=== PATIENT | female | born 1990 | race Caucasian/White ===

== ENCOUNTER 2018-03-02 17:11 | Emergency (ER) | payer BC ==
[2018-03-02] MEDS ORDERED: DEXAMETHASONE 10 MG/ML VIAL ONE (18:24)
[2018-03-02] MEDS ORDERED: MORPHINE 4 MG/ML SYR ONE (18:25)
[2018-03-02] MEDS ORDERED: ONDANSETRON 4 MG/2 ML VIAL ONE (18:25)
[2018-03-02] MEDS ORDERED: KETOROLAC 30 MG/ML INJ ONE (18:25)
--- NOTE | 2018-03-02 20:11 | EDPHYS ---
Physician Documentation [facility] Name: Zaira Zuniga Age: 27 yrs Sex: Female : 1990 Arrival Date: 03/02/2018 Time: 17:15 Bed 15 Private MD: ED Physician Rakan Lockwood HPI: 03/02 17:40 This 27 yrs old Female presents to ER via EMS with complaints of Back Injury. jmm 17:40 The patient presents with pain that is acute. Onset: The symptoms/episode jmm began/occurred acutely, just prior to arrival. The pain radiates to the right leg and left leg. Associated signs and symptoms: Pertinent negatives: dysuria, hematuria, incontinence, numbness, urinary retention, weakness. This is a 27 year old female with a history of scoliosis, endometriosis that presents to the ED with lower back pain. Patient states she was lifting her right leg and felt a pop while working in her garden. Complains of lower back pain which radiates down both legs. Denies fecal incontinence, numbness. . 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 - Social history:: Smoking status: Patient/guardian denies using tobacco. - Ebola Screening: : No symptoms or risks identified at this time. ROS: 17:40 Constitutional: Negative for fever, chills, and weight loss, Eyes: Negative for injury, jmm pain, redness, and discharge, Cardiovascular: Negative for chest pain, palpitations, and edema, Respiratory: Negative for shortness of breath, cough, wheezing, and pleuritic chest pain, Abdomen/GI: Negative for abdominal pain, nausea, vomiting, diarrhea, and constipation. 17:40 Back: Positive for pain with movement. 17:40 MS/extremity: Positive for pain. 17:40 All other systems are negative. Exam: 17:40 Head/Face: atraumatic. Eyes: EOMI, no conjunctival erythema appreciated ENT: Moist jmm Mucus Membranes Chest/axilla: Normal chest wall appearance and motion. Cardiovascular: Regular rate and rhythm. No edema appreciated Respiratory: Normal respirations, no respiratory distress appreciated Abdomen/GI: Non distended, soft 17:40 Constitutional: The patient appears in no acute distress, alert, awake. 17:40 Back: pain, that is moderate, of the lumbar area. 17:40 Musculoskeletal/extremity: pain on straight leg raise bilaterally, extensor hallucis longus intact bilaterally. . 17:40 Neuro: Orientation: is normal, Mentation: is normal, Memory: is normal. 17:40 Psych: Behavior/mood is pleasant, cooperative. Vital Signs: 17:17 Weight 80.74 kg (R); Height 5 ft. 0 in. (152.40 cm) (R); aa5 17:23 BP 123 / 81; Pulse 85; Resp 20; Temp 98.1(O); Pulse Ox 100% on R/A; Pain 10/10; em 18:40 BP 124 / 88; Pulse 81; Resp 16; Pulse Ox 100% on R/A; em 19:15 BP 115 / 79; Pulse 79; Resp 19 S; Temp 98.1(O); Pulse Ox 100% on R/A; Pain 0/10; cc3 20:10 BP 118 / 77; Pulse 75; Resp 17 S; Pulse Ox 99% on R/A; cc3 17:17 Body Mass Index 34.76 (80.74 kg, 152.40 cm) aa5 MDM: 17:40 Patient medically screened. [facility] 20:09 Data reviewed: vital signs, nurses notes. Counseling: I had a detailed discussion with sasha the patient and/or guardian regarding: the historical points, exam findings, and any diagnostic results supporting the discharge/admit diagnosis, the need for outpatient follow up, to return to the emergency department if symptoms worsen or persist or if there are any questions or concerns that arise at home. Response to treatment: the patient's symptoms have markedly improved after treatment. 03/02 18:17 Order name: Urine Dipstick--Ancillary (enter results); Complete Time: 20:24 bd 03/02 18:18 Order name: Urine --Ancillary (enter results); Complete Time: 20:24 bd 03/02 17:40 Order name: Lumbar Spine (3 Views) XRAY [facility] 03/02 17:40 Order name: Urine Dipstick-Ancillary (obtain specimen); Complete Time: 18:27 [facility] 03/02 17:40 Order name: Urine Test (obtain specimen); Complete Time: 18:27 [facility] Administered Medications: 18:16 Not Given (Other Intervention Used): Clements 10 mg-325 mg 1 tabs PO once aa5 18:16 Not Given (Other Intervention Used): Valium 5 mg PO once aa5 18:27 Drug: Zofran 4 mg Route: IVP; Site: right antecubital; aa5 19:15 Follow up: Response: No adverse reaction; Nausea is decreased cc3 18:28 Drug: Ketorolac 30 mg Route: IVP; Site: right antecubital; aa5 19:15 Follow up: Response: No adverse reaction; Pain is decreased cc3 18:31 Drug: morphine 4 mg Route: IVP; Site: right antecubital; aa5 19:15 Follow up: Response: No adverse reaction cc3 18:33 Drug: Decadron - Dexamethasone 10 mg Route: IVP; Site: right antecubital; aa5 19:15 Follow up: Response: No adverse reaction cc3 Disposition: 03/02/18 20:10 Discharged to Home. Impression: Sprain of ligaments of lumbar spine. - Condition is Stable. - Discharge Instructions: Back Pain, Adult. - Prescriptions for Ibuprofen 800 mg Oral Tablet - take 1 tablet by ORAL route every 8 hours As needed take with food; 30 tablet. Ultracet 37.5- 325 mg Oral Tablet - take 1 tablet by ORAL route every 6 hours - for up to 5 days; do not exceed 8 tablets per day.; 12 tablet. orphenadrine citrate 100 mg Oral Tablet Sustained Release - take 1 tablet by ORAL route 2 times per day As needed; 20 tablet. - Medication Reconciliation Form, Thank You Letter, Antibiotic Education, Prescription Opioid Use, Family Work Release form. - Follow up: Private Physician; When: 2 - 3 days; Reason: Recheck today's complaints, Continuance of care, Re-evaluation by your physician. Addendum: 03/10/2018 11:46 Co-signature as Attending Physician, Rakan Lockwood MD. g s Signatures: Dispatcher [employer] EDMS Kali Fraser PA PA jmm Calderon, Audri, RN RN aa5 Rakan Lockwood MD MD gs Cordel, Charlene cc3 Corrections: (The following items were deleted from the chart) 03/02 20:26 20:10 03/02/2018 20:10 Discharged to Home. Impression: Sprain of ligaments of lumbar cc3 spine. Condition is Stable. Forms are Medication Reconciliation Form, Thank You Letter, Antibiotic Education, Prescription Opioid Use. Follow up: Private Physician; When: 2 - 3 days; Reason: Recheck today's complaints, Continuance of care, Re-evaluation by your physician. sasha
--- NOTE | 2018-03-02 20:11 | ER ---
Nurse's Notes [facility] Name: Zaira Zuniga Age: 27 yrs Sex: Female : 1990 Arrival Date: 03/02/2018 Time: 17:15 Bed 15 Private MD: Diagnosis: Sprain of ligaments of lumbar spine Presentation: 03/02 17:15 Presenting complaint: Patient states: "I was kicking a shovel into the ground when I aa5 felt a pop on my back and I fell to the ground". Pt denies head injury, negative LOC. Pt c/o lower back pain. Transition of care: patient was not received from another setting of care. Onset of symptoms was March 02, 2018. Risk Assessment: Do you want to hurt yourself or someone else? Patient reports no desire to harm self or others. Initial Sepsis Screen: Does the patient meet any 2 criteria? No. Patient's initial sepsis screen is negative. Does the patient have a suspected source of infection? No. Patient's initial sepsis screen is negative. Care prior to arrival: None. 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 - Social history:: Smoking status: Patient/guardian denies using tobacco. - Ebola Screening: : No symptoms or risks identified at this time. Screenin:20 Abuse screen: Denies threats or abuse. Nutritional screening: No deficits noted. em Tuberculosis screening: No symptoms or risk factors identified. Fall Risk None identified. Assessment: 17:20 General: Appears in no apparent distress. uncomfortable, Behavior is cooperative, em crying. Pain: Complains of pain in lumbar area Pain currently is 10 out of 10 on a pain scale. Neuro: Level of Consciousness is awake, alert, obeys commands, Oriented to person, place, time, situation. Cardiovascular: Capillary refill < 3 seconds Patient's skin is warm and dry. Respiratory: Airway is patent Respiratory effort is even, unlabored, Respiratory pattern is regular, symmetrical. GI: Abdomen is round non-distended, Abd is soft and non tender X 4 quads. : No signs and/or symptoms were reported regarding the genitourinary system. EENT: No signs and/or symptoms were reported regarding the EENT system. Derm: Skin is intact, Skin is pink, warm \\T\\ dry. Musculoskeletal: Circulation, motion, and sensation intact. Capillary refill < 3 seconds, in bilateral toes. Range of motion: limited in left hip and right hip. 17:20 Reassessment: I agree with assessment completed by Azam Esqueda LVN. aa5 18:39 Reassessment: Patient appears in no apparent distress at this time. Patient and/or em family updated on plan of care and expected duration. Pain level reassessed. Patient is alert, oriented x 3, equal unlabored respirations, skin warm/dry/pink. 18:48 Reassessment: pt wheeled to CT via wheelchair, tolerated well. em 19:10 Reassessment: Patient appears in no apparent distress at this time. Patient and/or em family updated on plan of care and expected duration. Pain level reassessed. Patient is alert, oriented x 3, equal unlabored respirations, skin warm/dry/pink. rates pain 4/10 Patient states feeling better. 19:15 Reassessment: Patient appears in no apparent distress at this time. Patient and/or cc3 family updated on plan of care and expected duration. Pain level reassessed. Patient is alert, oriented x 3, equal unlabored respirations, skin warm/dry/pink. Received this female patient from morning shift RJ Nascimento as a case of low back injury; with IV cannula gauge 22 at the right ACV saline locked. 20:20 Reassessment: Patient appears in no apparent distress at this time. Patient and/or cc3 family updated on plan of care and expected duration. Pain level reassessed. Patient is alert, oriented x 3, equal unlabored respirations, skin warm/dry/pink. LARS Fraser discharged home the patient with prescription given. IV cannula removed and patient left ER vitally stable and ambulatory with her . Vital Signs: 17:17 Weight 80.74 kg (R); Height 5 ft. 0 in. (152.40 cm) (R); aa5 17:23 BP 123 / 81; Pulse 85; Resp 20; Temp 98.1(O); Pulse Ox 100% on R/A; Pain 10/10; em 18:40 BP 124 / 88; Pulse 81; Resp 16; Pulse Ox 100% on R/A; em 19:15 BP 115 / 79; Pulse 79; Resp 19 S; Temp 98.1(O); Pulse Ox 100% on R/A; Pain 0/10; cc3 20:10 BP 118 / 77; Pulse 75; Resp 17 S; Pulse Ox 99% on R/A; cc3 17:17 Body Mass Index 34.76 (80.74 kg, 152.40 cm) aa5 ED Course: 17:15 Patient arrived in ED. aa5 17:16 Triage completed. aa5 17:16 Arm band placed on. aa5 17:17 Kali Fraser PA is PHCP. m 17:17 Rakan Lockwood MD is Attending Physician. jmm 17:20 Patient has correct armband on for positive identification. Bed in low position. Call em light in reach. Side rails up X2. Adult w/ patient. 17:23 Azam Esqueda LVN is Primary Nurse. em 18:15 Urine collected: straight cath specimen, clear. 5 18:25 Inserted saline lock: 22 gauge in right antecubital area, using aseptic technique. em 18:53 Lumbar Spine (3 Views) XRAY In Process Unspecified. EDMS 20:20 No provider procedures requiring assistance completed. IV discontinued, intact, cc3 bleeding controlled, No redness/swelling at site. Pressure dressing applied. Administered Medications: 18:16 Not Given (Other Intervention Used): Hobbs 10 mg-325 mg 1 tabs PO once aa5 18:16 Not Given (Other Intervention Used): Valium 5 mg PO once aa5 18:27 Drug: Zofran 4 mg Route: IVP; Site: right antecubital; aa5 19:15 Follow up: Response: No adverse reaction; Nausea is decreased cc3 18:28 Drug: Ketorolac 30 mg Route: IVP; Site: right antecubital; aa5 19:15 Follow up: Response: No adverse reaction; Pain is decreased cc3 18:31 Drug: morphine 4 mg Route: IVP; Site: right antecubital; aa5 19:15 Follow up: Response: No adverse reaction cc3 18:33 Drug: Decadron - Dexamethasone 10 mg Route: IVP; Site: right antecubital; aa5 19:15 Follow up: Response: No adverse reaction cc3 Outcome: 20:10 Discharge ordered by . sasha 20:20 Discharged to home ambulatory, with family. cc3 20:20 Condition: stable 20:20 Discharge instructions given to patient, family, Instructed on discharge instructions, follow up and referral plans. medication usage, Demonstrated understanding of instructions, follow-up care, medications, Prescriptions given X 3. 20:26 Patient left the ED. cc3 Signatures: Dispatcher [employer] EDMS Kali Fraser PA PA jmm Munoz, Edgar, TECHNICAL SUPPORT 1 SOFTWARE ENGINEER TECHNICAL SUPPORT 1 SOFTWARE ENGINEER Pennie Whitlock, RN RN Aurelia Amaya Milvia Carrillo cc3
[2018-03-02 20:18] LABS: Urine Blood TRACE (NEG); Urine Glucose NEGATIVE (NEG); Urine Protein 1+ (NEG)
[2018-03-02 20:44] VITALS: TEMP 98.1; O2SAT 100
[2018-03-02 20:45] VITALS: BP 124/88
--- NOTE | 2018-03-02 20:47 | RAD REPORT ---
EXAM DESCRIPTION: RAD - Lumbar Spine 3 Views - 03/02/2018 6:56 pm CLINICAL HISTORY: Back pain following trauma COMPARISON: None. FINDINGS: A three-view lumbar spine examination was performed. Lumbar bodies are normal in height an d alignment. No fracture or acute bony process seen. No disc space narrowing. No other significant fi ndings. No pars defects identified. IMPRESSION: Negative Lumbar Spine examination. Concerns for disc herniation, occult bone process or central canal abnormality can be addressed with MR imaging.
== END 2018-03-02 20:26 | disposition home or self-care (01) ==
LOC: ER 17:11
DX: S33.5XXA Sprain of ligaments of lumbar spine, initial encounter (principal); Y93.H2 Activity, gardening and landscaping; Y92.007 Garden or yard of unspecified non-institutional (private) residence as the place of occurrence of the external cause; Z91.040 Latex allergy status
CPT/HCPCS: 72100; 81003; 81025; 96374; 96375; 99284; J1100; J2405

== ENCOUNTER 2018-07-23 11:26 | Emergency (ER) | payer BC ==
[2018-07-23 12:47] LABS: Absolute Lymphocytes (CBC) 1.1 K/uL (0.7-4.9); Absolute Monocytes 0.5 K/uL (0.1-1.3); Absolute Neutrophil 2.4 K/uL (1.8-8.0); Basophils % 0.4 % (0-1.3); Hematocrit 36.9 % (36.0-45.0); Lymphocytes % 26.7 % (15.3-44.8); MPV 9.4 fL (7.6-11.3); Monocytes % 11.8 % (3.3-12.3); RBC Red Blood Cell Count 4.05 M/uL (3.86-4.86)
[2018-07-23 13:04] LABS: BUN Blood Urea Nitrogen 10 mg/dL (7-18); Bicarbonate 27 mmol/L (21-32); Glucose Level 81 mg/dL (74-106); HCG, Quantitative 18 mIU/mL (1-3); Potassium 3.8 mmol/L (3.5-5.1); Sodium Level 142 mmol/L (136-145)
--- NOTE | 2018-07-23 13:28 | EDPHYS ---
Physician Documentation [facility] Name: Zaira Zuniga Age: 27 yrs Sex: Female : 1990 Arrival Date: 07/23/2018 Time: 11:30 Bed 19 Private MD: None, None ED Physician Alec Sifuentes HPI: 07/23 13:04 This 27 yrs old Female presents to ER via Ambulatory with complaints of snw Vaginal Bleeding, + Preg <12wks. 13:04 The patient presents with vaginal bleeding that is moderate, heavy. Onset: The snw symptoms/episode began/occurred suddenly, 2 day(s) ago, and became persistent. Modifying factors: The symptoms are alleviated by nothing. Associated signs and symptoms: Pertinent positives: vaginal bleeding. Severity of symptoms: At their worst the symptoms were moderate. The patient's method of control includes nothing. It is unknown whether or not the patient has had similar symptoms in the past. Sees Dr. Robles in ED. 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 - Social history:: Smoking status: Patient/guardian denies using tobacco. - Ebola Screening: : Patient denies exposure to infectious person Patient denies travel to an Ebola-affected area in the 21 days before illness onset. ROS: 13:04 Constitutional: Negative for fever, chills, and weight loss, Eyes: Negative for injury, snw pain, redness, and discharge, ENT: Negative for injury, pain, and discharge, Neck: Negative for injury, pain, and swelling, Cardiovascular: Negative for chest pain, palpitations, and edema, Respiratory: Negative for shortness of breath, cough, wheezing, and pleuritic chest pain, Abdomen/GI: Negative for abdominal pain, nausea, vomiting, diarrhea, and constipation, Back: Negative for injury and pain, MS/Extremity: Negative for injury and deformity, Skin: Negative for injury, rash, and discoloration, Neuro: Negative for headache, weakness, numbness, tingling, and seizure. 13:04 : Positive for vaginal bleeding. Exam: 13:17 Special observations: Dr. Robles evaluated and re-assessed pt in ED. No PE per this sn provider. Vital Signs: 12:14 BP 131 / 94; Pulse 94; Resp 16; Temp 98.4(O); Pulse Ox 99% on R/A; Weight 83.46 kg; ss Height 5 ft. 0 in. (152.40 cm); Pain 4/10; 13:13 Pulse 80; Resp 15; Pulse Ox 100% on R/A; ss 13:38 BP 108 / 80; ss 12:14 Body Mass Index 35.93 (83.46 kg, 152.40 cm) ss MDM: 11:57 Patient medically screened. [facility] 11:57 Data reviewed: vital signs, nurses notes. Data interpreted:. Physician consultation: adri Robles MD in the emergency department to see patient at 11:57. 07/23 11:50 Order name: Quantitative Hcg; Complete Time: 13:06 snw 07/23 11:50 Order name: Abo/rh Typing; Complete Time: 18:20 snw 07/23 11:50 Order name: Basic Metabolic Panel; Complete Time: 13:06 snw 07/23 11:50 Order name: CBC with Diff; Complete Time: 12:56 snw 07/23 12:57 Order name: Urine Dipstick--Ancillary (enter results); Complete Time: 18:20 bd 07/23 12:58 Order name: Urine --Ancillary (enter results); Complete Time: 18:20 bd 07/23 11:50 Order name: Urine Test (obtain specimen); Complete Time: 13:06 snw 07/23 11:50 Order name: IV Saline Lock; Complete Time: 13:06 snw 07/23 11:50 Order name: Labs collected and sent; Complete Time: 13:06 snw 07/23 11:50 Order name: NPO; Complete Time: 12:28 snw 07/23 11:50 Order name: Urine Dipstick-Ancillary (obtain specimen); Complete Time: 13:07 snw 07/23 12:43 Order name: Labs - recollect needed; Complete Time: 13:07 bd Administered Medications: No medications were administered Disposition: 07/24 08:03 Co-signature as Attending Physician, Alec Sifuentes MD I agree with the assessment and dena plan of care. Disposition: 07/23/18 13:28 Discharged to Home. Impression: Threatened . - Condition is Stable. - Discharge Instructions: Threatened Miscarriage, Pelvic Rest. - Prescriptions for Vitamin 27- 0.8 mg Oral Tablet - take 1 tablet by ORAL route once daily; 60 tablet. - Medication Reconciliation Form, Thank You Letter, Antibiotic Education, Prescription Opioid Use, Family Work Release form. - Follow up: Xavier Robles MD; When: as directed; Reason: Recheck today's complaints, Continuance of care, Re-evaluation by your physician. Signatures: Dispatcher [employer] EDMS Colleen Esparza Corey, MD MD cha Therrien, Shelly, [employer] ARCHITECT-C [employer] ARCHITECT-Csnw Eladia Bar RN RN ss Corrections: (The following items were deleted from the chart) 07/23 13:39 13:28 07/23/2018 13:28 Discharged to Home. Impression: Threatened . Condition ss is Stable. Forms are Medication Reconciliation Form, Thank You Letter, Antibiotic Education, Prescription Opioid Use. Follow up: Xavier Robles; When: as directed; Reason: Recheck today's complaints, Continuance of care, Re-evaluation by your physician. snw
--- NOTE | 2018-07-23 13:28 | ER ---
Nurse's Notes [facility] Name: Zaira Zuniga Age: 27 yrs Sex: Female : 1990 Arrival Date: 07/23/2018 Time: 11:30 Bed 19 Private MD: None, None Diagnosis: Threatened Presentation: 07/23 12:09 Presenting complaint: Patient states: Heavy vaginal bleeding and lower abd cramping ss that began last night. Pt reports a "faint" positive home UPT on July 08. Transition of care: patient was not received from another setting of care. Onset of symptoms was July 22, 2018. Risk Assessment: Do you want to hurt yourself or someone else? Patient reports no desire to harm self or others. Initial Sepsis Screen: Does the patient meet any 2 criteria? No. Patient's initial sepsis screen is negative. Does the patient have a suspected source of infection? No. Patient's initial sepsis screen is negative. Care prior to arrival: None. 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 - Social history:: Smoking status: Patient/guardian denies using tobacco. - Ebola Screening: : Patient denies exposure to infectious person Patient denies travel to an Ebola-affected area in the 21 days before illness onset. Screenin:13 Abuse screen: Denies threats or abuse. Denies injuries from another. Nutritional ss screening: No deficits noted. Tuberculosis screening: Never had TB. Fall Risk None identified. Assessment: 11:45 General: Appears in no apparent distress. comfortable, Behavior is calm, cooperative, ss Denies fever, feeling ill, fatigue, chills. Pain: Complains of pain in suprapubic area, right lower quadrant and left lower quadrant Pain currently is 4 out of 10 on a pain scale. Quality of pain is described as crampy, Pain began "last night" Is intermittent. Neuro: Level of Consciousness is awake, alert, obeys commands, Oriented to person, place, time, situation. Cardiovascular: Heart tones S1 S2 present Capillary refill < 3 seconds is brisk in bilateral fingers Patient's skin is warm and dry. Respiratory: Airway is patent Respiratory effort is even, unlabored, Respiratory pattern is regular, symmetrical. GI: Reports cramping, nausea. : Reports vaginal bleeding that is with clots, heavy flow since yesterday evening. EENT: Nares are clear Oral mucosa is moist. Throat is clear. Derm: Skin is intact, is healthy with good turgor, Skin is dry, Skin is pink, warm \\T\\ dry. normal. 13:13 Reassessment: Dr. Sanchez and Maylin King NP at bedside with patient and spouse ss discussing plan of care and test results. Vital Signs: 12:14 BP 131 / 94; Pulse 94; Resp 16; Temp 98.4(O); Pulse Ox 99% on R/A; Weight 83.46 kg; ss Height 5 ft. 0 in. (152.40 cm); Pain 4/10; 13:13 Pulse 80; Resp 15; Pulse Ox 100% on R/A; ss 13:38 BP 108 / 80; ss 12:14 Body Mass Index 35.93 (83.46 kg, 152.40 cm) ss ED Course: 11:30 Patient arrived in ED. mr 11:30 None, None is Private Physician. mr 11:51 Maylin King, BENNY-Yordy is [facility]. snw 11:51 Alec Sifuentes MD is Attending Physician. snw 12:09 Eladia Bar, RADHA is Primary Nurse. ss 12:11 Triage completed. ss 12:14 Arm band placed on right wrist. ss 12:30 Inserted saline lock: 20 gauge in right antecubital area, using aseptic technique. ss Blood collected. 13:13 Patient has correct armband on for positive identification. Bed in low position. Call ss light in reach. 13:15 No provider procedures requiring assistance completed. ss 13:27 Xavier Robles MD is Referral Physician. snw 13:37 IV discontinued, intact, bleeding controlled, No redness/swelling at site. Pressure ss dressing applied. 13:38 Alec Sifuentes MD is Attending Physician. dena Administered Medications: No medications were administered Outcome: 13:28 Discharge ordered by . snw 13:37 Discharged to home ambulatory, with family. ss 13:37 Condition: good 13:37 Discharge instructions given to patient, family, significant other, Instructed on discharge instructions, follow up and referral plans. medication usage, Demonstrated understanding of instructions, follow-up care, medications, Prescriptions given X 1. 13:39 Patient left the ED. ss Signatures: Alec Sifuentes MD MD cha Therrien, Shelly, HOME HEALTH CARE PROVIDER-C HOME HEALTH CARE PROVIDER-Csnw Rabia Mina mr Eladia Bar, RN RN ss
[2018-07-23 13:44] VITALS: TEMP 98.4
[2018-07-23 13:45] VITALS: O2SAT 100
[2018-07-23 13:46] VITALS: BP 108/80
[2018-07-23 14:13] LABS: Urine Blood 3+ (NEG); Urine Glucose NEGATIVE (NEG); Urine Protein 2+ (NEG)
--- NOTE | 2018-07-23 17:19 | CON ---
History Of Present Illness: Ms. Zuniga is 27-year-old female, 3, para 2-0 -0-2, whose last menstrual period started in early June. She had a positive test in july. She has had some cramping beginning yesterday and bleeding last night. She had been sche duled for new OB visit through my office this afternoon, but called this morning complaining of bleed ing, was directed to come to the emergency room for evaluation. She gives a history of some irregula r periods but then her test had been weak. She was seen last week for an upper respiratory infection, some nausea and vomiting and diarrhea through Dr. Edmonds's office and her urine pregnan cy test was also very weak at that time. So she was suspicious something might be going on. She sta rted bleeding and cramping today. Past Medical History: Includes 2 vaginal deliveries without complications. No other hospitalization s, accidents, illnesses, injuries. Medications: She is on no medications other than vitamins. Allergies: SHE HAS NO KNOWN ALLERGIES. Social History: She does not smoke. Family History: Noncontributory. Review of Systems: She has had only mild nausea. She denies severe cough or cold. She denies any breast knots or lumps . She denies any severe abdominal pain. Typically her periods are regular and pretty heavy and this is almost bleeding. Physical Examination: General: Reveals female in no apparent distress. Neck: Supple without adenopathy or thyromegaly. Lungs: Clear. Cardiac: Regular rate and rhythm without murmurs. Breasts: Not examined. Abdomen: Nontender without organosplenomegaly. Pelvic: Not performed. Extremities: No cyanosis, clubbing, or edema. Quantitative HCG is only 18, so this probably represents an inevitable/incomplete AB. We will treat with Cytotec over the next 24 hours. By history, she is Rh positive blood type. Will be seen back i n my office in 1 week for followup. Precautions are given. EDUAR/MATTEO Voice ID: [id number] Report ID: [id number]
== END 2018-07-23 13:39 | disposition home or self-care (01) ==
LOC: ER 11:26
DX: O20.0 Threatened abortion (principal)
CPT/HCPCS: 36415; 80048; 81003; 81025; 84702; 85025; 86900; 86901; 99283

== ENCOUNTER 2018-09-22 19:22 | Emergency (ER) | payer BC, OTHER ==
--- OUTSIDE RECORDS SUMMARY | 2018-09-22 19:24 | XMS REPORT ---
:1990 [facility] Address [address] Pérez [address] [place] [id number] Care Team Providers Name Role Phone Unavailable Unavailable Unavailable Problems This patient has no known problems. Allergies, Adverse Reactions, Alerts This patient has no known allergies or adverse reactions. Medications This patient has no known medications.
--- OUTSIDE RECORDS SUMMARY | 2018-09-22 19:24 | XMS REPORT ---
:1990 Author Organization [employer] Care Team Providers Name Role Phone Dennis Barrera Provider Role Unavailable Allergies No Known Allergies Problems Problem Type Condition Code Onset Dates Condition Status Problem MVP (mitral valve prolapse) I34.1 Active Problem Endometriosis N80.9 Active Problem History of gestational diabetes Z86.32 Active Problem PCOS (polycystic ovarian syndrome) E28.2 Active Problem Environmental allergies Z91.09 Active Problem Gastroesophageal reflux disease K21.9 Active without esophagitis Problem Body mass index (BMI) of 33.0-33.9 Z68.33 Active in adult Problem Maxillary sinusitis, unspecified J32.0 Active chronicity Medications No Known Medications Results No Known Results Summary Purpose [employer] Submission
[2018-09-22 20:33] LABS: Urine Blood NEGATIVE (NEG); Urine Glucose NEGATIVE (NEG); Urine Protein 1+ (NEG); Urine Specific Gravity 1.025 (1.005-1.030)
[2018-09-22 20:46] LABS: Urine Bacteria <20 /HPF (<20); Urine Culture Reflex Order NOT NEEDED; Urine RBC NONE SEEN /HPF (NONE SEEN)
[2018-09-22 20:47] LABS: Absolute Lymphocytes (CBC) 2.2 K/uL (0.7-4.9); Absolute Monocytes 0.7 K/uL (0.1-1.3); Absolute Neutrophil 5.4 K/uL (1.8-8.0); Eosinophils % 1.6 % (0-4.4); Hematocrit 34.3 % (36.0-45.0); MPV 8.8 fL (7.6-11.3); Monocytes % 7.9 % (3.3-12.3); RBC Red Blood Cell Count 3.77 M/uL (3.86-4.86)
[2018-09-22 21:21] LABS: ALT/SGPT 27 U/L (12-78); AST/SGOT 15 U/L (15-37); Albumin 3.4 g/dL (3.4-5.0); Alkaline Phosphatase 50 U/L (45-117); BUN Blood Urea Nitrogen 8 mg/dL (7-18); Bicarbonate 25 mmol/L (21-32); Bilirubin Direct < 0.1 mg/dL (0-0.2); Bilirubin Total 0.2 mg/dL (0.2-1.0); Glucose Level 92 mg/dL (74-106); HCG, Quantitative 64755 mIU/mL (1-3); Lipase 102 U/L (73-393); Potassium 3.5 mmol/L (3.5-5.1); Protein, Total 6.8 g/dL (6.4-8.2); Sodium Level 140 mmol/L (136-145)
[2018-09-22] MEDS ORDERED: ACETAMINOPHEN 500 MG TAB ONE (22:16)
[2018-09-22] MEDS ORDERED: NA CHLORIDE 0.9% 500 ML ONE (22:16)
[2018-09-22] MEDS ORDERED: ONDANSETRON 4 MG/2 ML VIAL ONE (22:16)
--- NOTE | 2018-09-22 22:55 | RAD REPORT ---
EXAM DESCRIPTION: US - Transvaginal OB - 09/22/2018 9:03 pm CLINICAL HISTORY: ABD PAIN COMPARISON: Transvaginal OB dated 09/01/2018 FINDINGS: A single gestational sac is seen within the uterus. The shape of the sac is within normal limits for gestational age. Within the sac is a single pole with crown-rump length of 18 mm, co rrelating to estimated gestational age of 8 weeks 2 days. Estimated date of delivery is 05/02/2019. Heart rate is 171 BPM. The placenta is not yet developed due to early gestational age. The maternal adnexa and ovaries are within normal limits. Normal Doppler blood flow was demonstrated to both ovaries. IMPRESSION: Single live early intrauterine gestation with estimated gestational age of 8 weeks 2 day s, NAY 05/02/2019. No unusual or unexpected finding.
--- NOTE | 2018-09-22 23:02 | ER ---
Nurse's Notes [facility] Name: Zaira Zuniga Age: 28 yrs Sex: Female : 1990 Arrival Date: 09/22/2018 Time: 19:27 Bed 16 Private MD: Brianne Omalley Diagnosis: related conditions, unspecified, first trimester;Nausea;Lower abdominal pain, unspecified;Low back pain Presentation: 09/22 19:34 Presenting complaint: Patient states: I have pain on my right side that has been moving ed1 around to my pelvic area. I also have not been able to keep any food down. Transition of care: patient was not received from another setting of care. Onset of symptoms was September 22, 2018. Risk Assessment: Do you want to hurt yourself or someone else? Patient reports no desire to harm self or others. Initial Sepsis Screen: Does the patient meet any 2 criteria? No. Patient's initial sepsis screen is negative. Does the patient have a suspected source of infection? No. Patient's initial sepsis screen is negative. Care prior to arrival: None. 19:34 Method Of Arrival: Ambulatory ed1 19:34 Acuity: MACK 3 ed1 Triage Assessment: 19:36 General: Appears in no apparent distress. Behavior is calm, cooperative. Pain: ed1 Complains of pain in right low back Pain radiates to suprapubic area and right lower quadrant Pain currently is 6 out of 10 on a pain scale. Quality of pain is described as sharp. 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 - Social history:: Smoking status: Patient/guardian denies using tobacco. - Ebola Screening: : Patient denies travel to an Ebola-affected area in the 21 days before illness onset No symptoms or risks identified at this time. Screenin:40 Abuse screen: Denies threats or abuse. Nutritional screening: No deficits noted. jb4 Tuberculosis screening: No symptoms or risk factors identified. Fall Risk IV access (20 points). Total Alonso Fall Scale indicates No Risk (0-24 pts). Assessment: 19:40 General: Appears in no apparent distress. comfortable, Behavior is calm, cooperative, jb4 appropriate for age. Pain: Complains of pain in right low back Pain radiates to suprapubic area Pain currently is 6 out of 10 on a pain scale. Quality of pain is described as sharp. Neuro: Level of Consciousness is awake, alert, obeys commands, Oriented to person, place, time, situation. Cardiovascular: Patient's skin is warm and dry. Respiratory: Airway is patent Respiratory effort is even, unlabored, Respiratory pattern is regular, symmetrical. GI: No signs and/or symptoms were reported involving the gastrointestinal system. : No signs and/or symptoms were reported regarding the genitourinary system. EENT: No signs and/or symptoms were reported regarding the EENT system. Derm: Skin is intact, Skin is pink, warm \T\ dry. Musculoskeletal: Circulation, motion, and sensation intact. 20:40 Reassessment: Patient appears in no apparent distress at this time. Patient and/or jb4 family updated on plan of care and expected duration. Pain level reassessed. Patient is alert, oriented x 3, equal unlabored respirations, skin warm/dry/pink. 21:40 Reassessment: Patient appears in no apparent distress at this time. Patient and/or jb4 family updated on plan of care and expected duration. Pain level reassessed. Patient is alert, oriented x 3, equal unlabored respirations, skin warm/dry/pink. 22:15 Reassessment: Patient appears in no apparent distress at this time. Patient and/or jb4 family updated on plan of care and expected duration. Pain level reassessed. Patient is alert, oriented x 3, equal unlabored respirations, skin warm/dry/pink. 23:15 Reassessment: Patient appears in no apparent distress at this time. Patient and/or jb4 family updated on plan of care and expected duration. Pain level reassessed. Patient is alert, oriented x 3, equal unlabored respirations, skin warm/dry/pink. PT discharged ambulatory with steady gait. left ED with significant other, verbalized understanding of d/c and follow up instructions. Vital Signs: 19:36 BP 120 / 84; Pulse 80; Resp 18; Temp 98(TE); Pulse Ox 100% on R/A; Weight 83.46 kg (R); ed1 Height 5 ft. 0 in. (152.40 cm); Pain 6/10; 20:30 BP 100 / 78; Pulse 77; Resp 16; Pulse Ox 100% on R/A; jb4 21:46 BP 106 / 66; Pulse 74; Resp 16; Pulse Ox 100% on R/A; jb4 22:45 BP 124 / 76; Pulse 82; Resp 16; Pulse Ox 98% on R/A; jb4 19:36 Body Mass Index 35.93 (83.46 kg, 152.40 cm) ed1 ED Course: 19:27 Patient arrived in ED. am2 19:27 Brianne Omalley is Private Physician. am2 19:35 Triage completed. ed1 19:36 Arm band placed on. ed1 19:39 Alec Medeiros PA is PHCP. cp 19:39 Alec Sifuentes MD is Attending Physician. cp 19:40 Patient has correct armband on for positive identification. Placed in gown. Bed in low jb4 position. Call light in reach. Side rails up X 1. Pulse ox on. NIBP on. 20:25 Sandip Rebollar, RN is Primary Nurse. jb4 20:35 Inserted saline lock: 20 gauge in left antecubital area, using aseptic technique. Blood jb4 collected. 21:03 US Transvaginal Ob In Process Unspecified. EDMS 23:15 No provider procedures requiring assistance completed. IV discontinued, intact, jb4 bleeding controlled. Administered Medications: 22:10 Drug: Zofran 4 mg Route: IVP; Site: left antecubital; jb4 23:17 Follow up: Response: No adverse reaction; Nausea is decreased jb4 22:12 Drug: Tylenol 1000 mg Route: PO; jb4 22:55 Follow up: Response: No adverse reaction; Pain is decreased jb4 22:12 Drug: NS 0.9% 500 ml Route: IV; Rate: bolus; Site: left antecubital; jb4 23:00 Follow up: Response: No adverse reaction; IV Status: Completed infusion; IV Intake: jb4 500ml 22:12 CANCELLED (Duplicate Order): Zofran 2 mg IVP once; over 2 minutes jb4 Intake: 23:00 IV: 500ml; Total: 500ml. jb4 Outcome: 23:01 Discharge ordered by . cp 23:15 Discharged to home ambulatory, with significant other. jb4 23:15 Condition: stable 23:15 Discharge instructions given to patient, significant other, Instructed on discharge instructions, follow up and referral plans. medication usage, Demonstrated understanding of instructions, follow-up care, medications, Prescriptions given X 2. 23:36 Patient left the ED. jb4 Signatures: Dispatcher [employer] EDYecenia Blandon RN RN ed1 Alec Medeiros PA PA cp Bryson, James RN RN jb4 Florencia Carpenter am2 Corrections: (The following items were deleted from the chart) 23:36 22:45 No provider procedures requiring assistance completed. jb4 jb4 23:36 22:45 IV discontinued, intact, bleeding controlled, jb4 jb4
--- NOTE | 2018-09-22 23:02 | EDPHYS ---
Physician Documentation [facility] Name: Zaira Zuniga Age: 28 yrs Sex: Female : 1990 Arrival Date: 09/22/2018 Time: 19:27 Bed 16 Private MD: Brianne Omalley ED Physician Alec Sifuentes HPI: 09/22 20:20 This 28 yrs old Female presents to ER via Ambulatory with complaints of Flank cp Pain - radiating to pelvis, 9 wks preg. 20:20 The patient presents with abdominal pain right lower quadrant. Onset: The cp symptoms/episode began/occurred today. The pain radiates to the right low back and suprapubic area. Modifying factors: the symptoms are aggravated by palpation/percussion. Associated signs and symptoms: Pertinent positives: nausea, vomiting, Pertinent negatives: diarrhea, dysuria, fever, pain radiating to the lower extremities, vaginal bleeding, vaginal discharge, leakage of fluids. The symptoms are described as sharp. 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 - Social history:: Smoking status: Patient/guardian denies using tobacco. - Ebola Screening: : Patient denies travel to an Ebola-affected area in the 21 days before illness onset No symptoms or risks identified at this time. ROS: 20:30 Constitutional: Negative for body aches, chills, fever, poor PO intake. cp 20:30 Eyes: Negative for injury, pain, redness, and discharge. cp 20:30 ENT: Negative for drainage from ear(s), ear pain, sore throat, difficulty swallowing, difficulty handling secretions. 20:30 Cardiovascular: Negative for chest pain. 20:30 Respiratory: Negative for cough, shortness of breath, wheezing. 20:30 Abdomen/GI: Positive for abdominal pain, nausea, vomiting, of the right lower quadrant and suprapubic area, Negative for diarrhea, constipation, anorexia, black/tarry stool, rectal bleeding. 20:30 Back: Positive for flank pain, on the right, radiated pain, Negative for injury or acute deformity, decreased range of motion. 20:30 : Negative for urinary symptoms, difficulty urinating, vaginal bleeding, vaginal discharge. 20:30 Skin: Negative for rash. 20:30 Neuro: Negative for dizziness, headache, weakness. 20:30 All other systems are negative. Exam: 20:35 Constitutional: The patient appears in no acute distress, alert, awake, comfortable, cp well developed, well nourished. 20:35 Head/Face: Normocephalic, atraumatic. cp 20:35 Eyes: Periorbital structures: appear normal, Conjunctiva: normal, no exudate, no injection, Sclera: no appreciated abnormality, Lids and lashes: appear normal, bilaterally. 20:35 ENT: External ear(s): are unremarkable, Nose: is normal, Mouth: Lips: moist, Oral mucosa: pink and intact, moist, Posterior pharynx: is normal, airway is patent, no erythema, no exudate. 20:35 Chest/axilla: Inspection: normal, Palpation: is normal, no crepitus, no tenderness. 20:35 Cardiovascular: Rate: normal, Rhythm: regular. 20:35 Respiratory: the patient does not display signs of respiratory distress, Respirations: normal, no use of accessory muscles, no retractions, no splinting, no tachypnea, labored breathing, is not present, Breath sounds: are clear throughout, no decreased breath sounds, no stridor, no wheezing. 20:35 Abdomen/GI: Inspection: abdomen appears normal, Bowel sounds: active, all quadrants, Palpation: soft, in all quadrants, mild abdominal tenderness, in the suprapubic area and right lower quadrant, rebound tenderness, is not appreciated, voluntary guarding, is not appreciated, involuntary guarding, is not appreciated. 20:35 Back: pain, that is mild, of the right low back, ROM is normal, CVA tenderness, is absent. 20:35 Skin: no rash present. Vital Signs: 19:36 BP 120 / 84; Pulse 80; Resp 18; Temp 98(TE); Pulse Ox 100% on R/A; Weight 83.46 kg (R); ed1 Height 5 ft. 0 in. (152.40 cm); Pain 6/10; 20:30 BP 100 / 78; Pulse 77; Resp 16; Pulse Ox 100% on R/A; jb4 21:46 BP 106 / 66; Pulse 74; Resp 16; Pulse Ox 100% on R/A; jb4 22:45 BP 124 / 76; Pulse 82; Resp 16; Pulse Ox 98% on R/A; jb4 19:36 Body Mass Index 35.93 (83.46 kg, 152.40 cm) ed1 MDM: 19:41 Patient medically screened. cp 20:00 Differential diagnosis: UTI, appendicitis, Ectopic . cp 23:00 Data reviewed: vital signs, nurses notes, lab test result(s), radiologic studies, cp ultrasound, and as a result, I will discharge patient. 23:00 Counseling: I had a detailed discussion with the patient and/or guardian regarding: the cp historical points, exam findings, and any diagnostic results supporting the discharge/admit diagnosis, lab results, radiology results, the need for outpatient follow up, an OB/Gyne specialist, to return to the emergency department if symptoms worsen or persist or if there are any questions or concerns that arise at home. Response to treatment: the patient's symptoms have markedly improved after treatment. Special discussion: Based on the patient's Hx, exam, and Dx evaluation, there is no indication for emergent surgery or inpatient Tx. It is understood by the patient/guardian that if the Sx's persist or worsen they need to return immediately for re-evaluation. ED course: VSS. Nausea and pain markedly improved. No vomiting observed while in ED. Labs reviewed and WBC count normal. US shows single viable IUP. Low suspicion for acute appendicitis. Will discharge to home for continued monitoring. 09/22 19:40 Order name: Urine Microscopic Only; Complete Time: 21:13 cp 09/22 21:43 Interpretation: Normal except: SQEPI 5-10. cp 09/22 20:18 Order name: Quantitative Hcg cp 09/22 20:18 Order name: Abo/rh Typing cp 09/22 20:18 Order name: Basic Metabolic Panel; Complete Time: 21:43 cp 09/22 21:43 Interpretation: Normal except: CL 108. cp 09/22 20:18 Order name: CBC with Diff; Complete Time: 21:13 cp 05 21:14 Interpretation: Normal except: RBC 3.77; HGB 11.7; HCT 34.3. cp 09/22 20:18 Order name: Hepatic Function; Complete Time: 21:43 cp 20 22:59 Interpretation: Reviewed. cp 09/22 20:18 Order name: Lipase; Complete Time: 21:43 cp 09/22 20:18 Order name: US Transvaginal Ob; Complete Time: 22:59 cp 09/22 22:59 Interpretation: Report reviewed. cp 09/22 20:18 Order name: HCG, Quantitative; Complete Time: 21:43 EDMS 09/22 21:43 Interpretation: Reviewed. cp 09/22 20:18 Order name: ABO/RH typing; Complete Time: 21:13 EDMS 09/22 20:27 Order name: Urine Dipstick--Ancillary (enter results); Complete Time: 21:13 mw2 09/22 20:27 Order name: Urine --Ancillary (enter results); Complete Time: 21:13 mw2 09/22 19:40 Order name: Urine Dipstick-Ancillary (obtain specimen); Complete Time: 20:25 cp 20 19:40 Order name: Urine Test (obtain specimen); Complete Time: 20:25 cp 20 20:18 Order name: IV Saline Lock; Complete Time: 20:40 cp 09/22 20:18 Order name: Labs collected and sent; Complete Time: 20:40 cp 09/22 20:18 Order name: NPO; Complete Time: 20:25 cp 09/22 23:00 Order name: PO challenge; Complete Time: 23:08 cp Administered Medications: 22:10 Drug: Zofran 4 mg Route: IVP; Site: left antecubital; jb4 23:17 Follow up: Response: No adverse reaction; Nausea is decreased jb4 22:12 Drug: Tylenol 1000 mg Route: PO; jb4 22:55 Follow up: Response: No adverse reaction; Pain is decreased jb4 22:12 Drug: NS 0.9% 500 ml Route: IV; Rate: bolus; Site: left antecubital; jb4 23:00 Follow up: Response: No adverse reaction; IV Status: Completed infusion; IV Intake: jb4 500ml 22:12 CANCELLED (Duplicate Order): Zofran 2 mg IVP once; over 2 minutes jb4 Disposition: 09/23 06:31 Co-signature as Attending Physician, Alec Sifuentes MD I agree with the assessment and [facility] plan of care. Disposition: 09/22/18 23:01 Discharged to Home. Impression: related conditions, unspecified, first trimester, Nausea, Lower abdominal pain, unspecified, Low back pain. - Condition is Stable. - Discharge Instructions: Abdominal Pain During , Back Pain in , Back Exercises, [id number]. - Prescriptions for Phenergan 25 mg Rectal Suppository - insert 1 suppository by RECTAL route every 6 hours As needed; 12 suppository. promethazine 25 mg Oral Tablet - take 1 tablet by ORAL route every 6 hours As needed; 20 tablet. - Medication Reconciliation Form, Thank You Letter, Antibiotic Education, Prescription Opioid Use form. - Follow up: Private Physician; When: 1 - 2 days; Reason: Recheck today's complaints. - Problem is new. - Symptoms have improved. Signatures: Dispatcher [employer] EDNM Alec Sifuentes MD MD cha Riggs, Erika, RN RN ed1 Alec Medeiros PA PA Sandip Lee, RN RN jb4 Corrections: (The following items were deleted from the chart) 09/22 22:12 22:11 Zofran 2 mg IVP once; over 2 minutes ordered. jb4 jb4 23:36 23:01 09/22/2018 23:01 Discharged to Home. Impression: related conditions, jb4 unspecified, first trimester; Nausea; Lower abdominal pain, unspecified; Low back pain. Condition is Stable. Forms are Medication Reconciliation Form, Thank You Letter, Antibiotic Education, Prescription Opioid Use. Follow up: Private Physician; When: 1 - 2 days; Reason: Recheck today's complaints. Problem is new. Symptoms have improved. cp 09/23 18:34 09/22 18:35 Constitutional: The patient appears in no acute distress, alert, awake, cp comfortable, non-toxic, well developed, well nourished, cp 09/23 18:34 09/22 18:35 Head/Face: Normocephalic, atraumatic. cp cp 09/23 18:34 09/22 18:35 Eyes: Periorbital structures: appear normal, Conjunctiva: normal, no cp exudate, no injection, Sclera: no appreciated abnormality, Lids and lashes: appear normal, bilaterally, cp 09/23 18:34 /20 18:35 ENT: External ear(s): are unremarkable, Nose: is normal, Mouth: Lips: cp moist, Oral mucosa: pink and intact, moist, Posterior pharynx: is normal, airway is patent, no erythema, no exudate, cp 09/23 18:34 09/22 18:35 Chest/axilla: Inspection: normal, Palpation: is normal, no crepitus, no cp tenderness, cp 09/23 18:34 / 18:35 Cardiovascular: Rate: normal, Rhythm: regular, cp cp 09/23 18:34 / 18:35 Respiratory: the patient does not display signs of respiratory distress, cp Respirations: normal, no use of accessory muscles, no retractions, no splinting, no tachypnea, labored breathing, is not present, Breath sounds: are clear throughout, no decreased breath sounds, no stridor, no wheezing, cp 09/23 18:34 /20 18:35 Abdomen/GI: Inspection: abdomen appears normal, Bowel sounds: active, all cp quadrants, Palpation: soft, in all quadrants, mild abdominal tenderness, in the right lower quadrant, rebound tenderness, is not appreciated, voluntary guarding, is not appreciated, involuntary guarding, is not appreciated, cp 09/23 18:34 /20 18:35 Back: pain, that is mild, of the right low back, ROM is normal, cp cp 09/23 18:34 /20 18:35 Skin: no rash present. cp cp 09/23 18:34 /20 18:35 5, Full Term 2, 2, Living 2, Verified cp cp / 18:40 18:37 The patient complains of pain in the right low back, cp cp 18:40 18:37 The pain does not radiate. cp cp
[2018-09-22 23:56] VITALS: TEMP 98
[2018-09-22 23:58] VITALS: BP 124/76; O2SAT 98
== END 2018-09-22 23:36 | disposition home or self-care (01) ==
LOC: ER 19:22
DX: O26.891 Other specified pregnancy related conditions, first trimester (principal); R11.0 Nausea; M54.5 Low back pain; Z3A.09 9 weeks gestation of pregnancy; Z91.040 Latex allergy status
CPT/HCPCS: 36415; 76817; 80048; 80076; 81003; 81015; 81025; 83690; 84702; 85025; 86900; 86901; 96361; 96374; 99284; J2405

== ENCOUNTER 2018-11-06 11:06 | Emergency (ER) | payer OTHER ==
--- OUTSIDE RECORDS SUMMARY | 2018-11-06 11:08 | XMS REPORT ---
:1990 [facility] Address [address] [place] [address] Dr. Pérez [address] [place] [id number] Care Team Providers Name Role Phone Unavailable Unavailable Unavailable Problems This patient has no known problems. Allergies, Adverse Reactions, Alerts This patient has no known allergies or adverse reactions. Medications This patient has no known medications.
--- NOTE | 2018-11-06 11:47 | ER ---
Nurse's Notes [facility] Name: Zaira Zuniga Age: 28 yrs Sex: Female : 1990 Arrival Date: 11/06/2018 Time: 11:08 Bed 6 Private MD: Diagnosis: Lower abdominal pain, unspecified Presentation: 11/06 11:24 Presenting complaint: Patient states: is approx 16 weeks , son jumped onto her lower abdomen last night, now having intermittent dull pain to abdomen, denies vaginal bleeding, states she is feeling less movement from the baby. Transition of care: patient was not received from another setting of care. Onset of symptoms was November 05, 2018. Risk Assessment: Do you want to hurt yourself or someone else? Patient reports no desire to harm self or others. Initial Sepsis Screen: Does the patient meet any 2 criteria? No. Patient's initial sepsis screen is negative. Does the patient have a suspected source of infection? No. Patient's initial sepsis screen is negative. Care prior to arrival: None. 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 - Social history:: Smoking status: Patient/guardian denies using tobacco. - Ebola Screening: : No symptoms or risks identified at this time. Screenin:25 Abuse screen: Denies threats or abuse. Denies injuries from another. Nutritional sv screening: No deficits noted. Tuberculosis screening: No symptoms or risk factors identified. Fall Risk None identified. Assessment: 11:25 General: Appears in no apparent distress. uncomfortable, well developed, Behavior is sv cooperative, appropriate for age, anxious. Pain: Complains of pain in abdomen. Neuro: Level of Consciousness is awake, alert, obeys commands, Oriented to person, place, time, situation, Moves all extremities. Full function Gait is steady. Respiratory: Respiratory effort is even, unlabored, Respiratory pattern is regular, symmetrical. GI: Abdomen is flat, Abd is soft and non tender X 4 quads. Derm: Skin is pink, warm \T\ dry. Musculoskeletal: Range of motion: intact in all extremities. Vital Signs: 11:25 BP 111 / 79; Pulse 65; Resp 16 S; Temp 98.6; Pulse Ox 100% on R/A; Weight 79.83 kg; iw Height 5 ft. (152.40 cm); 11:25 Body Mass Index 34.37 (79.83 kg, 152.40 cm) iw Vitals: 11:26 Heart Tones 164, variable + movement. hb ED Course: 11:08 Patient arrived in ED. as 11:12 Marcia Alvarado FNP-C is [facility]. kb 11:12 Alec Sifuentes MD is Attending Physician. kb 11:25 Triage completed. iw 11:25 Patient has correct armband on for positive identification. Bed in low position. Call sv light in reach. Door closed. Head of bed elevated. 11:26 Arm band placed on. iw 11:39 Taya San, RN is Primary Nurse. sv 11:47 US OB Limited In Process Unspecified. EDMS 11:57 No provider procedures requiring assistance completed. Patient did not have IV access sv during this emergency room visit. Administered Medications: No medications were administered Outcome: 11:46 Discharge ordered by . kb 11:57 Discharged to home ambulatory. sv 11:57 Condition: stable 11:57 Discharge instructions given to patient, Instructed on discharge instructions, follow up and referral plans. Demonstrated understanding of instructions, follow-up care. 11:57 Patient left the ED. sv Signatures: Dispatcher [employer] EDMS Marcia Alvarado FNP-C FNP-Ckb Verde, Stephanie, RN RN Laisha Portillo Irene, RN RN Macie Jackson RN RN Corrections: (The following items were deleted from the chart) 11:31 11:25 Resp 16bpm; Spontaneous; Pulse Ox 100% RA; Temp 98.6F; 79.83 kg; Height 5 ft.; iw BMI: 34.3; iw
--- NOTE | 2018-11-06 11:48 | EDPHYS ---
Physician Documentation [facility] Name: Zaira Zuniga Age: 28 yrs Sex: Female : 1990 Arrival Date: 11/06/2018 Time: 11:08 Bed 6 Private MD: ED Physician Alec Sifuentes HPI: 11/06 11:43 This 28 yrs old Female presents to ER via Ambulatory with complaints of kb Abdominal Cramping - 16 wks preg. 11:43 The patient presents to the emergency department with abdominal pain, of the suprapubic kb area, that started last night. The estimated gestational age is 16 weeks. course: care: private OB physician. Previous pregnancies: in previous pregnancies patient has had. Associated signs and symptoms: Pertinent positives: abdominal pain, Pertinent negatives: vaginal bleeding. The patient has not experienced similar symptoms in the past. The patient has not recently seen a physician. Pt reports her 5 year old jumped and landed on her lower abd last night. Reports decreased movement since then . 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 - Social history:: Smoking status: Patient/guardian denies using tobacco. - Ebola Screening: : No symptoms or risks identified at this time. ROS: 11:44 Constitutional: Negative for fever, chills, and weight loss, ENT: Negative for injury, kb pain, and discharge, Neck: Negative for injury, pain, and swelling, Cardiovascular: Negative for chest pain, palpitations, and edema, Respiratory: Negative for shortness of breath, cough, wheezing, and pleuritic chest pain, Back: Negative for injury and pain, : Negative for injury, bleeding, discharge, and swelling, MS/Extremity: Negative for injury and deformity, Skin: Negative for injury, rash, and discoloration, Neuro: Negative for headache, weakness, numbness, tingling, and seizure. 11:44 Abdomen/GI: Positive for abdominal pain, Negative for nausea, vomiting, and diarrhea. Exam: 11:44 Constitutional: This is a well developed, well nourished patient who is awake, alert, kb and in no acute distress. Head/Face: Normocephalic, atraumatic. ENT: Nares patent. No nasal discharge, no septal abnormalities noted. Tympanic membranes are normal and external auditory canals are clear. Oropharynx with no redness, swelling, or masses, exudates, or evidence of obstruction, uvula midline. Mucous membranes moist. Neck: Trachea midline, no thyromegaly or masses palpated, and no cervical lymphadenopathy. Supple, full range of motion without nuchal rigidity, or vertebral point tenderness. No Meningismus. Chest/axilla: Normal chest wall appearance and motion. Nontender with no deformity. No lesions are appreciated. Cardiovascular: Regular rate and rhythm with a normal S1 and S2. No gallops, murmurs, or rubs. Normal PMI, no JVD. No pulse deficits. Respiratory: Lungs have equal breath sounds bilaterally, clear to auscultation and percussion. No rales, rhonchi or wheezes noted. No increased work of breathing, no retractions or nasal flaring. Skin: Warm, dry with normal turgor. Normal color with no rashes, no lesions, and no evidence of cellulitis. MS/ Extremity: Pulses equal, no cyanosis. Neurovascular intact. Full, normal range of motion. Neuro: Awake and alert, GCS 15, oriented to person, place, time, and situation. Cranial nerves II-XII grossly intact. Motor strength 5/5 in all extremities. Sensory grossly intact. Cerebellar exam normal. Normal gait. 11:44 Abdomen/GI: Inspection: abdomen appears normal, Bowel sounds: normal, in all quadrants, Palpation: moderate abdominal tenderness, in the suprapubic area. Vital Signs: 11:25 BP 111 / 79; Pulse 65; Resp 16 S; Temp 98.6; Pulse Ox 100% on R/A; Weight 79.83 kg; iw Height 5 ft. (152.40 cm); 11:25 Body Mass Index 34.37 (79.83 kg, 152.40 cm) iw MDM: 11:19 Patient medically screened. kb 11:19 Patient medically screened. [facility] 11:45 Data reviewed: vital signs, nurses notes. Data interpreted: Pulse oximetry: on room air kb is 100 %. Interpretation: normal. Counseling: I had a detailed discussion with the patient and/or guardian regarding: the historical points, exam findings, and any diagnostic results supporting the discharge/admit diagnosis, radiology results, the need for outpatient follow up, an OB/Gyne specialist, to return to the emergency department if symptoms worsen or persist or if there are any questions or concerns that arise at home. 11/06 11:42 Order name: Urine Dipstick--Ancillary (enter results) ag 11/06 11:42 Order name: Urine --Ancillary (enter results) ag 11/06 11:23 Order name: US OB Limited kb 11/06 11:24 Order name: FHT's; Complete Time: 11:26 kb Administered Medications: No medications were administered Disposition: 11/06/18 11:46 Discharged to Home. Impression: Lower abdominal pain, unspecified. - Condition is Stable. - Discharge Instructions: Abdominal Pain During , [id number]. - Medication Reconciliation Form, Thank You Letter, Antibiotic Education, Prescription Opioid Use form. - Follow up: Emergency Department; When: As needed; Reason: Worsening of condition. Follow up: Private Physician; When: 2 - 3 days; Reason: Recheck today's complaints, Continuance of care, Re-evaluation by your physician. Addendum: 11/12/2018 16:41 Co-signature as Attending Physician, Alec Sifuentes MD I agree with the assessment and c bolaños plan of care. Signatures: Dispatcher [employer] Marcia Myles, ALL SOURCE COLLECTION MANAGER-C ALL SOURCE COLLECTION MANAGER-Taya Farias RN RN sv Anderson, Corey, MD MD cha Williams, Irene, RN RN iw Corrections: (The following items were deleted from the chart) 11/06 11:57 11:46 11/06/2018 11:46 Discharged to Home. Impression: Lower abdominal pain, sv unspecified. Condition is Stable. Forms are Medication Reconciliation Form, Thank You Letter, Antibiotic Education, Prescription Opioid Use. Follow up: Emergency Department; When: As needed; Reason: Worsening of condition. Follow up: Private Physician; When: 2 - 3 days; Reason: Recheck today's complaints, Continuance of care, Re-evaluation by your physician. kb
[2018-11-06 12:09] VITALS: BP 111/79; TEMP 98.6; O2SAT 100
--- NOTE | 2018-11-06 12:18 | RAD REPORT ---
EXAM DESCRIPTION: US - OB Limited - 11/06/2018 11:46 am CLINICAL HISTORY: with abdominal pain COMPARISON: September 2018 FINDINGS: Limited examination was performed to assess for viability Single live intrauterine is in variable presentation. Amniotic fluid within normal limits. Cardiac activity 153 beats per minute. Placenta is anterior. 15 millimeter (in AP dimension) isoechoic structure lies between the placenta a nd uterine wall. BPD 2.5 centimeters 14 weeks 1 day HC 10 centimeters 14 weeks 3 days AC 7 centimeters 14 weeks 0 days FL 1.4 centimeters 14 weeks 1 day Estimated weight 90 grams IMPRESSION: Single live intrauterine in variable presentation Estimated gestational age 14 weeks 1 day NAY 05/06/2019 15 millimeter isoechoic structure lies between the placenta and anterior uterine wall. This probably representing a contraction or fibroid. A retroplacental bleed can also have this appearance. It is re commended that the patient have a followup limited ultrasound of the placenta for re-evaluation Exam was discussed with Marcia Alvarado in the Emergency Room at 12:10 p.m. November 06, 2018
[2018-11-06 12:55] LABS: Urine Blood TRACE (NEG); Urine Glucose NEGATIVE (NEG); Urine Protein 1+ (NEG); Urine Specific Gravity >1.030 (1.005-1.030); Urine pH 5.5 (5.0-7.0)
== END 2018-11-06 11:57 | disposition home or self-care (01) ==
LOC: ER 11:06
DX: O26.892 Other specified pregnancy related conditions, second trimester (principal); R10.30 Lower abdominal pain, unspecified; Z3A.14 14 weeks gestation of pregnancy; Z91.040 Latex allergy status; Z91.048 Other nonmedicinal substance allergy status
CPT/HCPCS: 76815; 81003; 81025; 99283

== ENCOUNTER 2019-02-14 05:44 | Emergency (ER) | payer OTHER ==
--- NOTE | 2019-02-14 06:13 | ER ---
Nurse's Notes [facility] Name: Zaira Zuniga Age: 28 yrs Sex: Female : 1990 Arrival Date: 02/14/2019 Time: 05:46 Bed 13 Private MD: Diagnosis: Spider Bite Presentation: 02/14 05:51 Presenting complaint: Patient states: got bit by a small spider just [employer], felt a sharp iw pinch on her neck. Transition of care: patient was not received from another setting of care. Onset of symptoms was February 14, 2019. Risk Assessment: Do you want to hurt yourself or someone else? Patient reports no desire to harm self or others. Initial Sepsis Screen: Does the patient meet any 2 criteria? No. Patient's initial sepsis screen is negative. Does the patient have a suspected source of infection? No. Patient's initial sepsis screen is negative. Care prior to arrival: None. 05:51 Method Of Arrival: Ambulatory iw 05:51 Acuity: MACK 5 iw Triage Assessment: 06:02 Bite description: bite sustained to neck by a spider, animal information: vaccination(s) is not applicable. STAFFING RN: 06:03 Verified Historical: - Allergies: 05:54 Latex, Natural Rubber; iw - Home Meds: 05:54 Vitamin Oral [Active]; iw - PMHx: 05:54 Endometrosis; mitral valve prolapse; scoliosis; iw - PSHx: 05:54 Breast Reduction; iw - Immunization history:: Adult Immunizations up to date. - Social history:: Smoking status: Patient/guardian denies using tobacco. - Ebola Screening: : Patient negative for fever greater than or equal to 101.5 degrees Fahrenheit, and additional compatible Ebola Virus Disease symptoms Patient denies exposure to infectious person Patient denies travel to an Ebola-affected area in the 21 days before illness onset No symptoms or risks identified at this time. - Family history:: not pertinent. - Hospitalizations: : No recent hospitalization is reported. Screenin:01 Abuse screen: Denies threats or abuse. Denies injuries from another. Nutritional wh screening: No deficits noted. Tuberculosis screening: No symptoms or risk factors identified. Fall Risk None identified. Assessment: 06:01 General: Appears in no apparent distress. Behavior is calm, cooperative, appropriate wh for age. Pain: Denies pain. Neuro: Level of Consciousness is awake, alert, obeys commands. Cardiovascular: Capillary refill < 3 seconds. Respiratory: Airway is patent Respiratory effort is even, unlabored, Respiratory pattern is regular, symmetrical. GI: Abdomen is round non-distended. : No signs and/or symptoms were reported regarding the genitourinary system. EENT: No signs and/or symptoms were reported regarding the EENT system. Derm: Skin is intact, is healthy with good turgor, Skin is pink, warm \T\ dry. normal. Musculoskeletal: Circulation, motion, and sensation intact. Vital Signs: 05:55 BP 101 / 73; Pulse 85; Resp 16; Temp 98.2; Pulse Ox 100% on R/A; Weight 74.84 kg; wh Height 5 ft. 0 in. (152.40 cm); Pain 0/10; 05:55 Body Mass Index 32.22 (74.84 kg, 152.40 cm) ED Course: 05:46 Patient arrived in ED. ag3 05:53 Serge Burns MD is Attending Physician. rn 05:54 Triage completed. iw 05:54 Arm band placed on. iw 06:01 Grayson Lopez is Primary Nurse. 06:03 Patient has correct armband on for positive identification. Bed in low position. Call light in reach. Side rails up X 1. Pulse ox on. NIBP on. 06:16 No provider procedures requiring assistance completed. Patient did not have IV access during this emergency room visit. Administered Medications: No medications were administered Outcome: 06:12 Discharge ordered by . rn 06:16 Discharged to home ambulatory. 06:16 Condition: good 06:16 Discharge instructions given to patient, Instructed on discharge instructions, follow up and referral plans. POC Spider BIte Demonstrated understanding of instructions, follow-up care, POC 06:17 Patient left the ED. Signatures: Arleen Foss RN RN Serge Burns MD MD rn Habalo, Winsy Tosha Alicea ag3 Corrections: (The following items were deleted from the chart) 05:56 05:51 Presenting complaint: Patient states: got bit by a small spider just [employer], felt a iw sharp pinch on her neck iw 06:04 05:55 BP 101 / 73; Pulse 85bpm; Resp 16bpm; Pulse Ox 100% RA; 74.84 kg; Height 5 ft. 0 wh in.; BMI: 32.2; Pain 0/10; iw
--- NOTE | 2019-02-14 06:14 | EDPHYS ---
Physician Documentation [facility] Name: Zaira Zuniga Age: 28 yrs Sex: Female : 1990 Arrival Date: 02/14/2019 Time: 05:46 Bed 13 Private MD: ED Physician Serge Burns HPI: 02/14 06:06 This 28 yrs old Female presents to ER via Ambulatory with complaints of rn Insect Bite. 06:06 The patient was bitten on the neck, by a spider. Onset: The symptoms/episode rn began/occurred just prior to arrival. Associated signs and symptoms: Pertinent negatives: fever, fluctuance, pain at site, suspected foreign body, swelling at site, tenderness. Severity of symptoms: At their worst the symptoms were very mild, in the emergency department the symptoms are unchanged. The patient has not experienced similar symptoms in the past. The patient has not recently seen a physician. Reports bitten by spider, small one, in her car, had mild redness at neck, now resolved. Killed spider and brought it. . 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 - Social history:: Smoking status: Patient/guardian denies using tobacco. - Ebola Screening: : Patient negative for fever greater than or equal to 101.5 degrees Fahrenheit, and additional compatible Ebola Virus Disease symptoms Patient denies exposure to infectious person Patient denies travel to an Ebola-affected area in the 21 days before illness onset No symptoms or risks identified at this time. - Family history:: not pertinent. - Hospitalizations: : No recent hospitalization is reported. ROS: 06:06 Constitutional: Negative for fever, chills, and weight loss, Eyes: Negative for injury, rn pain, redness, and discharge, Neck: Negative for injury, pain, and swelling, Skin: Negative for rash, and discoloration. Exam: 06:06 Constitutional: This is a well developed, well nourished patient who is awake, alert, rn and in no acute distress. Head/Face: Normocephalic, atraumatic. Neck: No redness/warmth/fluctuance/rash/necrosis/sign of puncture Vital Signs: 05:55 BP 101 / 73; Pulse 85; Resp 16; Temp 98.2; Pulse Ox 100% on R/A; Weight 74.84 kg; wh Height 5 ft. 0 in. (152.40 cm); Pain 0/10; 05:55 Body Mass Index 32.22 (74.84 kg, 152.40 cm) wh MDM: 05:53 Patient medically screened. rn 06:06 Differential diagnosis: insect bite. Data reviewed: vital signs, nurses notes, and as a rn result, I will discharge patient. Counseling: I had a detailed discussion with the patient and/or guardian regarding: the historical points, exam findings, and any diagnostic results supporting the discharge/admit diagnosis, the need for outpatient follow up, to return to the emergency department if symptoms worsen or persist or if there are any questions or concerns that arise at home. ED course: NO sign of trauma or necrosis, spider is nude colored but very small and since killed hard to distinguish typical body nava. Administered Medications: No medications were administered Disposition: 02/14/19 06:12 Discharged to Home. Impression: Spider Bite. - Condition is Stable. - Discharge Instructions: Brown Recluse Spider Bite, Spider Bite. - Medication Reconciliation Form, Thank You Letter, Antibiotic Education, Prescription Opioid Use form. - Follow up: Private Physician; When: As needed; Reason: Recheck today's complaints, Re-evaluation by your physician. - Problem is new. - Symptoms have improved. Signatures: Arleen Foss RN RN iw Nieto, Roman, MD MD rn Habalo, Winsy Corrections: (The following items were deleted from the chart) 06:17 06:12 02/14/2019 06:12 Discharged to Home. Impression: Spider Bite. Condition is wh Stable. Forms are Medication Reconciliation Form, Thank You Letter, Antibiotic Education, Prescription Opioid Use. Follow up: Private Physician; When: As needed; Reason: Recheck today's complaints, Re-evaluation by your physician. Problem is new. Symptoms have improved. rn
[2019-02-14 06:25] VITALS: BP 101/73; TEMP 98.2; O2SAT 100
== END 2019-02-14 06:17 | disposition home or self-care (01) ==
LOC: ER 05:44
DX: O26.899 Other specified pregnancy related conditions, unspecified trimester (principal); W57.XXXA Bitten or stung by nonvenomous insect and other nonvenomous arthropods, initial encounter; Y92.810 Car as the place of occurrence of the external cause; Z91.040 Latex allergy status; Z91.048 Other nonmedicinal substance allergy status
CPT/HCPCS: 99283

== ENCOUNTER 2021-06-14 13:55 | Emergency (ER) | payer OTHER ==
--- OUTSIDE RECORDS SUMMARY | 2021-06-14 13:59 | XMS REPORT | Continuity of Care Document ---
:1990 Author Organization [facility] t Address [facility] [place] [address] Care Team Providers Name Role Phone Jazzmine CAMACHO Primary Care Physician Unavailable Jazzmine Camacho Attending Clinician Unavailable Roman Attending Clinician Unavailable GIAN GREENWOOD Attending Clinician Unavailable Ebrahijazzmine LATHE TENDER Attending Clinician EBRAHIM Attending Clinician Unavailable Randal LATHE TENDER, J Attending Clinician Nurse, [facility] Attending Clinician Unavailable LULU PARDO Attending Clinician Unavailable Gian Greenwood MD Attending Clinician Doctor Unassigned, Name Attending Clinician Unavailable Only, Test Attending Clinician Unavailable Pob, Lab Main Attending Clinician Unavailable GIAN GREENWOOD Admitting Clinician Unavailable Gian Greenwood MD Admitting Clinician Payers Payer Name Policy Type Policy Number Effective Date Expiration Date [facility] [id number] 2018 CHOICE MEDICAID 00:00:00 Problems Condition Condition Condition Status Onset Resolution Last Treating Co mments Source Name Details Category Date Date Treatment Clinician Date Status Status Disease Active Univers post post 803 [place] sal[place] 00 Me dical rome [place] Branch Admission Admission Disease Active Overview: Univers for tubal for tubal 7-20 Formattin i ty of ligation ligation 00:00: g of this Thad as 00 note Medical might be Branch different from the original. 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 Anxiety Anxiety Disease Active Univers disorder, disorder, 6-15 ity of unspecifie unspecifie [place] type d type 00 Medical Branch Obesity Obesity Disease Active Univers (BMI (BMI 5-13 ity of 30-39.9) 30-39.9) 00:00: [place] 00 Medical Branch History of History of Disease Active U nivers anxiety anxiety 5-13 ity of 00:00: [place] 00 Medical Branch History of History of Disease Active U nivers depression depression 5-13 it y of 00:00: [place] 00 Medical Branch Allergies, Adverse Reactions, Alerts Allergy Allergy Status Severity Reaction(s) Onset Inactive Treating Comm ents Source Name Type Date Date Clinician latex DA Active [place] 2018-05 [facility] 2-14 Clear 00:00: [place] 00 [facility] latex DA Active [place] 2018-05 [facility] 2-04 [facility] [place] LATEX DRUG Active Rash Univers INGREDI 5-05 ity of 00:00: [place] 00 Medical Branch Latex Propensi Active Swelling Univer s ty to 5-05 ity of adverse 00:00: [place] reaction 00 Medical s Branch acetamin DA Active MO [facility] ophen 4-07 [facility] 00:[facility] [place] latex DA Active MO [facility] 4-07 [facility] 00:[facility] [place] Social History Social Habit Start Date Stop Date Quantity Comments Source History SDOH University o f Alcohol Frequency [place] M edical Branch History SDOH University o f Alcohol Std [place] Medical Drinks Branch History SDOH University o f Alcohol Binge [place] Medic al Branch Exposure to Not sure University of SARS-CoV-2 [place] [facility] (event) Branch Alcohol intake 2021-03-15 2021-03-15 Current drinker Unive rsity of 00:00:00 00:00:00 of alcohol [facility] (finding) [place] Tobacco use and 2018-09-15 2018-09-15 Never used Universit y of exposure 00:00:00 00:00:00 [facility] Alcohol Comment 2018-09-15 2018-09-15 occasional Universit y of 00:00:00 00:00:00 [facility] Sex Ass[birth year] At [birth year] Universit y of 00:00:00 00:00:00 [facility] Smoking Status Start Date Stop Date Source Never smoker [facility] Medications Ordered Filled Start Stop Current Ordering Indication Dosage Frequency Signature Comments Components Source Medication Medication Date Date Medication? Clinician (SIG) Name Name codekedara 2020-05- No 10mL Take 10 mL Univers ifenesin 1-10 11-18 by mouth ity of 10-100 mg/5 00:00[place] 05[place] 6 [place] mL oral 00 :00 (six) Medical solution hours as Branch needed for Cough for up to 7 days. Indication s: cough codeine-gua 2020-05 No 10mL Take 10 mL Univers ifenesin 1-10 11-18 by mouth ity of 10-100 mg/5 00:00: 05:59 [place] 6 [place] mL oral 00 :00 (six) Medical solution hours as Branch needed for Cough for up to 7 days. Indication s: cough codeine-gua 2020-05- No 10mL Take 10 mL Univers ifenesin 1-10 11-18 by mouth ity of 10-100 mg/5 00:00: 05:59 [place] 6 [place] mL oral 00 :00 (six) Medical solution hours as Branch needed for Cough for up to 7 days. Indication s: cough predniSONE 2020-05- No [id number] 20mg Take 1 Univers 20 mg 1-02 13-16 tablet by ity of tablet 00:00: 05:59 mouth [place] 00 :00 daily for Medical 5 days. Branch fluticasone 2020-05- No [id number] 1{spray Use 1 Univers propionate -10 -16 } [place] in ity of (FLONASE 00:00: 05:59 each [place] ALLERGY 00 :00 nostril Medical RELIEF) 50 daily for Bran ch mcg/actuati 5 days. on nasal spray predniSONE 2020-05- No [id number] 20mg Take 1 Univers 20 mg 1-10 11-16 tablet by ity of tablet 00:00: 05:59 mouth [place] 00 :00 daily for Medical 5 days. Branch fluticasone 2020-05- No [id number] 1{spray Use 1 Univers propionate 1-10 11-16 } [place] in ity of (FLONASE 00:00: 05:59 each [place] ALLERGY 00 :00 nostril Medical RELIEF) 50 daily for Bran ch mcg/actuati 5 days. on nasal spray predniSONE 2020-05- No [id number] 20mg Take 1 Univers 20 mg 1-10 11-16 tablet by ity of tablet 00:00: 05:59 mouth [place] 00 :00 daily for Medical 5 days. Branch fluticasone 2020-05- No [id number] 1{spray Use 1 Univers propionate 1-10 11-16 } [place] in ity of (FLONASE 00:00: 05:59 each [place] ALLERGY 00 :00 nostril Medical RELIEF) 50 daily for Bran ch mcg/actuati 5 days. on nasal spray FENTanyl PF 2020-0 Yes 25ug 25 mcg, Uni vers (SUBLIMAZE 8-03 Slow IV ity of (PF)) 15:48: [place], [place] injection 45 Q5MIN PRN, Medi aislinn 25 mcg 4 doses, Branch Starting Sat12/06/20 at 1048, Until Discontinu ed, Routine, Pain (scale 4-6), PACU FENTanyl PF 2020-0 Yes 25ug 25 mcg, Uni vers (SUBLIMAZE 8-03 Slow IV ity of (PF)) 15:48: [place], [place] injection 45 Q5MIN PRN, Medi aislinn 25 mcg 4 doses, Branch Starting Sat12/06/20 at 1048, Until Discontinu ed, Routine, Pain (scale 4-6), PACU bupivacaine 2020-0 Yes PRN, Univer s -epinephrin 8-03 Starting ity of e-pf 14:38: 12/06/20 [place] (SENSORCAIN 00 at 0938, Medi aislinn E Until Branch W/EPINEPHRI Discontinu NE) 0.5 ed, %-1:200,000 Routine, injection Intra-op bupivacaine Yes PRN, [place] [facility] s -epinephrin 8-03 Starting ity of e-pf 14:38: Sat12/06/20 [place] (SENSORCAIN 00 at 0938, Medi aislinn E Until Branch W/EPINEPHRI Discontinu NE) 0.5 ed, %-1:200,000 Routine, injection Intra-op lactated 2020- No 1000mL at 42 [facility] rs ringers IV 8-03 08-03 mL/hr, ity of infusion 12:30: 12:38 1,000 mL, [place] as 1,000 mL 00 :00 IV Medical Infusion, Branch ONCE, 1 dose, Sat12/06/20 at 0730, Routine, DSU Pre-op lactated 2020- No 1000mL at 42 [place] [facility] rs ringers IV 8-03 08-03 mL/hr, ity of infusion 12:30: 12:38 1,000 mL, [place] as 1,000 mL 00 :00 IV Medical Infusion, Branch ONCE, 1 dose, Sat12/06/20 at 0730, Routine, DSU Pre-op ibuprofen Yes [id number] 600mg Take 1 Univers 600 mg 8-03 tablet by ity of tablet 00:00: mouth [place] 00 every 6 Medical (six) Branch hours as needed for Pain (scale 1-3) or Pain (scale 4-6). acetaminoph Yes [id number] 650mg Take 2 Univers en 8-03 tablets by ity of (TYLENOL) 00:00: mouth [place] 325 mg 00 every 6 Medical tablet (six) Branch hours as needed for Pain (scale 1-3) or Pain (scale 4-6). simethicone Yes [id number] 80mg Take 1 Univers 80 mg 8-03 tablet by ity of chewable 00:00: mouth [place] tablet 00 after Medical meals and Branch at bedtime. ibuprofen Yes [id number] 600mg Take 1 Univers 600 mg 8-03 tablet by ity of tablet 00:00: mouth [place] 00 every 6 Medical (six) Branch hours as needed for Pain (scale 1-3) or Pain (scale 4-6). acetaminoph 0 Yes [id number] 650mg Take 2 Univers en 8-03 tablets by ity of (TYLENOL) 00:00: mouth [place] 325 mg 00 every 6 Medical tablet (six) Branch hours as needed for Pain (scale 1-3) or Pain (scale 4-6). simethicone 0 Yes [id number] 80mg Take 1 Univers 80 mg 8-03 tablet by ity of chewable 00:00: mouth [place] tablet 00 after Medical meals and Branch at bedtime. ibuprofen 0 Yes [id number] 600mg Take 1 Univers 600 mg 8-03 tablet by ity of tablet 00:00: mouth [place] 00 every 6 Medical (six) Branch hours as needed for Pain (scale 1-3) or Pain (scale 4-6). acetaminoph 0 Yes [id number] 650mg Take 2 Univers en 8-03 tablets by ity of (TYLENOL) 00:00: mouth [place] 325 mg 00 every 6 Medical tablet (six) Branch hours as needed for Pain (scale 1-3) or Pain (scale 4-6). simethicone 0 Yes [id number] 80mg Take 1 Univers 80 mg 8-03 tablet by ity of chewable 00:00: mouth [place] tablet 00 after Medical meals and Branch at bedtime. ibuprofen 0 Yes [id number] 600mg Take 1 Univers 600 mg 8-03 tablet by ity of tablet 00:00: mouth [place] 00 every 6 Medical (six) Branch hours as needed for Pain (scale 1-3) or Pain (scale 4-6). acetaminoph 0 Yes [id number] 650mg Take 2 Univers en 8-03 tablets by ity of (TYLENOL) 00:00: mouth [place] 325 mg 00 every 6 Medical tablet (six) Branch hours as needed for Pain (scale 1-3) or Pain (scale 4-6). simethicone 0 Yes [id number] 80mg Take 1 Univers 80 mg 8-03 tablet by ity of chewable 00:00: mouth [place] tablet 00 after Medical meals and Branch at bedtime. ibuprofen 0 Yes [id number] 600mg Take 1 Univers 600 mg 8-03 tablet by ity of tablet 00:00: mouth [place] 00 every 6 Medical (six) Branch hours as needed for Pain (scale 1-3) or Pain (scale 4-6). acetaminoph 0 Yes [id number] 650mg Take 2 Univers en 8-03 tablets by ity of (TYLENOL) 00:00: mouth [place] 325 mg 00 every 6 Medical tablet (six) Branch hours as needed for Pain (scale 1-3) or Pain (scale 4-6). simethicone Yes [id number] 80mg Take 1 Univers 80 mg 8-03 tablet by ity of chewable 00:00: mouth [place] tablet 00 after Medical meals and Branch at bedtime. ibuprofen 0 Yes [id number] 600mg Take 1 Univers 600 mg 8-03 tablet by ity of tablet 00:00: mouth [place] 00 every 6 Medical (six) Branch hours as needed for Pain (scale 1-3) or Pain (scale 4-6). acetaminoph Yes [id number] 650mg Take 2 Univers en 8-03 tablets by ity of (TYLENOL) 00:00: mouth [place] 325 mg 00 every 6 Medical tablet (six) Branch hours as needed for Pain (scale 1-3) or Pain (scale 4-6). simethicone 0 Yes [id number] 80mg Take 1 Univers 80 mg 8-03 tablet by ity of chewable 00:00: mouth [place] tablet 00 after Medical meals and Branch at bedtime. ibuprofen 0 Yes [id number] 600mg Take 1 Univers 600 mg 8-03 tablet by ity of tablet 00:00: mouth [place] 00 every 6 Medical (six) Branch hours as needed for Pain (scale 1-3) or Pain (scale 4-6). acetaminoph 0 Yes [id number] 650mg Take 2 Univers en 8-03 tablets by ity of (TYLENOL) 00:00: mouth [place] 325 mg 00 every 6 Medical tablet (six) Branch hours as needed for Pain (scale 1-3) or Pain (scale 4-6). simethicone 0 Yes [id number] 80mg Take 1 Univers 80 mg 8-03 tablet by ity of chewable 00:00: mouth [place] tablet 00 after Medical meals and Branch at bedtime. HYDROcodone 202- No [id number] 1{tbl} Take 1 U nivers -acetaminop 8-03 08-11 tablet by it y of hen 5-325 00:00: 04:59 mouth [place] mg tablet 00 :00 every 6 Medical (six) Branch hours as needed for Pain (scale 7-10) for up to 7 days. Indication s: acute pain HYDROcodone 2020-2020- No [id number] 1{tbl} Take 1 U nivers -acetaminop 8-03 08-11 tablet by it y of hen 5-325 00:00: 04:59 mouth [place] mg tablet 00 :00 every 6 Medical (six) Branch hours as needed for Pain (scale 7-10) for up to 7 days. Indication s: acute pain HYDROcodone 2020-2020- No [id number] 1{tbl} Take 1 U nivers -acetaminop 8-03 08-11 tablet by it y of hen 5-325 00:00: 04:59 mouth [place] mg tablet 00 :00 every 6 Medical (six) Branch hours as needed for Pain (scale 7-10) for up to 7 days. Indication s: acute pain HYDROcodone 2020- No [id number] 1{tbl} Take 1 U nivers -acetaminop 8-03 08-11 tablet by it y of hen 5-325 00:00: 04:59 mouth [place] mg tablet 00 :00 every 6 Medical (six) Branch hours as needed for Pain (scale 7-10) for up to 7 days. Indication s: acute pain 2020- No Take by Univ ers vit 6-15 -15 mouth. ity of calc,iron,f 22:40: 00:00 [place] olic 04 :00 Medical ( Branch VITAMIN ORAL) 2020- No Take by Univ ers vit 6-15 -15 mouth. ity of calc,iron,f 22:40: 00:00 [place] olic 04 :00 Medical ( Branch VITAMIN ORAL) calcium 2020- No Take by Unive rs carbonate 6-15 -15 mouth. ity of (TUMS ORAL) 22:39: 00:00 [place] 54 :00 Medical Branch calcium 2020- No Take by Unive rs carbonate 6-15 -15 mouth. ity of (TUMS ORAL) 22:39: 00:00 [place] 54 :00 Medical Branch acetaminoph 2020-0 2020- No Take by U nivers en 6-15 06-15 mouth ity of (TYLENOL) 22:39: 00:00 every 6 [place] 325 mg 48 :00 (six) Medical tablet hours as Branch needed. acetaminoph 0 2020- No Take by U nivers en 6-15 06-15 mouth ity of (TYLENOL) 22:39: 00:00 every 6 [place] 325 mg 48 :00 (six) Medical tablet hours as Branch needed. QUEtiapine 2020-0 Yes Univers 25 mg 6-09 ity of tablet 00:00: [address] QUEtiapine 2020-0 Yes Univers 25 mg 6-09 ity of tablet 00:00: [address] QUEtiapine 1-0 Yes Univers 25 mg 6-09 ity of tablet 00:00: [address] QUEtiapine 2021-0 Yes Univers 25 mg 6-09 ity of tablet 00:00: [address] QUEtiapine 2021-0 Yes Univers 25 mg 6-09 ity of tablet 00:00: [address] QUEtiapine 2021-0 Yes Univers 25 mg 6-09 ity of tablet 00:00: [address] QUEtiapine 2021-0 Yes Univers 25 mg 6-09 ity of tablet 00:00: [address] QUEtiapine 2021-0 Yes Univers 25 mg 6-09 ity of tablet 00:00: [address] QUEtiapine 2021-0 Yes Univers 25 mg 6-09 ity of tablet 00:00: [address] QUEtiapine 2021-0 Yes Univers 25 mg 6-09 ity of tablet 00:00: [address] QUEtiapine 2021-0 Yes Univers 25 mg 6-09 ity of tablet 00:00: [address] QUEtiapine 2021-0 Yes Univers 25 mg 6-09 ity of tablet 00:00: [address] QUEtiapine 2021-0 Yes Univers 25 mg 6-09 ity of tablet 00:00: [address] QUEtiapine 2021-0 Yes Univers 25 mg 6-09 ity of tablet 00:00: [address] QUEtiapine 2021-0 Yes Univers 25 mg 6-09 ity of tablet 00:00: [place] 00 Medical Branch QUEtiapine Yes Univers 25 mg 6-09 ity of tablet 00:00: [place] 00 Medical Branch 2018-05 Yes Take by [facility] rs vit 1-20 mouth. ity of calc,iron,f 01:25: [place] olic 04 Medical ( Branch VITAMIN ORAL) acetaminoph 2018-05 Yes Take by Un jose en 1-20 mouth ity of (TYLENOL) 01:25: every 6 [place] 325 mg 04 (six) Medical tablet hours as Branch needed. calcium 2018-05 Yes Take by [place] [facility] s carbonate 1-20 mouth. ity of (TUMS ORAL) 01:25: [place] 04 Medical Branch Nitrofurant 2018-05 Yes [id number] 100mg Take 1 Univers oin&Nit. 1-19 capsule by ity o f Macrocryst 00:00: mouth 2 [place] 100 mg 00 (two) Medical capsule times Branch daily. Nitrofurant 2018-05- No [id number] 100mg Take 1 Univers oin&Nit. 1-19 06-15 capsule by ity of Macrocryst 00:00: 00:00 mouth 2 [place] 100 mg 00 :00 (two) Medical capsule times Branch daily. Nitrofurant 2018-05- No [id number] 100mg Take 1 Univers oin&Nit. 1-19 06-15 capsule by ity of Macrocryst 00:00: 00:00 mouth 2 [place] 100 mg 00 :00 (two) Medical capsule times Branch daily. doxylamine- Yes [id number] 1{tbl} Take 1 Univers pyridoxine, 5-13 tablet by ity of vit B6, 00:00: mouth [place] (DICLEGIS) 00 SEE-INSTRU Med ical 10-10 mg CTIONS. Branch per tablet doxylamine- 2020- No [id number] 1{tbl} Take 1 Univers pyridoxine, 5-13 06-15 tablet by it y of vit B6, 00:00: 00:00 mouth [place] (DICLEGIS) 00 :00 SEE-INSTRU Med ical 10-10 mg CTIONS. Branch per tablet doxylamine- 2020- No [id number] 1{tbl} Take 1 Univers pyridoxine, 5-13 06-15 tablet by it y of vit B6, 00:00: 00:00 mouth [place] (DICLEGIS) 00 :00 SEE-INSTRU Med ical 10-10 mg CTIONS. Branch per tablet progesteron Yes TAKE ONE Un jose e 200 mg 4-29 CAPSULE BY ity o f capsule 00:00: MOUTH [place] 00 TWICE A Medical DAY Branch progesteron 2020- No TAKE ONE U nivers e 200 mg 4-29 06-15 CAPSULE BY ity of capsule 00:00: 00:00 MOUTH [place] 00 :00 TWICE A Medical DAY Branch progesteron 2020- No TAKE ONE U nivers e 200 mg 4-29 06-15 CAPSULE BY ity of capsule 00:00: 00:00 MOUTH [place] 00 :00 TWICE A Medical DAY [place] Vital Signs Vital Name Observation Time Observation Value Comments Source Systolic blood 2021-03-15 16:09:00 124 mm[Hg] Univer sity of [facility] Diastolic blood 2021-03-15 16:09:00 87 mm[Hg] Unive rsity [facility] Heart rate 2021-03-15 16:09:00 75 /min [facility] Body temperature 2021-03-15 16:09:00 37.28 Krystal [facility] Respiratory rate 2021-03-15 16:09:00 18 /min [facility] Body height 2021-03-15 16:09:00 152.4 cm [facility] Body weight 2021-03-15 16:09:00 90.719 kg [facility] BMI 2021-03-15 16:09:00 39.06 kg/m2 [facility] Oxygen saturation in 2021-03-15 16:09:00 98 /min [facility] Arterial blood by [facility] Pulse oximetry [place] Systolic blood 2020-12-06 16:05:00 107 mm[Hg] Univer sity of [facility] Diastolic blood 2020-12-06 16:05:00 69 mm[Hg] Unive rsity of [facility] Heart rate 2020-12-06 16:05:00 71 /min [facility] Respiratory rate 2020-12-06 16:05:00 16 /min Univ ersity of [place] [facility] Oxygen saturation in 2020-12-06 16:05:00 98 /min University of Arterial blood by [place] [facility] Pulse oximetry Branch Body temperature 2020-12-06 15:15:00 36.28 Krystal Univ ersity of [place] [facility] Body height 2020-12-05 15:02:00 152.4 cm Universi ty of [place] [facility] Body weight 2020-12-05 15:02:00 86.183 kg Universi ty of [place] [facility] BMI 2020-12-05 15:02:00 37.11 kg/m2 Universi ty [facility] [place] [facility] Systolic blood 2020-12-06 15:15:00 110 mm[Hg] Univer sity of pressure [place] [facility] Diastolic blood 2020-12-06 15:15:00 66 mm[Hg] Unive rsity of pressure [place] [facility] Body temperature 2020-12-06 15:15:00 36.28 Krystal Univ ersity of [place] [facility] Respiratory rate 2020-12-06 15:15:00 20 /min Univ ersity of [place] [facility] Heart rate 2020-12-06 12:36:00 83 /min Universi ty of [place] [facility] Oxygen saturation in 2020-12-06 12:36:00 98 /min University of Arterial blood by [place] [facility] Pulse oximetry Branch Body height 2020-12-05 15:02:00 152.4 cm Universi ty of [place] [facility] Body weight 2020-12-05 15:02:00 86.183 kg Universi ty of [place] [facility] BMI 2020-12-05 15:02:00 37.11 kg/m2 [facility]i ty [facility] [place] [facility] Systolic blood 2020-11-21 14:15:00 119 mm[Hg] Univer sity of pressure [place] [facility] Diastolic blood 2020-11-21 14:15:00 86 mm[Hg] Unive rsity of pressure [place] [facility] Heart rate 2020-11-21 14:15:00 98 /min [facility]i ty [facility] [place] [facility] Body temperature 2020-11-21 14:15:00 36.72 Krystal [facility] [place] [facility] Respiratory rate 2020-11-21 14:15:00 18 /min Univ ersity [facility] [place] [facility] Body height 2020-11-21 14:15:00 152.4 cm Universi ty [facility] Body weight 2020-11-21 14:15:00 88.724 kg Universi ty [facility] BMI 2020-11-21 14:15:00 38.20 kg/m2 [facility] Oxygen saturation in 2020-11-21 14:15:00 98 /min [facility] Arterial blood by [facility] Pulse oximetry Branch Systolic blood 2020-10-18 20:43:00 127 mm[Hg] Univer sity of pressure [facility] Diastolic blood 2020-10-18 20:43:00 88 mm[facility]Hg[facility] 2020-10-18 20:43:00 77 /min [facility] Body temperature 2020-10-18 20:43:00 36.72 Krystal [facility] Respiratory rate 2020-10-18 20:43:00 16 /min [facility] Body height 2020-10-18 20:43:00 152.4 cm [facility] Body weight 2020-10-18 20:43:00 88.633 kg [facility] BMI 2020-10-18 20:43:00 38.16 kg/m2 [facility] Procedures Procedure Date / Time Performing Clinician Source Performed XR CHEST 2 VW 2021-03-15 16:51:19 Kaur Bueno [facility] RAPID STREP SCREEN FOR 2021-03-15 16:14:00 Kaur Bueno [facility] SURGICAL PATHOLOGY EXAM 2020-12-06 14:48:00 Ophelia Greenwood [facility] 2020-12-06 13:44:00 Ophelia Greenwood [facility] o [facility] SALPINGECTOMY [facility] Branch LAPAROSCOPIC 2020-12-06 13:44:00 Ophelia Greenwood [facility] o [facility] SALPINGECTOMY Medical Branch POCT TEST 2020-12-06 12:10:00 Ragini Forrester [facility] POCT TEST 2020-12-06 12:10:00 Ragini Forrester [facility] DAY SURGERY - ADC 2020-12-06 05:01:00 Doctor Unassigned, No Univ ersity [facility] [place] DSU PRE-OP 2020-11-21 05:01:00 Doctor Unassigned, No Univer sity [facility] [place] DSU PRE-OP 2020-11-21 05:01:00 [facility]igned, [facility] 2020-10-18 20:15:25 Doctor Unassigned, No [facility] Encounters Start End Encounter Admission Attending Care Care Encounter Source Date/Time Date/Time Type Type Clinicians Facility Department ID 2021-05-31 Outpatient Camacho, [facility] 14:[facility]:09 [place] [id number] [facility] 2021-05-31 [facility] 13[facility]51:32 [place] [id number] [facility] 2021-05-31 Outpatient Camacho, [facility] 13:45:04 [place] [id number] [facility] 2021-05-31 Out[facility] Camacho, [facility] 12[facility]58:53 [place] [id number] [facility] 2021-05-31 Outpatient Camacho, [facility] 12[facility]47:35 [place] [address] [facility] 2021-05-31 Outpatient Camacho, [facility] 12[facility]47:28 [place] [address] [facility] 2021-05-31 Outpatient Camacho, [facility] 12:26:17 [place] [address] [facility] 2021-05-31 Outpatient Camacho, [facility] 12[facility]25:26 [place] [address] [facility] 2021-05-31 Outpatient Camacho, [facility] 12[facility]24:10 [place] [address] [facility] 2021-05-31 Outpatient Camacho, [facility] 12:22:35 [place] [address] [facility] 2021-05-31 Outpatient Doug, [facility] 12[facility]18:40 [place] [id number] [facility] 2021-05-31 Outpatient Roman [facility] [id number] 12:15:28 [place] [address] [facility] 2021-03-06 Outpatient TIMO [facility] JOCKEY [id number] [facility] 2021-05-09 Outpatient Belén [facility] [id number] Univers 08:00:00 08:00:00 [id number] [facility] 2021-05-09 2021-05-09 Outpatient Belén [facility] [id number] Univers 08:00:00 08:00[facility] 2021-03-15 2021-03-15 [facility] [id number] Univers 10:28:03 23:59:00 Encounter [facility] 350..13.10 ity [facility] [id number] Thad as AR?BLEA [id number] [facility] [address] [place] MEDICAL OFFICE [facility] 2021-03-15 2021-03-15 Outpatient R [facility] [id number] Univers 10:00:00 10:36:03 [facility] 2021-03-15 2021-03-15 Urgent [facility] [id number] Univers 09:56:50 10:36:[address] [facility] 350.1.13.10 ity of [place] 4.2.7.2.686 Thad as AR?BLEA [phone] Me [address] MEDICAL OFFICE BUILDING 2021-03-15 2021-03-15 Outpatient R [facility] [id number] Univers 10:00:00 10:00:00 [id number] [facility] 2021-03-15 2021-03-15 Telephone NurseAnup [facility] [[email or web address]] 1.2.840.114 [id number] Univers 00:00:00 00:00:00 Db Urgent HEALTH 350.1.13.10 ity of [facility] 4.2.7.2.686 Thad as AR?BLEA [phone] [facility] [address] OFFICE [facility] 2021-02-15 2021-02-15 Outpatient [facility]MLC [facility] [id number] [facility] 2021-02-15 2021-02-15 Outpatient [facility] [id number] [facility] 2021-01-04 2021-01-04 Outpatient [facility] [id number] [facility] 2020-12-27 2020-12-27 Outpatient R TIMO OPHELAI [facility] [id number] Univers 15:00:00 15:00:00 [id number] [facility] 2020-12-27 2020-12-27 Outpatient R OPHELIA GREENWOOD [facility] [id number] Univers 15:00:00 15:00:00 [facility] 2020-12-15 2020-12-15 Outpatient R CHAR [facility] [id number] Univers 11:00:00 11:00:00 GONZALEZ [id number] [facility] 2020-12-08 2020-12-08 Telephone Ophelia Greenwood [facility] [[email or web address]] 1.2.840.114 [id number] Univers 00:00:00 00:00:00 [place] 350.1.13.10 i [place] [phone] [facility] [address] 2020-12-062020-12-06 Hospital Ophelia Greenwood [facility] [[email or web address]] 1.2.840.114 [id number] Univers 07:05:00 11:20:00 Encounter Gian Cooper 350.1.13.10 [place] of [place].2.[place] [phone] [facility] [address] 2020-12-06 2020-12-06 Surgery Ophelia Greenwood [facility] [[email or web address]] 1.2.741.021 [id number] Univers 08:59:00 10:24:00 [place] 350.1.13.10 i [place]2.[place].2.[place] [phone] [facility] [address] 2020-12-06 2020-12-06 Orders Doctor PROSPER 1.2.840.114 [id number] Univers 00:00:00 00:00:00 Only Unassigned, DREW 350.1.13.10 ity of [place] [facility] 4.2.7.2.686 Thad as [phone] [facility] [address] 2020-12-05 2020-12-05 Laboratory Only, Adc Test [facility] [[email or web address]] 1.2.840. 114 [id number] Univers 09:08:13 09:23:13 Only Ophelia Greenwood 350.1.13.10 ity of [place] 4[place]2.7.2.686 [place] [phone] [facility] [address] 2020-12-05 2020-12-05 Audio/Visual Operator Jordi, Adc Lab Main [facility] [[email or web address]] 1.2.8 40.114 [id number] Univers 09:07:59 09:22:59 Visit Ophelia Greenwood 350.1.13.10 ity of [place].2.[place] [phone] Pa dical [facility] 353 [facility] 2020-12-05 2020-12-05 Outpatient R [facility] [id number] Univers 08:45:00 08:45:00 [id number] ity of [facility] 2020-12-05 2020-12-05 Outpatient R OPHELIA GREENWOOD [facility] [id number] Univers 08:45:00 08:45:00 ity of [facility] 2020-11-29 2020-11-29 Telephone Ophelia Greenwood [facility] [[email or web address]] 1.2.840.114 [id number] Univers 00:00:00 00:00:00 [place] 350.1.13.10 i [place] 4[place]2.7.2.[place] [phone] [address] 2020-11-21 2020-11-21 Office Ophelia Greenwood [facility] [[email or web address]] 1.2.894.007 [id number] Univers 08:57:51 09:51:19 Visit [place] 350.1.13.10 i ty of [place] 4[place]2.7.2.[place] [phone] [address] 2020-11-21 2020-11-21 Outpatient R OPHELIA GREENWOOD [facility] [id number] Univers 09:00:00 09:00:00 [id number] ity [facility] 2020-11-21 2020-11-21 Outpatient R OPHELIA GREENWOOD [facility] [id number] Univers 09:00:00 09:00:00 ity [facility] 2020-11-21 2020-11-21 Prep For Ophelia Greenwood [facility] [[email or web address]] 1.2.840.114 [id number] Univers 00:00:00 00:00:00 Surgery [place] 350.1.13.10 i [place] 4.2.7.2.[place] [phone] [address] 2020-11-17 2020-11-17 Outpatient R OPHELIA GREENWOOD [facility] [id number] Univers 15:00:00 15:00:00 [id number] ity [facility] 2020-11-17 2020-11-17 Outpatient R [facility] [id number] Univers 15:00:00 15:00:00 ity [facility] 2020-10-18 2020-10-18 Office Ophelia Greenwood [facility] [[email or web address]] 1.2.271.631 [id number] Univers 15:16:09 16:31:46 Visit [place] 350.1.13.10 i ty [place] 4.2.7.2.[place] [phone] Pa dical [address] 2020-10-18 2020-10-18 Outpatient OPHELIA VICENTE [facility] [id number] Univers 15:00:00 15:00:00 [id number] ity [facility] 2020-10-18 2020-10-18 Outpatient OPHELIA VICENTE [facility] [id number] Univers 15:00:00 15:00:00 ity [facility] 2020-10-18 2020-10-18 Orders Doctor PROSPER 1.2.840.114 [id number] Univers 00:00:00 00:00:00 Only Unassigned, DREW 350.1.13.10 ity [facility] 4.2.7.2.686 Thad as [phone] [address] 2020-10-12 2020-10-12 [facility] [id number] 2020-08-12 2020-08-12 Out[facility] [id number] [facility] 2020-08-12 2020-08-12 Out[facility] [id number] [facility] 2020-08-08 2020-08-08 [facility] [id number] [facility] 2020-08-08 2020-08-08 Outpatient STLC [facility]LC [id number] [facility] 2020-06-02 2020-06-02 Outpatient [facility]LMLC [facility] [id number] [facility] 2020-05-26 2020-05-26 [facility] [id number] [facility] 2020-05-25 2020-05-25 Outpatient STLMLC [facility] [id number] [facility] 2020-05-24 2020-05-24 Outpatient STLMLC [facility] [id number] [facility] 2020-05-19 2020-05-19 Outpatient STLMLC [facility] [id number] [facility] 2020-05-11 2020-05-11 Outpatient STLMLC STLC [id number] [facility]00 [facility] 2020-05-11 2020-05-11 Outpatient STLMLC STLC [id number] [facility] 00[facility]:00 [facility] - [facility] Outpati ent [facility] 2018-09-02 2018-09-02 [facility] [id number] 11:39:00 11:39:00 [facility] Outpati ent [facility] Results Test Description Test Time Test Comments Results Result Comments Source SURGICAL PATHOLOGY EXAM 2020-12-12 15:35:34 Test Item Value Reference Range Interpretation Comme nts Case Report (test code = 0164490179) Surgical Pathology ?Case: [id number] ? Authorizing Provider: ?Ophelia Greenwood MD ?Collected: ? 12/06/2020 0948 ?Ordering Location: ? ? [facility] ? ? ?Received: ?12/06/2020 1414 ? Surgical Center ?Pathologist: ? Dionisio Forde MD ?Specimens: ? A) - FALLOPIAN TUBE, LEFT ? B) - FALLOPIAN TUBE, RIGHT ? Final Diagnosis (test code = [id number]h [id number]) kIOdZJdeutKbQDjjnQuwZFQiY7jachPoHVIdsIKt J7LrrgcuGFeaDV8cBQ7vaFuskTRgoRCsPRTnAxMc u9dzj113bOVva4tqPTESbdvsgJy0oOfhC98hb1K7 AydmC82zgUYuPXS7MFDqPQXkrBUkEZNzZSW9MRRo aTJpX2hmWSYlCH7ozevrXBttSIncUYMlbFI7GMCn rBMvS1EcOZWaXBkeWAUubkh9CeRjPp5scHKiiQsp MFxwYXJkXHBsYWluXGZzMjBccGFyIEEuIEZBTExP BWxPBiLODCKJJERDUIBZRJRLLBfNMY0WNAmiUuZE YMGJMY5HBontHWIdHVJsARDZFDxHSETRU9KAKYMT K2VYF74kB6XgUyHLGG1BCEUMVZMBOeStIEIYJrYG RklFRFxwYXJccGFyIEIuIEZBTExPUElBTiBUVUJF KGCDLHnYGSonA2SIQAMIJFGBAREVK6AESBdSCdic rEUqLGFwRM3dEsOEHNLTFa5OTmVWBZMSHR5MVG3R JHLBQVhGSDkAIbODWSBKNDdQVY0LBZLRVGZwKXYr ypseZIFlGvrqnVftKYOpuZ2eHYVBJmDkNN28XcVy QhLcYUMdPmWlWVOGWYltCSP5b8cqwAPoBBWlmSFd WmRjRNVtSCIux2obBXVxsLCjZwEeFnXjDwMrRlfu tCZpKHHdMnZfh8cfu122zIOpd2uoBBUdKfT0gMRg QCJhyUhgurv4yIskTeRlGDTbq3smesFmFjOzJIYn WYItBRAicHQwK393PXNfYYdmx5hlw1LvCFZymPOz y4G2LATZMViiLbXoM089r2kxj1inszZfvYL9KDJb DDF0KWwzhwXgyqK8XHxzgRAoMqZ8WFfohsLfLUih wkWeftPkKsc1MVTeE840EXO9wHecx6tpOUD7ZNKc MHWnMbibDt5yvVUhF841LYTbSHGOSWRffDx5WIBe wuFnoiXjgYAZc834Y731f7akNQBtmlLlsFwKfdka u8nfG232YLWztMIqigYtFrSoJTVjeXLllYT0PNDp SX6dljypKFotHOfxYMRoakP7JOSttVMpH9HiRNPb QV4vnmjdFBP8DCikKDCpWLL7LzGaAJWci8Gryon4 YyZspl0fyw82HMT8p8SygGedBZH5LAJ6YpNnDb2y wWOaNRTfMF3rKyWosKImVIYlia35yPyxVByrghNk cD8vZiYfKYEkxDHyHNYtCT6vyLSbAOYogD4mecue IPZrWfKkqaocEIOhfVnfrlBaGi3ysVsyGGA7VJcu Y6iojX0pUkO8LUaxL5lybX8uNRy6PXotxHN2YUMo cK1qUI5jcccsf1glKVhrHTquSNEftxY9huU3ESFd qZUcA6UctV9kZDTsXH6jlvnsn6smKIU4NRkhDGDr BCD8KaUwOYKbb8Jfcba5VhGve0KmoLXeIIamD43e l449IQLkuxLmH4gfrIYygkangGAvtrlwWPnaozT2 XHFsXHBsYWluXGYxXGZzMjBcbGFuZzEwMzNcaGlj wWvySXlhDcYeKFKgTSqaU8deOhGqQ2FzDHLfRgCi gZAdBVdrsIC1UTTkFNWgk19xtMe8TUHrfcfgm4Zx YYSzlXXbqWIguR4wwaMju4lsKFDjJBQkGMAaE4Zb MCV8uOHqFASpvWWmzBV7MM0cqoSmFS8kZQRtNoga rnBinQSfaoTdLBKsJXgbq6afFE2oOMYugNwcsM7h aBU1QPAhx7fmbJVjfQByo2wru8PzomTzVAklPHHy QMbuTSOaXMQoEX4hASLmfWMcouIam1C0WbyvxVEt pywsFirrdeN8LSwlsponJMErYMvwX5khKwNsFJJg jJgvQheof5DvNMZpBOHaAgdhcFBtqJ3= Clinical Information (test code = Desires sterilzation [id number]) Gross Description (test code = c9ubmPRiSNSzoGHGQHRbN6nevwLdTLOvcUKg [facility] [id number]) lqysKPyoTC6fPI7siTbqmXYrqXQrMM3FTJPlJjAw RXKbtYDpfuCxRnYrNLJdpVMfcBT3ZNWdIK3lssxh ASiySRsuQXYcesM4RCGklAZmX3KxGKDrOY6rqruu HUS5AHntvG2qexZJWapnCm8lqXJrsNvsNbAoYrBk FQIqBKLjQNBjjGdmBSGsVOg8rV9FRujdHAS4WRPO ZhceOUFtRG5Ak9hmGKMmyRDoRVH9UNcfpFHhHMSh CKBnNTf3RNYfGPncqWZgHK7fqSalRcvomUygq0Re lWXnRBzuJHEuWHLaMBgbIUMkLE9SDrAnOMd0BcY4 PqKeQDu5HZj9AQ1IZrSwREGfIxQcOUH3EBGsUPc5 MMmfQD0OTUXgPDE7DmuzQUyfDFM6AuKtFXp5IVZz ANomKMSizNWaKUloSqEtECNaLQyutTVfQW5lwBag bGFpblxmczIwXHBhciANClxwbGFpblxlcGljTmVz dERvYzEgDQpcbHRycGFyXGxpbjBccmluMCANClxs dHJjaFxmczIyIFNwZWNpbWVuIEEgaXMgcmVjZWl2 LUMnkI1nWu5ofPNndC4cqWFfQTfcGWE0bAZjDSPw FNWmUSLxBJ44J9JnrhErKNlkUQaykoSzGjKcNWMl LAZhhEeugWlrghK4hAMjSSXwVBW5DhWryeUvZ04l x3mkxGVjk6AjVLCqkH8lmRIxzZRvHLBwogwax7As uOFcmDArOpHciO0mnxbhxOHpFKKoxGtjlAhmlhU9 sMNjEFn1IzKwwRRvHuJiaWXdPwNoV68gAEgzxOTk VBheAFVinifxpTm0JSQzV2Nox81qXTC7fbLxOWPs HNkbkKHpOIVkngysK8Aut3BbmGD1yxQchSAim8Xp yJZnX3N8TXM2yaLlX2BtUQykoCpuIGEfpL8es4uu jWDtgD3xzu4bOtMhutCmWR30NSYdkbZpZ6Gop7Vy e2AslZbgvhCyQB5qLIBlHRKehoHfnsCoWkkkIXW9 BOQfTtbsIhAgJIDdEHIeleSgYAEsQTR6Fm4knROf ULMhaYHtYTaelcGduJRlXQKvs05owZ1jALNfMKoq mSjvbR9kXLIxQ73mq7EPg8KlXJGtCGrpq2czpVsd v2HbtUOpJPjyERGgbJRzZXbmsF8tVpArp4ycqSt3 YMmnazI7OMNjte5NKghpWrytfEuuk1DxkUVwVBpz VYIuMUIaBBagUAGnVK0CElSpHNt4RcP5DxIjXMa2 CTk1KO4SZtPyKEKfJsIpNIV8GLGdLSm6TWgiAS5A NFKgQYI0Axj0WyPqQIG4JdPdLQh3UBQpBMabILSn ySKaZNlwMgTaZTCxNMwucCNmXA5eeTcpzoEhLHCv ciANClxwbGFpblxlcGljTmVzdERvYzEgDQpcbHRy cGFyXGxpbjBccmluMCANClxsdHJjaFxmczIyIFNw LUNwrDRnCBQbyKVznwAmXYb9VTIbjR4tSe5tdHOa bR8biNRlAFfzSPU6hIXhBNMhGVMrQMIdPF27K4Pf bmFtZSwgVUggbnVtYmVyLCAiIEZhbGxvcGlhbiB0 sBDlKQCvbWqcvBVrHD1vLEOaocCty2XfBC2xPDNh v8viB9lcBYUwpc3dpR2tIZEmF88kzjKjd7BxBhpi OsFpDJHeVEFxHZbie5NtRC4shHVgBCFvCC52UExd TG3hWQiiLK92TTQqVIW4qRrzrHNlnkDbNEMsPMvy fQWmRHY7yE8aHYGwrV6lraS2ZDWiBFQvcs9qxS5u HNxlf3KlfPnhpV2dST6awyzrHwbaVXP6vXVqxIRl NHBdslE7fCDaEVLqkKkofC5cdqAitHByMI8nLOGi tPXtl7GeaNA0bTOyKMKfc5RgJGPsC2Bls14hIYDm SQS6pLRtQL84cEBeVNWfi5AvpWYrBXHkfAQeeSU0 LNKiHG2qUUQlGTRdgKWvzSP2EFMaBdt5ESZxegbd q5ubCLYjb7axISmeNKZpLsovOCRcBPtiaAUdMK6X GPUljFEEBFyxj4GuGIqoADMNAdbyiFOfmvxlzWrf DdUvbBKsVsLzxPtvnC55HZDwbJFcTUZ3DL8aFOZm ihbsOVCiZFVzBJM0WNfhxF98cKZgVJIdTHUnnPDf mB3KHWLkRBE3JEzbhV81sKKpJU7UQYBkUEZ3QXCy dZDuEQL5NK2wvK4QyQ== Disclaimer (test code = [id number]) f9kevCEkGNFvp6emJCFqpYAdYtZbSvC cZnRuYmpc jIBoYSloluXqFCoap7FhJ2FpNlEpAImlwcSpQXWd IwlslbmjRDYmVQF6oiHsQOPpWOpdEJNuBPsdPy3y vLWibOiiTrDfBAMqu5bdxyZANHnvItApJ184LBAi XEfee7mgr4TyAHKsfUEnl2U8UOFAmkpjsBt6wQxr A88ls1Z1LgsbQ0hgZVNfDLGeA3JaKU1dIDHjZbl9 LUR0OJC3OENzRRDaG8ZfLE5bWWDqdBPgEGx6b0ip gTsqWBCsNRN9c1swDKwutnNoVW3edi3wdQi0k4hd nkGsHOBeTQSrfGLMRDPcO8IqxHcaLm4adCc3mWmj TknrVEO1Znf7YQ9rpn48bwy9rEsnCPEeclcoQwE1 PGldHPLavliiKEh5FIjhYENcaLI9OSRpvSNtH9Eu XFNaUU1buge6CZP8TRscJWPqZwD2UKEqmBJbFIUc jHhgDQpxd411RNM7WkDpBM0yR1Nuf5P5hL9moHMf BZOqrRQsDiFwLEMtai3vcFBaKHyrm1NeMCP8esQ3 hFHzvBZlDMDuGA26Xgmdt4EeMkjhg4FmC58dnRH2 WOozf7unCG3gNzN2xyLyGMrap6rzsL7lQqH4XWtq PA2rSG9dHIJmsK5qxgxrMLBgAjTbxduoFEHtnSny emDfRn2ibKxyVOD7VEcxJ5npoO5jNsR5JUiaJ0px uV1wWKi6LWtjgQO9MYCztA3cEX9saiiot0fqAZcj FMvwFDUaqeG5kzM2EEHgvCRbP8TguM6gNUVdME4y ykpak7xySGW5GSjvOIUcLOF4GxKeDNNzy9Vnxcg6 JiVyg0SokMCxDZqkT80lm573VQWwneCaU2ixjNRr agjsaONleajqDCgqhkR0URBppiTbb5PsXPDvPHA9 AKauOXobeUPfJKZesWyzm0yeZ0KidNRxGOIrAQqd XGYxXGZzMjBcbGFuZzEwMzNcaGljaFxmMVxkYmNo [file] T3poBmNarQ7otSpwTIqnPyWfWcAaABsmSMJ0vA== Embedded Images (test code = [id number]) [facility] [id number] 12:10:00 Test Item Value Reference Range Interpretation Comments POCT PREG (test code = 1605) Negative On board controls acceptable with Yes C Line (test code = 3574) POCT PREG LOT # (test code = HCG [id number]) POCT PREG TEST DATE (test code = 3576) [facility] [id number] 12:10:00 Test Item Value Reference Range Interpretation Comments POCT PREG (test code = 1605) Negative On board controls acceptable with Yes C Line (test code = 3574) POCT PREG LOT # (test code = HCG [id number]) POCT PREG TEST DATE (test code = 3576) [facility]2019-12-16 07:11:00 Test Item Value Reference Range Interpretation Comments HEMOGLOBIN (test code = HGB) 8.1 g/dL 10.7-13.9 L HEMATOCRIT (test code = HCT) 26.4 % 32.1-42.1 L AG HEPATITIS B [id number] 10:15:00 Test Item Value Reference Range Interpretation Comments AG HEPATITIS B SURFACE (test code NONREACTIVE NONREACTIVE = HBSAG) Specimen Comment: LDO AIS CONSENT FORM SIGNED FOR HIV TESTING? YAB HEPATITIS C [id number] 10:15:00 Test Item Value Reference Range Interpretation Comments AB HEPATITIS C (test code = NONREACTIVE NONREACTIVE HCVAB) SIGNAL TO CUTOFF (test code = <0.02 <0.80 N CUTOFF) Specimen Comment: LDO AIS CONSENT FORM SIGNED FOR HIV TESTING? YRUBELLA SCREEN 2019-04-19 10:15:00 Test Item Value Reference Range Interpretation Comments RUBELLA SCREEN 21.1 IUnit/ml Results >10. 0IUnits/ml (test code = are considered positive RUBSC) inaccordance wi th the CLSI guidelines and based on the [employer] S tandard for Anti-Rubell a serum as anindicator of immune status and a br eakpoint to detect mostseropositiv e persons. Specimen Comment: LDO [facility] CONSENT FORM SIGNED FOR HIV TESTING? YAB TREPONEMA 2019-04-19 10:15:00 Test Item Value Reference Range Interpretation Comments AB TREPONEMA (test code = TREPAB) NONREACTIVE NONREACTIVE Specimen Comment: [facility] CONSENT FORM SIGNED FOR HIV TESTING? YAB HIV 1 2 2019-04-19 10:15:00 Test Item Value Reference Range Interpretation Comments AB HIV 1 2 (test code = NONREACTIVE INDEX NONREACTIVE [id number]) Specimen Comment: [facility] AIS CONSENT FORM SIGNED FOR HIV TESTING? YAB HIV 1 2 2019-04-19 10:14:00 Test Item Value Reference Range Interpretation Comments AB HIV 1 2 (test code = NONREACTIVE INDEX NONREACTIVE ARK09XM) Specimen Comment: O AIS CONSENT FORM SIGNED FOR HIV TESTING? [id number] 08:56:00 Test Item Value Reference Range Interpretation Comments GLUBED (test code = GLUBED) 98 mg/dL 65-110 N [id number] 05:34:00 Test Item Value Reference Range Interpretation Comments GLUBED (test code = GLUBED) 107 mg/dL 65-110 N AG HEPATITIS B [id number] 04:58:00 Test Item Value Reference Range Interpretation Comments AG HEPATITIS B SURFACE (test code NONREACTIVE NONREACTIVE = HBSAG) Specimen Comment: LDO AIS CONSENT FORM SIGNED FOR HIV TESTING? YAB HEPATITIS C [id number] 04:58:00 Test Item Value Reference Range Interpretation Comments AB HEPATITIS C (test code = NONREACTIVE NONREACTIVE HCVAB) SIGNAL TO CUTOFF (test code = <0.02 <0.80 N CUTOFF) Specimen Comment: O [facility] CONSENT FORM SIGNED FOR HIV TESTING? YRUBELLA SCREEN 2019-04-19 04:58:00 Test Item Value Reference Range Interpretation Comments RUBELLA SCREEN 21.1 IUnit/ml Results >10. 0IUnits/ml (test code = are considered positive RUBSC) inaccordance wi th the CLSI guidelines and based on the [employer] International S tandard for Anti-Rubell a serum as anindicator of immune status and a br eakpoint to detect mostseropositiv e persons. Specimen Comment: [facility] CONSENT FORM SIGNED FOR HIV TESTING? YAB TREPONEMA 2019-04-19 04:58:00 Test Item Value Reference Range Interpretation Comments AB TREPONEMA (test code = TREPAB) NONREACTIVE NONREACTIVE Specimen Comment: [facility] CONSENT FORM SIGNED FOR HIV TESTING? YAB HIV 1 2 2019-04-19 04:58:00 Test Item Value Reference Range Interpretation Comments AB HIV 1 2 (test code = SRJ39QO) NONREACTIVE Specimen Comment: [facility] CONSENT FORM SIGNED FOR HIV TESTING? YAG HEPATITIS B [id number] 03:42:00 Test Item Value Reference Range Interpretation Comments AG HEPATITIS B SURFACE (test code NONREACTIVE NONREACTIVE = HBSAG) Specimen Comment: O [facility] CONSENT FORM SIGNED FOR HIV TESTING? YAB HEPATITIS C [id number] 03:42:00 Test Item Value Reference Range Interpretation Comments AB HEPATITIS C (test code = NONREACTIVE NONREACTIVE HCVAB) SIGNAL TO CUTOFF (test code = <0.02 <0.80 N CUTOFF) Specimen Comment: [facility] CONSENT FORM SIGNED FOR HIV TESTING? YAB TREPONEMA 2019-04-19 03:42:00 Test Item Value Reference Range Interpretation Comments AB TREPONEMA (test code = TREPAB) NONREACTIVE NONREACTIVE Specimen Comment: LDO [facility] CONSENT FORM SIGNED FOR HIV TESTING? YAB HIV 1 2 2019-04-19 03:42:00 Test Item Value Reference Range Interpretation Comments AB HIV 1 2 (test code = [id number]) NONREACTIVE Specimen Comment: [facility] CONSENT FORM SIGNED FOR HIV TESTING? YAG HEPATITIS B [id number] 03:11:00 Test Item Value Reference Range Interpretation Comments AG HEPATITIS B SURFACE (test code NONREACTIVE NONREACTIVE = HBSAG) Specimen Comment: [facility] CONSENT FORM SIGNED FOR HIV TESTING? YAB HEPATITIS C [id number] 03:11:00 Test Item Value Reference Range Interpretation Comments AB HEPATITIS C (test code = HCVAB) NONREACTIVE SIGNAL TO CUTOFF (test code = CUTOFF) <0.80 Specimen Comment: LDO [facility] CONSENT FORM SIGNED FOR HIV TESTING? YAB TREPONEMA 2019-04-19 03:11:00 Test Item Value Reference Range Interpretation Comments AB TREPONEMA (test code = TREPAB) NONREACTIVE NONREACTIVE Specimen Comment: LDO [facility] CONSENT FORM SIGNED FOR HIV TESTING? YAB HIV 1 2 2019-04-19 03:11:00 Test Item Value Reference Range Interpretation Comments AB HIV 1 2 (test code = [id number]) NONREACTIVE Specimen Comment: O [facility] CONSENT FORM SIGNED FOR HIV TESTING? YGLUCOSE 2019-04-19 01:26:00 Test Item Value Reference Range Interpretation Comments GLUCOSE (test code = GLU) 89 mg/dL 65-110 N CBC W/AUTO [id number] 01:11:00 Test Item Value Reference Range Interpretation Comments WHITE BLOOD CELL (test code = WBC) 9.4 K/mm3 6.6-12.1 N RED BLOOD CELL (test code = RBC) 3.33 M/mm3 3.45-5.01 L HEMOGLOBIN (test code = HGB) 9.2 g/dL 10.7-13.9 L HEMATOCRIT (test code = HCT) 29.8 % 32.1-42.1 L MEAN CELL VOLUME (test code = MCV) 90 fL 84.1-94.8 N MEAN CELL HGB (test code = MCH) 27.6 pg 27-35 N MEAN CELL HGB CONCETRATION (test 30.9 gm/dL 32.2-34.1 L code = MCHC) RED CELL DISTRIBUTION WIDTH (test 15.3 % 12.4-16.5 N code = RDW) PLATELET COUNT (test code = PLT) 172 K/mm3 133-385 N IMMATURE PLATELET FRACTION (test 0.0 % 0.0-10.8 N code = IPF) MEAN PLATELET VOLUME (test code = 11.1 fl 9.1-12.7 N MPV) NEUTROPHIL % (test code = NT%) 72.8 % 56.5-79.4 N LYMPHOCYTE % (test code = LY%) 19.7 % 14.3-34.3 N MONOCYTE % (test code = MO%) 5.9 % 5.1-10.4 N EOSINOPHIL % (test code = EO%) 0.7 % 0.1-3.0 N BASOPHIL % (test code = BA%) 0.3 % 0.1-1.0 N NEUTROPHIL # (test code = NT#) 6.8 K/mm3 LYMPHOCYTE # (test code = LY#) 1.9 K/mm3 MONOCYTE # (test code = MO#) 0.6 K/mm3 EOSINOPHIL # (test code = EO#) 0.07 K/mm3 BASOPHIL # (test code = BA#) 0.0 K/mm3 RBC MORPHOLOGY REQUIRED (test code NORMAL NORMAL = RBCM) PLATELET MORPHOLOGY REQUIRED (test NORMAL NORMAL code = PLTMR) - US FET BIO PH NM W/O [id number] 02:11:00 Patient Name: RUBY DIAZ Unit No: [id number] EXAMS: CPT CODE: [id number] US FET BIO PH NM W/O NST 00276 EXAM: US, US FET BIO PH NM W/O NST : 06/09/2018, 0132 hours Clinical Indication: LOF. Possible rupture of the membranes Comparison: None. TECHNIQUE: Limited obstetrical ultrasound is performed for biophysical profile evaluation with wells scale and M-mode imaging. FINDINGS: Single viable intrauterine gestation is seen in vertex presentation. heart rate is 120 bpm. Gestational age by LMP is 36 weeks 4 days. Placenta is anterior, grade 2. No evidence ofplacenta previa. Amniotic fluid is normal. Amniotic fluid index is 12.5 cm with largest pocket measuring 7.3 cm. biophysical profile: tone: 2 movement: 2 readin [place]: 2 BPP: 8 out of 8. Ovaries are not visualized. Adnexa are unremarkable bilaterally. Cervical length is 2.9 cm. IMPRESSION: 1. Single viable intrauterine gestation in vertex presentation. 2. . biophysical profile as above with score 8/8 GENERAL OBSERVATIONS REGARDING LIMITED ULTRASOUND: 1. A normal or negative sonogram report should notdelay further investigation of a clinically suspicious or abnormal . 2. position or overlap of parts may prevent complete evaluation of the fetus. 3. Congenital and developmental abnormalities are not always sonographically visualized. 4. Repeat sonograms may be necessary depending on the clinical development during .SL: GÓMEZ Luo [facility] NAME: RUBY DIAZ Radiology Department PHYS: Morris Rodrigues III, MD [address] : 1990 AGE: 28 SEX: [place], [place] [address] LOC: MarisaSHARRON PHONE #: [phone] EXAM DATE: 04/08/2019 STATUS: REG ER FAX #: [phone] RAD NO: Page 1 Signed Report (CONTINUED) Patient Name: RUBY DIAZ Unit No: [id number] EXAMS: CPT CODE: [id number] US FET BIO PH NM W/O NST 78123 <Continued> at 0211 Reported and signed by: Angel Alcantar M.D. CC: Lucian Farfan MD; Morris Mcfadden echnologist: Kylie Logan RDMS Probe: Trnscrbd D/ (0211) [id number] Orig Print D/T: S: 04/08/2019 (0445) [facility] NAME: EFRAINRUBY Radiology Department PHYS: Morris Rodrigues III, MD [address] : 1990 AGE: 28 SEX: [place], [place] [address] LOC: MarisaSHARRON PHONE #: [phone] EXAM DATE: 04/08/2019 STATUS: REG ER FAX #: [phone] RAD NO: Page 2 Signed Report Patient Name: RUBY DIAZ Unit No: [id number] EXAMS: CPT CODE: [id number] US FET BIO PH NM W/O NST 56546 <Continued> [facility] NAME: RUBY DIAZ Radiology Department PHYS: Morris Rodrigues III, MD [address] : 1990 AGE: 28 SEX: [place], [place] [address] LOC: F.SHARRON PHONE #: [phone] EXAM DATE: 06/09/2018 STATUS: REG ER FAX #: [phone] RAD NO: Page 3 Signed Report
[2021-06-14 14:44] LABS: Absolute Lymphocytes (CBC) 0.4 K/uL (0.7-4.9); Hematocrit 34.3 % (36.0-45.0); Lymphocytes % 5.5 % (15.3-44.8); MPV 8.6 fL (7.6-11.3); RBC Red Blood Cell Count 3.82 M/uL (3.86-4.86)
[2021-06-14 14:54] LABS: BUN Blood Urea Nitrogen 6 mg/dL (7-18); Bicarbonate 20 mmol/L (21-32); Glucose Level 112 mg/dL (74-106); Potassium 3.2 mmol/L (3.5-5.1); Sodium Level 138 mmol/L (136-145)
[2021-06-14 15:06] LABS: Urine Blood Negative (Negative); Urine Glucose Negative (Negative); Urine Protein Negative (Negative); Urine Specific Gravity 1.015 (1.005-1.030)
--- NOTE | 2021-06-14 15:14 | RAD REPORT ---
EXAM DESCRIPTION: CT - Head Brain Wo Cont - 06/14/2021 3:05 pm CLINICAL HISTORY: MENTAL STATUS CHANGE COMPARISON: HEAD BRAIN W O CONTRAST dated 02/13/2010 TECHNIQUE: All CT scans are performed using dose optimization technique as appropriate and may inclu de automated exposure control or mA/KV adjustment according to patient size. FINDINGS: No intracranial hemorrhage, hydrocephalus or extra-axial fluid collection.No areas of brai n edema or evidence of midline shift. The paranasal sinuses and mastoids are clear. The calvarium is intact. IMPRESSION: No acute intracranial abnormality.
[2021-06-14 15:17] LABS: Urine Specific Gravity/Preg 1.015 (1.005-1.030)
[2021-06-14 15:28] LABS: Barbiturates NEGATIVE (NEGATIVE); Benzodiazepines NEGATIVE (NEGATIVE); Cocaine NEGATIVE (NEGATIVE); METHAMPHETAM NEGATIVE (NEGATIVE); Methadone NEGATIVE (NEGATIVE); Opiates NEGATIVE (NEGATIVE); Phencyclidine NEGATIVE (NEGATIVE); THC Cannibis NEGATIVE (NEGATIVE)
--- NOTE | 2021-06-14 15:45 | RAD REPORT ---
EXAM DESCRIPTION: RAD - Chest Single View - 06/14/2021 3:22 pm CLINICAL HISTORY: COUGH COMPARISON: CHEST PA AND LAT 2 VIEW dated 10/23/2009 FINDINGS: Lines: None. Lungs: Faint scattered bilateral opacities. Pleural: No significant pleural effusions or pneumothorax. Cardiac: The heart size is within normal limits. Bones: No acute fractures. Other: IMPRESSION: Faint opacities bilaterally could represent mild multifocal pneumonia such as Covid-19.
[2021-06-14 16:10] LABS: SARS-COV-2 RT PCR POSITIVE (NEGATIVE)
--- NOTE | 2021-06-14 16:33 | ER ---
Nurse's Notes [facility] Name: Zaira Zuniga Age: 30 yrs Sex: Female : 1990 Arrival Date: 06/14/2021 Time: 14:00 Bed 14 Private MD: Diagnosis: Coronavirus infection, unspecified Presentation: 06/14 14:11 Chief complaint: EMS states: they were called to a house for an unresponsive female, ap3 upon EMS arrival it is reported the patient was lethargic complaining of body aches and fever. Coronavirus screen: fatigue, fever, Client presents with at least one sign or symptom that may indicate coronavirus-19. Standard/surgical mask placed on the client. Ebola Screen: No symptoms or risks identified at this time. Initial Sepsis Screen: Does the patient meet any 2 criteria? HR > 90 bpm. Does the patient have a suspected source of infection? No. Patient's initial sepsis screen is negative. Risk Assessment: Do you want to hurt yourself or someone else? Patient reports no desire to harm self or others. Onset of symptoms was June 13, 2021. Care prior to arrival: Medication(s) given: Normal saline infusion, 1000 mL, Tylenol, toradol, solumedrol IV initiated. 18 GA. 14:11 Method Of Arrival: EMS: [facility] ap3 14:11 Acuity: MACK 3 ap3 Triage Assessment: 14:19 General: Appears uncomfortable, Behavior is drowsy, quiet, Reports fever for 12-24 ap3 hours, feeling ill for 12-24 hours, fatigue for 12-24 hours. Pain: Complains of pain in body aches Pain began gradually, 1 day ago. Neuro: Level of Consciousness is awake, alert, obeys commands, Oriented to person, place, time. Respiratory: Airway is patent Respiratory effort is even, unlabored, Respiratory pattern is regular, symmetrical. 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 - Social history:: Smoking status: Patient denies any tobacco usage or history of. Screenin:18 Abuse screen: Denies threats or abuse. Nutritional screening: No deficits noted. ap3 Tuberculosis screening: No symptoms or risk factors identified. Fall Risk None identified. No fall in past 12 months (0 pts). Assessment: 16:32 Reassessment: patient ambulated to restroom without incident. ap3 Vital Signs: 14:08 BP 130 / 78; Pulse 124; Resp 19; Temp 99.8(O); Pulse Ox 100% on R/A; em1 15:01 Weight 90.72 kg; Height 5 ft. (152.40 cm); ap3 15:18 BP 130 / 81; Pulse 115; Resp 19; Pulse Ox 98% on R/A; ap3 16:32 BP 107 / 77; Pulse 107; Pulse Ox 99% on R/A; ap3 15:01 Body Mass Index 39.06 (90.72 kg, 152.40 cm) ap3 ED Course: 14:00 Patient arrived in ED. as 14:03 Marcia Alvarado FNP-C is [facility]. kb 14:03 Alec Sifuentes MD is Attending Physician. kb 14:08 Florencia Can RN is Primary Nurse. ap3 14:18 Triage completed. ap3 14:18 Arm band placed on right wrist. ap3 14:18 Patient has correct armband on for positive identification. Bed in low position. Call ap3 light in reach. Side rails up X2. compliance monitor on. Pulse ox on. NIBP on. Door closed. Noise minimized. 14:34 Maintain EMS IV. Dressing intact. Good blood return noted. Site clean \T\ dry. Gauge \T\ ap 3 site: 18g right hand. IV is patent, is intact, with good blood return, Flushed right hand. 15:01 Straight cath inserted, using sterile technique, 16 Fr. Specimen obtained. Returned ap3 clear yellow urine. Patient tolerated well. 15:04 CT Head Brain wo Cont In Process Unspecified. EDMS 15:21 Chest Single View XRAY In Process Unspecified. EDMS 17:14 No provider procedures requiring assistance completed. IV discontinued, intact, ap3 bleeding controlled, No redness/swelling at site. Pressure dressing applied. Administered Medications: 15:30 Drug: NS 0.9% 1000 ml Route: IV; Rate: 1000 ml; Site: right hand; ap3 Outcome: 16:32 Discharge ordered by MD. lee 17:14 Discharged to home ambulatory. ap3 17:14 Condition: good 17:14 Discharge instructions given to patient, Instructed on discharge instructions, follow up and referral plans. Demonstrated understanding of instructions, follow-up care. 17:14 Patient left the ED. ap3 Signatures: Dispatcher [employer] EDMarcia Santos, CLIENT RELATION SPECIALIST-C CLIENT RELATION SPECIALIST-Laisha Collins Eric 1 Florencia Can RN RN ap3 Corrections: (The following items were deleted from the chart) 14:18 14:08 Chief complaint: ap3 ap3
--- NOTE | 2021-06-14 16:33 | EDPHYS ---
Physician Documentation [facility] Name: Zaira Zuniga Age: 30 yrs Sex: Female : 1990 Arrival Date: 06/14/2021 Time: 14:00 Bed 14 Private MD: ED Physician Alec Sifuentes HPI: 06/14 16:35 This 30 yrs old Female presents to ER via EMS with complaints of covid kb symptoms. 16:36 The patient or guardian reports cough, that is intermittent, described as mild, flu kb symptoms, low-grade fever, myalgias. Onset: The symptoms/episode began/occurred yesterday. Severity of symptoms: At their worst the symptoms were moderate, in the emergency department the symptoms are unchanged. Modifying factors: The symptoms are alleviated by nothing, the symptoms are aggravated by nothing. Associated signs and symptoms: Pertinent positives: fever, Pertinent negatives: chest pain, diarrhea, ear ache, nausea, rhinorrhea, sore throat, vomiting. The patient has not experienced similar symptoms in the past. The patient has not recently seen a physician. Pt reports cough for a couple of days, bodyaches, fatigue, fever and numbness to body started today.. 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 - Social history:: Smoking status: Patient denies any tobacco usage or history of. ROS: 16:35 Cardiovascular: Negative for chest pain, palpitations, and edema. kb 16:35 Constitutional: Positive for body aches, chills, fatigue, fever, malaise. 16:35 Respiratory: Positive for cough, Negative for dyspnea on exertion, hemoptysis, orthopnea, pleurisy, shortness of breath, sputum production, wheezing. 16:35 Neuro: Positive for headache. 16:35 All other systems are negative. Exam: 16:35 Constitutional: This is a well developed, well nourished patient who is awake, alert, kb and in no acute distress. Head/Face: Normocephalic, atraumatic. ENT: Moist Mucous membranes Cardiovascular: Regular rate and rhythm with a normal S1 and S2. No gallops, murmurs, or rubs. No pulse deficits. Respiratory: Respirations even and unlabored. No increased work of breathing. Talking in full sentences Skin: Warm, dry with normal turgor. Normal color. MS/ Extremity: Pulses equal, no cyanosis. Neurovascular intact. Full, normal range of motion. Neuro: Awake and alert, GCS 15, oriented to person, place, time, and situation. Moves all extremities. Normal gait. Psych: Awake, alert, with orientation to person, place and time. Behavior, mood, and affect are within normal limits. Vital Signs: 14:08 BP 130 / 78; Pulse 124; Resp 19; Temp 99.8(O); Pulse Ox 100% on R/A; em1 15:01 Weight 90.72 kg; Height 5 ft. (152.40 cm); ap3 15:18 BP 130 / 81; Pulse 115; Resp 19; Pulse Ox 98% on R/A; ap3 16:32 BP 107 / 77; Pulse 107; Pulse Ox 99% on R/A; ap3 15:01 Body Mass Index 39.06 (90.72 kg, 152.40 cm) ap3 MDM: 14:05 Patient medically screened. kb 16:33 Data reviewed: vital signs, nurses notes. Data interpreted: Pulse oximetry: on room air kb is 99 %. Interpretation: normal. 16:34 Counseling: I had a detailed discussion with the patient and/or guardian regarding: the kb historical points, exam findings, and any diagnostic results supporting the discharge/admit diagnosis, lab results, radiology results, the need for outpatient follow up, a family practitioner, to return to the emergency department if symptoms worsen or persist or if there are any questions or concerns that arise at home. 16:37 ED course: Pt sitting up, awake, alert and oriented. Talking with visitor in room. kb 06/14 14:11 Order name: CBC with Diff; Complete Time: 14:47 kb 06/14 14:11 Order name: Basic Metabolic Panel; Complete Time: 14:55 kb 06/14 14:11 Order name: UDS; Complete Time: 15:29 kb 06/14 14:11 Order name: COVID-19/FLU A+B (Document "Date of Onset" if Symptomatic); Complete Time: kb 16:10 06/14 15:06 Order name: Urine Dipstick-Ancillary; Complete Time: 15:07 EDMS 06/14 15:10 Order name: Urine --Ancillary (enter results); Complete Time: 15:21 bd 06/14 14:11 Order name: IV Start; Complete Time: 14:34 kb 06/14 14:11 Order name: Urine Dipstick-Ancillary (obtain specimen); Complete Time: 15:01 kb 06/14 14:15 Order name: Chest Single View XRAY; Complete Time: 15:51 kb 06/14 14:40 Order name: CT Head Brain wo Cont; Complete Time: 15:15 kb Administered Medications: 15:30 Drug: NS 0.9% 1000 ml Route: IV; Rate: 1000 ml; Site: right hand; ap3 Disposition: 06/15 08:23 Co-signature as Attending Physician, Alec Sifuentes MD I agree with the assessment and dena plan of care. Disposition Summary: 06/14/21 16:32 Discharge Ordered Location: Home kb Condition: Stable kb Diagnosis - Coronavirus infection, unspecified kb Followup: kb - With: Emergency Department - When: As needed - Reason: Worsening of condition Followup: kb - With: Private Physician - When: 2 - 3 days - Reason: Recheck today's complaints, Continuance of care, Re-evaluation by your physician Discharge Instructions: - Discharge Summary Sheet kb - Viral Respiratory Infection, [id number] kb - COVID-19 kb Forms: - Medication Reconciliation Form kb - Thank You Letter kb - Antibiotic Education kb - Prescription Opioid Use kb Signatures: Dispatcher [employer] EDMarcia Santos, GEOTECHNICIAN-C GEOTECHNICIAN-Alec Greenwood MD MD cha Prokisch, Amanda, RN RN ap3
[2021-06-14 17:29] VITALS: TEMP 99.8
[2021-06-14 17:30] VITALS: BP 107/77; O2SAT 99
== END 2021-06-14 17:14 | disposition home or self-care (01) ==
LOC: ER 13:55
DX: U07.1 COVID-19 (principal); Z91.040 Latex allergy status; Z91.048 Other nonmedicinal substance allergy status
CPT/HCPCS: 85025; 80048; 36415; 81025; 81003; 0240U; 80307; 70450; 71045; 51702; 99284

== ENCOUNTER 2022-10-12 22:29 | Emergency (ER) | payer OTHER ==
--- OUTSIDE RECORDS SUMMARY | 2022-10-12 22:38 | XMS REPORT | Continuity of Care Document ---
:1990 Author Organization [facility] t Address [address] [place] [address] [place] [id number] Care Team Providers Name Role Phone CE CAMACHO Primary Care Physician Unavailable Ce Camacho Attending Clinician Unavailable Dennis Owens Attending Clinician Unavailable OPHELIA GREENWOOD Attending Clinician Unavailable BENJAMÍN GOODSON Attending Clinician Unavailable EMEKA PATINO Attending Clinician Unavailable Emeka Colin Attending Clinician LENY ALVARADO Attending Clinician Unavailable Ophelia Greenwood MD Attending Clinician LEANDRO SUAZO Attending Clinician Unavailable LEANDRO SUAZO Attending Clinician Unavailable Larry Rapp Attending Clinician Unknown, Attending Attending Clinician Unavailable Florencia Barrera MD Attending Clinician LARRY VINCENT Attending Clinician Unavailable Altagracia MEAD Attending Clinician Unavailable Altagracia Cuellar Attending Clinician GIOVANY ROPER Attending Clinician Unavailable Giovany Roper MD Attending Clinician ANTONIO LEBLANC Attending Clinician Unavailable Antonio Leblanc MD Attending Clinician ERI KENDALL Attending Clinician Unavailable ERI KENDALL Attending Clinician Unavailable Benjamín Goodson MD Attending Clinician LISETTE DILLON Attending Clinician Unavailable Tyosn UTILITIES OPERATORLisette Irizarry Attending Clinician Tech, [facility] Attending Clinician Unavailable Parker Mann MD Attending Clinician PARKER MANN Attending Clinician Unavailable PARKER MANN Attending Clinician Unavailable Doctor Unassigned, [place] Attending Clinician Unavailable 2, [facility] Attending Clinician Unavailable EbKaur Leos Attending Clinician KAUR BUENO Attending Clinician Unavailable Randal Sheree ZAPATA Attending Clinician Nurse, [facility] Attending Clinician Unavailable Only, [facility] Attending Clinician Unavailable Pob, [facility] Main Attending Clinician Unavailable OPHELIA GREENWOOD Admitting Clinician Unavailable Altagracia MEAD Admitting Clinician Unavailable ANTONIO LEBLANC Admitting Clinician Unavailable Ophelia Greenwood MD Admitting Clinician Payers Payer Name Policy Type Policy Number Effective Date Expiration Date [facility] [id number] 2018 HEALTH CHOICE 00:00:00 [facility]ICAID [facility] [id number] 2018 [facility] HEALTH CHOICE 00:00:00 [facility] [id number] 2018 [facility] HEALTH CHOICE 00:00:00 [facility] Problems Condition Condition Condition Status Onset Resolution Last Treating Co mments Source Name Details Category Date Date Treatment Clinician Date Status Status Disease Active Univers post post 12-06 [place] sal[place] Me dical [place] Branch Admission Admission Disease Active Overview: Univers for tubal for tubal 7-20 Formattin i ty of ligation ligation 00:00: g of this Th[place] as 00 note Medical might be Branch different from the original. 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, disorder, without without psychotic psychotic features features Anxiety Anxiety Disease Active Univers disorder, disorder, 6-15 ity of unspecifie [place] type d type 00 Medical Branch History of History of Disease Active U nivers anxiety anxiety 5-13 ity of 00:00: [place] [facility] History of History of Disease Active U nivers depression depression 5-13 it y of 00:: [place] [facility] Frequent Frequent Disease Active Unive rs UTI UTI 6-28 ity of 00:00: [place] [facility] Hypertroph Hypertroph Disease Active U nivers y of y of 5-27 ity of breast breast 00:00: [place] [facility] Branch Mitral Prolapse Problem Common valve of mitral Spirit disorder valve - [facility] [id number] Adult BMI Problem Com mon 32.0-32.9 Spirit kg/sq m [facility] [id number] Obesity Problem Commo n due to Spirit excess - [facility] calories [facility] serious Medical comorbidit Center y, unspecifie d classifica tion [id number] Gastroesop Problem Co mmon hageal Spirit reflux - [facility] disease [facility] esophagiti Medica s [place] [id number] Maxillary Problem Comm on sinusitis, Spirit unspecifie - [facility] d chronicity [facility] [id number] Environmen Problem Co mmon pato Spirit allergies - [facility] [id number] History of Problem Co mmon gestationa Spirit l diabetes - [facility] Body mass Body mass Problem Com mon index index Spirit 30.00 to (BMI) of - [facility] 34.99 33.0-33.9 St in adult [facility] [id number] Mitral Problem Common valve Spirit prolapse - [facility] [id number] Mixed Problem Common hyperlipid Spirit emia - [facility] [id number] Migraine Problem Comm on without Spirit aura and - [facility] without [facility] migrainosu Medica l s, not Center intractabl e [id number] Non-season Problem Com mon al Spirit allergic - [facility] rhinitis, St unspecifie [facility] [id number] Endometrio Problem Co mmon sis Spirit - [facility] Anxiety Anxiety Problem Common depression with Spirit depression - [facility] [id number] PCOS Problem Common (polycysti Spirit c ovarian - [facility] syndrome) [facility] [id number] Lumbago Problem Comm on with Spirit sciatica, - [facility] right side [facility] [id number] Lumbago Problem Commo n with Spirit sciatica, - [facility] left side [facility] [id number] Bipolar Problem Commo n affective Spirit disorder, - [facility] current [facility] mixed, Medical current Center episode severity unspecifie d Allergies, Adverse Reactions, Alerts Allergy Allergy Status Severity Reaction(s) Onset Inactive Treating Comm ents Source Name Type Date Date Clinician latex DA Active MO 2018-05 [facility] 2-14 Clear 00:00: [place] 00 [facility] latex DA Active MO 2018-05 [facility] 2-04 [facility] 00:[facility]: [facility] [place] LATEX DRUG Active Rash Univers INGREDI 5-05 ity of 00:00: [place] 00 Medical Branch acetamin DA Active MO [facility] ophen 4-07 [facility] 00:00: [facility] [place] latex DA Active MO [facility] 4-07 Woman's 00:00: [facility] 00 [facility] of [place] LATEX DRUG Active Swelling Univers INGREDI 6-28 ity of 00:00: [place] 00 Medical Branch Acetamin Propensi Active Rash Possible Univ ers ophen ty to 4-05 per Mom ity of adverse 00:00: not for [place] reaction 00 sure. Medical s Branch ACETAMIN DRUG Active Med Rash Univers OPHEN INGREDI 4-05 ity of 00:00: [place] 00 Medical Branch Latex Latex Active Unknown [facility] Social History Social Habit Start Date Stop Date Quantity Comments Source History [facility] University [facility] [place] [facility] SDOH University o f Alcohol Std [place] Medical Drinks Branch History [facility] o f Alcohol Binge [place] [facility] al Branch History of [facility] - Tobacco Use [facility] Sex Assigned At [facility] - [facility] Exposure to 2022-06-29 2022-07-09 Not sure University of SARS-CoV-2 00:00:00 14:54:00 [facility] (event) Branch Alcohol intake 2022-06-15 2022-06-15 Ex-drinker University 00:00:00 00:00:00 (finding) [facility] Tobacco use and 2021-12-26 2021-12-26 Smokeless tobacco Un iversity of exposure 00:00:00 00:00:00 non-user [facility] Alcohol Comment 2018-09-15 2018-09-15 occasional Universit y of 00:00:00 00:00:00 [facility] Smoking Status Start Date Stop Date Source Never smoked tobacco [facility] Medications Ordered Filled Start Stop Current Ordering Indication Dosage Frequency Signature Comments Components Source Medication Medication Date Date Medication? Clinician (SIG) Name Name dicyclomine No 20mg 20 mg, Uni vers (BENTYL) 10-08 Intramuscu ity of injection 17:45: 17:08 lar, ONCE, [place] 20 mg 00 :00 1 dose, On Medical Sat10/08/22 Branch at 1245, MOSES maalox:diph 2022- No 15mL 15 mL, Uni vers enhydrAMINE 10-08 Oral, ity of :lidocaine 16:45: 17:09 ONCE, 1 [place] 2 % viscous 00 :00 dose, On Medi aislinn 1:1:1 Sat10/08/22 Branch (FIRST-MOUT at 1145, HWASH BLM) Routine oral suspension 15 mL famotidine No 20mg 20 mg, Univ ers (PEPCID 10-08 Slow IV ity of (PF)) 16:45: 17:08 Push, [place] injection 00 :00 ONCE, 1 Medical 20 mg dose, On Branch Sat10/08/22 at 1145, [facility]ES ondansetron 2022- No 4mg 4 mg, Slow Univers (ZOFRAN 6-05 06-05 IV Push, ity of (PF)) 16:45: 17:08 ONCE, 1 [place] injection 4 00 :00 dose, On Medi aislinn mg 10/08/22 Branch at 1145, [facility] dicyclomine Yes [id number] 20mg Take 1 Univers 20 mg 6-05 tablet by ity of tablet 00:00: mouth 4 [place] 00 (four) Medical times Branch daily as needed for Abdominal pain. ondansetron Yes [id number] 4mg Take 1 Univers 4 mg 6-05 tablet by ity of disintegrat 00:00: mouth [place] ing tablet 00 every 8 Medica l (eight) Branch hours as needed for Nausea and Vomiting (N/V). famotidine Yes [id number] 20mg Take 1 U nivers 20 mg 6-05 tablet by ity of tablet 00:00: mouth as [place] 00 needed for Medical Heartburn Branch or Indigestio n. [facility] Yes [id number] 1{capsu Take 1 U nivers Blue-Sod 3-06 le} capsule by ity o f Phos-PhSal- 00:00: mouth 2 [place] 00 (two) Medical (URIBEL) times Branch 118-10-40.8 daily as -36 mg needed for capsule Other (bladder spasms). [facility] Yes [id number] 1{capsu Take 1 U nivers Blue-Sod 3-06 le} capsule by ity o f Phos-PhSal- 00:00: mouth 2 [place] 00 (two) Medical (URIBEL) times Branch 118-10-40.8 daily as -36 mg needed for capsule Other (bladder spasms). [facility] Yes [id number] 1{capsu Take 1 U nivers Blue-Sod 3-06 le} capsule by ity o f Phos-PhSal- 00:00: mouth 2 [place] 00 (two) Medical (URIBEL) times Branch 118-10-40.8 daily as -36 mg needed for capsule Other (bladder spasms). azithromyci 2021-05 Yes [id number] Z pack as Univers n 2-28 directed. ity of (ZITHROMAX 00:00: [place] Z-LEANDRO) 250 00 Medical mg tablet Branch azithromyci 2021- Yes [id number] Z pack as Univers n 2-28 directed. ity of (ZITHROMAX 00:00: [place] Z-LEANDRO) 250 00 Medical mg tablet Branch azithromyci 2021- Yes [id number] Z pack as Univers n 2-28 directed. ity of (ZITHROMAX 00:00: [place] Z-LEANDRO) 250 00 Medical mg tablet Branch azithromyci 2021- Yes [id number] Z pack as Univers n 2-28 directed. ity of (ZITHROMAX 00:00: [place] Z-LEANDRO) 250 00 Medical mg tablet Branch azithromyci 2021- Yes [id number] Z pack as Univers n 2-28 directed. ity of (ZITHROMAX 00:00: [place] Z-LEANDRO) 250 00 Medical mg tablet Branch azithromyci 2021- Yes [id number] Z pack as Univers n 2-28 directed. ity of (ZITHROMAX 00:00: [place] Z-LEANDRO) 250 00 Medical mg tablet Branch azithromyci 2021- Yes [id number] Z pack as Univers n 2-28 directed. ity of (ZITHROMAX 00:00: [place] Z-LEANDRO) 250 00 Medical mg tablet Branch azithromyci 2021- Yes [id number] Z pack as Univers n 2-28 directed. ity of (ZITHROMAX 00:00: [place] Z-LEANDRO) 250 00 Medical mg tablet Branch azithromyci 2021- Yes [id number] Z pack as Univers n 2-28 directed. ity of (ZITHROMAX 00:00: [place] Z-LEANDRO) 250 00 Medical mg tablet Branch azithromyci 2021- Yes [id number] Z pack as Univers n 2-28 directed. ity of (ZITHROMAX 00:00: [place] Z-LEANDRO) 250 00 Medical mg tablet Branch azithromyci 2021-2022- No [id number] Z pack as Univers n 2-28 - directed. ity of (ZITHROMAX 00:00: 00:00 [place] Z-LEANDRO) 250 00 :00 Medical mg tablet Branch benzonatate 2021-05- No [id number] 200mg Take 1 Univers 200 mg 205-13 capsule by ity of capsule 00:00: 05:59 mouth 3 [place] 00 :00 (three) Medical times Branch daily as needed for Cough for up to 10 days. predniSONE 2021-05- No [id number] 20mg Take 1 Univers 20 mg 07-03 tablet by ity of tablet 00:00: 05:59 mouth in [place] 00 :00 the Medical morning Branch for 5 days. codeine-gua 2021-05- No 10mL Take 10 mL Univers ifenesin 07-03 by mouth ity of 10-100 mg/5 00:00: 05:59 every 6 [place] mL oral 00 :00 (six) Medical solution hours as Branch needed for Cough for up to 5 days. Indication s: cough HYDROcodone 2021-05 No 1{tbl} 1 tablet, Univers -acetaminop 06-23 Oral, ity of hen (NORCO 04:15: 03:14 ONCE, 1 [place] as 5) 5-325 mg 00 :00 dose, On Medi aislinn tablet 1 Sat Branch tablet 04/21/22 at 2215, [facility] ondansetron 2021-05 No 4mg 4 mg, Univ ers (ZOFRAN-ODT 06-23 Oral, ity of ) 04:15: 03:14 ONCE, 1 [place] disintegrat 00 :00 dose, On Medi aislinn ing tablet Sat Branch 4 mg 04/21/22 at 2215, Routine ibuprofen 2021-05 Yes [id number] 600mg Take 1 Univers 600 mg 2-17 tablet by ity of tablet 00:00: mouth [place] 00 every 6 Medical (six) Branch hours as needed for Pain (scale 4-6). ibuprofen 2021-05 Yes [id number] 600mg Take 1 Univers 600 mg 2-17 tablet by ity of tablet 00:00: mouth [place] 00 every 6 Medical (six) Branch hours as needed for Pain (scale 4-6). ibuprofen 2021-05 Yes [id number] 600mg Take 1 Univers 600 mg 2-17 tablet by ity of tablet 00:00: mouth [place] 00 every 6 Medical (six) Branch hours as needed for Pain (scale 4-6). ibuprofen 2021-05 Yes [id number] 600mg Take 1 Univers 600 mg 2-17 tablet by ity of tablet 00:00: mouth [place] 00 every 6 Medical (six) Branch hours as needed for Pain (scale 4-6). ibuprofen 2021-05 Yes [id number] 600mg Take 1 Univers 600 mg 2-17 tablet by ity of tablet 00:00: mouth [place] 00 every 6 Medical (six) Branch hours as needed for Pain (scale 4-6). ibuprofen 2021-05 Yes [id number] 600mg Take 1 Univers 600 mg 2-17 tablet by ity of tablet 00:00: mouth [place] 00 every 6 Medical (six) Branch hours as needed for Pain (scale 4-6). ibuprofen 2021-05 Yes [id number] 600mg Take 1 Univers 600 mg 2-17 tablet by ity of tablet 00:00: mouth [place] 00 every 6 Medical (six) Branch hours as needed for Pain (scale 4-6). ibuprofen 2021-05 Yes [id number] 600mg Take 1 Univers 600 mg 2-17 tablet by ity of tablet 00:00: mouth [place] 00 every 6 Medical (six) Branch hours as needed for Pain (scale 4-6). ibuprofen 2021-05 Yes [id number] 600mg Take 1 Univers 600 mg 2-17 tablet by ity of tablet 00:00: mouth [place] 00 every 6 Medical (six) Branch hours as needed for Pain (scale 4-6). ibuprofen 2021-05 Yes [id number] 600mg Take 1 Univers 600 mg 2-17 tablet by ity of tablet 00:00: mouth [place] 00 every 6 Medical (six) Branch hours as needed for Pain (scale 4-6). ibuprofen 2021-05 Yes [id number] 600mg Take 1 Univers 600 mg 2-17 tablet by ity of tablet 00:00: mouth [place] 00 every 6 Medical (six) Branch hours as needed for Pain (scale 4-6). ibuprofen 2021-05 Yes [id number] 600mg Take 1 Univers 600 mg 2-17 tablet by ity of tablet 00:00: mouth [place] 00 every 6 Medical (six) Branch hours as needed for Pain (scale 4-6). ibuprofen 2021-05- No 600mg 600 mg, Uni vers (IBU) 1-17 03-22 Oral, ity of tablet 600 13:30: 13:35 ONCE, 1 [place] as mg 00 :00 dose, On Medical Yissel Branch 03/22/22 at 0730, [facility] ARIPiprazol 2021-05 Yes 1 tablet Un jose e 5 mg 1-17 ity of tablet 08:27: [address] 2021-05 Yes 2 tablets U nivers n 250 mg 1-17 on the ity of tablet 08:27: first day, [place] then 1 Medical tablet Branch daily for 4 days ARIPiprazol 2021-05 Yes 1 tablet Un jose e 5 mg 1-17 ity of tablet 08:27: [address] 2021-05 Yes 2 tablets U nivers n 250 mg 1-17 on the ity of tablet 08:27: first day, [place] then 1 Medical tablet Branch daily for 4 days ARIPiprazol 2021-05 Yes 1 tablet Un jose e 5 mg 1-17 ity of tablet 08:27: [address] 2021-05 Yes 2 tablets U nivers n 250 mg 1-17 on the ity of tablet 08:27: first day, [place] [address] then 1 Medical tablet Branch daily for 4 days ARIPiprazol 2021-05 Yes 1 tablet Un jose e 5 mg 1-17 ity of tablet 08:27: [address] 2021-05 Yes 2 tablets U nivers n 250 mg 1-17 on the ity of tablet 08:27: first day, [place] [address] then 1 Medical tablet Branch daily for 4 days ARIPiprazol 2021-05 Yes 1 tablet Un jose e 5 mg 1-17 ity of tablet 08:27: [address] 2021-05 Yes 2 tablets U nivers n 250 mg 1-17 on the ity of tablet 08:27: first day, [place] then 1 Medical tablet Branch daily for 4 days ARIPiprazol 2021-05 Yes 1 tablet Un jose e 5 mg 1-17 ity of tablet 08:27: [address] 2021-05 Yes 2 tablets U nivers n 250 mg 1-17 on the ity of tablet 08:27: first day, [place] [address] then 1 Medical tablet Branch daily for 4 days ARIPiprazol 2021-05 Yes 1 tablet Un jose e 5 mg 1-17 ity of tablet 08:27: [address] 2021-05 Yes 2 tablets U nivers n 250 mg 1-17 on the ity of tablet 08:27: first day, [place] then 1 Medical tablet Branch daily for 4 days ARIPiprazol 2021-05 Yes 1 tablet Un jose e 5 mg 1-17 ity of tablet 08:27: [address] 2021-05 Yes 2 tablets U nivers n 250 mg 1-17 on the ity of tablet 08:27: first day, [place] then 1 Medical tablet Branch daily for 4 days ARIPiprazol 2021-05 Yes 1 tablet Un jose e 5 mg 1-17 ity of tablet 08:27: [address] 2021-05 Yes 2 tablets U nivers n 250 mg 1-17 on the ity of tablet 08:27: first day, [place] then 1 Medical tablet Branch daily for 4 days ARIPiprazol 2021-05 Yes 1 tablet Un jose e 5 mg 1-17 ity of tablet 08:27: [address] 2021-05 Yes 2 tablets U nivers n 250 mg 1-17 on the ity of tablet 08:27: first day, [place] [address] then 1 Medical tablet Branch daily for 4 days ARIPiprazol 2021-05 Yes 1 tablet Un jose e 5 mg 1-17 ity of tablet 08:27: [address] 2021-05 Yes 2 tablets U nivers n 250 mg 1-17 on the ity of tablet 08:27: first day, [place] [address] then 1 Medical tablet Branch daily for 4 days ARIPiprazol 2021-05 Yes 1 tablet Un jose e 5 mg 1-17 ity of tablet 08:27: [address] 2021-05 Yes 2 tablets U nivers n 250 mg 1-17 on the ity of tablet 08:27: first day, [place] then 1 Medical tablet Branch daily for 4 days ARIPiprazol 2021-05 Yes 1 tablet Un jose e 5 mg 1-17 ity of tablet 08:27: [address] 2021-05 Yes 2 tablets U nivers n 250 mg 1-17 on the ity of tablet 08:27: first day, [place] 22 then 1 Medical tablet Branch daily for 4 days metoclopram 2021-05 Yes [id number] 10mg Take 1 Univers katelyn HCl 10 1-17 tablet by ity of mg tablet 00:00: mouth [place] 00 every 6 Medical (six) Branch hours as needed for Nausea and Vomiting (N/V) (headache) for up to 15 doses. ibuprofen 2021-05 Yes [id number] 400mg Take 2 Univers (MOTRIN IB) 1-17 tablets by it y of 200 mg 00:00: mouth [place] tablet 00 every 6 Medical (six) Branch hours as needed for Pain (scale 1-3) for up to 30 doses. benzonatate 2021-05 Yes [id number] 100mg Take 1 Univers 100 mg 1-17 capsule by ity of capsule 00:00: mouth 3 [place] 00 (three) Medical times Branch daily as needed for Cough. metoclopram 2021-05 Yes [id number] 10mg Take 1 Univers katelyn HCl 10 1-17 tablet by ity of mg tablet 00:00: mouth [place] 00 every 6 Medical (six) Branch hours as needed for Nausea and Vomiting (N/V) (headache) for up to 15 doses. ibuprofen 2021-05 Yes [id number] 400mg Take 2 Univers (MOTRIN IB) 1-17 tablets by it y of 200 mg 00:00: mouth [place] tablet 00 every 6 Medical (six) Branch hours as needed for Pain (scale 1-3) for up to 30 doses. benzonatate 2021-05 Yes [id number] 100mg Take 1 Univers 100 mg 1-17 capsule by ity of capsule 00:00: mouth 3 [place] 00 (three) Medical times Branch daily as needed for Cough. metoclopram 2021-05 Yes [id number] 10mg Take 1 Univers katelyn HCl 10 1-17 tablet by ity of mg tablet 00:00: mouth [place] 00 every 6 Medical (six) Branch hours as needed for Nausea and Vomiting (N/V) (headache) for up to 15 doses. ibuprofen 2021-05 Yes [id number] 400mg Take 2 Univers (MOTRIN IB) 1-17 tablets by it y of 200 mg 00:00: mouth [place] tablet 00 every 6 Medical (six) Branch hours as needed for Pain (scale 1-3) for up to 30 doses. benzonatate 2021-05 Yes [id number] 100mg Take 1 Univers 100 mg 1-17 capsule by ity of capsule 00:00: mouth 3 [place] 00 (three) Medical times Branch daily as needed for Cough. metoclopram 2021-05 Yes [id number] 10mg Take 1 Univers katelyn HCl 10 1-17 tablet by ity of mg tablet 00:00: mouth [place] 00 every 6 Medical (six) Branch hours as needed for Nausea and Vomiting (N/V) (headache) for up to 15 doses. ibuprofen 2021-05 Yes [id number] 400mg Take 2 Univers (MOTRIN IB) 1-17 tablets by it y of 200 mg 00:00: mouth [place] tablet 00 every 6 Medical (six) Branch hours as needed for Pain (scale 1-3) for up to 30 doses. benzonatate 2021-05 Yes [id number] 100mg Take 1 Univers 100 mg 1-17 capsule by ity of capsule 00:00: mouth 3 [place] 00 (three) Medical times Branch daily as needed for Cough. metoclopram 2021-05 Yes [id number] 10mg Take 1 Univers katelyn HCl 10 1-17 tablet by ity of mg tablet 00:00: mouth [place] 00 every 6 Medical (six) Branch hours as needed for Nausea and Vomiting (N/V) (headache) for up to 15 doses. ibuprofen 2021-05 Yes [id number] 400mg Take 2 Univers (MOTRIN IB) 1-17 tablets by it y of 200 mg 00:00: mouth [place] tablet 00 every 6 Medical (six) Branch hours as needed for Pain (scale 1-3) for up to 30 doses. benzonatate 2021-05 Yes [id number] 100mg Take 1 Univers 100 mg 1-17 capsule by ity of capsule 00:00: mouth 3 [place] 00 (three) Medical times Branch daily as needed for Cough. metoclopram 2021-05 Yes [id number] 10mg Take 1 Univers katelyn HCl 10 1-17 tablet by ity of mg tablet 00:00: mouth [place] 00 every 6 Medical (six) Branch hours as needed for Nausea and Vomiting (N/V) (headache) for up to 15 doses. ibuprofen 2021-05 Yes [id number] 400mg Take 2 Univers (MOTRIN IB) 1-17 tablets by it y of 200 mg 00:00: mouth [place] tablet 00 every 6 Medical (six) Branch hours as needed for Pain (scale 1-3) for up to 30 doses. benzonatate 2021-05 Yes [id number] 100mg Take 1 Univers 100 mg 1-17 capsule by ity of capsule 00:00: mouth 3 [place] 00 (three) Medical times Branch daily as needed for Cough. metoclopram 2021-05 Yes [id number] 10mg Take 1 Univers katelyn HCl 10 1-17 tablet by ity of mg tablet 00:00: mouth [place] 00 every 6 Medical (six) Branch hours as needed for Nausea and Vomiting (N/V) (headache) for up to 15 doses. ibuprofen 2021-05 Yes [id number] 400mg Take 2 Univers (MOTRIN IB) 1-17 tablets by it y of 200 mg 00:00: mouth [place] tablet 00 every 6 Medical (six) Branch hours as needed for Pain (scale 1-3) for up to 30 doses. benzonatate 2021-05 Yes [id number] 100mg Take 1 Univers 100 mg 1-17 capsule by ity of capsule 00:00: mouth 3 [place] 00 (three) Medical times Branch daily as needed for Cough. metoclopram 2021-05 Yes [id number] 10mg Take 1 Univers katelyn HCl 10 1-17 tablet by ity of mg tablet 00:00: mouth [place] 00 every 6 Medical (six) Branch hours as needed for Nausea and Vomiting (N/V) (headache) for up to 15 doses. ibuprofen 2021-05 Yes [id number] 400mg Take 2 Univers (MOTRIN IB) 1-17 tablets by it y of 200 mg 00:00: mouth [place] tablet 00 every 6 Medical (six) Branch hours as needed for Pain (scale 1-3) for up to 30 doses. benzonatate 2021-05 Yes [id number] 100mg Take 1 Univers 100 mg 1-17 capsule by ity of capsule 00:00: mouth 3 [place] 00 (three) Medical times Branch daily as needed for Cough. metoclopram 2021-05 Yes [id number] 10mg Take 1 Univers katelyn HCl 10 1-17 tablet by ity of mg tablet 00:00: mouth [place] 00 every 6 Medical (six) Branch hours as needed for Nausea and Vomiting (N/V) (headache) for up to 15 doses. ibuprofen 2021-05 Yes [id number] 400mg Take 2 Univers (MOTRIN IB) 1-17 tablets by it y of 200 mg 00:00: mouth [place] tablet 00 every 6 Medical (six) Branch hours as needed for Pain (scale 1-3) for up to 30 doses. benzonatate 2021-05 Yes [id number] 100mg Take 1 Univers 100 mg 1-17 capsule by ity of capsule 00:00: mouth 3 [place] 00 (three) Medical times Branch daily as needed for Cough. metoclopram 2021-05 Yes [id number] 10mg Take 1 Univers katelyn HCl 10 1-17 tablet by ity of mg tablet 00:00: mouth [place] 00 every 6 Medical (six) Branch hours as needed for Nausea and Vomiting (N/V) (headache) for up to 15 doses. ibuprofen 2021-05 Yes [id number] 400mg Take 2 Univers (MOTRIN IB) 1-17 tablets by it y of 200 mg 00:00: mouth [place] tablet 00 every 6 Medical (six) Branch hours as needed for Pain (scale 1-3) for up to 30 doses. benzonatate 2021-05 Yes [id number] 100mg Take 1 Univers 100 mg 1-17 capsule by ity of capsule 00:00: mouth 3 [place] 00 (three) Medical times Branch daily as needed for Cough. metoclopram 2021-05 Yes [id number] 10mg Take 1 [facility] katelyn HCl 10 1-17 tablet by ity of mg tablet 00:00: mouth [place] 00 every 6 Medical (six) Branch hours as needed for Nausea and Vomiting (N/V) (headache) for up to 15 doses. ibuprofen 2021-05 Yes [id number] 400mg Take 2 [facility] (MOTRIN IB) 1-17 tablets by it y of 200 mg 00:00: mouth [place] tablet 00 every 6 Medical (six) Branch hours as needed for Pain (scale 1-3) for up to 30 doses. benzonatate 2021-05 Yes [id number] 100mg Take 1 [facility] 100 mg 1-17 capsule by ity of capsule 00:00: mouth 3 [place] 00 (three) Medical times Branch daily as needed for Cough. metoclopram 2021-05 Yes [id number] 10mg Take 1 [facility] katelyn HCl 10 1-17 tablet by ity of mg tablet 00:00: mouth [place] 00 every 6 Medical (six) Branch hours as needed for Nausea and Vomiting (N/V) (headache) for up to 15 doses. ibuprofen 2021-05 Yes [id number] 400mg Take 2 [facility] (MOTRIN IB) 1-17 tablets by it y of 200 mg 00:00: mouth [place] tablet 00 every 6 Medical (six) Branch hours as needed for Pain (scale 1-3) for up to 30 doses. benzonatate 2021-05 Yes [id number] 100mg Take 1 [facility] 100 mg 1-17 capsule by ity of capsule 00:00: mouth 3 [place] 00 (three) Medical times Branch daily as needed for Cough. metoclopram 2021-05 Yes [id number] 10mg Take 1 [facility] katelyn HCl 10 1-17 tablet by ity of mg tablet 00:00: mouth [place] 00 every 6 Medical (six) Branch hours as needed for Nausea and Vomiting (N/V) (headache) for up to 15 doses. ibuprofen 2021-05 Yes [id number] 400mg Take 2 [facility] (MOTRIN IB) 1-17 tablets by it y of 200 mg 00:00: mouth [place] tablet 00 every 6 Medical (six) Branch hours as needed for Pain (scale 1-3) for up to 30 doses. benzonatate 2021-05 Yes [id number] 100mg Take 1 [facility] 100 mg 1-17 capsule by ity of capsule 00:00: mouth 3 [place] 00 (three) Medical times Branch daily as needed for Cough. Tamiflu 75 Tamiflu 75 2021-05 No 1{capsu BID Tamiflu 75 MG MG 1-17 le} MG 00:00: 00 Tamiflu 75 Tamiflu 75 1 No 1{capsu BID Tamiflu 75 MG MG 1-17 le} MG 00:00: 00 ibuprofen 2021-0 2021- No 200mg Take 200 Un jose 200 mg 8-26 08-26 mg by ity of tablet 17:15: 00:00 mouth [place] 41 :00 every 6 Medical (six) Branch hours as needed. amitriptyli Yes [id number] 25mg Take 1 [facility] ne 25 mg 8-25 tablet by ity of tablet 00:00: mouth at [place] 00 bedtime. Medical Branch amitriptyli 0 Yes [id number] 25mg Take 1 [facility] ne 25 mg 8-25 tablet by ity of tablet 00:00: mouth at [place] 00 bedtime. Medical Branch amitriptyli Yes [id number] 25mg Take 1 [facility] ne 25 mg 8-25 tablet by ity of tablet 00:00: mouth at [place] [address] bedtime. Medical Branch amitriptyli 2021-0 Yes [id number] 25mg Take 1 [facility] ne 25 mg 8-25 tablet by ity of tablet 00:00: mouth at [place] [address] bedtime. Medical Branch amitriptyli 2021-0 Yes [id number] 25mg Take 1 [facility] ne 25 mg 8-25 tablet by ity of tablet 00:00: mouth at [place] [address] bedtime. Medical Branch amitriptyli 2021-0 Yes [id number] 25mg Take 1 [facility] ne 25 mg 8-25 tablet by ity of tablet 00:00: mouth at [place] [address] bedtime. Medical Branch amitriptyli 2021-0 Yes [id number] 25mg Take 1 [facility] ne 25 mg 8-25 tablet by ity of tablet 00:00: mouth at [place] [address] bedtime. Medical Branch amitriptyli 2021-0 Yes [id number] 25mg Take 1 [facility] ne 25 mg 8-25 tablet by ity of tablet 00:00: mouth at [place] [address] bedtime. Medical Branch amitriptyli 2021-0 Yes [id number] 25mg Take 1 [facility] ne 25 mg 8-25 tablet by ity of tablet 00:00: mouth at [place] [address] bedtime. Medical Branch amitriptyli 2021-0 Yes [id number] 25mg Take 1 [facility] ne 25 mg 8-25 tablet by ity of tablet 00:00: mouth at [place] [address] bedtime. Medical Branch amitriptyli 2021-0 Yes [id number] 25mg Take 1 [facility] ne 25 mg 8-25 tablet by ity of tablet 00:00: mouth at [place] [address] bedtime. Medical Branch amitriptyli 2021-0 Yes [id number] 25mg Take 1 [facility] ne 25 mg 8-25 tablet by ity of tablet 00:00: mouth at [place] [address] bedtime. Medical Branch amitriptyli 2021-0 Yes [id number] 25mg Take 1 [facility] ne 25 mg 8-25 tablet by ity of tablet 00:00: mouth at [place] [address] bedtime. Medical Branch SERTraline 2021-0 Yes 1 tablet Uni vers 50 mg 4-12 ity of tablet 00:00: [place] 00 Medical Branch SERTraline 2021-0 Yes 1 tablet Uni vers 50 mg 4-12 ity of tablet 00:00: [address] SERTraline 2021-0 Yes 1 tablet Uni vers 50 mg 4-12 ity of tablet 00:00: [address] SERTraline 2021-0 Yes 1 tablet Uni vers 50 mg 4-12 ity of tablet 00:00: [address] SERTraline 2021-0 Yes 1 tablet Uni vers 50 mg 4-12 ity of tablet 00:00: [address] SERTraline 2021-0 Yes 1 tablet Uni vers 50 mg 4-12 ity of tablet 00:00: [address] SERTraline 2021-0 Yes 1 tablet Uni vers 50 mg 4-12 ity of tablet 00:00: [address] SERTraline 0 Yes 1 tablet Uni vers 50 mg 4-12 ity of tablet 00:00: [address] SERTraline 0 Yes 1 tablet Uni vers 50 mg 4-12 ity of tablet 00:00: [address] SERTraline 0 Yes 1 tablet Uni vers 50 mg 4-12 ity of tablet 00:00: [address] SERTraline 0 Yes 1 tablet Uni vers 50 mg 4-12 ity of tablet 00:00: [address] SERTraline 0 Yes 1 tablet Uni vers 50 mg 4-12 ity of tablet 00:00: [address] SERTraline 0 Yes 1 tablet Uni vers 50 mg 4-12 ity of tablet 00:00: [address] Zoloft 50 Zoloft 50 2021-0 No 1{table QD Zoloft 50 MG MG 4-12 t} MG 00:00: 00 Zoloft 50 Zoloft 50 2021-0 No 1{table QD Zoloft 50 MG MG 4-12 t} MG 00:00: 00 Zoloft 50 Zoloft 50 2-0 No 1{table QD Zoloft 50 MG MG 4-12 t} MG 00:00: 00 Zoloft 50 Zoloft 50 2-0 No 1{table QD Zoloft 50 MG MG 4-12 t} MG 00:00: 00 Zoloft 50 Zoloft 50 2-0 No 1{table QD Zoloft 50 MG MG 4-12 t} MG 00:00: 00 Zoloft 50 Zoloft 50 2022-0 No 1{table QD Zoloft 50 MG MG 4-12 t} MG 00:00: 00 Zoloft 50 Zoloft 50 2021-0 No 1{table QD Zoloft 50 MG MG 4-12 t} MG 00:00: 00 Zoloft 50 Zoloft 50 2021-0 No 1{table QD Zoloft 50 MG MG 4-12 t} MG 00:00: 00 Zoloft 50 Zoloft 50 2021-0 No 1{table QD Zoloft 50 MG MG 4-12 t} MG 00:00: 00 codeine-gua 2020-05- No 10mL Take 10 mL [facility] ifenesin 1-10 11-18 by mouth ity of 10-100 mg/5 00:00: 05:59 every 6 [place] mL oral 00 :00 (six) Medical solution hours as Branch needed for Cough for up to 7 days. Indication s: cough codeine-gua 2020-05 No 10mL Take 10 mL [facility] ifenesin - 11-18 by mouth ity of 10-100 mg/5 [...] to 7 days. Indication s: cough predniSONE 2020-05 No [id number] 20mg Take 1 [facility] 20 mg 05-15 tablet by ity of tablet 00:00: 05:59 mouth [place] 00 :00 daily for Medical 5 days. Branch fluticasone 2020-05- No [id number] 1{spray Use 1 [facility] propionate 05-1516 } [place] in ity of (FLONASE 00:00: 05:59 each [place] ALLERGY 00 :00 nostril Medical RELIEF) 50 daily for Bran ch mcg/actuati 5 days. on nasal spray predniSONE 2020-05- No [id number] 20mg Take 1 [facility] 20 mg 1-10 11-16 tablet by ity of tablet 00:00: 05:59 mouth [place] 00 :00 daily for Medical 5 days. Branch fluticasone 2020-05- No [id number] 1{spray Use 1 [facility] propionate 05-1516 } [place] in ity of (FLONASE 00:00: 05:59 each [place] ALLERGY 00 :00 nostril Medical RELIEF) 50 daily for Bran ch mcg/actuati 5 days. on nasal spray predniSONE 2020-05- No [id number] 20mg Take 1 [facility] 20 mg 05-1516 tablet by ity of tablet 00:00: 05:59 mouth [place] 00 :00 daily for Medical 5 days. Branch fluticasone 2020-05- No [id number] 1{spray Use 1 [facility] propionate 05-1516 } [place] in ity of (FLONASE 00:00: 05:59 each [place] ALLERGY 00 :00 nostril Medical RELIEF) 50 daily for Bran ch mcg/actuati 5 days. [facility] 40mg Common (Triamcinol (Triamcinol 0-13 S pirit one) one) 00:00: - [facility] Kenalog Kenalog 2020-05 No 40mg Common (Triamcinol (Triamcinol 0-13 S pirit one) one) 00:00: - [facility] 00 [facility] Kenalog Kenalog 2020-05 No 40mg Common (Triamcinol (Triamcinol 0-13 S pirit one) one) 00:00: - [facility] 00 [facility] Kenalog Kenalog 2020-05 No 40mg Common (Triamcinol (Triamcinol 0-13 S pirit one) one) 00:00: - [facility] 00 [facility] Kenalog Kenalog 2020-05 No 40mg Common (Triamcinol (Triamcinol 0-13 S pirit one) one) 00:00: - [facility] 00 [facility] Kenalog Kenalog 2020-05 No 40mg Common (Triamcinol (Triamcinol 0-13 S pirit one) one) 00:00: - [facility] Kenalog Kenalog 2020-05 No 40mg Common (Triamcinol (Triamcinol 0-13 S pirit one) one) 00:00: - [facility] 00 [facility] Olivares 2020-05 No 40mg Common (Triamcinol (Triamcinol 0-13 S pirit one) one) 00:00: [facility] No 40mg Common (Triamcinol (Triamcinol 0-13 S pirit one) one) 00:00: - [facility] 00 [facility]ares 2020-05 No 40mg Common (Triamcinol (Triamcinol 0-13 S pirit one) one) 00:00: - [facility] 2020-05 No 40mg Common (Triamcinol (Triamcinol 0-13 S pirit one) one) 00:00: - [facility] 00 [facility] Amoxicillin Amoxicillin 2020-05- No 1{table BID Amoxicilli -Pot -Pot 0-13 10-23 t} n-Pot Clavulanate Clavulanate 00:00: 00:00 Clavulanat 875-125 MG 875-125 MG 00 :00 e 875-125 MG Amoxicillin Amoxicillin 2020-05- No 1{table BID Amoxicilli -Pot -Pot 0-13 10-23 t} n-Pot Clavulanate Clavulanate 00:00: 00:00 Clavulanat 875-125 MG 875-125 MG 00 :00 e 875-125 MG FENTanyl PF 0 Yes 25ug 25 mcg, Uni vers (SUBLIMAZE 8-03 Slow IV ity of (PF)) 15:48: Push, [place] injection 45 Q5MIN PRN, Medi aislinn 25 mcg 4 doses, Branch Starting Sat12/06/20 at 1048, Until Discontinu ed, Routine, Pain (scale 4-6), PACU FENTanyl PF 2020-0 Yes 25ug 25 mcg, Uni vers (SUBLIMAZE 8-03 Slow IV ity of (PF)) 15:48: Push, [place] injection 45 Q5MIN PRN, Medi aislinn 25 mcg 4 doses, Branch Starting 8/3/21 at 1048, Until Discontinu ed, Routine, Pain (scale 4-6), PACU bupivacaine 0 Yes PRN, Univer s -epinephrin 8-03 Starting ity of e-pf 14:38: Sat12/06/20 [place] (SENSORCAIN 00 at 0938, Medi aislinn E Until Branch W/EPINEPHRI Discontinu NE) 0.5 ed, %-1:200,000 Routine, injection Intra-op bupivacaine 0 Yes PRN, Univer s -epinephrin 8-03 Starting ity of e-pf 14:38: Sat12/06/20 [place] (SENSORCAIN 00 at 0938, Medi aislinn E Until Branch W/EPINEPHRI Discontinu NE) 0.5 ed, %-1:200,000 Routine, injection Intra-op lactated 2020- No 1000mL at 42 Unive rs ringers IV 8-03 08-03 mL/hr, ity of infusion 12:30: 12:38 1,000 mL, [place] 1,000 mL 00 :00 IV Medical Infusion, Branch ONCE, 1 dose, Sat12/06/20 at 0730, Routine, DSU Pre-op lactated 0 2020- No 1000mL at 42 Unive rs ringers IV 8-03 08-03 mL/hr, ity of infusion 12:30: 12:38 1,000 mL, [place] 1,000 mL 00 :00 IV Medical Infusion, Branch ONCE, 1 dose, Sat12/06/20 at 0730, Routine, DSU Pre-op ibuprofen 0 Yes [id number] 600mg Take 1 [facility] 600 mg 8-03 tablet by ity of tablet 00:00: mouth [place] 00 every 6 Medical (six) Branch hours as needed for Pain (scale 1-3) or Pain (scale 4-6). acetaminoph Yes [id number] 650mg Take 2 [facility] en 8-03 tablets by ity of (TYLENOL) 00:00: mouth [place] 325 mg 00 every 6 Medical tablet (six) Branch hours as needed for Pain (scale 1-3) or Pain (scale 4-6). simethicone Yes [id number] 80mg Take 1 [facility] 80 mg 8-03 tablet by ity of chewable 00:00: mouth [place] tablet 00 after Medical meals and Branch at bedtime. ibuprofen 2020-0 Yes [id number] 600mg Take 1 [facility] 600 mg 8-03 tablet by ity of tablet 00:00: mouth [place] 00 every 6 Medical (six) Branch hours as needed for Pain (scale 1-3) or Pain (scale 4-6). acetaminoph 2020-0 Yes [id number] 650mg Take 2 [facility] en 8-03 tablets by ity of (TYLENOL) 00:00: mouth [place] 325 mg 00 every 6 Medical tablet (six) Branch hours as needed for Pain (scale 1-3) or Pain (scale 4-6). simethicone 2020-0 Yes [id number] 80mg Take 1 [facility] 80 mg 8-03 tablet by ity of chewable 00:00: mouth [place] tablet 00 after Medical meals and Branch at bedtime. ibuprofen 2020-0 Yes [id number] 600mg Take 1 [facility] 600 mg 8-03 tablet by ity of tablet 00:00: mouth [place] 00 every 6 Medical (six) Branch hours as needed for Pain (scale 1-3) or Pain (scale 4-6). acetaminoph 2020-0 Yes [id number] 650mg Take 2 [facility] en 8-03 tablets by ity of (TYLENOL) 00:00: mouth [place] 325 mg 00 every 6 Medical tablet (six) Branch hours as needed for Pain (scale 1-3) or Pain (scale 4-6). simethicone 2020-0 Yes [id number] 80mg Take 1 [facility] 80 mg 8-03 tablet by ity of chewable 00:00: mouth [place] tablet 00 after Medical meals and Branch at bedtime. ibuprofen 2020-0 Yes [id number] 600mg Take 1 [facility] 600 mg 8-03 tablet by ity of tablet 00:00: mouth [place] 00 every 6 Medical (six) Branch hours as needed for Pain (scale 1-3) or Pain (scale 4-6). acetaminoph 2020-0 Yes [id number] 650mg Take 2 [facility] en 8-03 tablets by ity of (TYLENOL) 00:00: mouth [place] 325 mg 00 every 6 Medical tablet (six) Branch hours as needed for Pain (scale 1-3) or Pain (scale 4-6). simethicone 2021-0 Yes [id number] 80mg Take 1 [facility] 80 mg 8-03 tablet by ity of chewable 00:00: mouth [place] tablet 00 after Medical meals and Branch at bedtime. ibuprofen 2020-0 Yes [id number] 600mg Take 1 [facility] 600 mg 8-03 tablet by ity of tablet 00:00: mouth [place] 00 every 6 Medical (six) Branch hours as needed for Pain (scale 1-3) or Pain (scale 4-6). acetaminoph 2020-0 Yes [id number] 650mg Take 2 [facility] en 8-03 tablets by ity of (TYLENOL) 00:00: mouth [place] 325 mg 00 every 6 Medical tablet (six) Branch hours as needed for Pain (scale 1-3) or Pain (scale 4-6). simethicone 2020-0 Yes [id number] 80mg Take 1 [facility] 80 mg 8-03 tablet by ity of chewable 00:00: mouth [place] tablet 00 after Medical meals and Branch at bedtime. ibuprofen 2020-0 Yes [id number] 600mg Take 1 [facility] 600 mg 8-03 tablet by ity of tablet 00:00: mouth [place] 00 every 6 Medical (six) Branch hours as needed for Pain (scale 1-3) or Pain (scale 4-6). acetaminoph 2020-0 Yes [id number] 650mg Take 2 [facility] en 8-03 tablets by ity of (TYLENOL) 00:00: mouth [place] 325 mg 00 every 6 Medical tablet (six) Branch hours as needed for Pain (scale 1-3) or Pain (scale 4-6). simethicone 2020-0 Yes [id number] 80mg Take 1 [facility] 80 mg 8-03 tablet by ity of chewable 00:00: mouth [place] tablet 00 after Medical meals and Branch at bedtime. ibuprofen 2020-0 Yes [id number] 600mg Take 1 [facility] 600 mg 8-03 tablet by ity of tablet 00:00: mouth [place] 00 every 6 Medical (six) Branch hours as needed for Pain (scale 1-3) or Pain (scale 4-6). acetaminoph 2020-0 Yes [id number] 650mg Take 2 [facility] en 8-03 tablets by ity of (TYLENOL) 00:00: mouth [place] 325 mg 00 every 6 Medical tablet (six) Branch hours as needed for Pain (scale 1-3) or Pain (scale 4-6). simethicone Yes [id number] 80mg Take 1 [facility] 80 mg 8-03 tablet by ity of chewable 00:00: mouth [place] tablet 00 after Medical meals and Branch at bedtime. ibuprofen 2021- No [id number] 600mg Take 1 [facility] 600 mg 8- 08-26 tablet by ity of tablet 00:00: 00:00 mouth [place] 00 :00 every 6 Medical (six) Branch hours as needed for Pain (scale 1-3) or Pain (scale 4-6). acetaminoph 2021- No [id number] 650mg Take 2 Univers en 8- 08-26 tablets by ity of (TYLENOL) 00:00: 00:00 mouth [place] 325 mg 00 :00 every 6 Medical tablet (six) Branch hours as needed for Pain (scale 1-3) or Pain (scale 4-6). simethicone 2021- No [id number] 80mg Take 1 [facility] 80 mg 8-07 11- tablet by ity of chewable 00:00: 00:00 mouth [place] tablet 00 :00 after Medical meals and Branch at bedtime. HYDROcodone 2020- No [id number] 1{tbl} Take 1 [...] [id number] 1{tbl} Take 1 U nivers -acetaminop 12-06- tablet by it y of hen 5-325 00:00: 04:59 mouth [place] mg tablet 00 :00 every 6 Medical (six) Branch hours as needed for Pain (scale 7-10) for up to 7 days. Indication s: acute pain busPIRone busPIRone 0 No 1{table BID busPIRone HCl 10 MG HCl 10 MG 6-16 t} HCl 10 MG 00:00: 00 busPIRone busPIRone 2020-0 No 1{table BID busPIRone HCl 10 MG HCl 10 MG 6-16 t} HCl 10 MG 00:00: 00 busPIRone busPIRone 2020-0 No 1{table BID busPIRone HCl 10 MG HCl 10 MG 6-16 t} HCl 10 MG 00:00: 00 busPIRone busPIRone 2020-0 No 1{table BID busPIRone HCl 10 MG HCl 10 MG 6-16 t} HCl 10 MG 00:00: 00 busPIRone busPIRone 2020-0 No 1{table BID busPIRone HCl 10 MG HCl 10 MG 6-16 t} HCl 10 MG 00:00: 00 busPIRone busPIRone 2020-0 No 1{table BID busPIRone HCl 10 MG HCl 10 MG 6-16 t} HCl 10 MG 00:00: 00 busPIRone busPIRone 2020-0 No 1{table BID busPIRone HCl 10 MG HCl 10 MG 6-16 t} HCl 10 MG 00:00: 00 busPIRone busPIRone 2020-0 No 1{table BID busPIRone HCl 10 MG HCl 10 MG 6-16 t} HCl 10 MG 00:00: 00 busPIRone busPIRone 2020-0 No 1{table BID busPIRone HCl 10 MG HCl 10 MG 6-16 t} HCl 10 MG 00:00: 00 busPIRone busPIRone 2020-0 No 1{table BID busPIRone HCl 10 MG HCl 10 MG 6-16 t} HCl 10 MG 00:00: 00 busPIRone busPIRone No 1{table BID busPIRone HCl 10 MG HCl 10 MG 6-16 t} HCl 10 MG 00:00: 00 busPIRone busPIRone No 1{table BID busPIRone HCl 10 MG HCl 10 MG 6-16 t} HCl 10 MG 00:00: 00 busPIRone busPIRone No 1{table BID busPIRone HCl 10 MG HCl 10 MG 6-16 t} HCl 10 MG 00:00: 00 busPIRone busPIRone No 1{table BID busPIRone HCl 10 MG HCl 10 MG 6-16 t} HCl 10 MG 00:00: 00 busPIRone busPIRone No 1{table BID busPIRone HCl 10 MG HCl 10 MG 6-16 t} HCl 10 MG 00:00: 00 2020- No Take by Unive rs vit 10-18-15 mouth. ity of calc,iron,f 22:40: 00:00 [facility] [place] [facility] 04 :00 Medical ( Branch VITAMIN ORAL) 2020- No Take by Unive rs vit 10-18-15 mouth. ity of calc,iron,f 22:40: 00:00 [facility] [place] [facility] 04 :00 Medical ( Branch VITAMIN ORAL) calcium 2020- No Take by Univer s carbonate 10-1815 mouth. ity of (TUMS ORAL) 22:39: 00:00 [place] 54 :00 Medical Branch calcium 2020- No Take by Univer s carbonate 10-1815 mouth. ity of (TUMS ORAL) 22:39: 00:00 [place] 54 :00 Medical Branch acetaminoph 2020- No Take by Un jose en 10-1815 mouth ity of (TYLENOL) 22:39: 00:00 every 6 [place] 325 mg 48 :00 (six) Medical tablet hours as Branch needed. acetaminoph 2020- No Take by Un jose en 10-1815 mouth ity of (TYLENOL) 22:39: 00:00 every 6 [place] 325 mg 48 :00 (six) Medical tablet hours as Branch needed. QUEtiapine 2021-0 Yes Univers 25 mg 6-09 ity of tablet 00:00: [address] Branch QUEtiapine 2021-0 Yes Univers 25 mg 6-09 ity of tablet 00:00: [address] QUEtiapine 2021-0 Yes Univers 25 mg 6-09 ity of tablet 00:00: [address] QUEtiapine 2021-0 Yes Univers 25 mg 6-09 ity of tablet 00:00: [address] QUEtiapine 2021-0 Yes Univers 25 mg 6-09 ity of tablet 00:00: [address] QUEtiapine 2021-0 Yes Univers 25 mg 6-09 ity of tablet 00:00: [address] QUEtiapine 2021-0 Yes Univers 25 mg 6-09 ity of tablet 00:00: [address] QUEtiapine 2021-0 Yes Univers 25 mg 6-09 ity of tablet 00:00: [address] QUEtiapine 2021-0 Yes Univers 25 mg 6-09 ity of tablet 00:00: [address] QUEtiapine 2021-0 Yes Univers 25 mg 6-09 ity of tablet 00:00: [address] QUEtiapine 2021-0 Yes Univers 25 mg 6-09 ity of tablet 00:00: [address] QUEtiapine 2021-0 Yes Univers 25 mg 6-09 ity of tablet 00:00: [address] QUEtiapine 2021-0 Yes Univers 25 mg 6-09 ity of tablet 00:00: [address] QUEtiapine 2021-0 Yes Univers 25 mg 6-09 ity of tablet 00:00: [address] SEROquel 25 SEROquel 25 1-0 No 1{table QD SEROquel MG MG 6-09 t_at_be 25 MG 00:00: dtime} 00 SEROquel 25 SEROquel 25 1-0 No 1{table QD SEROquel MG MG 6-09 t_at_be 25 MG 00:00: dtime} 00 SEROquel 25 SEROquel 25 1-0 No 1{table QD SEROquel MG MG 6-09 t_at_be 25 MG 00:00: dtime} 00 SEROquel 25 SEROquel 25 2020- No 1{table QD SEROquel MG MG 6-09 t_at_be 25 MG 00:00: dtime} 00 SEROquel 25 SEROquel 25 2020- No 1{table QD SEROquel MG MG 6-09 t_at_be 25 MG 00:00: dtime} 00 SEROquel 25 SEROquel 25 2020- No 1{table QD SEROquel MG MG 6-09 t_at_be 25 MG 00:00: dtime} 00 SEROquel 25 SEROquel 25 No 1{table QD SEROquel MG MG 6-09 t_at_be 25 MG 00:00: dtime} 00 SEROquel 25 SEROquel 25 No 1{table QD SEROquel MG MG 6-09 t_at_be 25 MG 00:00: dtime} 00 SEROquel 25 SEROquel 25 No 1{table QD SEROquel MG MG 6-09 t_at_be 25 MG 00:00: dtime} 00 SEROquel 25 SEROquel 25 No 1{table QD SEROquel MG MG 6-09 t_at_be 25 MG 00:00: dtime} 00 SEROquel 25 SEROquel 25 No 1{table QD SEROquel MG MG 6-09 t_at_be 25 MG 00:00: dtime} 00 SEROquel 25 SEROquel 25 No 1{table QD SEROquel MG MG 6-09 t_at_be 25 MG 00:00: dtime} 00 SEROquel 25 SEROquel 25 No 1{table QD SEROquel MG MG 6-09 t_at_be 25 MG 00:00: dtime} 00 SEROquel 25 SEROquel 25 No 1{table QD SEROquel MG MG 6-09 t_at_be 25 MG 00:00: dtime} 00 SEROquel 25 SEROquel 25 No 1{table QD SEROquel MG MG 6-09 t_at_be 25 MG 00:00: dtime} 00 QUEtiapine 2020-0 Yes Univers 25 mg 6-09 ity of tablet 00:00: [address] QUEtiapine 202-0 Yes Univers 25 mg 6-09 ity of tablet 00:00: [address] QUEtiapine 2020-0 Yes Univers 25 mg 6-09 ity of tablet 00:00: [address] QUEtiapine 2020-0 Yes Univers 25 mg 6-09 ity of tablet 00:00: [address] QUEtiapine 202-0 Yes Univers 25 mg 6-09 ity of tablet 00:00: [address] QUEtiapine 2020-0 Yes Univers 25 mg 6-09 ity of tablet 00:00: [address] QUEtiapine 2020-0 Yes Univers 25 mg 6-09 ity of tablet 00:00: [address] QUEtiapine 202-0 Yes [facility] 25 mg 6-09 ity of tablet 00:00: [address] QUEtiapine 2020-0 Yes [facility] 25 mg 6-09 ity of tablet 00:00: [address] QUEtiapine 2020-0 Yes [facility] 25 mg 6-09 ity of tablet 00:00: [address] QUEtiapine 202-0 Yes [facility] 25 mg 6-09 ity of tablet 00:00: [address] QUEtiapine 202-0 Yes Univers 25 mg 6-09 ity of tablet 00:00: [address] QUEtiapine 202-0 Yes [facility] 25 mg 6-09 ity of tablet 00:00: [address] QUEtiapine 2020-0 Yes [facility] 25 mg 6-09 ity of tablet 00:00: [address] QUEtiapine 202-0 Yes Univers 25 mg 6-09 ity of tablet 00:00: [address] QUEtiapine 202-0 Yes [facility] 25 mg 6-09 ity of tablet 00:00: [address] 2018-05 Yes Take by Univer s vit 1-20 mouth. ity of calc,iron,f 01:25: [place] olic 04 Medical ( Branch VITAMIN ORAL) acetaminoph 2018-05 Yes Take by Uni vers en 1-20 mouth ity of (TYLENOL) 01:25: every 6 [place] 325 mg 04 (six) Medical tablet hours as Branch needed. calcium 2018-05 Yes Take by Univers carbonate 1-20 mouth. ity of (TUMS ORAL) 01:25: [place] 04 Medical Branch Nitrofurant 2018-05 Yes [id number] 100mg Take 1 [facility] oin&Nit. 1-19 capsule by ity o f Macrocryst 00:00: mouth 2 [place] 100 mg 00 (two) Medical capsule times Branch daily. Nitrofurant 2018-05- No [id number] 100mg Take 1 [facility] oin&Nit. 1-19 06-15 capsule by ity of Macrocryst 00:00: 00:00 mouth 2 [place] 100 mg 00 :00 (two) Medical capsule times Branch daily. Nitrofurant 2018-05- No [id number] 100mg Take 1 Univers oin&Nit. 1-19 06-15 capsule by ity of Macrocryst 00:00: 00:00 mouth 2 [place] 100 mg 00 :00 (two) Medical capsule times Branch daily. doxylamine- Yes [id number] 1{tbl} Take 1 [facility] pyridoxine, 5-13 tablet by ity of vit B6, 00:00: mouth [place] (DICLEGIS) 00 SEE-INSTRU Med ical 10-10 mg CTIONS. Branch per tablet doxylamine- 2020- No [id number] 1{tbl} Take 1 [facility] pyridoxine, 5-13 06-15 tablet by it y of vit B6, 00:00: 00:00 mouth [place] (DICLEGIS) 00 :00 SEE-INSTRU Med ical 10-10 mg CTIONS. Branch per tablet doxylamine- 2020- No [id number] 1{tbl} Take 1 [facility] pyridoxine, 5-13 06-15 tablet by it y of vit B6, 00:00: 00:00 mouth [place] (DICLEGIS) 00 :00 SEE-INSTRU Med ical 10-10 [...] :00 TWICE A Medical DAY Branch progesteron 2018-0 2020- No TAKE ONE U nivers e 200 mg 09-01 CAPSULE BY ity of capsule 00:00: 00:00 MOUTH [place] 00 :00 TWICE A Medical DAY Branch Benzonatate Benzonatate No 1{capsu TID Benzonatat 200 MG 200 MG le} e 200 MG Ibuprofen Ibuprofen No TID Ibuprofen 800 MG 800 MG 800 MG Abilify 5 Abilify 5 No 1{table QD Abilify 5 MG MG t} MG Azithromyci Azithromyci No QD Azithromyc n 250 MG n 250 MG in 250 MG Cambia 50 Cambia 50 No Cambia 50 MG MG MG Benzonatate Benzonatate No 1{capsu TID Benzonatat 200 MG 200 MG le} e 200 MG Ibuprofen Ibuprofen No TID Ibuprofen 800 MG 800 MG 800 MG Abilify 5 Abilify 5 No 1{table QD Abilify 5 MG MG t} MG Azithromyci Azithromyci No QD Azithromyc n 250 MG n 250 MG in 250 MG Cambia 50 Cambia 50 No Cambia 50 MG MG MG Benzonatate Benzonatate No 1{capsu TID Benzonatat 200 MG 200 MG le} e 200 MG Ibuprofen Ibuprofen No TID Ibuprofen 800 MG 800 MG 800 MG Abilify 5 Abilify 5 No 1{table QD Abilify 5 MG MG t} MG Azithromyci Azithromyci No QD Azithromyc n 250 MG n 250 MG in 250 MG Cambia 50 Cambia 50 No Cambia 50 MG MG MG Azithromyci Azithromyci No QD Azithromyc n 250 MG n 250 MG in 250 MG Benzonatate Benzonatate No 1{capsu TID Benzonatat 200 MG 200 MG le} e 200 MG Ibuprofen Ibuprofen No TID Ibuprofen 800 MG 800 MG 800 MG Abilify 5 Abilify 5 No 1{table QD Abilify 5 MG MG t} MG Cambia 50 Cambia 50 No Cambia 50 MG MG MG Abilify 5 Abilify 5 No 1{table QD Abilify 5 MG MG t} MG Cambia 50 Cambia 50 No Cambia 50 MG MG MG Ibuprofen Ibuprofen No TID Ibuprofen 800 MG 800 MG 800 MG Benzonatate Benzonatate No 1{capsu TID Benzonatat 200 MG 200 MG le} e 200 MG Azithromyci Azithromyci No QD Azithromyc n 250 MG n 250 MG in 250 MG Ibuprofen Ibuprofen No TID Ibuprofen 800 MG 800 MG 800 MG Abilify 5 Abilify 5 No 1{table QD Abilify 5 MG MG t} MG Azithromyci Azithromyci No QD Azithromyc n 250 MG n 250 MG in 250 MG Benzonatate Benzonatate No 1{capsu TID Benzonatat 200 MG 200 MG le} e 200 MG Cambia 50 Cambia 50 No Cambia 50 MG MG MG Ibuprofen Ibuprofen No TID Ibuprofen 800 MG 800 MG 800 MG Azithromyci Azithromyci No QD Azithromyc n 250 MG n 250 MG in 250 MG Abilify 5 Abilify 5 No 1{table QD Abilify 5 MG MG t} MG Benzonatate Benzonatate No 1{capsu TID Benzonatat 200 MG 200 MG le} e 200 MG Cambia 50 Cambia 50 No Cambia 50 MG MG MG Azithromyci Azithromyci No QD Azithromyc n 250 MG n 250 MG in 250 MG Benzonatate Benzonatate No 1{capsu TID Benzonatat 200 MG 200 MG le} e 200 MG Abilify 5 Abilify 5 No 1{table QD Abilify 5 MG MG t} MG Cambia 50 Cambia 50 No Cambia 50 MG MG MG Ibuprofen Ibuprofen No TID Ibuprofen 800 MG 800 MG 800 MG Abilify 5 Abilify 5 No 1{table QD Abilify 5 MG MG t} MG Benzonatate Benzonatate No 1{capsu TID Benzonatat 200 MG 200 MG le} e 200 MG Ibuprofen Ibuprofen No TID Ibuprofen 800 MG 800 MG 800 MG Cambia 50 Cambia 50 No Cambia 50 MG MG MG Azithromyci Azithromyci No QD Azithromyc n 250 MG n 250 MG in 250 MG Azithromyci Azithromyci No QD Azithromyc n 250 MG n 250 MG in 250 MG Abilify 5 Abilify 5 No 1{table QD Abilify 5 MG MG t} MG Benzonatate Benzonatate No 1{capsu TID Benzonatat 200 MG 200 MG le} e 200 MG Ibuprofen Ibuprofen No TID Ibuprofen 800 MG 800 MG 800 MG Cambia 50 Cambia 50 No Cambia 50 MG MG MG Azithromyci Azithromyci No QD Azithromyc n 250 MG n 250 MG in 250 MG Azithromyci Azithromyci No QD Azithromyc n 250 MG n 250 MG in 250 MG Cambia 50 Cambia 50 No Cambia 50 MG MG MG Ibuprofen Ibuprofen No TID Ibuprofen 800 MG 800 MG 800 MG Benzonatate Benzonatate No 1{capsu TID Benzonatat 200 MG 200 MG le} e 200 MG Oseltamivir Oseltamivir No Oseltamivi Phosphate Phosphate r 75 MG 75 MG Phosphate 75 MG Abilify 5 Abilify 5 No 1{table QD Abilify 5 MG MG t} MG Azithromyci Azithromyci No QD Azithromyc n 250 MG n 250 MG in 250 MG Azithromyci Azithromyci No QD Azithromyc n 250 MG n 250 MG in 250 MG Cambia 50 Cambia 50 No Cambia 50 MG MG MG Ibuprofen Ibuprofen No TID Ibuprofen 800 MG 800 MG 800 MG Benzonatate Benzonatate No 1{capsu TID Benzonatat 200 MG 200 MG le} e 200 MG Oseltamivir Oseltamivir No Oseltamivi Phosphate Phosphate r 75 MG 75 MG Phosphate 75 MG Abilify 5 Abilify 5 No 1{table QD Abilify 5 MG MG t} MG Azithromyci Azithromyci No QD Azithromyc n 250 MG n 250 MG in 250 MG Azithromyci Azithromyci No QD Azithromyc n 250 MG n 250 MG in 250 MG Ibuprofen Ibuprofen No TID Ibuprofen 800 MG 800 MG 800 MG Azithromyci Azithromyci No QD Azithromyc n 250 MG n 250 MG in 250 MG Abilify 5 Abilify 5 No 1{table QD Abilify 5 MG MG t} MG Benzonatate Benzonatate No 1{capsu TID Benzonatat 200 MG 200 MG le} e 200 MG Cambia 50 Cambia 50 No Cambia 50 MG MG MG Abilify 5 Abilify 5 No 1{table QD Abilify 5 MG MG t} MG Cambia 50 Cambia 50 No Cambia 50 MG MG MG Ibuprofen Ibuprofen No TID Ibuprofen 800 MG 800 MG 800 MG Abilify 5 Abilify 5 No 1{table QD Abilify 5 MG MG t} MG Cambia 50 Cambia 50 No Cambia 50 MG MG MG Ibuprofen Ibuprofen No TID Ibuprofen 800 MG 800 MG 800 MG Immunizations Ordered Immunization Filled Immunization Date Status Commen ts Source Name Name Flucelvax - single Flucelvax - single 2022-04-23 [facility]pleted [facility] syringe 16:[facility]00 [facility] Flucelvax - single Flucelvax - single 2022-04-23 Completed [facility] dose syringe dose syringe 16:52:00 [facility] Kentk Olivares 2021-02-15 Completed [facility] (Triamcinolone) (Triamcinolone) 16:40:00 [facility] Kenalog Kenalog 2021-02-15 Completed [facility] (Triamcinolone) (Triamcinolone) 16:40:00 [facility] Tb PPD intradermal, Tb PPD intradermal, 2020-05-24 Completed [facility] 09:56:00 [facility] Tb PPD intradermal, Tb PPD intradermal, 2020-05-24 Completed [facility] 09:56:00 [facility] Tb PPD intradermal, Tb PPD intradermal, 2020-05-24 [facility]pleted [facility] 09:56:00 [facility] Tb PPD intradermal, Tb PPD intradermal, 2020-05-24 [facility]pleted [facility] 09:56:00 [facility] Tb PPD intradermal, Tb PPD intradermal, 2020-05-24 [facility]pleted [facility] 09:56:00 [facility] Tb PPD intradermal, Tb PPD intradermal, 2020-05-24 [facility]pleted [facility] 09:56:00 [facility] Tb PPD intradermal, Tb PPD intradermal, 2020-05-24 [facility]pleted [facility] 09:56:00 [facility] Tb PPD intradermal, Tb PPD intradermal, 2020-05-24 [facility] 09:56:00 [facility] Tb PPD intradermal, Tb PPD intradermal, 2020-05-24 [facility]pleted [facility] 09:56:00 [facility] Tb PPD intradermal, Tb PPD intradermal, 2020-05-24 [facility]pleted [facility] 09:56:00 [facility] Tb PPD intradermal, Tb PPD intradermal, 2020-05-24 [facility]pleted [facility] 09:56:00 [facility] Tb PPD intradermal, Tb PPD intradermal, 2020-05-24 [facility]pleted [facility] 09:56:00 [facility] Tb PPD intradermal, Tb PPD intradermal, 2020-05-24 [facility]pleted [facility] 09:56:00 [facility] Tb PPD intradermal, Tb PPD intradermal, 2020-05-24 [facility]pleted [facility] 09:56:00 [facility] Tb PPD intradermal, Tb PPD intradermal, 2020-05-24 [facility]pleted [facility] 09:56:00 [facility] Afluria single dose Afluria single dose 2020-05-11 Completed [facility] 10:06:00 [facility] Afluria single dose Afluria single dose 2020-05-11 Completed [facility] 10:06:00 [facility] Afluria single dose Afluria single dose 2020-05-11 Completed [facility] 10:06:00 [facility] Afluria single dose Afluria single dose 2020-05-11 Completed [facility] 10:06:00 [facility] Afluria single dose Afluria single dose 2020-05-11 Completed [facility] 10:06:00 [facility] Afluria single dose Afluria single dose 2020-05-11 Completed [facility] 10:06:00 [facility] Afluria single dose Afluria single dose 2020-05-11 Completed [facility] 10:06:00 [facility] Afluria single dose Afluria single dose 2020-05-11 Completed [facility] 10:06:00 [facility] Afluria single dose Afluria single dose 2020-05-11 Completed [facility] 10:06:00 [facility] Afluria single dose Afluria single dose 2020-05-11 Completed [facility] 10:06:00 [facility] Afluria single dose Afluria single dose 2020-05-11 Completed [facility] 10:06:00 - [facility] Afluria single dose Afluria single dose 2020-05-11 Completed [facility] 10:06:00 - [facility] Afluria single dose Afluria single dose 2020-05-11 Completed [facility] 10:06:00 - [facility] Afluria single dose Afluria single dose 2020-05-11 Completed [facility] 10:06:00 - [facility] Afluria single dose Afluria single dose 2020-05-11 Completed [facility] 10:06:00 - [facility] Vital Signs Vital Name Observation Time Observation Value Comments Source Systolic blood 2022-10-08 15:45:00 135 mm[Hg] [facility] Diastolic blood 2022-10-08 15:45:00 100 mm[Hg] [facility] Heart rate 2022-10-08 15:45:00 73 /min [facility] Body temperature 2022-10-08 15:45:00 37.11 Krystal [facility] Respiratory rate 2022-10-08 15:45:00 18 /min [facility] Body weight 2022-10-08 15:45:00 76.658 kg [facility] BMI 2022-10-08 15:45:00 33.01 kg/m2 [facility] Oxygen saturation in 2022-10-08 15:45:00 99 /min [facility] Arterial blood by [facility] Pulse oximetry Branch Systolic blood 2022-07-09 21:27:00 130 mm[Hg] [facility] Diastolic blood 2022-07-09 21:27:00 88 mm[Hg] [facility] Heart rate 2022-07-09 21:27:00 77 /min [facility] Body temperature 2022-07-09 21:27:00 36.89 Krystal [facility] Body height 2022-07-09 21:27:00 152.4 cm [facility] Body weight 2022-07-09 21:27:00 76.749 kg [facility] BMI 2022-07-09 21:27:00 33.04 kg/m2 [facility] Systolic blood 2022-06-16 04:23:16 135 mm[Hg] [facility] Diastolic blood 2022-06-16 04:23:16 95 mm[Hg] [facility] Heart rate 2022-06-16 04:23:16 76 /min [facility] Respiratory rate 2022-06-16 04:23:16 18 /min [facility] Oxygen saturation in 2022-06-16 04:23:16 100 /min [facility] Arterial blood by [facility] Pulse oximetry Branch Body temperature 2022-06-16 02:02:00 36.89 Krystal [facility] Body height 2022-06-16 02:02:00 152.4 cm [facility] Body weight 2022-06-16 02:02:00 80.06 kg [facility] BMI 2022-06-16 02:02:00 34.47 kg/m2 [facility] Systolic blood 2022-05-02 23:21:00 124 mm[Hg] [facility] Diastolic blood 2022-05-02 23:21:00 80 mm[Hg] [facility] Heart rate 2022-05-02 23:21:00 107 /min [facility] Body temperature 2022-05-02 23:21:00 37.06 Krystal [facility] Respiratory rate 2022-05-02 23:21:00 18 /min [facility] Body height 2022-05-02 23:21:00 152.4 cm [facility] Body weight 2022-05-02 23:21:00 79.124 kg [facility] BMI 2022-05-02 23:21:00 34.07 kg/m2 [facility] Oxygen saturation in 2022-05-02 23:21:00 99 /min [facility] Arterial blood by [email or web address] [facility] Pulse oximetry Branch height 2022-04-23 16:20:00 62 [in_i] [facility] weight 2022-04-23 16:20:00 175.7 [lb_av] [facility] temperature 2022-04-23 16:20:00 97.5 [degF] Common [facility] bmi 2022-04-23 16:20:00 32.13 kg/m2 [facility] oximetry 2022-04-23 16:20:00 99 % [facility] respiratory rate 2022-04-23 16:20:00 18 /min [facility] blood pressure 2022-04-23 16:20:00 132 mm[Hg] [facility] systolic [facility] blood pressure 2022-04-23 16:20:00 77 mm[Hg] Common [facility] diastolic [facility] Systolic blood 2022-04-22 04:22:00 140 mm[Hg] [facility] pressure [facility] Diastolic blood 2022-04-22 04:22:00 97 mm[Hg] [facility] Heart rate 2022-04-22 04:22:00 72 /min [facility] Body temperature 2022-04-22 04:22:00 37 Krystal [facility] Respiratory rate 2022-04-22 04:22:00 18 /min [facility] Oxygen saturation in 2022-04-22 04:22:00 100 /min [facility] Arterial blood by [email or web address] [facility] Pulse oximetry Branch Body height 2022-04-22 02:42:00 152.4 cm [facility] Body weight 2022-04-22 02:42:00 81.647 kg [facility] BMI 2022-04-22 02:42:00 35.15 kg/m2 [facility] Systolic blood 2022-03-22 12:59:00 137 mm[Hg] [facility] Diastolic blood 2022-03-22 12:59:00 108 mm[Hg] [facility] [place] [facility] [place] Heart rate 2022-03-22 12:59:00 107 /min [facility] [place] [facility] [place] Body temperature 2022-03-22 12:59:00 37 Krystal [facility] Respiratory rate 2022-03-22 12:59:00 18 /min [facility] Body weight 2022-03-22 12:59:00 84.369 kg [facility] BMI 2022-03-22 12:59:00 36.33 kg/m2 [facility] Oxygen saturation in 2022-03-22 12:59:00 96 /min [facility] Arterial blood by [email or web address] [facility] Pulse oximetry Branch height 2022-03-22 17:00:00 62 [in_i] [facility] weight 2022-03-22 17:00:00 190 [lb_av] [facility] bmi 2022-03-22 17:00:00 34.75 kg/m2 [facility] Systolic blood 2021-12-01 16:05:00 122 mm[Hg] [facility] Diastolic blood 2021-12-01 16:05:00 76 mm[Hg] Unive [facility]ity of pressure [facility] Heart rate 2021-12-01 16:05:00 75 /min [facility] Body temperature 2021-12-01 16:05:00 36.56 Krystal [facility] Respiratory rate 2021-12-01 16:05:00 17 /min [facility] Body height 2021-12-01 16:05:00 152.4 cm [facility] [place] [facility] [place] Body weight 2021-12-01 16:05:00 83.235 kg [facility] BMI 2021-12-01 16:05:00 35.84 kg/m2 [facility] Oxygen saturation in 2021-12-01 16:05:00 99 /min [facility] Arterial blood by [facility] Pulse oximetry Branch Systolic blood 2021-12-01 16:05:00 122 mm[Hg] [facility]iver [facility]ity of pressure [facility] Diastolic blood 2021-12-01 16:05:00 76 mm[Hg] Unive rsity of pressure [facility] Heart rate 2021-12-01 16:05:00 75 /min [facility]i ty [facility] Body temperature 2021-12-01 16:05:00 36.56 Krystal [facility] Res[facility] rate 2021-12-01 16:05:00 17 /min [facility] Body height 2021-12-01 16:05:00 152.4 cm Universi ty [facility] Body weight 2021-12-01 16:05:00 83.235 kg Univers[facility] BMI 2021-12-01 16:05:00 35.84 kg/m2 [facility] Oxygen saturation in 2021-12-01 16:05:00 99 /min [facility] Arterial blood by [facility] Pulse oximetry Branch height 2021-08-07 14:20:00 62 [in_i] [facility] weight 2021-08-07 14:20:00 190.7 [lb_av] [facility] temperature 2021-08-07 14:20:00 98.0 [degF] Common [facility] bmi 2021-08-07 14:20:00 34.88 kg/m2 [facility] oximetry 2021-08-07 14:20:00 99 % [facility] respiratory rate 2021-08-07 14:20:00 18 /min [facility] blood pressure 2021-08-07 14:20:00 130 mm[Hg] Common [facility] - systolic [facility] blood pressure 2021-08-07 14:20:00 80 mm[Hg] Common [facility] - diastolic [facility] height 2021-06-16 10:20:00 62 [in_i] Common [facility] weight 2021-06-16 10:20:00 200 [lb_av] [facility] bmi 2021-06-16 10:20:00 36.58 kg/m2 [facility] Systolic blood 2021-03-15 16:09:00 124 mm[Hg] Univer [facility]ity of pressure [facility] Diastolic blood 2021-03-15 16:09:00 87 mm[Hg] Unive rsity of pressure [facility] Heart rate 2021-03-15 16:09:00 75 /min Universi ty [facility] Body temperature 2021-03-15 16:09:00 37.28 Krystal [facility] ersity [facility] Respiratory rate 2021-03-15 16:09:00 18 /min [facility] Body height 2021-03-15 16:09:00 152.4 cm Universi ty [facility] Body weight 2021-03-15 16:09:00 90.719 kg Universi ty [facility] BMI 2021-03-15 16:09:00 39.06 kg/m2 [facility] Oxygen saturation in 2021-03-15 16:09:00 98 /min [facility] Arterial blood by [facility] Pulse oximetry Branch temperature 2021-02-15 16:30:00 97.9 [degF] Common [facility] bmi 2021-02-15 16:30:00 36.5 kg/m2 [facility] oximetry 2021-02-15 16:30:00 99 % [facility] respiratory rate 2021-02-15 16:30:00 18 /min [facility] blood pressure 2021-02-15 16:30:00 126 mm[Hg] Common [facility] - systolic [facility] blood pressure 2021-02-15 16:30:00 86 mm[Hg] [facility] - diastolic [facility] height 2021-02-15 16:30:00 62 [in_i] [facility] weight 2021-02-15 16:30:00 199.6 [lb_av] [facility] Systolic blood 2020-12-06 16:05:00 107 mm[Hg] [facility] Diastolic blood 2020-12-06 16:05:00 69 mm[Hg] [facility] Heart rate 2020-12-06 16:05:00 71 /min [facility] Respiratory rate 2020-12-06 16:05:00 16 /min [facility] Oxygen saturation in 2020-12-06 16:05:00 98 /min [facility] Arterial blood by [email or web address] [facility] Pulse oximetry Branch Body temperature 2020-12-06 15:15:00 36.28 Krystal [facility] Body height 2020-12-05 15:02:00 152.4 cm [facility] Body weight 2020-12-05 15:02:00 86.183 kg [facility] BMI 2020-12-05 15:02:00 37.11 kg/m2 [facility] Systolic blood 2020-12-06 15:15:00 110 mm[Hg] [facility] Diastolic blood 2020-12-06 15:15:00 66 mm[Hg] [facility] Body temperature 2020-12-06 15:15:00 36.28 Krystal [facility] Respiratory rate 2020-12-06 15:15:00 20 /min [facility] Heart rate 2020-12-06 12:36:00 83 /min [facility] Oxygen saturation in 2020-12-06 12:36:00 98 /min [facility] Arterial blood by [email or web address] [facility] Pulse oximetry Branch Body height 2020-12-05 15:02:00 152.4 cm [facility] Body weight 2020-12-05 15:02:00 86.183 kg [facility] BMI 2020-12-05 15:02:00 37.11 kg/m2 [facility] Systolic blood 2020-11-21 14:15:00 119 mm[Hg] [facility] Diastolic blood 2020-11-21 14:15:00 86 mm[Hg] [facility] Heart rate 2020-11-21 14:15:00 98 /min [facility] Body temperature 2020-11-21 14:15:00 36.72 Krystal [facility] Respiratory rate 2020-11-21 14:15:00 18 /min [facility] Body height 2020-11-21 14:15:00 152.4 [facility] Body weight 2020-11-21 14:15:00 88.724 kg [facility] BMI 2020-11-21 14:15:00 38.20 kg/m2 [facility] Oxygen saturation in 2020-11-21 14:15:00 98 /min [facility] Arterial blood by [facility] Pulse oximetry Branch Systolic blood 2020-10-18 20:43:00 127 mm[Hg] [facility] [place] Diastolic blood 2020-10-18 20:43:00 88 mm[Hg] [facility] Heart rate 2020-10-18 20:43:00 77 /min [facility] Body temperature 2020-10-18 20:43:00 36.72 Krystal [facility] Respiratory rate 2020-10-18 20:43:00 16 /min [facility] Body height 2020-10-18 20:43:00 152.4 cm [facility] Body weight 2020-10-18 20:43:00 88.633 kg [facility] BMI 2020-10-18 20:43:00 38.16 kg/m2 [facility] Procedures Procedure Date / Time Performing Clinician Source Performed POCT TEST 2022-10-08 16:36:00 Emeka Patino [facility] LIPASE 2022-10-08 16:29:00 Emeka Patino [facility] HEPATIC FUNCTION PANEL 2022-10-08 16:29:00 Emeka Patino [facility] ([id number]) (ALB,T.PRO,BILI Medical Branch T,BU/BC,ALT,AST,ALK PHOS) BASIC METABOLIC PANEL 2022-10-08 16:29:00 Emeka Patino [facility] (NA, K, CL, CO2, Medical Branch GLUCOSE, BUN, CREATININE, CA) CBC WITH DIFF 2022-10-08 16:29:00 Maude, [facility] URINALYSIS 2022-10-08 16:29:00 [facility] o [facility] CONSENT/REFUSAL FOR 2022-10-08 15:40:08 Doctor Unassigned, No [facility] [place] [facility] Name [facility] POCT URINALYSIS W/O 2022-07-09 00:00:00 Leny Alvarado [facility] SPECIFIC GRAVITY [facility] Branch POCT TEST 2022-06-16 02:37:00 Leandro Suazo [facility] URINALYSIS 2022-06-16 02:36:00 Gabriele [facility] CONSENT/REFUSAL FOR 2022-06-16 01:54:31 Doctor Unassigned, No [facility] [place] [facility] Name [facility] CT 2022-04-22 03:35:02 Altagracia Mead Kell [facility] MAXILLOFACIAL/MANDIBLE Medical [place] WO CONTRAST CT HEAD WO CONTRAST 2022-04-22 03:35:02 Altagracia Mead [facility] CONSENT/REFUSAL FOR 2022-04-22 02:21:08 Doctor Unassigned, No [facility] [place] [facility] Name [facility] POCT TEST 2022-03-22 13:36:00 Giovany Roper [facility] URINALYSIS 2022-03-22 13:35:00 Giovany Roper [facility] RAPID INFLUENZA A/B 2022-03-22 13:05:00 Vin Kemp [facility] COVID-19 (ID NOW RAPID 2022-03-22 13:05:00 Vin Kemp [facility] TESTING) Medical Branch NOTICE OF PRIVACY 2022-03-22 12:42:09 Doctor Unassigned, No [facility] PRACTICES Name [facility] CONSENT/REFUSAL FOR 2022-03-22 12:41:26 Doctor Unassigned, No [facility] [place] [facility] Name [facility] HB ECG ROUTINE & RHYTHM 2021-12-01 16:08:47 Antonio Leblanc [facility] XR CHEST 2 VW 2021-03-15 16:51:19 Kaur Bueno [facility] RAPID STREP SCREEN FOR 2021-03-15 16:14:00 Kaur Bueno [facility] [place] SURGICAL PATHOLOGY EXAM 2020-12-06 14:48:00 Ophelia Greenwood [facility] LAPAROSCOPIC 2020-12-06 13:44:00 [place] [facility] o [facility] SALPINGECTOMY [facility] LAPAROSCOPIC 2020-12-06 13:44:00 [facility] o [facility] SALPINGECTOMY [facility] POCT TEST 2020-12-06 12:10:00 Usama Ragini [facility] POCT TEST 2020-12-06 12:10:00 Ragini Forrester [facility] DAY SURGERY - ADC 2020-12-06 05:01:00 Doctor Unassigned, No [facility] DSU PRE-OP 2020-11-21 05:01:00 Doctor Unassigned, No [facility] DSU PRE-OP 2020-11-21 05:01:00 Doctor Unassigned, No [place] [facility] ASSIGNMENT OF BENEFITS 2020-10-18 20:15:25 Doctor Unassigned, No [facility] Encounters Start End Encounter Admission Attending Care Care Encounter Source Date/Time Date/Time Type Type Clinicians Facility Department ID 2022-07-23 Outpatient Camacho, [facility] [id number] Common 16:15:00 Ce [id number] [facility] 2022-04-19 [facility] [id number] Common 16:21:00 Ce 88667 [facility] 2022-01-24 [facility] [id number] Common 15:43:00 Ce [facility] 2021-08-07 [facility] [id number] Common 14:33:01 Ce [facility] 2021-08-04 Outpatient Camacho, STLMLC [facility] [id number] Common 13:49:00 Ce [facility] 2021-05-31 Outpatient Camacho, STLMLC STLMLC [id number] Common 14:00:09 Ce 98111 [facility] 2021-05-31 Outpatient Camacho, STLMLC STLML[facility] [id number] Common 13:51:32 Ce 91479 [facility] 2021-05-31 Outpatient Camacho, STLMLC STLMLC [id number] Common 13:45:04 Ce 01741 [facility] 2021-05-31 Outpatient Camacho, STLMLC STLMLC [id number] Common 12:58:53 Ce 30762 [facility] 2021-05-31 Outpatient Camacho, STLMLC STLML[facility] [id number] Common 12:47:35 Ce 08868 [facility] 2021-05-31 Outpatient Camacho, STLMLC STLMLC [id number] Common 12:47:28 Ce 40307 [facility] 2021-05-31 Outpatient Camacho, STLMLC STLMLC [id number] Common 12:26:17 Ce 09595 [facility] 2021-05-31 Outpatient Camacho, STLMLC STLMLC [id number] Common 12:25:26 Ce 79732 [facility] 2021-05-31 Outpatient Camacho, STLMLC STLMLC [id number] Common 12:24:10 Ec 09151 [facility] 2021-05-31 Outpatient Camacho, STLMLC STLMLC [id number] Common 12:22:35 Ce 56019 [facility] 2021-05-31 Outpatient Camacho, STLMLC STLML[facility] [id number] Common 12:18:40 Ce 19816 [facility] 2021-05-31 Outpatient zzzRekhi, STLMLC STLMLC [id number] Common 12:15:28 Dennis 24185 [facility] 2021-03-06 Outpatient OPHELIA GREENWOOD [facility] 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 [id number] Univers 10:46:00 13:27:00 Cyncandace SUE 350.1.13.10 i [place] [id number] [address] 2022-08-06 2022-08-06 [facility] [id number] Univers 16:00:00 16:00:00 [facility] 2022-07-09 2022-07-09 [facility] [id number] Univers 15:00:00 16:09:05 [facility] 2022-07-09 2022-07-09 Office [facility] 1.2.840.114 [id number] Univers 15:00:00 16:09:05 Visit Leny SUE 350.1.13.10 [place] [id number] Sd dical NAL 098 [facility] 2022-07-02 2022-07-02 [facility] [id number] Univers 15:00:00 15:00:00 LENY [facility] 2022-06-22 2022-06-22 [facility]phone [facility] 1.2.840.114 [id number] Univers 00:00:00 00:00:00 Neville SUE 350.1.13.10 i ty of [facility] [place].2.[place] [id number] Sd dical NAL 134 [facility] 2022-06-18 2022-06-18 Telephone Ophelia Greenwood [facility] 1.2.840.114 [id number] Univers 00:00:00 00:00:00 Neville SUE 350.1.13.10 i ty of [facility] 4.2.[place].2.[place] [facility] [id number] Sd dical SALOME 134 [facility] 2022-06-15 2022-06-15 Emergency X LEANDRO SUAZO [facility] ERT 1 [id number] Univers 20:10:00 22:26:00 LEANDRO SUAZO ity [facility] 2022-06-15 2022-06-15 Emergency [facility] 1.2.552.099 [id number] Univers 20:10:00 22:26:00 Leandro SUE 350.1.13.10 i [place] MOSBY [id number] [address] 2022-05-02 2022-05-02 Urgent Larry Vincent [facility] 1.2.840.11 [id number] Univers 17:20:00 17:40:00 Care Unknown, Attending HEALTH 350.1.13.10 ity of [facility] [place] 4.2.7.2.686 [place] AR?BLEA [id number] [facility] [address] MEDICAL OFFICE [facility] 2022-05-02 2022-05-02 Outpatient R WILLAM [facility] [id number] Univers 17:20:00 17:20:00 REENU ity [facility] 2022-05-02 2022-05-02 Letter [facility] 1.2.234.118 [id number] Univers 00:00:00 00:00:00 (Out) Critical access hospital 350.1.13.10 it y of [facility] [place] 4.2.7.2.686 Thad as RA?BLEA [id number] [facility] [address] MEDICAL OFFICE BUILDING 2022-04-24 2022-04-24 (TEL) [facility] [id number] Co mmon 00:00:00 00:00:00 [facility] 2022-04-23 2022-04-23 [facility] [id number] Common 00:00:00 00:00:00 EST AGE Spirit 18-39 - [facility] 2022-04-21 2022-04-21 Emergency X Altagracia MEAD [facility] ERT [id number] Univers 20:46:00 22:31:00 ity [facility] 2022-04-21 2022-04-21 Emergency Altagracia Mead [facility] 1.2.840.114 [id number] Univers 20:46:00 22:31:00 Kell SUE 350.1.13.10 i ty of [place] 4.2.7.2.686 [facility] [id number] [address] 2022-03-22 2022-03-22 Emergency X JUDSON, [facility] ERT [id number] Univers 06:58:00 08:41:00 GIOVANY [facility] 2022-03-22 2022-03-22 [facility] 1.2.447.162 [id number] Univers 06:58:00 08:41:00 Giovany SUE 350.1.13.10 i ty of [place] MARTINSEUGENE 4.2.7.2.686 [facility] [id number] [address] 2022-03-22 2022-03-22 (TEL) STLMLC STLMLC [id number] Co mmon 00:00:00 00:00:00 [facility] 2022-03-22 2022-03-22 OFFICE STLMLC STLMLC [id number] Co mmon 00:00:00 00:00:00 VISIT EST Spir it PT LEVEL 3 - [facility] 2022-03-12 2022-03-12 (TEL) STLMLC STLMLC [id number] Co mmon 00:00:00 00:00:00 [facility] 2022-01-29 2022-01-29 Outpatient BENJAMÍN DENG [facility] [id number] Univers 10:30:00 10:30:00 ity [facility] 2022-01-24 2022-01-24 (TEL) STLMLC STLMLC [id number] Co mmon 00:00:00 00:00:00 [facility] 2022-01-22 2022-01-22 Outpatient R AGNES [facility] [id number] Univers 11:00:00 11:00:00 LENY bai [facility] 2022-01-18 2022-01-18 Outpatient R NARINDER, [facility] [id number] Univers 13:59:44 23:59:00 ANTONIO bai o [facility] 2022-01-18 2022-01-18 Outpatient R NARINDER, [facility] [id number] Univers 13:59:44 23:59:00 ANTONIO ramon [facility] 2022-01-18 2022-01-18 Telephone [facility] 1.2.997.397 [id number] Univers 00:00:00 00:00:00 Antonio SUE 350.1.13.10 [place] [id number] Sd dical NAL 9 [facility] 2022-01-17 2022-01-17 Outpatient R ERI KENDALL [facility] B [id number] Univers 10:00:00 10:00:00 ERI KENDALL [facility] 2022-01-15 2022-01-15 Outpatient R ERI KENDALL [facility] B [id number] Univers 10:30:00 10:30:00 ERI KENDALL [facility] 2022-01-11 2022-01-11 Outpatient R NARINDER, [facility] [id number] Univers 14:00:00 14:00:00 ANTONIO ramon [facility] 2021-12-29 2021-12-29 Outpatient R NARINDER, [facility] [id number] Univers 15:00:00 15:00:00 ANTONIO ramon [facility] 2021-12-29 2021-12-29 Telephone [facility] 1.2.283.855 [id number] Univers 00:00:00 00:00:00 Antonio CHENGTON 350.1.13.10 [place] [id number] Sd dical NAL 059 [facility] 2021-12-28 2021-12-28 Outpatient R BENJAMÍN GOODSON [facility] [id number] Univers 09:30:00 11:08:36 ity of [facility] 2021-12-28 2021-12-28 Office Benjamín Goodson [facility] 1.2.840.114 [id number] Univers 09:30:00 11:08:36 Visit AGNES 350.1.13.10 it y of [facility] 4.2.7.2.686 [facility] [id number] [facility] [address] 2021-12-26 2021-12-26 Outpatient R TYSON [facility] [id number] Univers 13:20:00 13:44:59 LISETTE prietoy o f [facility] 2021-12-26 2021-12-26 Urgent [facility] 1.2.840.114 [id number] Univers 13:20:00 13:40:00 Care [facility] 350.1.13.10 i ty of [place] 4.2.7.2.686 Thad as AR?BLEA [id number] Sd dical KNEY [address] MEDICAL OFFICE BUILDING 2021-12-26 2021-12-26 Systems Analyst Engineer [facility] 1.2 .840.114 [id number] Univers 12:00:00 12:15:00 Visit Parker Mann 350.1.13. 10 ity of [place] 4.2.7.2.686 [facility] [id number] [facility] [address] 2021-12-26 2021-12-26 Outpatient R PARKER MANN [facility] [id number] Univers 12:00:00 12:00:00 PARKER MANN of [facility] 2021-12-26 2021-12-26 Outpatient R PARKER MANN [facility] [id number] Univers 10:00:00 10:00:00 PARKER MANN [facility] 2021-12-26 2021-12-26 Orders Doctor CHENG 1.2.840.114 [id number] Univers 00:00:00 00:00:00 Only Unassigned, DREW 350.1.13.10 ity of [facility] 4.2.7.2.686 Thad as [id number] [address] 2021-12-14 2021-12-14 Outpatient R NARINDER, [facility] [id number] Univers 15:58:58 23:59:00 ANTONIO bai o [facility] 2021-12-14 2021-12-14 Outpatient R NARINDER, [facility] [id number] Univers 15:58:58 23:59:00 ANTONIO ity o [facility] 2021-12-05 2021-12-05 Telephone Narinder, [facility] [id number] Univers 00:00:00 00:00:00 Jobshay LINETTE 350.1.13.10 [place] [id number] Sd dical NAL 059 [facility] 2021-12-05 2021-12-05 Orders Doctor PROSPER 1.2.840.114 [id number] Univers 00:00:00 00:00:00 Only Unassigned, DREW 350.1.13.10 ity of [place] [facility] 4.2.7.2.686 Thad as [id number] [address] 2021-12-04 2021-12-04 Outpatient R NARINDER, [facility] [id number] Univers 16:16:11 23:59:00 ANTONIO bai o [facility] 2021-12-04 2021-12-04 Outpatient [facility], [facility] [id number] Univers 16:30:00 16:30:00 ANTONIO bai o [facility] 2021-12-01 2021-12-01 Systems Analyst Engineer 2, Adc Lab [facility] 1.2.840.114 [id number] Univers 11:45:00 12:00:00 Visit Antonio Leblanc 350.1.13.10 [place] [id number] Sd dical NAL 353 [facility] 2021-12-01 2021-12-01 Outpatient R NARINDER, [facility] [id number] Univers 10:40:00 11:28:26 ANTONIO prietoy o [facility] 2021-12-01 2021-12-01 Outpatient R NARINDER, [facility] [id number] Univers 10:40:00 11:28:26 ANTONIO prietoy o [facility] 2021-12-01 2021-12-01 Outpatient R NARNIDER, [facility] [id number] Univers 10:40:00 11:28:26 ANTONIO prietoy o [facility] 2021-12-01 2021-12-01 Office Narinder, [facility] 1.2.840.114 [id number] Univers 10:40:00 11:28:26 Visit Antonio LINETTE 350.1.13.10 [place] [id number] [address] 2021-12-01 2021-12-01 Office [facility] 1.2.840.114 [id number] Univers 10:40:00 11:28:26 Visit Antonio LINETTE 350.1.13.10 [place] [id number] [address] 2021-12-01 2021-12-01 Outpatient R NARINDER, [facility] [id number] Univers 10:40:00 11:28:26 ANTONIO bai o [facility] 2021-12-01 2021-12-01 Outpatient R NARINDER, [facility] [id number] Univers 10:40:00 11:28:26 ANTONIO prietoy o [facility] 2021-12-01 2021-12-01 Orders Doctor CHENG 1.2.840.114 [id number] Univers 00:00:00 00:00:00 Only Unassigned, DREW 350.1.13.10 [facility] 4.2.7.2.686 Thad as [id number] [address] 2021-11-15 2021-11-15 Orders Doctor CHENG 1.2.840.114 [id number] Univers 00:00:00 00:00:00 Only Unassigned, DREW 350.1.13.10 ity of [place] [facility] 4.2.7.2.686 Thad as [id number] [address] 2021-11-14 2021-11-14 (TEL) STLMLC STLMLC [id number] Co mmon 00:00:00 00:00:00 [facility] 2021-08-15 2021-08-15 (TEL) STLMLC STLMLC [id number] Co mmon 00:00:00 00:00:00 [facility] 2021-08-07 2021-08-07 OFFICE STLMLC STLMLC [id number] Co mmon 00:00:00 00:00:00 VISIT EST Spir it PT LEVEL 3 [facility] 2021-08-04 2021-08-04 (TEL) STLMLC STLMLC [id number] Co mmon 00:00:00 00:00:00 [facility] 2021-06-16 2021-06-16 OFFICE STLMLC STLMLC [id number] Co mmon 00:00:00 00:00:00 VISIT EST Spir it PT LEVEL 3 [facility] 2021-06-14 2021-06-14 (TEL) STLMLC STLMLC [id number] Co mmon 00:00:00 00:00:00 [facility] 2021-05-09 2021-05-09 Outpatient R OPHELIA GREENWOOD [facility] [id number] Univers 08:00:00 08:00:00 ity of [facility] 2021-03-15 2021-03-15 [facility] 1.2.663.205 [id number] Univers 10:28:03 23:59:00 Encounter [facility] 350.1.13.10 ity of [place] 4.2.7.2.686 Thad as AR?BLEA [id number] [address] MEDICAL OFFICE BUILDING 2021-03-15 2021-03-15 Outpatient R [facility] [id number] Univers 10:00:00 10:36:03 KAUR ity of [facility] 2021-03-15 2021-03-15 Urgent Kaur Bueno [facility] 1.2.840.114 [id number] Univers 09:56:50 10:36:03 Care Sheree Tee [facility] 350.1.13.10 ity of [facility] [place] 4.2.7.2.686 Thad as AR?BLEA [id number] [address] MEDICAL OFFICE BUILDING 2021-03-15 2021-03-15 Telephone NurseAnup [facility] 1.2.840.114 [id number] Univers 00:00:00 00:00:00 Db Urgent HEALTH 350.1.13.10 ity of Care [facility] 4.2.7.2.686 Thad as AR?BLEA [id number] [address] OFFICE [facility] 2021-02-15 2021-02-15 (TEL) STLMLC STLMLC [id number] Co mmon 00:00:00 00:00:00 [facility] 2021-02-15 2021-02-15 OFFICE STLMLC STLMLC [id number] Co mmon 00:00:00 00:00:00 VISIT EST Spir it PT LEVEL 3 [facility] 2021-01-04 2021-01-04 Outpatient STLMLC STLMLC [id number] Common 00:00:00 00:00:00 [facility] 2020-12-27 2020-12-27 Outpatient R OPHELIA GREENWOOD [facility] [id number] Univers 15:00:00 15:00:00 ity of [facility] 2020-12-08 2020-12-08 Telephone Shahram [facility] 1.2.840.114 [id number] Univers 00:00:00 00:00:00 Cam [place] 350.1.13.10 i ty of [place] [id number] [place] [address] 2020-12-06 2020-12-06 Hospital Ophelia Greenwood [facility] 1.2.840.114 [id number] Univers 07:05:00 11:20:00 Encounter Cam [place] 350.1.13.10 ity of [place].2.[place] [id number] [facility] [address] 2020-12-06 2020-12-06 Outpatient R OPHELIA GREENWOOD [facility] PHONE TECHNICIAN [id number] Univers 07:05:00 11:20:00 ity of [facility] 2020-12-06 2020-12-06 Surgery Ophelia Greenwood [facility] 1.2.672.012 [id number] Univers 08:59:00 10:24:00 Cam [place] 350.1.13.10 i ty [place].2.[place] [id number] [facility] [address] 2020-12-06 2020-12-06 Orders Doctor PROSPER 1.2.840.114 [id number] Univers 00:00:00 00:00:00 Only Unassigned, DREW 350.1.13.10 ity of [place] [facility] 4.2.7.2.686 Thad as [id number] [facility] [address] 2020-12-05 2020-12-05 Laboratory Only, Adc Test [facility] 1.2.840. 114 [id number] Univers 09:08:13 09:23:13 Only Ophelia [place]wood 350.1.13.10 ity of [place] 4.2.7.2.686 [place] [id number] [facility] [address] 2020-12-05 2020-12-05 Systems Analyst Engineer Jordi, Adc Lab Main [facility] 1.2.8 40.114 [id number] Univers 09:07:59 09:22:59 Visit Ophelia [place] 350.1.13.10 ity of [place].2.[place] [id number] Sd [facility] [address] Building 2020-12-05 2020-12-05 Outpatient R OPHELIA GREENWOOD [facility] [id number] Univers 08:45:00 08:45:00 ity of [facility] 2020-11-29 2020-11-29 Telephone Ophelia Greenwood [facility] 1.2.840.114 [id number] Univers 00:00:00 00:00:00 Cam [place] 350.1.13.10 i ty of [place] 4.2.[place].2.[place] [id number] [address] 2020-11-21 2020-11-21 Office Ophelia Greenwood [facility] 1.2.468.339 [id number] Univers 08:57:51 09:51:19 Visit Cam [place] 350.1.13.10 i ty of [place].2.[place] [id number] [address] 2020-11-21 2020-11-21 Outpatient R OPHELIA GREENWOOD [facility] [id number] Univers 09:00:00 09:00:00 ity of [facility] 2020-11-21 2020-11-21 Prep For Ophelia Greenwood [facility] 1.2.840.114 [id number] Univers 00:00:00 00:00:00 Surgery Cam [place] 350.1.13.10 [place] [id number] [address] 2020-11-17 2020-11-17 Outpatient R OPHELIA GREENWOOD [facility] [id number] Univers 15:00:00 15:00:00 ity of [facility] 2020-10-18 2020-10-18 [facility] 1.2.086.360 [id number] Univers 15:16:09 16:31:46 Visit Neville Sue 350.1.13.10 i ty of [place].2.[place] [id number] [address] 2020-10-18 2020-10-18 Outpatient R OPHELIA GREENWOOD [facility] [id number] Univers 15:00:00 15:00:00 ity of [facility] 2020-10-18 2020-10-18 Orders Doctor CHENG 1.2.840.114 [id number] Univers 00:00:00 00:00:00 Only Unassigned, DREW 350.1.13.10 ity of [place] [facility] 4.2.7.2.686 Thad as [id number] [place] [address] [address] 2020-10-12 2020-10-12 Outpatient STLMLC STLMLC [id number] Common 00:00:00 00:00:00 [facility] 2020-08-12 2020-08-12 Outpatient STLMLC STLMLC [id number] Common 00:00:00 00:00:00 [facility] 2020-08-12 2020-08-12 Outpatient STLMLC STLMLC [id number] Common 00:00:00 00:00:00 [facility] 2020-08-08 2020-08-08 Outpatient STLMLC STLMLC [id number] Common 00:00:00 00:00:00 [facility] 2020-08-08 2020-08-08 Outpatient STLMLC STLMLC [id number] Common 00:00:00 00:00:00 [facility] 2020-06-02 2020-06-02 Outpatient STLMLC STLMLC [id number] Common 00:00:00 00:00:00 [facility] 2020-05-26 2020-05-26 Outpatient STLMLC STLMLC [id number] Common 00:00:00 00:00:00 [facility] 2020-05-25 2020-05-25 Outpatient STLMLC STLMLC [id number] Common 00:00:00 00:00:00 [facility] 2020-05-24 2020-05-24 Outpatient STLMLC STLMLC [id number] Common 00:00:00 00:00:00 [facility] 2020-05-19 2020-05-19 Outpatient STLMLC STLMLC [id number] Common 00:00:00 00:00:00 [facility] 2020-05-11 2020-05-11 Outpatient STLMLC STLMLC [id number] Common 00:00:00 00:00:00 [facility] 2020-05-11 2020-05-11 Outpatient STLMLC STLMLC [id number] Common 00:00:00 00:00:00 [facility] 2018-09-02 2018-09-02 Outpatient Lorena Araujo 25 [id number] Common 11:39:00 11:39:00 [facility] Results Test Description Test Time Test Comments Results Result Comments Source HEPATIC FUNCTION PANEL (88222) (ALB,T.PRO,BILI 2022-10-08 17 :05:46 T,BU/BC,ALT,AST,ALK PHOS) Test Item Value Reference Range Interpretation Comme nts TOTAL BILI (test code = 4370091377) 0.5 mg/dL 0.1-1.1 BILI UNCON (test code = 4718954350) 0.2 mg/dL 0.1-1.1 BILI CONJ (test code = 3311548042) 0.0 mg/dL 0.0-0.3 T PROTEIN (test code = 9988002507) 7.0 g/dL 6.3-8.2 ALBUMIN (test code = 3600371691) 4.2 g/dL 3.5-5.0 ALK PHOS (test code = 6193972578) 47 U/L 34-122 ALTv (test code = 1742-6) 27 U/L 5-35 AST(SGOT) (test code = 0791900730) 23 U/L 13-40 Lab Interpretation (test code = 65169-6) Normal [facility] 17:05:46 Test Item Value Reference Range Interpretation Comments LIPASE (test code = 4292579621) 77 U/L 0-220 Lab Interpretation (test code = Normal 33289-2) [facility]OLIC PAN[facility] (NA, K, CL, CO2, GLUCOSE, BUN, CREATININE, CA)2022-10-08 17:05:30 Test Item Value Reference Range Interpretation Comments NA (test code = 139 mmol/L 135-145 3024764574) K (test code = 4.0 mmol/L 3.5-5.0 8082671473) CL (test code = 104 mmol/L 98-108 6051010447) CO2 TOTAL (test code 26 mmol/L 23-31 = 6154485647) AGAP (test code = 9 2-16 2723856773) BUN (test code = 9 mg/dL 7-23 1567138933) GLUCOSE (test code = 94 mg/dL 70-110 6441799923) CREATININE (test code 0.51 mg/dL 0.50-1.04 = 1356125251) CALCIUM (test code = 9.1 mg/dL 8.6-10.6 7692434681) eGFR (test code = 141.6 mL/min/1.73m2 7011708657) SHARYN (test code = SHARYN) Association of Glomerular Filtration Rate (GFR) and Staging of Kidney Disease* + + +- +| GFR (mL/min/1.73 m2) ?| With Kidney Damage ?| ?Without Kidney Damage+ ------+ ----+ ------+| ?>90 ?| ?Stage one ?| ? Normal ?+ -+ + -+| ?60-89 ?| ?Stage two ?| ? Decreased GFR ? + + +- +| ?30-59 ?| ?Stage three ?| ? Stage three ? + + +- +| ?15-29 ?| ?Stage four ? | ? Stage four ?+ -+ + -+| ?<15 (or dialysis) ? ?| ?Stage five ? | ? Stage five ?+ -+ + -+ *Each stage assumes the associated GFR level has been in effect for at least three months. ?Stages 1 to 5, with or without kidney disease, indicate chronic kidney disease. Notes: Determination of stages one and two (with eGFR >59mL/min/1.73 m2) requires estimation of kidney damage for at least three months as defined by structural or functional abnormalities of the kidney, manifested by either:Pathological abnormalities or Markers of kidney damage (including abnormalities in the composition of the blood or urine or abnormalities in imaging tests). [facility] WITH [id number] 16:50:44 Test Item Value Reference Range Interpretation Comments WBC (test code = 4.99 See_Comment [Automated message] 6690-2) The system [employer] generated this result transmitted ref erence range: 4.30 - 1 1.10 10*3/?L. The re ference range was not u sed to interpret this result as normal/abnor mal. RBC (test code = 4.01 See_Comment [Automated message] 789-8) The system [employer] generated this result transmitted ref erence range: 3.93 - 5 .25 10*6/?L. The re ference range was not u sed to interpret this result as normal/abnor mal. HGB (test code = 12.5 g/dL 11.6-15.0 718-7) HCT (test code = 37.5 % 35.7-45.2 4544-3) MCV (test code = 93.5 fL 80.6-95.5 787-2) MCH (test code = 31.2 pg 25.9-32.8 785-6) MCHC (test code = 33.3 g/dL 31.6-35.1 786-4) RDW-SD (test code 47.5 fL 39.0-49.9 = 80927-5) RDW-CV (test code 14.1 % 12.0-15.5 = 788-0) PLT (test code = 204 See_Comment [Automated message] 777-3) The system [employer] generated this result transmitted ref erence range: 166 - 35 8 10*3/?L. The re ference range was not u sed to interpret this result as normal/abnor mal. MPV (test code = 10.6 fL 9.5-12.9 15119-0) NRBC/100 WBC (test 0.0 See_Comment [Automat ed message] code = [id number]) The syste [employer] which generated this result transmitted ref erence range: 0.0 - 10 .0 /100 WBCs. The refer ence range was not u sed to interpret this result as normal/abnor mal. NRBC x10^3 (test See_Comment [Automated message] code = [id number]) The syste m which generated this result transmitted ref erence range: 10*3/?L. The reference range was not used to interpr et this result as normal/abnormal . GRAN MAT (NEUT) % 47.3 % (test code = 770-8) IMM GRAN % (test 0.40 % code = 5061722923) LYMPH % (test code 37.3 % = 736-9) MONO % (test code 10.6 % = 5905-5) EOS % (test code = 3.4 % 713-8) BASO % (test code 1.0 % = 706-2) GRAN MAT 2.36 10*3/uL 1.88-7.09 x10^3(ANC) (test code = 6887647084) IMM GRAN x10^3 0.00-0.06 (test code = 7395109801) LYMPH x10^3 (test 1.86 10*3/uL 1.32-3.29 code = 731-0) MONO x10^3 (test 0.53 10*3/uL 0.33-0.92 code = 742-7) EOS x10^3 (test 0.17 10*3/uL 0.03-0.39 code = 711-2) BASO x10^3 (test 0.05 10*3/uL 0.01-0.07 code = 704-7) [facility] [id number] 16:36:00 Test Item Value Reference Range Interpretation Comments POCT PREG (test code = 1605) Negative On board controls acceptable Yes with C Line (test code = 3574) POCT PREG LOT # (test code = [id number]) POCT PREG TEST DATE 02/09/2024 (test code = 3576) Lab Interpretation (test code = Normal 63213-1) [facility] URINALYSIS W/O SPECIFIC [id number] 21:26:00 Test Item Value Reference Range Interpretation Comments POCT PH U (test code = 3254) 8 mg/dl 5-8 POCT U LEUK EST (test code = Negative Negative - Negative 3263) POCT U NIT (test code = 3262) Negative Negative - Negative POCT U PROT (test code = 3259) Negative Negative - Negative POCT U GLU (test code = 3256) Normal Negative - Negative POCT U KETONE (test code = 3258) Negative Negative - Negative POCT U BLD (test code = 3257) Negative Negative - Negative [facility] URINALYSIS W/O SPECIFIC [id number] 21:26:00 Test Item Value Reference Range Interpretation Comments POCT PH U (test code = 3254) 8 mg/dl 5-8 POCT U LEUK EST (test code = Negative Negative - Negative 3263) POCT U NIT (test code = 3262) Negative Negative - Negative POCT U PROT (test code = 3259) Negative Negative - Negative POCT U GLU (test code = 3256) Normal Negative - Negative POCT U KETONE (test code = 3258) Negative Negative - Negative POCT U BLD (test code = 3257) Negative Negative - [id number] 02:37:00 Test Item Value Reference Range Interpretation Comments POCT PREG (test code = 1605) Negative On board controls acceptable with Present C Line (test code = 3574) POCT PREG LOT # (test code = 3575) [id number] POCT PREG TEST DATE (test 08-04-2023 code = 3576) Lab Interpretation (test code = Normal 76598-3) [facility] [id number] 13:36:00 Test Item Value Reference Range Interpretation Comments POCT PREG (test code = 1605) negative On board controls acceptable with present C Line (test code = 3574) POCT PREG LOT # (test code = 3575) [id number] POCT PREG TEST DATE (test code = 3576) Lab Interpretation (test code = Normal 04498-2) [facility] [id number] 15:35:34 Test Item Value Reference Range Interpretation Comments Case Report (test code Surgical Pathology ? ? = [id number]) ?Case: [id number] ? Authorizing Provider: ?Ophelia Greenwood MD ?Collected: ? 12/06/2020 0948 ?Ordering Location: ? ? [facility] ? ? ?Received: ?12/06/2020 1414 ? [facility] ?Pathologist: ? Dionisio Forde, ?Specimens: ? A) - FALLOPIAN TUBE, LEFT ? B) - FALLOPIAN TUBE, RIGHT ? Final Diagnosis (test j6mhdJVqJUZwz2ieQBZdzLK code = 9740089719) uZzEwMzNcZnRuYmpcdWMxIH hrruKqLOclpCplGFMiJ4pbp pAwZNHecXYeA6DtprnpSMsj DM2sPZ3lpZkmfFAgjZNhAFV lVoLra7pwo527dTCcb4laQE DJvfjrfAp7iEhnX68ff1S8C uauG59fuGGcRRZ8GMEjDKUm oEBpYMTvJZF5POGefUGvP6k aFPCkUM0jimwiWXiqWYdtRY OevNF1BGCobDAjO0WwYLLmB YfnEAAsbxp4BlTqAm6zbPMy eTcyMFxwYXJkXHBsYWluXGZ zMjBccGFyIEEuIEZBTExPUE lBTiBUVUJFLCBMRUZULCBTR WwKLF3FZKlyLdDGBLYRER6I OlxwYXIgICAgLSBGVUxMIEN LF6NOMYJSW7ZCF79iF5LaDd XPSQ2JZLCBSLPIQeQkVCCIA lRJRklFRFxwYXJccGFyIEIu IEZBTExPUElBTiBUVUJFLCB STFyWSWhrP6JERXOAYMZTNF DSI3XGTHxLWivaqSQtRDSnW E8pVhCBVNSJWz3LMdXMOKUU XV9XKQ6TQCCDNHgWEEvPSaC HHPMMXFtCPW7PUQNWDOLlHA BhclxwYXIgQmlsbGllIFNoa R6sSTJWIeZoBN66KrMkMkAk TGXxVsUqFCFBVNtiZVQ3c9v ydGYxXHNzdGVjZjIyMDAwXG Les8djLYYocAHzWqIaHkAvU vGyYfzkzMJlXBFfIvAjo7nm b001aEWyj9whJAVuIaO6sBO fDTZlyWrvpeg2wXpoGyOeAY Xlr7fqkbPnXmDqEVHrPOTkJ XFkzBLiM875UZIkCSqul8kz y5SoHHTgrYWer1G1HIJXMSp aUlZyY675e9eoi7ntywJuyI Z6QMKuWBN2MHmquwCgraX8D QoocSBaToJ0PSdcbxYsIOsq yqEvyuNgSjw9QHTtT570CHA 6uFsvz9zjUHD3CNUqURDwJp suSg7rtBNnY213TRAzMVLKY XIqqNb9LIKaxzIquxWfsJVM p048S872u1rjETQuyyOfhMm Jmapti9hnS011QFSrpAFoyw JoTvMgAJAvgNZzwQA6YVAmL M4tvqvmKWikEFxtVNMcgwC5 EXTzlRNjJ2UfWXRsUP5ajdv pAMU2YWskQSXsMVC4MoFjYH Dqn2Aqzyy4BdEihw9dbv22T ZE5s4JhjNivWED5SXW0KlNy Ua2hrZEaIUHfDR9aOkVtsHV fUXQzcf32yYguBVqcttOkrG 6jMtWsRFSbiQOrQICzGQ7xo TLkOOWjuN9bemiiXAUxTzAh xsjsHLVnpZzecgRoAk3ttHg uMVG6OJhoA9tjnC2cYbB8XF miX9izzC0kYLz1CAnltPS5T ONbhL7vDU7cmrbru2xvZKad SLcfGWAwaxJ4lkM3QBJhtSN xB1LqyZ2rNFTmTD6ypwtlq3 bdLIY7RDzfCWGjNWK1XfVuV QBrz5Ftdcq0FwXex4EwxDLu YBovO15dg367JWNdihTkL9q wbGFpblxwbGFpblxmMFxmcz R4PVJxNCOzMVrtOTLtNGXfW jBcbGFuZzEwMzNcaGljaFxm QAxaEcPnIOYjXIfiC3eaWbK yA4TbXRMmUwMazIJfOHvfuO Y4JHCpEEVkp82wpKl1JLMbv avqu1SnETLukKAmxNBkmM4r nnBgg5rpYFReCZPhWSRhP2K qWFM3dNJoHUQzdHUeqBW5RQ 0rcoHwSN6nXEBlNjoreyVli RNuxsWeODTqCRqdg8bmXO5c WIPljLtfdO9uyZA4VSIql5p vaSYhoDTgz3gnf1ImwkSuZK xkGFSnJKalASWvBMXxDA1oC UZkuYMnbsYrw1Z7WhyawXOn tqznNxpapxP2YSfymszhDWU iYFkzQ8liBfDuGTKslMfvZw ngz1IhJJLgPWYvRabjmBVir X0= Clinical Information Desires sterilzation (test code = [id number]) Gross Description q0leqIChHOEvaNWPFDHeH7r (test code = iclQzSNEnvFReF1WrfbsgPU 2790963862) ylIT1oIP9hoDggpACvrNTnN P8BGDOeRwZqNDRxiDHvcmQl NsVlFLIrwFOzfPF4ZCAaDN2 nkmtbLVgjIMszLQVnerW0TU ZaxFNxC9OkEHHtFS0vhydvO LF3GZefoI3huwRSWlplQu8t dHRibHtcZjFcZmNoYXJzZXQ qCXXpbMyhLVCuCBq5zZ6JFs nwHOB6YSXCAmweWQXrVN4Dz 0faCSIuqHGrWKJ3QKgihEXs AFUdBPEeXHy4YFSlOIldnQH rUQ1sgOaaMyknuUull3UyeQ BcXGlkIDUxMDAyIFxcZGIgI S7RZqCmFHv7MiY7ZaAqRYt1 XCx4LI0OZpRfSMYcSgGuRIE 6OWZcEHd9IQmmHY2ZGJSdPW R2VrjuEXdcXIE4DhLcVXc8P DIgXFxmIEFyaWFsIFxcZnMg WVIvKLbkxIRmHT4scZvzxJD pblxmczIwXHBhciANClxwbG FpblxlcGljTmVzdERvYzEgD QpcbHRycGFyXGxpbjBccmlu MCANClxsdHJjaFxmczIyIFN wZWNpbWVuIEEgaXMgcmVjZW q4QEHsjC8eQt8oaBSpvD8hl IIbUVreRXU0mHUfGFLkPKLz KQYsYP40V1MsnpFqNGzzUMc gbnVtYmVyLCAiIEZhbGxvcG lzcjX1fMIyCKOwWSU4TlXis wYwP68wk9wtuTGpc4NoDZFr vH5cmICurRDuSWCjtagyk9L mqHIjtIUkUmDlmU0gjeqzhF OgAOGswOpeqWypmaA6xZLnW We1DjRxxDEdFfSrvBFeFyGo J87aHWpzhVZiASbhEGEvdzb irAy6KPCgS0Wyn70kLWK1rn ByZXZlYWwgdGFuLXBpbmsgZ 4Uyx9KleDC7jwJneDEpf6Jw uQAjT3J1PNN7zzStS1FbSDq xjZczNHVluF5zg2tlxLJshG 8qrd1vBdIfnvBdHW66NSOdh pKbG0Vwr7Zpl2YfuPivjzYi YR3hXSKfIFWljmWkyfStRkw pXXT9ISPlHdamSkExRIPtDL ZobnNiZWOsHJA3Zx0pkFScX CBibHVlIGluayBzaWRlIGRv l12izZ7vUXZpZIpbySsbmE6 bSDCjS72qp1GGg9KgSEYhGA dew0hnrFqsf9KwiYJcWYduS ZQnlZQrWCjvqE6qIaEtr7xv vDg4QGjemnT8PDIhrs5RWrx hXhrtmBwro2MlaZVjARyhPC QaJFPwXPhjXEVeVO1XDuHtJ Vd6QbN5KkWhTQh9ONb6EU4K RgSdPJRmSkCiKPV0SGUmUZp 9RUvsZD0WQIYeRFX0Rjy0Yn OeZXY7PdAgMSf7LQTrESfdL EFyaWFsIFxcZnMgMTAgXFxm hEAuGZ3umPicmwKfGUTptlQ NClxwbGFpblxlcGljTmVzdE RvYzEgDQpcbHRycGFyXGxpb jBccmluMCANClxsdHJjaFxm czIyIFNwZWNpbWVuIEIgaXM myrErQRv6OONnqM2oOa4vtX AzsP5msDCqQWqoYKI6eVFbN GNhEOIlIRPqDB91F2TeniOf ZSwgVUggbnVtYmVyLCAiIEZ azJadiMhbxvB3mNPnSLDhbW bcrLUaFF6yKEMinyPde3KfS P0zLKHir7qtE0whTFTrnv1a sK4nQGCvO79orjZcu5UkBnl pDfRbWKUrWFMtLNzyu2MxRE 5flPGoXSMkPI49QGczAA8xL BwxFN01GSSzPDE4lFphvDEn cbWwXOMoLMgoxXKqGKR3cX2 hAOWxkB5bynY3IVAfZFVyoc 1ncG1fQNmqd4BaqRgtyM5aE A8rngzyXvlbIRA9iLAlsNKm LZOgmrG3ySKeWYFwsTiqcJ3 graKnqTPyFA1oKRJhqUVdm1 DwbLM3wKOlFOLzi6PkKHKkZ 8Qaj32gXDPaMNI0rTWoXN44 dEUuAQCvr3MxiHDjKXJiaLY rnDF6YBHkWU8oRACoROQyhC TphRH4KPZlNxc2QTTfzxmji 8ljRSUrg9fmSMclECYtGexb TBSxSHtoaNCeGO7ISAQyyZF PKQuzi7ImAYnhMJJRVelzfU FpblxlcGljTmVzdERvYzBcc BtleN36IBRsmSTcATU2EZ4o EFTwsabsUFYiITQgCLA9YFk orK54cJMiZTHwGFVkyEAtoA 1UWAMiOED4LToieI82nBEkI D7ARANkRYW9GTLjdGMlOKH0 JH9qtH0PfY== Disclaimer (test code s1wewWMwNNQap1uyBCNszSN = [id number]) uZzEwMzNcZnRuYmpcdWMxIH gjdgPkGEixv8AaX9WxOuDhC FxhbnNpXGRlZmxhbmcxMDMz GST2llFfWFRmTIuqALGpYOo nVl8gnVZphEvaItBjFLGft7 mstpSNHDfdYdOmX529IRUkT Iisd1vfk8EgJNKweUSzc1N7 WDWBsqjelIn1rWjoV84cj7B 6ZineU3ecJNXuDXBfQ0CvTL 6lXRTrUgn1ECV3OAI7CMFaD TYeN4BsAG9oSDUzhZRaCOk1 t9kamIzxMGTnRNZ1o7puBCk wjtWyQL3deo5lfVo5w7mpij HqQMJrDRBtoQRDJGZgW7Fdl JlaQb0nzDj4qSgvHwreYDW9 Baz8YV4fzg75drt8nGfoLLF cxqhmWbE6YBqrVASraeqeRB g6RQtcPWNdgVH6GNMhbWXjJ 7FsEHKqRJ0dsjn0BFW6SOuc NGMzBfA9PAJjeZZgMRNdfJp rDPpbe887HAO4QcBxBE6rK2 Mqa1S0xD6uwKHgQMEhfNByD eQdCUIdwl6yeZKzPZivz9Ln NNI5prS7cZWoqRFpLPUmGO9 8Dftry4AaZtqqe9CuA62jfI M2BKbak9nuYQ6aJnD0xdLeJ Efxl3jeyM5xYbP9SRktVQ2j MQ2rFDJxsJ7anpfkBIVwHlV qbhgqLVBrzFkjvpMrGz9ynZ scGEU8FIkxP4zarT1uCjG0Z NwzT5ortD1vBCl1JOafvHC6 FYFpfS7wYC6zbgjfs6mlDHa tYKswASDdjkQ4gxH2IEOaeJ BsT9PcjB5bXMJdUY7xztqev 7viDPV0BKqmPPOmIRS3TiYl UBFid4Hajpx9MyIcm4IouZD qULijN06ks164DVUwjfIsU6 xwbGFpblxwbGFpblxmMFxmc rV2ZXHuocDiq1SzXZMnKZU9 EPykNGqvqGNcXMIsrPxre9a oU6TuuAOeFVZnFPkwFMShUZ ZzMjBcbGFuZzEwMzNcaGlja ZeaDLubGsSoCKOvIOqmY2js LvUeR5XuKSEkPwKqrBYgA6d aHGlvygOjFOBxltFcwZE5LF byH5t3SZSybyLkoAd1daJuM lZaQTIzWJF2VQbwwVDtWSGo x1OplfqeiSGvAp6plNQzBAG fmL7zFHRzTTCpJLcxZS0elR o8ECZLbUQyeQQkBiAHNGJgX G46rqZpZJEPaaaox1X9UCgq BSDxh1QtoQQwT4wge3JaMUM iw71cTY1bh5D2x3cuAYV9NG 2cf7CxWDVimHJgeMFwJYKwn 0Lpgqktn6MlFQGurjWct6Pz ZCBhbmQgaXRzIHBlcmZvcm1 cgnClUSLcTCFrK5HojgjjkX wzevLtAHTvie2exxTrYQN2V KYBWTNwVPYeg2AcwI7nlFFL UOI6mLBnkh4mlaQLnWEdDNA hqb95UXDdFG2cI6qrOYZkUE EokoFnnYPic4JaRGLrtGM9j WKoPW0JYvKHv45mOIEzLZIK yuBkYGDbzUzwqYH7qgU9sJ4 uIChGREEpLlx+IFRoZSBGRE BbGM7bhdFcc3VchqQbqKluV AAtfMFks8VgpZHny5WpxHps r1JpiXXibJCjMS4eCACptzu nJQJsPOUKIlZSWTUhwjC0r6 GhPQTyIUWoKRG5lLidyyo7I HBqbI0lOOBjQ3gfqkoyRWlj EJLxl6NhiP2jxMZQcBAqu3F oyMBykIRUqJArAK9tchNeIE uYDFxYRVD7xmMeFGAkw8LoP XksP8jiL40baDvbjSd4iQS4 CWG7kN1uRic+IFxwYXJccGF yIEFwcHJvcHJpYXRlbHkgcm LhA7QxoiPqiA2kqQFajlGcQ O3wRN2bF4M1wXHhAVChynZj w7pxIQjrnvQtKaLbncNzPUC vKQhaQRKne9PlIFsrYVX2JB lucyBpbmNsdWRpbmcgSCZFL SHOyIIxnRTmMPM7USqdbuMc zvRgGP8bgD6ngDdpnA3xbQJ caZZ0satvPRTwJZPhnWbeQZ ZbRO0zaMHmIKPeycGFjOrie PUjwC6hG3QhZIGbHEKyqx1c AAWdgY6yPPqnu5RvihjeDYA iTNIpXBGynhUiws4iHVKmiF VNNE8HMQfhfFQor0TpklKiY 6dUVJS9LOOjZvCjVtwnUMFa mSNqfICcZOIbia03AHMsxT7 rwIeoLHItvT4iiP7djXhveU 1mVpFhKeEjZMavLI0cXQIrF 3bvpZIxREPhWZLhB0xzGyIg cF7alTzxCJdzRdRwTgVcAFd nKZP3eC== Embedded Images (test code = [id number]) [facility] [id number] 12:10:00 Test Item Value Reference Range Interpretation Comments POCT PREG (test code = 1605) Negative On board controls acceptable with Yes C Line (test code = 3574) POCT PREG LOT # (test code = HCG [id number]) POCT PREG TEST DATE (test code = 3576) [facility] [id number] 12:10:00 Test Item Value Reference Range Interpretation Comments POCT PREG (test code = 1605) Negative On board controls acceptable with Yes C Line (test code = 3574) POCT PREG LOT # (test code = HCG [id number]) POCT PREG TEST DATE (test code = 3576) [facility] [id number] 07:11:00 Test Item Value Reference Range Interpretation Comments HEMOGLOBIN (test code = HGB) 8.1 g/dL 10.7-13.9 L HEMATOCRIT (test code = HCT) 26.4 % 32.1-42.1 L AG HEPATITIS B [id number] 10:15:00 Test Item Value Reference Range Interpretation Comments AG HEPATITIS B SURFACE (test code NONREACTIVE NONREACTIVE = HBSAG) Specimen Comment: LDO [facility] CONSENT FORM SIGNED FOR HIV TESTING? YAB HEPATITIS C [id number] 10:15:00 Test Item Value Reference Range Interpretation [...] detect mostseropositiv e persons. Specimen Comment: [facility]DO [facility] CONSENT FORM SIGNED FOR HIV TESTING? YAB TREPONEMA 2019-04-19 10:15:00 Test Item Value Reference Range Interpretation Comments AB TREPONEMA (test code = TREPAB) NONREACTIVE NONREACTIVE Specimen Comment: O [facility] CONSENT FORM SIGNED FOR HIV TESTING? YAB HIV 1 2 2019-04-19 10:15:00 Test Item Value Reference Range Interpretation Comments AB HIV 1 2 (test code = NONREACTIVE INDEX NONREACTIVE [id number]) Specimen Comment: O [facility] CONSENT FORM SIGNED FOR HIV TESTING? YAB HIV 1 2 2019-04-19 10:14:00 Test Item Value Reference Range Interpretation Comments AB HIV 1 2 (test code = NONREACTIVE INDEX NONREACTIVE [id number]) Specimen Comment: [facility] CONSENT FORM SIGNED FOR HIV TESTING? [id number] 08:56:00 Test Item Value Reference Range Interpretation Comments GLUBED (test code = GLUBED) 98 mg/dL 65-110 N [id number] 05:34:00 Test Item Value Reference Range Interpretation Comments GLUBED (test code = GLUBED) 107 mg/dL 65-110 N AG HEPATITIS B [id number] 04:58:00 Test Item Value Reference Range Interpretation Comments AG HEPATITIS B SURFACE (test code NONREACTIVE NONREACTIVE = HBSAG) Specimen Comment: LDO [facility] CONSENT FORM SIGNED FOR HIV TESTING? YAB HEPATITIS C [id number] 04:58:00 Test Item Value Reference Range Interpretation [...] to detect mostseropositiv e persons. Specimen Comment: O [facility] CONSENT FORM SIGNED FOR HIV TESTING? YAB TREPONEMA 2019-04-19 04:58:00 Test Item Value Reference Range Interpretation Comments AB TREPONEMA (test code = TREPAB) NONREACTIVE NONREACTIVE Specimen Comment: [facility] CONSENT FORM SIGNED FOR HIV TESTING? YAB HIV 1 2 2019-04-19 04:58:00 Test Item Value Reference Range Interpretation Comments AB HIV 1 2 (test code = SHQ52OJ) NONREACTIVE Specimen Comment: [facility] CONSENT FORM SIGNED FOR HIV TESTING? YAG HEPATITIS B [id number] 03:42:00 Test Item Value Reference Range Interpretation Comments AG HEPATITIS B SURFACE (test code NONREACTIVE NONREACTIVE = HBSAG) Specimen Comment: O [facility] CONSENT FORM SIGNED FOR HIV TESTING? YAB HEPATITIS C [id number] 03:42:00 Test Item Value Reference Range Interpretation Comments AB HEPATITIS C (test code = NONREACTIVE NONREACTIVE HCVAB) SIGNAL TO CUTOFF (test code = <0.02 <0.80 N CUTOFF) Specimen Comment: [facility] CONSENT FORM SIGNED FOR HIV TESTING? YAB TREPONEMA 2019-04-19 03:42:00 Test Item Value Reference Range Interpretation Comments AB TREPONEMA (test code = TREPAB) NONREACTIVE NONREACTIVE Specimen Comment: LDO [facility] CONSENT FORM SIGNED FOR HIV TESTING? YAB HIV 1 2 2019-04-19 03:42:00 Test Item Value Reference Range Interpretation Comments AB HIV 1 2 (test code = [id number]) NONREACTIVE Specimen Comment: LDO [facility] CONSENT FORM SIGNED FOR HIV TESTING? YAG HEPATITIS B [id number] 03:11:00 Test Item Value Reference Range Interpretation Comments AG HEPATITIS B SURFACE (test code NONREACTIVE NONREACTIVE = HBSAG) Specimen Comment: LDO [facility] CONSENT FORM SIGNED FOR HIV TESTING? YAB HEPATITIS C [id number] 03:11:00 Test Item Value Reference Range Interpretation Comments AB HEPATITIS C (test code = HCVAB) NONREACTIVE SIGNAL TO CUTOFF (test code = CUTOFF) <0.80 Specimen Comment: LDO [facility]IS CONSENT FORM SIGNED FOR HIV TESTING? YAB TREPONEMA 2019-04-19 03:11:00 Test Item Value Reference Range Interpretation Comments AB TREPONEMA (test code = TREPAB) NONREACTIVE NONREACTIVE Specimen Comment: LDO [facility] CONSENT FORM SIGNED FOR HIV TESTING? YAB HIV 1 2 2019-04-19 03:11:00 Test Item Value Reference Range Interpretation Comments AB HIV 1 2 (test code = SQI54MV) NONREACTIVE Specimen Comment: LDO [facility] CONSENT FORM SIGNED FOR HIV TESTING? YGLUCOSE 2019-04-19 01:26:00 Test Item Value Reference Range Interpretation Comments GLUCOSE (test code = GLU) 89 mg/dL 65-110 N CBC W/AUTO [id number] 01:11:00 Test Item Value Reference Range Interpretation [...] = PLTMR) - US FET BIO PH AZ W/O [id number] 02:11:00 Patient Name: RUBY ZUNIGA Unit No: [id number] EXAMS: CPT CODE: [id number] US FET BIO PH AZ W/O NST 77126 EXAM: US, US FET BIO PH AZ W/O NST : 06/09/2018, 0132 hours Clinical Indication: LOF. Possible rupture of the membranes Comparison: None. TECHNIQUE: Limited obstetrical ultrasound is performed for biophysical profile evaluation with wells scale and M-mode imaging. FINDINGS: Single viable intrauterine gestation is seen in vertex presentation. heart rate is 120 bpm. Gestational age by LMP is 36 weeks 4 days. Placenta is anterior, grade 2. No evidence of placenta previa. Amniotic fluid is normal. Amniotic fluid [...] A normal or negative sonogram report should not delay further investigation of a clinically suspicious or abnormal . 2. positio n or overlap of parts may prevent complete evaluation of the fetus. 3. Congenital and developmental abnormalities are not always sonographically visualized. 4. Repeat sonograms may be necessary depending on the clinical development during . SL: [facility] NAME: JOERUBY Radiology Department PHYS: Morris Rodrigues III, MD [address] : 1990 AGE: 28 SEX: F [place] [address] LOC: MarisaSHARRON PHONE #: [phone] EXAM DATE: 04/08/2019 STATUS: REG ER FAX #: [phone] RAD NO: Page 1 Signed Report (CONTINUED) Patient Name: RUBY DAWKINS Unit No: [id number] EXAMS: CPT CODE: [id number] US FET BIO PH AZ W/O NST 21864 (Continued) at 0211 Reported and signed by: Angel Alcantar M.D. CC: Lucian Farfan MD; Morris Valentine III, MD Technologist: Kylie Logan RDMS Probe: Trnscrbd D/ (0211) [email or web address] Orig Print D/T: S: 04/08/2019 (0445) [facility] NAME: RUBY ZUNIGA Radiology Department PHYS: Morris Rodrigues III, MD [address] : 1990 AGE: 28 SEX: F [place] [address] LOC: MarisaSHARRON PHONE #: [phone] EXAM DATE: 04/08/2019 STATUS: REG ER FAX #: [phone] RAD NO: Page 2 Signed Report Patient Name: RUBY ZUNIGA Unit No: [id number] EXAMS: CPT CODE: [id number] US FET BIO PH [place] W/O NST [id number] (Continued) [facility] NAME: RUBY ZUNIGA Radiology Department PHYS: Morris Rodrigues IIIMD [address] : 1990 AGE: 28 SEX: F [place], [place] [address] LOC: F.OBEDPHONE #: [phone] EXAM DATE: 04/08/2019 STATUS: REG ER FAX #: [phone] RAD NO: Page 3 Signed Report Notes Date/Time Note Provider Source 2019-04-21 13:59:00-00:00 [facility] ([facility]) OB Disch REPORT#:[id number] REPORT STATUS: Signed DATE:04/21/19 TIME: 1359 PATIENT: RUBY ZUNIGA UNIT #: [id number] ROOM/BED: [address] : [birth year] AGE: 28 SEX: F ATTEND: Cecil Farfan MD ADM AUTHOR: Lucian Farfan MD * ALL edits or amendments must be made on the Appography/computer document * Subjective Subjective Admission EGA (wks/days): 38 weeks EGA at delivery (wks/days): 38 weeks Status/day: post (Day 2) Patient reports: Patient reports: Yes: normal lochia, pain management effective, voiding without pain, tolerating ambulation. No: complaints. Objective General VS: Vital Signs Date Temp Pulse Resp B/P B/P Mean Pulse Ox FiO2 04/20-04/21 98.2-98.6 76-86 - 126-128/73-84 Last Documented: Result Date Time B/P 128/04/21 Temp 98.6 04/21 07 Pulse 76 04/21 0719 Resp 19 04/21 07 B/P Mean 83.0 04/19 1339 Patient Weight Weight (lb): 161 Weight (oz): Weight (kg): 73.776268 Physical Exam Neuro: Exam: alert, oriented x3, normal speech Abdomen: soft, no abnormal tenderness, no guardi ng Uterus: involution appropriate, non-tender Lochia: normal Episiotomy or laceration: we ll approximated edges, no inflammation, no drainage noted Lower extremities: Edema: 1+ pitting Results Findings/Data: Laboratory Tests: 04/20 0531 Hematology Hgb (10.7 - 13.9 g/dL) 8.1 L Hct (32.1 - 42.1 %) 26.4 L Results: labs reviewed, vital signs stable Discharge Summary Discharge Summary Date of admission: Date of admission: 04/18/19 Admission diagnosis: labor-spontaneous, labor-te Hospital course: spontaneous labor, augmentation of labor, spontaneous vag delivery, epidural anesthesia, nml postop/postpa rt care Procedures: epidural anesthesia, spontaneous vag inal deliv Baby A: Vaginal delivery: spontaneous status: live born Gender: female 1 minute: 8 5 minutes: 9 Anomalies: none Nursing data: The data set between the solid lines has been im ported from nursing documentation. Any exceptions have been noted be low under Provider comments. EGA (weeks/days): 38.1 EGA at admit (weeks): Delivery date infant A: 04/19/19 Delivery time i nfant A: 1112 Birthweight (gm) infant A: 2780 Feeding preference: Gender A: Female 1 minute A: 5 minutes A: 10 minutes infant A: Provider comments on imported nursing data: [] Plan: routine care, discharge today Instructions: routine instr sheet given, instr a nd warnings rev'd, specific instr as noted Diet: regular Activity and restrictions: up ad julissa, may shower , pelvic rest, no intercourse for 6 wks, no driving Contraception discussed: abstinence for 4-6 week s, will discuss at PP visit Discharge meds: Continue taking these medications: PNV/FE FUM/FA ( MULTIVITAMIN) 28 MG IRON -800 MCG TAB 1 TABLET ORAL DAILY. Prescriptions: e-prescribe Rx drug database reviewed: yes Discharge condition: stable Discharge to: home Follow up in: 6 weeks Discharge diagnosis: full-term uncomp delivery Discharge management: less than 30 mins Electronically Signed by Lucian Farfan MD on at 1401 RPT #:[id number] END OF REPORT 2019-04-19 11:34:00-00:00 [facility] ([facility]) OB Delivery Note REPORT#:[id number] REPORT STATUS: Signed DATE:04/19/19 TIME: 1134 PATIENT: RUBY ZUNIGA UNIT #: [id number] ROOM/BED: [address] : [birth year] AGE: 28 SEX: F ATTEND: Cecil Farfan MD ADM AUTHOR: Lucian Farfan MD * ALL edits or amendments must be made on the el ectronic/computer document * OB Delivery Nursing Documentation Review Nursing data: The data set between the solid lines has been im ported from nursing documentation. Any exceptions have been noted be low under Provider comments. _ ROM date: 04/19/19 ROM time: 0638 Membranes rupture method: AROM Amniotic fluid color: Clear Amniotic fluid amount: EGA (weeks/days): 38.0 EGA at admit (weeks): EGA at delivery (weeks): 38 Steroids prior to arrival: Antibiotic prophylaxis given: evaluation at delivery: Delivery date A: 04/19/19 Delivery time i nfant A: 111 Birthweight (gm) infant A: Weight (lb) infant A: Weight (oz) infant A: Gender A: Female 1 minute infant A: 5 minutes A: 10 minutes A: Cord pH obtained A: Vacuum time A: Vacuum # pulls A: Vacuum # popoffs A: __ Provider comments on imported nursing data: [] Pre-delivery GBS status: GBS status: negative Prophylaxis administered: none evaluation at delivery: [facility] EGA (wks/days): 38 weeks EGA at delivery (wks/days): 38 weeks Steroids Prior to Delivery Steroids prior to delivery: no, delivery on arri eddy General VS: Last Documented: Result Date Time B/P Mean 92.0 04/19 1056 B/P 115/77 04/19 1056 Pulse 71 04/19 1056 Temp 97.8 04/19 0844 Resp 18 04/19 0122 Membranes: AROM ROM date: 04/19/19 ROM time: 814 Amniotic fluid: clear Baby A Information Baby A information Delivery date: 04/19/19 Delivery time: 1111 status: live born Wt of baby: not yet available Gender: female 1 minute: 8 5 minutes: 9 Presentation: vertex Anomalies: none ABG details Baby A Cord blood gases: not collected Nuchal cord Baby A Nuchal cord: yes (loose and reduced) Anomalies: none Vaginal Delivery Vaginal delivery Labor: augmented Medications/Devices used: oxytocin Vaginal delivery: spontaneous Amniotic fluid: clear Anesthesia type: epidural anesthesia Episiotomy: none Episiotomy repair: not applicable Laceration repair: yes Episiotomy/laceration suture: 2-0 (vicryl) Placenta: spontaneous, intact Post delivery meds used: oxytocin Count: correct Mother's condition: mother stable 's condition: stable in room Lacerations: Perineal laceration(s): 2nd Degree High vaginal laceration: no Electronically Signed by Lucian Farfan MD on at 1138 RPT #:[id number] END OF REPORT 2019-04-19 06:40:00-00:00 [facility] ([facility]) Clinical Note REPORT#:[id number] REPORT STATUS: Signed DATE:04/19/19 TIME: 639 PATIENT: RUBY ZUNIGA UNIT #: [id number] ROOM/BED: [address] : [birth year] AGE: 28 SEX: F ATTEND: Ja Farfan MD ADM AUTHOR: Elenita Meredith MD * ALL edits or amendments must be made on the [employer] document * Clinical Note Note: increasing contractions Last Documented: Result Date Time B/P Mean 95.0 04/19 518 B/P 119/78 04/19 518 Temp 98.1 04/19 05 Pulse 85 04/19 518 Resp 18 04/19 0122 SVE 5/70/-2 AROM clear FHT 140s cat 1 TOCO q 3 min recheck prn Electronically Signed by Elenita Meredith MD on at 0640 RPT #:[id number] END OF REPORT 2019-04-19 00:23:00-00:00 [facility] ([facility]) OB Admission / H P REPORT#:[id number] REPORT STATUS: Signed DATE:04/19/19 TIME: 22 PATIENT: RUBY ZUNIGA UNIT #: [id number] [facility] AGE: 28 SEX: F ATTEND: Cecil Farfan MD ADM AUTHOR: Elenita Meredith MD * ALL edits or amendments must be made on the el [employer]/computer document * OB Admission H P Hx Chief complaint: uterine contractions history: : 4 Term: 2 Abortus: 1 Living children: 2 Complications (prev preg): none Current : EDC: 05/03/19 Admission EGA (wks/days): 38 weeks Conditions of : ins ufficient care elevated 1 hour GTT, did not get 3 hour GTT Labs: Blood type: A Rh: positive Rubella: immune Hepatitis B: negative HIV: negative STD: negative Syphilis: currently negative GBS: negative Procedures: ultrasound Genetic testing: none Past medical history: bipolar, depression, obesi ty Past surgical history: l scope breast surgery Social history: unemployed, , no alcohol use, no tobacco use, no drug use Medications: Home Medications: PNV/FE FUM/FA ( MULTIVITAMIN) 1 TAB PO D AILY Allergies Coded Allergies: latex (Intermediate, HIVES 04/18/19) Objective General VS: Last Documented: Result Date Time B/P Mean 86.0 04/18 1923 B/P 112/68 04/18 1923 Temp 98.5 04/18 1923 Pulse 83 04/18 1923 Resp 18 04/18 192 Vital Signs Date Temp Pulse Resp B/P B/P Mean Pulse Ox FiO 2 04/18 98.5 83 18 112/68 86.0 Patient Weight Weight (lb): Weight (oz): Weight (kg): 73.524552 Physical Exam HEENT: normocephalic w/o injury Neuro: Exam: alert, oriented x3, normal speech Abdomen: gravid, soft, no abnormal tenderness Uterine activity: Monitor: toco Frequency (minutes): 3 Pelvic exam: Pelvis clinically adequate: yes, inlet appears appropriate, pubic bone config appropr, no midpelvic contraction Vulvar lesions: none Exam: soft, non-tender, approp size for gest ag e Cervical/ exam: Dilatation (cm): 4 (at admit) Effacement (%): 80 Est wt (gms): 3600 station: - 2 presentation: cephalic Membranes: Membranes: Intact Lower extremities: Edema: 1+ pitting Baby A: Baby A baseline: 125 bpm Baby A variability: moderate 6-25 bpm Baby A accelerations: 15 X 15 Baby A decelerations: none Baby A FHR category: category 1 Diagnosis, Assessment Plan Diagnosis, Assessment Plan Assessment/Impression: spont.active labor<39 wks Plan: augmentation of labor Plan discussed with: nurse Electronically Signed by Elenita Meredith MD on at 0029 RPT #:[id number] END OF REPORT 2019-04-08 00:40:00-00:00 [facility] ([facility]) EMERGENCY PROVIDER REPORT REPORT#:[id number] REPORT STATUS: Signed DATE:04/08/19 TIME: 004 PATIENT: RUBY ZUNIGA UNIT #: [id number] ROOM/BED: AGE: 28 SEX: F PCP PHYS: Lucian Farfan MD SERVICE AUTHOR: Morris Valentine III, MD * ALL edits or amendments must be made on the el [employer]/computer document * SHARRON History Nursing Documentation Review Nursing data: [facility] ER VISIT 28 year old female SAB 2 @ 36.3 wks cc Leaked fluid vaginally HPI She complains of the loss of a gush of clear fluid vaginally at about 8: 30pm tonight. This happened once, no recurrent loss of fluid. Has occasional mild uterine contraction, no vaginal bleeding, endorses positive mo vements. care complicated by a history of diet controlled diabetes. Here in triage her amnisure testing is negative, nitrazine testing also negative. She is 3cm dil ated and not rodolfo and not leaking fluid. She has reassuring heart tones. Dr Elsy ramon has cleared her for discharge pending evaluation by the [employer] Hospitalist. PMH NKDA LATEX ALLERGY OB SAB2 2 previous vaginal delivery at te rm GDM 2 miscarriages, one with d and c PMH Scoliosis, depression, anxiety, diet contro lled GDM PSH D and C, laparoscopy, breast reduction MEDS vitamin FMH Positive for diabetes and hypertension SH No smoke, no etoh, no drugs ROS No shortness of breath, no chest pain, no va ginal bleeding, occasional uterine contraction, mild sharp suprapubic pain, endorses positive f etal movements. Medications: Home Medications: Medication Dose/Rte/Freq Days Qty Entered Last Max Daily Dose Reviewed PNV/FE FUM/FA 1 TAB PO DAILY 07/02/13 ( MULTIVITAMIN) 1729 Strength: 28 MG IRON-800 MCG TAB Current Hospital Medications: Autonomic Drugs Sig/Lisseth Start time Last Medication Dose Route Stop Time Status Admin Terbutaline Sulfate 0.25 MG Q30M 04/08 0545 DC 04/08 (TERBUTALINE 1 MG/ML SUBQ 04/08 0616 0558 1 ML AMP) Terbutaline Sulfate 0 .STK-MED ONE 04/08 0538 DC (TERBUTALINE 1 MG/ML .ROUTE 1 ML AMP) Central Nervous System Agents Sig/Lisseth Start time Last Medication Dose Route Stop Time Status Admin Acetaminophen 650 MG Q4H PRN PRN 04/08 0030 AC 04/08 (ACETAMINOPHEN 325 PO 06/07 0029 0029 MG TAB) Electrolytic, Caloric, And Gagan Sig/Lisseth Start time Last Medication Dose Route Stop Time Status Admin Lactated Ringer's 1,000 ML BOLUS ONCE ONE 04/08 0545 AC (LACTATED RINGERS) IV 04/08 0644 Allergies Coded Allergies: latex (Intermediate, HIVES 04/08/19) Objective General VS: Last Documented: Result Date Time Pulse Ox 100 04/08 0557 Pulse 79 04/08 0557 B/P Mean 95.0 04/07 2304 B/P 127/73 04/07 2304 Temp 98.5 04/07 2304 Resp 17 04/07 2304 Vital Signs Date Temp Pulse Resp B/P B/P Mean Pulse Ox FiO2 04/07-04/08 98.5 79-83 17 127/73 95.0 100 Patient Weight Weight (lb): Weight (oz): Weight (kg): 76.771870 Allergies Allergy Severity Reaction Updated Coded latex Intermediate HIVES 04/08/19 No acute distess, alert, normal affect Chest clear to auscultation CVR RRR AB gravid and nontender SVE by nursing staff 3cm/60%/-3 station not leak ing fluid, both nitrazine and amnisure neg 3cm/60%/-3 station while awaiting results of bpp she started havin g moderate ctx's every 3 to 4 minutes repeat exam by me 3 to 4 cm/60%/-3 station Ext no pathological pretibial edema, normal refl exes, no calf tenderness TOCO initially no regular co ntractions then moderate ctx's every 3 to 4 minutes while awaiting results of bpp FHT category one overall, accelerations are pres ent Recent Impressions: ULTRASOUND - US FET BIO PH AZ W/O NST 04/08 140 Report Impression - Status: SIGNED Entered: 04/08/2019444 IMPRESSION: 1. Single viable intrauterine gestation in verte x presentation. 2. . biophysical profile as above with sco re 12/11 GENERAL OBSERVATIONS REGARDING LIMITED ULTRASOUND: 1. A normal or negative sonogram report should n ot delay further investigation of a clinically suspicious or abno rmal . 2. position or overlap of parts may prevent complete evaluation of the fetus. 3. Congenital and developmental abnormalities ar e not always sonographically visualized. 4. Repeat sonograms may be necessary depending o n the clinical development during . OBINNA: ANDERSON Impression By: Shannon Alcantar M.D. Result Findings/Data: Recent Impressions: ULTRASOUND - US FET BIO PH AZ W/O NST 04/08 140 Report Impression - Status: SIGNED Entered: 04/08/2019444 IMPRESSION: 1. Single viable intrauterine gestation in verte x presentation. 2. . biophysical profile as above with sco re 12/11 GENERAL OBSERVATIONS REGARDING LIMITED ULTRASOUND: 1. A normal or negative sonogram report should n ot delay further investigation of a clinically suspicious or abno rmal . 2. position or overlap of parts may prevent complete evaluation of the fetus. 3. Congenital and developmental abnormalities ar e not always sonographically visualized. 4. Repeat sonograms may be necessary depending o n the clinical development during . OBINNA: ANDERSON Impression By: Shannon Alcantar M.D. Diagnosis, Assessment Plan Diagnosis, Assessment Plan Free Text A P: Impression IUP at 36.3 wks R/O labor reassuring heart tones, bpp 12/11 , membranes intact Plan Not quite ready for discharge. Nursing staf f has spoken with Dr Carrasquillo, orders given for IV hydration, sq terb. Monitor response jr Electronically Signed by Morris Valentine III, MD on 10/22 at 2021 RPT #:[id number] END OF REPORT"
[2022-10-12 23:34] LABS: Absolute Lymphocytes (CBC) 2.5 K/uL (0.7-4.9); Hematocrit 36.3 % (36.0-45.0); Lymphocytes % 30.4 % (15.3-44.8); MPV 8.4 fL (7.6-11.3); RBC Red Blood Cell Count 3.99 M/uL (3.86-4.86)
[2022-10-12 23:38] LABS: Specific Gravity 1.025 (1.005-1.030)
[2022-10-12 23:41] LABS: Specific Gravity 1.024 (1.005-1.030); Urine Bacteria None Seen /HPF (<20); Urine Bilirubin NEGATIVE (Negative); Urine Blood 2+ (Negative); Urine Clarity Clear (Clear); Urine Color Light-Yellow (Yellow); Urine Glucose NEGATIVE (Negative); Urine Protein TRACE (Negative); Urine RBC <5 /HPF (None Seen); Urine Urobilinogen Normal (Normal)
[2022-10-12 23:51] LABS: Albumin 3.7 g/dL (3.4-5.0); Bilirubin Total 0.3 mg/dL (0.2-1.0); Potassium 3.8 mEq/L (3.5-5.1); Protein, Total 7.5 g/dL (6.4-8.2)
[2022-10-13] MEDS ORDERED: ONDANSETRON 4 MG/2 ML VIAL ONE (00:06)
[2022-10-13] MEDS ORDERED: NA CHLORIDE 0.9% 1,000 ML ONE (00:07)
[2022-10-13] MEDS ORDERED: DICYCLOMINE HCL 20 MG/2 ML AMP IM ONE (00:07)
[2022-10-13] MEDS ORDERED: FAMOTIDINE 20 MG/2 ML VIAL IV ONE (00:07)
--- NOTE | 2022-10-13 00:45 | EDPHYS ---
Physician Documentation [facility] Name: Zaira Zuniga Age: 32 yrs Sex: Female : 1990 Arrival Date: 10/12/2022 Time: 22:29 Bed 16 Private MD: ED Physician Guero Pierre HPI: 10/12 23:00 This 32 yrs old Female presents to ER via Ambulatory with complaints of cp Nausea/Vomiting. 23:00 The patient presents to the emergency department with nausea, that is moderate, cp vomiting, that is intermittent, described as bilious. 23:00 Onset: The symptoms/episode began/occurred 2 hour(s) ago. cp 23:00 Possible causes: flare up of bowel problem, gastritis. cp 23:00 Associated signs and symptoms: Pertinent negatives: constipation, diarrhea, fever, GI cp bleeding. Patient reports she was treated at [facility] for similar symptoms this past Saturday and prescribed Bentyl and antiemetic but did not take medications. 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 - Social history:: Smoking status: Patient denies any tobacco usage or history of. Patient uses alcohol, but reports only rare drinking. Patient/guardian denies using street drugs. ROS: 23:05 Constitutional: Negative for body aches, chills, fever, poor PO intake. cp 23:05 Eyes: Negative for injury, pain, redness, and discharge. cp 23:05 ENT: Negative for drainage from ear(s), ear pain, sore throat, difficulty swallowing, difficulty handling secretions. 23:05 Cardiovascular: Negative for chest pain, palpitations. 23:05 Respiratory: Negative for cough, shortness of breath, wheezing. 23:05 Abdomen/GI: Positive for abdominal pain, nausea and vomiting, Negative for diarrhea, constipation, hematemesis. 23:05 Neuro: Negative for altered mental status, headache, numbness, weakness. 23:05 All other systems are negative. Exam: 23:10 Constitutional: The patient appears in no acute distress, alert, awake, non-toxic, well cp developed, well nourished, uncomfortable. 23:10 Head/Face: Normocephalic, atraumatic. cp 23:10 Eyes: Periorbital structures: appear normal, Conjunctiva: normal, no exudate, no injection, Sclera: no appreciated abnormality, Lids and lashes: appear normal, bilaterally. 23:10 ENT: External ear(s): are unremarkable, Nose: is normal, Mouth: Lips: moist, Oral mucosa: pink and intact, moist, Posterior pharynx: is normal, airway is patent, no erythema, no exudate. 23:10 Chest/axilla: Inspection: normal. 23:10 Cardiovascular: Rate: normal, Rhythm: regular. 23:10 Respiratory: the patient does not display signs of respiratory distress, Respirations: normal, no use of accessory muscles, no retractions, labored breathing, is not present, Breath sounds: are clear throughout, no decreased breath sounds, no stridor, no wheezing. 23:10 Abdomen/GI: Inspection: abdomen appears normal, Bowel sounds: active, all quadrants, Palpation: soft, in all quadrants, mild abdominal tenderness, in the right lower quadrant and left lower quadrant, rebound tenderness, is not appreciated, involuntary guarding, is not appreciated. 23:10 Back: pain, is absent, ROM is normal. Vital Signs: 22:51 BP 149 / 104; Pulse 82; Resp 16; Temp 98; Pulse Ox 100% on R/A; Weight 74.84 kg; Height pf1 5 ft. 0 in. ; Pain 10/13; 10/13 00:30 BP 130 / 89; Pulse 65; Resp 16; Pulse Ox 99% on R/A; ha1 01:10 BP 129 / 70; Pulse 68; Resp 16 S; Pulse Ox 99% on R/A; ha1 10/12 22:51 Body Mass Index 32.22 (74.84 kg, 152.4 cm) pf1 10/12 22:51 Pain Scale: Adult pf1 MDM: 10/12 23:00 Differential diagnosis: Nonspecific abd pain, gastritis, cholecystitis, appendicitis, cp diverticulitis, viral gastroenteritis, gastroenteritis. 23:03 Patient medically screened. 10/13 00:43 Data reviewed: vital signs, nurses notes, lab test result(s). Special discussion: Based on the patient's Hx, exam, and Dx evaluation, there is no indication for emergent surgery or inpatient Tx. It is understood by the patient/guardian that if the Sx's persist or worsen they need to return immediately for re-evaluation. ED course: VSS. Patient reports symptoms improved. Will discharge to home for continued monitoring. 00:44 I considered the following discharge prescriptions or medication management in the emergency department Medications were administered in the Emergency Department. See JUL. 00:44 Test considered but Not performed: CT: abdomen/pelvis. 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 Response to treatment: the patient's symptoms have markedly improved after treatment, and as a result, I will discharge patient. 10/12 22:47 Order name: CBC with Diff; Complete Time: 23:40 10/12 23:40 Interpretation: Normal except: RDW 15.3. 10/12 22:47 Order name: CMP; Complete Time: 23:54 10/12 23:54 Interpretation: Normal except: CL 108; GLOB 3.8; A/G 1.0. 10/12 22:47 Order name: Lipase; Complete Time: 23:54 10/12 23:55 Interpretation: Reviewed. 10/12 22:47 Order name: Test, Urine; Complete Time: 23:40 10/12 22:47 Order name: Urinalysis w/ reflexes; Complete Time: 23:54 10/12 23:55 Interpretation: Normal except: UBLD 2+; UPROT TRACE; UESTR 25. 10/12 22:47 Order name: IV Saline Lock; Complete Time: 23:27 10/12 22:47 Order name: Labs collected and sent; Complete Time: 23:27 Administered Medications: 00:03 Drug: NS 0.9% IV 1000 ml Route: IV; Rate: 1 bolus; Site: left antecubital; ha1 01:10 Follow up: Response: No adverse reaction; IV Status: Completed infusion; IV Intake: ha1 1000ml 00:03 Drug: Ondansetron IVP 4 mg Route: IVP; Site: left antecubital; ha1 00:50 Follow up: Response: No adverse reaction; Nausea is decreased ha1 00:05 Drug: Dicyclomine IM 20 mg Route: IM; Site: left ventrogluteal; ha1 00:50 Follow up: Response: No adverse reaction ha1 00:06 Drug: Famotidine IVP 20 mg Route: IVP; Site: left antecubital; ha1 00:50 Follow up: Response: No adverse reaction ha1 Disposition Summary: 10/13/22 00:45 Discharge Ordered Location: Home cp Problem: an ongoing problem cp Symptoms: have improved cp Condition: Stable cp Diagnosis - Nausea with vomiting, unspecified cp - Lower abdominal pain, unspecified cp Followup: cp - With: Rashi Alfaro MD - When: 2 - 3 days - Reason: Recheck today's complaints Discharge Instructions: - Discharge Summary Sheet cp - Abdominal Pain, Adult cp - Nausea and Vomiting, Adult cp Forms: - Medication Reconciliation Form cp - Thank You Letter cp - Antibiotic Education cp - Prescription Opioid Use cp Prescriptions: - Zofran 4 mg Oral Tablet - take 1 tablet by ORAL route every 12 hours As needed; 20 tablet; Refills: 0, cp Product Selection Permitted - dicyclomine 20 mg Oral Tablet - take 1 tablet by ORAL route 4 times per day; 30 tablet; Refills: 0, Product cp Selection Permitted Signatures: Dispatcher [employer] EDAlec Keenan PA PA cp Ellyn Arias RN RN ha1 Krista Chicas RN RN pf1
--- NOTE | 2022-10-13 00:45 | ER ---
Nurse's Notes [facility] Name: Zaira Zuniga Age: 32 yrs Sex: Female : 1990 Arrival Date: 10/12/2022 Time: 22:29 Bed 16 Private MD: Diagnosis: Nausea with vomiting, unspecified;Lower abdominal pain, unspecified Presentation: 10/12 22:51 Chief complaint: Patient states: abdominal pain of 6,onset last with vomiting pf1 x 4 episodes today. Patient stated was treated for same symptoms last Saturday at [facility] and was diagnosed with Gastritis, was prescribed Bentyl and Zofran. Patient stated did not take any medication today. Coronavirus screen: Vaccine status: Patient reports receiving the 2nd dose of the covid vaccine. [facility] Client denies travel out of the [place] in the last 14 days. Client presents with at least one sign or symptom that may indicate coronavirus-19. Ebola Screen: Patient negative for fever greater than or equal to 101.5 degrees Fahrenheit, and additional compatible Ebola Virus Disease symptoms. Initial Sepsis Screen: Does the patient meet any 2 criteria? No. Patient's initial sepsis screen is negative. Does the patient have a suspected source of infection? No. Patient's initial sepsis screen is negative. Risk Assessment: Do you want to hurt yourself or someone else? Patient reports no desire to harm self or others. 22:51 Method Of Arrival: Ambulatory pf1 22:51 Acuity: MACK 3 pf1 23:03 Onset of symptoms was October 13, 2022. ha1 Triage Assessment: 23:03 General: Appears uncomfortable, Behavior is calm, cooperative. GI: Reports lower ha1 abdominal pain, nausea, vomiting. 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 - Social history:: Smoking status: Patient denies any tobacco usage or history of. Patient uses alcohol, but reports only rare drinking. Patient/guardian denies using street drugs. Screenin:03 Abuse screen: Denies threats or abuse. Denies injuries from another. Nutritional ha1 screening: No deficits noted. Tuberculosis screening: No symptoms or risk factors identified. 23:03 [facility] ED Fall Risk Assessment (Adult) History of falling in the last 3 months, ha1 including since admission No falls in past 3 months (0 pts) Score/Fall Risk Level 0 - 2 = Low Risk Oriented to surroundings, Maintained a safe environment, Educated pt \T\ family on fall prevention, incl call for assistance when getting out of bed, Hourly rounding (assess needs \T\ fall precautionary measures) done. Assessment: 23:03 General: Appears uncomfortable, Behavior is calm, cooperative. Pain: Complains of pain ha1 in abdomen Pain does not radiate. Pain currently is 6 out of 10 on a pain scale. Neuro: Level of Consciousness is awake, alert, obeys commands, Oriented to person, place, time, situation. Cardiovascular: Patient's skin is warm and dry. Respiratory: Airway is patent Respiratory effort is even, unlabored, Respiratory pattern is regular, symmetrical. GI: Abdomen is flat, non-distended, Bowel sounds present X 4 quads. Reports nausea, vomiting. GI: Reports lower abdominal pain. : No signs and/or symptoms were reported regarding the genitourinary system. Derm: Skin is pink, warm \T\ dry. Musculoskeletal: Circulation, motion, and sensation intact. 10/13 00:10 Reassessment: Patient and/or family updated on plan of care and expected duration. Pain ha1 level reassessed. Patient is alert, oriented x 3, equal unlabored respirations, skin warm/dry/pink. 01:10 Reassessment: Patient and/or family updated on plan of care and expected duration. Pain ha1 level reassessed. Patient is alert, oriented x 3, equal unlabored respirations, skin warm/dry/pink. Patient states feeling better. Patient states symptoms have improved. Vital Signs: 10/12 22:51 BP 149 / 104; Pulse 82; Resp 16; Temp 98; Pulse Ox 100% on R/A; Weight 74.84 kg; Height pf1 5 ft. 0 in. ; Pain 10; 10/13 00:30 BP 130 / 89; Pulse 65; Resp 16; Pulse Ox 99% on R/A; ha1 01:10 BP 129 / 70; Pulse 68; Resp 16 S; Pulse Ox 99% on R/A; ha1 10/12 22:51 Body Mass Index 32.22 (74.84 kg, 152.4 cm) pf1 10/12 22:51 Pain Scale: Adult pf1 ED Course: 10/12 22:30 Patient arrived in ED. kj1 22:32 Alec Medeiros PA is PHCP. cp 22:32 Guero Pierre MD is Attending Physician. cp 23:00 Triage completed. pf1 23:03 Patient has correct armband on for positive identification. Placed in gown. Bed in low ha1 position. Call light in reach. Side rails up X 1. 23:10 Ellyn Arias, RN is Primary Nurse. ha1 23:22 Inserted saline lock: 22 gauge in left antecubital area, using aseptic technique. Blood ha1 collected. 23:27 CBC with Diff Sent. ha1 23:27 CMP Sent. ha1 23:27 Lipase Sent. ha1 23:27 Test, Urine Sent. ha1 23:27 Urinalysis w/ reflexes Sent. ha1 10/13 00:44 Rashi Alfaro MD is Referral Physician. cp 01:10 No provider procedures requiring assistance completed. IV discontinued, intact, ha1 bleeding controlled, No redness/swelling at site. Pressure dressing applied. 01:10 Arm band placed on right wrist. ha1 Administered Medications: 00:03 Drug: NS 0.9% IV 1000 ml Route: IV; Rate: 1 bolus; Site: left antecubital; ha1 01:10 Follow up: Response: No adverse reaction; IV Status: Completed infusion; IV Intake: ha1 1000ml 00:03 Drug: Ondansetron IVP 4 mg Route: IVP; Site: left antecubital; ha1 00:50 Follow up: Response: No adverse reaction; Nausea is decreased ha1 00:05 Drug: Dicyclomine IM 20 mg Route: IM; Site: left ventrogluteal; ha1 00:50 Follow up: Response: No adverse reaction ha1 00:06 Drug: Famotidine IVP 20 mg Route: IVP; Site: left antecubital; ha1 00:50 Follow up: Response: No adverse reaction ha1 Medication: 01:10 VIS not applicable for this client. ha1 Intake: 01:10 IV: 1000ml; Total: 1000ml. ha1 Outcome: 00:45 Discharge ordered by . maria isabel 01:10 Condition: stable ha1 01:10 Discharged to home ambulatory. ha1 01:10 Discharge instructions given to patient, Instructed on discharge instructions, follow up and referral plans. medication usage, Demonstrated understanding of instructions, follow-up care, medications, Prescriptions given X 2. 01:14 Patient left the ED. ha1 Signatures: Alec Medeiros PA PA cp Jackson, Kandis kj1 Ellyn Arias RN RN ha1 Krista Chicas RN RN pf1
[2022-10-13 01:55] VITALS: BP 149/104; TEMP 98; O2SAT 100
== END 2022-10-13 01:14 | disposition home or self-care (01) ==
LOC: ER 22:29
DX: R11.2 Nausea with vomiting, unspecified (principal); R10.30 Lower abdominal pain, unspecified; Z91.040 Latex allergy status; Z91.048 Other nonmedicinal substance allergy status
CPT/HCPCS: 36415; 80053; 81001; 81025; 83690; 85025; 96361; 96372; 96374; 96375; 99284

== ENCOUNTER 2022-12-21 21:06 | Emergency (ER) | payer SELFPAY ==
--- OUTSIDE RECORDS SUMMARY | 2022-12-21 21:12 | XMS REPORT | Continuity of Care Document ---
:1990 Author Organization [facility] [place] [facility] t Address [address] [facility] [address] [place] [id number] Care Team Providers Name Role Phone CE CAMACHO Primary Care Physician Unavailable Ce Camacho Attending Clinician Unavailable Dennis Owens Attending Clinician Unavailable OPHELIA GREENWOOD Attending Clinician Unavailable BENJAMÍN GOODSON Attending Clinician Unavailable EMEKA PATINO Attending Clinician Unavailable Emeka Colin Attending Clinician LENY ALVARADO Attending Clinician Unavailable Ophelia Grenewood MD Attending Clinician LEANDRO SUAZO Attending Clinician [...] Clinician ERI KENDALL Attending Clinician Unavailable ERI KNEDALL Attending Clinician Unavailable Benjamín Goodson MD Attending Clinician LISETTE DILLON Attending Clinician Unavailable Tyson MANAGER LINELisette Irizarry Attending Clinician Tech, [facility] Attending Clinician Unavailable Parker Mann MD Attending Clinician PARKER MANN Attending Clinician Unavailable PARKER MANN Attending Clinician Unavailable Doctor Unassigned, [place] Attending Clinician Unavailable 2, [facility] Attending [...] Type Policy Number Effective Date Expiration Date [facility] [id number] 2018 HEALTH CHOICE 00:00:00 [facility]ICA[facility] [id number] 2018 [facility] HEALTH CHOICE 00:00:00 [facility] [id number] 2018 [facility] HEALTH CHOICE 00:00:00 [facility] Problems Condition Condition Condition Status [...] Added automatic ally from request for surgery [id number] Severe Severe Disease Active Univers episode of [...] anxiety anxiety 5-13 ity of 00:00: [place] [facility] History of History of Disease Active U nivers depression depression 5-13 it y of 00:: [place] [facility] Frequent Frequent Disease Active Unive rs UTI UTI 6-28 ity of 00:00: [place] [facility] Hypertroph Hypertroph Disease Active U nivers y of y of 5-27 ity of breast breast 00:00: [place] [facility] Branch Mitral Prolapse Problem Common valve of mitral Spirit disorder valve - [facility] [id number] Adult BMI Problem Com mon 32.0-32.9 Spirit kg/sq m [facility] [id number] Obesity Problem Commo n due to Spirit excess - [facility] calories [facility] serious Medical comorbidit Center y, unspecifie d classifica tion [id number] Gastroesop Problem Co mmon hageal Spirit reflux - [facility] disease [facility] esophagiti Medica l s Media [id number] Maxillary Problem Comm on sinusitis, [facility]specifie [id number] Environmen Problem Co mmon pato Spirit allergies - [facility] [id number] History of Problem Co mmon gestationa Spirit l diabetes - [facility] Body mass Body mass Problem Com mon index index Spirit 30.00 to (BMI) of - [facility] 34.99 33.0-33.9 St in adult [facility] [id number] Mitral Problem Common valve Spirit prolapse - [facility] [id number] Mixed Problem Common hyperlipid Spirit emia - [facility]I [facility] [id number] Migraine Problem Comm on without Spirit aura and - CHI without [facility] migrainosu Medica l s, not Center intractabl e [id number] Non-season Problem Com mon al Spirit allergic - [facility] rhinitis, St unspecifie [facility] trigger [facility] [id number] Endometrio Problem Co mmon sis Spirit - [facility] Anxiety Anxiety Problem Common depression with Spirit depression - [facility] [id number] PCOS Problem Common (polycysti Spirit c ovarian - [facility]I syndrome) [facility] [id number] Lumbago Problem Comm on with Spirit sciatica, - CHI right side [facility] [id number] Lumbago Problem Commo n with Spirit sciatica, - CHI left side [facility] [id number] Bipolar Problem Commo n affective Spirit disorder, - [facility] current [facility] mixed, Medical current Center episode severity unspecifie d Allergies, Adverse Reactions, Alerts Allergy Allergy Status Severity Reaction(s) Onset Inactive Treating Comm ents Source Name Type Date Date Clinician latex DA Active MO 2018-05 [facility] 2-14 Clear 00:00: [place] 00 [facility] latex DA Active MO 2018-05 [facility] 2-04 [facility] [place] LATEX DRUG Active Rash Univers INGREDI 5-05 ity of 00:00: [place] 00 [facility] Branch acetamin DA Active MO [facility] ophen 4-07 [facility] 00:[facility]: [facility] [place] latex DA Active MO [facility] 4-07 [facility] 00:[facility]: [facility] [place] LATEX DRUG Active Swelling Univers INGREDI 6-28 [...] Latex Active Unknown [facility] - [facility] Social History Social Habit Start Date Stop Date Quantity Comments Source History [facility] University o f Alcohol Frequency [facility] edical Branch History SDOH University o f Alcohol Std [place] [facility] Dr[facility] Branch History [facility] o f Alcohol Binge [place] [facility] History of [facility] - Tobacco Use [facility] Sex Assigned At [facility] - [facility] Exposure to 2022-06-29 2022-07-09 Not sure University of SARS-CoV-2 00:00:00 14:54:00 [facility] (event) Branch Alcohol intake 2022-06-15 2022-06-15 Ex-drinker University 00:00:00 00:00:00 (finding) [facility] Tobacco use and 2021-12-26 2021-12-26 Smokeless tobacco Un iversity of exposure 00:00:00 00:00:00 non-user [facility] Alcohol Comment 2018-09-15 2018-09-15 occasional Universit y of 00:00:00 00:00:00 [facility] Smoking Status Start Date Stop Date Source Never smoked tobacco [facility] Medications Ordered Filled Start Stop Current Ordering [...] 10/08/22 Branch at 1145, [facility] dicyclomine Yes [id number] 20mg Take 1 Univers 20 mg 6-05 tablet by ity of tablet 00:00: mouth 4 [place] 00 (four) Medical times Branch daily as needed for Abdominal pain. ondansetron Yes [id number] 4mg Take 1 Univers 4 mg 6-05 tablet by ity of disintegrat 00:00: mouth [place] ing tablet 00 every 8 Medica l (eight) Branch hours as needed for Nausea and Vomiting (N/V). famotidine Yes [id number] 20mg Take 1 U nivers 20 mg 6-05 tablet by ity of tablet 00:00: mouth as [place] 00 needed for Medical Heartburn Branch or Indigestio n. [facility] Yes [id number] 1{capsu Take 1 U nivers Blue-Sod 3-06 le} capsule by ity o f Phos-PhSal- 00:00: mouth 2 [place] as [place] 00 (two) Medical (URIBEL) times Branch 118-10-40.8 daily as -36 mg needed for capsule Other (bladder spasms). [facility] Yes [id number] 1{capsu Take 1 U nivers Blue-Sod 3-06 le} capsule by ity o f Phos-PhSal- 00:00: mouth 2 [place] 00 (two) Medical (URIBEL) times Branch 118-10-40.8 daily as -36 mg needed for capsule Other (bladder spasms). [facility] Yes [id number] 1{capsu Take 1 U nivers Blue-Sod 3-06 le} capsule by ity o f Phos-PhSal- 00:00: mouth 2 [place] 00 (two) Medical (URIBEL) times Branch 118-10-40.8 daily as -36 mg needed for capsule Other (bladder spasms). azithromyci 2021-05 Yes [id number] Z pack as Univers n 2-28 directed. ity of (ZITHROMAX 00:00: [place] Z-LEANDRO) 250 00 Medical mg tablet Branch azithromyci 2021- Yes [id number] Z pack as Univers n 2-28 directed. ity of (ZITHROMAX 00:00: [place] Z-LEANDRO) 250 00 Medical mg tablet Branch azithromyci 2021- Yes [id number] Z pack as Univers n 2-28 directed. ity of (ZITHROMAX 00:00: [place] Z-LEANDRO) 250 00 Medical mg tablet Branch azithromyci 2021- Yes [id number] Z pack as Univers n 2-28 directed. ity of (ZITHROMAX 00:00: [place] Z-LEANDRO) 250 00 Medical mg tablet Branch azithromyci 2021- Yes [id number] Z pack as Univers n 2-28 directed. ity of (ZITHROMAX 00:00: [place] Z-LEANDRO) 250 00 Medical mg tablet Branch azithromyci 2021- Yes [id number] Z pack as Univers n 2-28 directed. ity of (ZITHROMAX 00:00: [place] Z-LEANDRO) 250 00 Medical mg tablet Branch azithromyci 2021- Yes [id number] Z pack as Univers n 2-28 directed. ity of (ZITHROMAX 00:00: [place] Z-LEANDRO) 250 00 Medical mg tablet Branch azithromyci 2021- Yes [id number] Z pack as Univers n 2-28 directed. ity of (ZITHROMAX 00:00: [place] Z-LEANDRO) 250 00 Medical mg tablet Branch azithromyci 2021- Yes [id number] Z pack as Univers n 2-28 directed. ity of (ZITHROMAX 00:00: [place] Z-LEANDRO) 250 00 Medical mg tablet Branch azithromyci 2021- Yes [id number] Z pack as Univers n 2-28 directed. ity of (ZITHROMAX 00:00: [place] Z-LEANDRO) 250 00 Medical mg tablet Branch azithromyci 2021-2022- No [id number] Z pack as Univers n 2-28 -05 directed. ity of (ZITHROMAX 00:00: 00:00 [place] Z-LEANDRO) 250 00 :00 Medical mg tablet Branch benzonatate 2021-05- No [id number] 200mg Take 1 Univers 200 mg 07-03 capsule by ity of capsule 00:00: 05:59 mouth 3 [place] 00 :00 (three) Medical times Branch daily as needed for Cough for up to 10 days. predniSONE 2021-05- No [id number] 20mg Take 1 Univers 20 mg 07-03 [...] 04/21/22 at 2215, Routine ibuprofen 2021-05 Yes [id number] 600mg Take 1 Univers 600 mg 2-17 tablet by ity of tablet 00:00: mouth [place] 00 every 6 Medical (six) Branch hours as needed for Pain (scale 4-6). ibuprofen 2021-05 Yes [id number] 600mg Take 1 Univers 600 mg 2-17 tablet by ity of tablet 00:00: mouth [place] 00 every 6 Medical (six) Branch hours as needed for Pain (scale 4-6). ibuprofen 2021-05 Yes [id number] 600mg Take 1 Univers 600 mg 2-17 tablet by ity of tablet 00:00: mouth [place] 00 every 6 Medical (six) Branch hours as needed for Pain (scale 4-6). ibuprofen 2021-05 Yes [id number] 600mg Take 1 Univers 600 mg 2-17 tablet by ity of tablet 00:00: mouth [place] 00 every 6 Medical (six) Branch hours as needed for Pain (scale 4-6). ibuprofen 2021-05 Yes [id number] 600mg Take 1 Univers 600 mg 2-17 tablet by ity of tablet 00:00: mouth [place] 00 every 6 Medical (six) Branch hours as needed for Pain (scale 4-6). ibuprofen 2021-05 Yes [id number] 600mg Take 1 Univers 600 mg 2-17 tablet by ity of tablet 00:00: mouth [place] 00 every 6 Medical (six) Branch hours as needed for Pain (scale 4-6). ibuprofen 2021-05 Yes [id number] 600mg Take 1 Univers 600 mg 2-17 tablet by ity of tablet 00:00: mouth [place] 00 every 6 Medical (six) Branch hours as needed for Pain (scale 4-6). ibuprofen 2021-05 Yes [id number] 600mg Take 1 Univers 600 mg 2-17 tablet by ity of tablet 00:00: mouth [place] 00 every 6 Medical (six) Branch hours as needed for Pain (scale 4-6). ibuprofen 2021-05 Yes [id number] 600mg Take 1 Univers 600 mg 2-17 tablet by ity of tablet 00:00: mouth [place] 00 every 6 Medical (six) Branch hours as needed for Pain (scale 4-6). ibuprofen 2021-05 Yes [id number] 600mg Take 1 Univers 600 mg 2-17 tablet by ity of tablet 00:00: mouth [place] 00 every 6 Medical (six) Branch hours as needed for Pain (scale 4-6). ibuprofen 2021-05 Yes [id number] 600mg Take 1 Univers 600 mg 2-17 tablet by ity of tablet 00:00: mouth [place] 00 every 6 Medical (six) Branch hours as needed for Pain (scale 4-6). ibuprofen 2021-05 Yes [id number] 600mg Take 1 Univers 600 mg 2-17 [...] 5 mg 1-17 ity of tablet 08:27: [address] 2021-05 Yes 2 tablets U nivers n 250 mg 1-17 on the ity of tablet 08:27: first day, [place] then 1 Medical tablet Branch daily for 4 days ARIPiprazol 2021-05 Yes 1 tablet Un jose e 5 mg 1-17 ity of tablet 08:27: [address] 2021-05 Yes 2 tablets U nivers n 250 mg 1-17 on the ity of tablet 08:27: first day, [place] then 1 Medical tablet Branch daily for 4 days ARIPiprazol 2021-05 Yes 1 tablet Un jose e 5 mg 1-17 ity of tablet 08:27: [address] 2021-05 Yes 2 tablets U nivers n 250 mg 1-17 on the ity of tablet 08:27: first day, [place] [address] then 1 Medical tablet Branch daily for 4 days ARIPiprazol 2021-05 Yes 1 tablet Un jose e 5 mg 1-17 ity of tablet 08:27: [address] 2021-05 Yes 2 tablets U nivers n 250 mg 1-17 on the ity of tablet 08:27: first day, [place] [address] then 1 Medical tablet Branch daily for 4 days ARIPiprazol 2021-05 Yes 1 tablet Un jose e 5 mg 1-17 ity of tablet 08:27: [address] 2021-05 Yes 2 tablets U nivers n 250 mg 1-17 on the ity of tablet 08:27: first day, [place] [address] then 1 Medical tablet Branch daily for 4 days ARIPiprazol 2021-05 Yes 1 tablet Un jose e 5 mg 1-17 ity of tablet 08:27: [address] 2021-05 Yes 2 tablets U nivers n 250 mg 1-17 on the ity of tablet 08:27: first day, [place] [address] then 1 Medical tablet Branch daily for 4 days ARIPiprazol 2021-05 Yes 1 tablet Un jose e 5 mg 1-17 ity of tablet 08:27: [address] 2021-05 Yes 2 tablets U nivers n 250 mg 1-17 on the ity of tablet 08:27: first day, [place] then 1 Medical tablet Branch daily for 4 days ARIPiprazol 2021-05 Yes 1 tablet Un jose e 5 mg 1-17 ity of tablet 08:27: [address] 2021-05 Yes 2 tablets U nivers n 250 mg 1-17 on the ity of tablet 08:27: first day, [place] then 1 Medical tablet Branch daily for 4 days ARIPiprazol 2021-05 Yes 1 tablet Un jose e 5 mg 1-17 ity of tablet 08:27: [address] 2021-05 Yes 2 tablets U nivers n 250 mg 1-17 on the ity of tablet 08:27: first day, [place] [address] then 1 Medical tablet Branch daily for 4 days ARIPiprazol 2021-05 Yes 1 tablet Un jose e 5 mg 1-17 ity of tablet 08:27: [address] 2021-05 Yes 2 tablets U nivers n 250 mg 1-17 on the ity of tablet 08:27: first day, [place] [address] then 1 Medical tablet Branch daily for 4 days ARIPiprazol 2021-05 Yes 1 tablet Un jose e 5 mg 1-17 ity of tablet 08:27: [address] 2021-05 Yes 2 tablets U nivers n 250 mg 1-17 on the ity of tablet 08:27: first day, [place] [address] then 1 Medical tablet Branch daily for 4 days ARIPiprazol 2021-05 Yes 1 tablet Un jose e 5 mg 1-17 ity of tablet 08:27: [address] 2021-05 Yes 2 tablets U nivers n 250 mg 1-17 on the ity of tablet 08:27: first day, [place] [address] then 1 Medical tablet Branch daily for 4 days ARIPiprazol 2021-05 Yes 1 tablet Un jose e 5 mg 1-17 ity of tablet 08:27: [address] 2021-05 Yes 2 tablets U nivers n 250 mg 1-17 on the ity of tablet 08:27: first day, [place] 22 then 1 Medical tablet Branch daily for 4 days metoclopram 2021-05 Yes [id number] 10mg Take 1 Univers katelyn HCl 10 1-17 tablet by ity of mg tablet 00:00: mouth [place] 00 every 6 Medical (six) Branch hours as needed for Nausea and Vomiting (N/V) (headache) for up to 15 doses. ibuprofen 2021-05 Yes [id number] 400mg Take 2 Univers (MOTRIN IB) 1-17 tablets by it y of 200 mg 00:00: mouth [place] tablet 00 every 6 Medical (six) Branch hours as needed for Pain (scale 1-3) for up to 30 doses. benzonatate 2021-05 Yes [id number] 100mg Take 1 Univers 100 mg 1-17 capsule by ity of capsule 00:00: mouth 3 [place] 00 (three) Medical times Branch daily as needed for Cough. metoclopram 2021-05 Yes [id number] 10mg Take 1 Univers katelyn HCl 10 1-17 tablet by ity of mg tablet 00:00: mouth [place] 00 every 6 Medical (six) Branch hours as needed for Nausea and Vomiting (N/V) (headache) for up to 15 doses. ibuprofen 2021-05 Yes [id number] 400mg Take 2 Univers (MOTRIN IB) 1-17 tablets by it y of 200 mg 00:00: mouth [place] tablet 00 every 6 Medical (six) Branch hours as needed for Pain (scale 1-3) for up to 30 doses. benzonatate 2021-05 Yes [id number] 100mg Take 1 Univers 100 mg 1-17 capsule by ity of capsule 00:00: mouth 3 [place] 00 (three) Medical times Branch daily as needed for Cough. metoclopram 2021-05 Yes [id number] 10mg Take 1 Univers katelyn HCl 10 1-17 tablet by ity of mg tablet 00:00: mouth [place] 00 every 6 Medical (six) Branch hours as needed for Nausea and Vomiting (N/V) (headache) for up to 15 doses. ibuprofen 2021-05 Yes [id number] 400mg Take 2 Univers (MOTRIN IB) 1-17 tablets by it y of 200 mg 00:00: mouth [place] tablet 00 every 6 Medical (six) Branch hours as needed for Pain (scale 1-3) for up to 30 doses. benzonatate 2021-05 Yes [id number] 100mg Take 1 Univers 100 mg 1-17 capsule by ity of capsule 00:00: mouth 3 [place] 00 (three) Medical times Branch daily as needed for Cough. metoclopram 2021-05 Yes [id number] 10mg Take 1 Univers katelyn HCl 10 1-17 tablet by ity of mg tablet 00:00: mouth [place] 00 every 6 Medical (six) Branch hours as needed for Nausea and Vomiting (N/V) (headache) for up to 15 doses. ibuprofen 2021-05 Yes [id number] 400mg Take 2 Univers (MOTRIN IB) 1-17 tablets by it y of 200 mg 00:00: mouth [place] tablet 00 every 6 Medical (six) Branch hours as needed for Pain (scale 1-3) for up to 30 doses. benzonatate 2021-05 Yes [id number] 100mg Take 1 Univers 100 mg 1-17 capsule by ity of capsule 00:00: mouth 3 [place] 00 (three) Medical times Branch daily as needed for Cough. metoclopram 2021-05 Yes [id number] 10mg Take 1 Univers katelyn HCl 10 1-17 tablet by ity of mg tablet 00:00: mouth [place] 00 every 6 Medical (six) Branch hours as needed for Nausea and Vomiting (N/V) (headache) for up to 15 doses. ibuprofen 2021-05 Yes [id number] 400mg Take 2 Univers (MOTRIN IB) 1-17 tablets by it y of 200 mg 00:00: mouth [place] tablet 00 every 6 Medical (six) Branch hours as needed for Pain (scale 1-3) for up to 30 doses. benzonatate 2021-05 Yes [id number] 100mg Take 1 Univers 100 mg 1-17 capsule by ity of capsule 00:00: mouth 3 [place] 00 (three) Medical times Branch daily as needed for Cough. metoclopram 2021-05 Yes [id number] 10mg Take 1 Univers katelyn HCl 10 1-17 tablet by ity of mg tablet 00:00: mouth [place] 00 every 6 Medical (six) Branch hours as needed for Nausea and Vomiting (N/V) (headache) for up to 15 doses. ibuprofen 2021-05 Yes [id number] 400mg Take 2 Univers (MOTRIN IB) 1-17 tablets by it y of 200 mg 00:00: mouth [place] tablet 00 every 6 Medical (six) Branch hours as needed for Pain (scale 1-3) for up to 30 doses. benzonatate 2021-05 Yes [id number] 100mg Take 1 Univers 100 mg 1-17 capsule by ity of capsule 00:00: mouth 3 [place] 00 (three) Medical times Branch daily as needed for Cough. metoclopram 2021-05 Yes [id number] 10mg Take 1 Univers katelyn HCl 10 1-17 tablet by ity of mg tablet 00:00: mouth [place] 00 every 6 Medical (six) Branch hours as needed for Nausea and Vomiting (N/V) (headache) for up to 15 doses. ibuprofen 2021-05 Yes [id number] 400mg Take 2 Univers (MOTRIN IB) 1-17 tablets by it y of 200 mg 00:00: mouth [place] tablet 00 every 6 Medical (six) Branch hours as needed for Pain (scale 1-3) for up to 30 doses. benzonatate 2021-05 Yes [id number] 100mg Take 1 Univers 100 mg 1-17 capsule by ity of capsule 00:00: mouth 3 [place] 00 (three) Medical times Branch daily as needed for Cough. metoclopram 2021-05 Yes [id number] 10mg Take 1 Univers katelyn HCl 10 1-17 tablet by ity of mg tablet 00:00: mouth [place] 00 every 6 Medical (six) Branch hours as needed for Nausea and Vomiting (N/V) (headache) for up to 15 doses. ibuprofen 2021-05 Yes [id number] 400mg Take 2 Univers (MOTRIN IB) 1-17 tablets by it y of 200 mg 00:00: mouth [place] tablet 00 every 6 Medical (six) Branch hours as needed for Pain (scale 1-3) for up to 30 doses. benzonatate 2021-05 Yes [id number] 100mg Take 1 Univers 100 mg 1-17 capsule by ity of capsule 00:00: mouth 3 [place] 00 (three) Medical times Branch daily as needed for Cough. metoclopram 2021-05 Yes [id number] 10mg Take 1 Univers katelyn HCl 10 1-17 tablet by ity of mg tablet 00:00: mouth [place] 00 every 6 Medical (six) Branch hours as needed for Nausea and Vomiting (N/V) (headache) for up to 15 doses. ibuprofen 2021-05 Yes [id number] 400mg Take 2 Univers (MOTRIN IB) 1-17 tablets by it y of 200 mg 00:00: mouth [place] tablet 00 every 6 Medical (six) Branch hours as needed for Pain (scale 1-3) for up to 30 doses. benzonatate 2021-05 Yes [id number] 100mg Take 1 Univers 100 mg 1-17 capsule by ity of capsule 00:00: mouth 3 [place] 00 (three) Medical times Branch daily as needed for Cough. metoclopram 2021-05 Yes [id number] 10mg Take 1 Univers katelyn HCl 10 1-17 tablet by ity of mg tablet 00:00: mouth [place] 00 every 6 Medical (six) Branch hours as needed for Nausea and Vomiting (N/V) (headache) for up to 15 doses. ibuprofen 2021-05 Yes [id number] 400mg Take 2 Univers (MOTRIN IB) 1-17 tablets by it y of 200 mg 00:00: mouth [place] tablet 00 every 6 Medical (six) Branch hours as needed for Pain (scale 1-3) for up to 30 doses. benzonatate 2021-05 Yes [id number] 100mg Take 1 Univers 100 mg 1-17 capsule by ity of capsule 00:00: mouth 3 [place] 00 (three) Medical times Branch daily as needed for Cough. metoclopram 2021-05 Yes [id number] 10mg Take 1 Univers katelyn HCl 10 1-17 tablet by ity of mg tablet 00:00: mouth [place] 00 every 6 Medical (six) Branch hours as needed for Nausea and Vomiting (N/V) (headache) for up to 15 doses. ibuprofen 2021-05 Yes [id number] 400mg Take 2 Univers (MOTRIN IB) 1-17 tablets by it y of 200 mg 00:00: mouth [place] tablet 00 every 6 Medical (six) Branch hours as needed for Pain (scale 1-3) for up to 30 doses. benzonatate 2021-05 Yes [id number] 100mg Take 1 Univers 100 mg 1-17 capsule by ity of capsule 00:00: mouth 3 [place] 00 (three) Medical times Branch daily as needed for Cough. metoclopram 2021-05 Yes [id number] 10mg Take 1 Univers katelyn HCl 10 1-17 tablet by ity of mg tablet 00:00: mouth [place] 00 every 6 Medical (six) Branch hours as needed for Nausea and Vomiting (N/V) (headache) for up to 15 doses. ibuprofen 2021-05 Yes [id number] 400mg Take 2 Univers (MOTRIN IB) 1-17 tablets by it y of 200 mg 00:00: mouth [place] tablet 00 every 6 Medical (six) Branch hours as needed for Pain (scale 1-3) for up to 30 doses. benzonatate 2021-05 Yes [id number] 100mg Take 1 Univers 100 mg 1-17 capsule by ity of capsule 00:00: mouth 3 [place] 00 (three) Medical times Branch daily as needed for Cough. metoclopram 2021-05 Yes [id number] 10mg Take 1 Univers katelyn HCl 10 1-17 tablet by ity of mg tablet 00:00: mouth [place] 00 every 6 Medical (six) Branch hours as needed for Nausea and Vomiting (N/V) (headache) for up to 15 doses. ibuprofen 2021-05 Yes [id number] 400mg Take 2 Univers (MOTRIN IB) 1-17 tablets by it y of 200 mg 00:00: mouth [place] tablet 00 every 6 Medical (six) Branch hours as needed for Pain (scale 1-3) for up to 30 doses. benzonatate 2021-05 Yes [id number] 100mg Take 1 Univers 100 mg 1-17 [...] (six) Branch hours as needed. amitriptyli Yes [id number] 25mg Take 1 Univers ne 25 mg 8-25 tablet by ity of tablet 00:00: mouth at [place] 00 bedtime. Medical Branch amitriptyli 0 Yes [id number] 25mg Take 1 Univers ne 25 mg 8-25 tablet by ity of tablet 00:00: mouth at [place] 00 bedtime. Medical Branch amitriptyli Yes [id number] 25mg Take 1 Univers ne 25 mg 8-25 tablet by ity of tablet 00:00: mouth at [place] [address] bedtime. Medical Branch amitriptyli 2021-0 Yes [id number] 25mg Take 1 Univers ne 25 mg 8-25 tablet by ity of tablet 00:00: mouth at [place] [address] bedtime. Medical Branch amitriptyli 2021-0 Yes [id number] 25mg Take 1 Univers ne 25 mg 8-25 tablet by ity of tablet 00:00: mouth at [place] [address] bedtime. Medical Branch amitriptyli 2021-0 Yes [id number] 25mg Take 1 Univers ne 25 mg 8-25 tablet by ity of tablet 00:00: mouth at [place] [address] bedtime. Medical Branch amitriptyli 2021-0 Yes [id number] 25mg Take 1 Univers ne 25 mg 8-25 tablet by ity of tablet 00:00: mouth at [place] [address] bedtime. Medical Branch amitriptyli 2021-0 Yes [id number] 25mg Take 1 Univers ne 25 mg 8-25 tablet by ity of tablet 00:00: mouth at [place] [address] bedtime. Medical Branch amitriptyli 2021-0 Yes [id number] 25mg Take 1 Univers ne 25 mg 8-25 tablet by ity of tablet 00:00: mouth at [place] [address] bedtime. Medical Branch amitriptyli 2021-0 Yes [id number] 25mg Take 1 Univers ne 25 mg 8-25 tablet by ity of tablet 00:00: mouth at [place] [address] bedtime. Medical Branch amitriptyli 2021-0 Yes [id number] 25mg Take 1 Univers ne 25 mg 8-25 tablet by ity of tablet 00:00: mouth at [place] [address] bedtime. Medical Branch amitriptyli 2021-0 Yes [id number] 25mg Take 1 Univers ne 25 mg 8-25 tablet by ity of tablet 00:00: mouth at [place] [address] bedtime. Medical Branch amitriptyli 2021-0 Yes [id number] 25mg Take 1 Univers ne 25 mg 8-25 tablet by ity of tablet 00:00: mouth at [place] [address] bedtime. Medical Branch SERTraline 2021-0 Yes 1 tablet Uni vers 50 mg 4-12 ity of tablet 00:00: [place] 00 Medical Branch SERTraline 2021-0 Yes 1 tablet Uni vers 50 mg 4-12 ity of tablet 00:00: [address] SERTraline 0 Yes 1 tablet Uni vers 50 mg 4-12 ity of tablet 00:00: [address] SERTraline 2021-0 Yes 1 tablet Uni vers 50 mg 4-12 ity of tablet 00:00: [address] SERTraline 2021-0 Yes 1 tablet Uni vers 50 mg 4-12 ity of tablet 00:00: [address] SERTraline 2021-0 Yes 1 tablet Uni vers 50 mg 4-12 ity of tablet 00:00: [address] SERTraline 2021-0 Yes 1 tablet Uni vers 50 mg 4-12 ity of tablet 00:00: [address] SERTraline 0 Yes 1 tablet Uni vers 50 mg 4-12 ity of tablet 00:00: [address] SERTraline 0 Yes 1 tablet Uni vers 50 mg 4-12 ity of tablet 00:00: [address] SERTraline 0 Yes 1 tablet Uni vers 50 mg 4-12 ity of tablet 00:00: [address] SERTraline 0 Yes 1 tablet Uni vers 50 mg 4-12 ity of tablet 00:00: [address] SERTraline 0 Yes 1 tablet Uni vers 50 mg 4-12 ity of tablet 00:00: [address] SERTraline 0 Yes 1 tablet Uni vers 50 mg 4-12 ity of tablet 00:00: [address] Zoloft 50 Zoloft 50 2021-0 No [...] MG 00:00: 00 Zoloft 50 Zoloft 50 0 No 1{table QD Zoloft 50 MG MG [...] No 10mL Take 10 mL Univers ifenesin 1- 11-18 by mouth ity of 10-100 mg/5 [...] days. Indication s: cough predniSONE 2020-05 No [id number] 20mg Take 1 Univers 20 mg 05-1516 tablet by ity of tablet 00:00: 05:59 mouth [place] 00 :00 daily for Medical 5 days. Branch fluticasone 2020-05- No [id number] 1{spray Use 1 Univers propionate 05-1516 } [place] in ity of (FLONASE 00:00: 05:59 each [place] ALLERGY 00 :00 nostril Medical RELIEF) 50 daily for Bran ch mcg/actuati 5 days. on nasal spray predniSONE 2020-05- No [id number] 20mg Take 1 Univers 20 mg 1-10 11-16 tablet by ity of tablet 00:00: 05:59 mouth [place] 00 :00 daily for Medical 5 days. Branch fluticasone 2020-05- No [id number] 1{spray Use 1 Univers propionate 05-1516 } [place] in ity of (FLONASE 00:00: 05:59 each [place] ALLERGY 00 :00 nostril Medical RELIEF) 50 daily for Bran ch mcg/actuati 5 days. on nasal spray predniSONE 2020-05- No [id number] 20mg Take 1 Univers 20 mg 05-1516 tablet by ity of tablet 00:00: 05:59 mouth [place] 00 :00 daily for Medical 5 days. Branch fluticasone 2020-05- No [id number] 1{spray Use 1 Univers propionate 05-1516 } [place] in ity of (FLONASE 00:00: 05:59 each [place] ALLERGY 00 :00 nostril Medical RELIEF) 50 daily for Bran ch mcg/actuati 5 days. [facility] No 40mg [facility] (Triamcinol (Triamcinol 0-13 S pirit one) one) 00:00: - [facility] 00 [facility] Kenalog Kenalog 2020-05 No 40mg [facility] (Triamcinol (Triamcinol 0-13 S pirit one) one) 00:00: - [facility] 00 [facility] Kenalog Kenalog 2020-05 No 40mg [facility] (Triamcinol (Triamcinol 0-13 S pirit one) one) 00:00: - [facility] 00 [facility] Kenalog Kenalog 2020-05 No 40mg [facility] (Triamcinol (Triamcinol 0-13 S pirit one) one) 00:00: - [facility] 00 [facility] Kenalog Kenalog 2020-05 No 40mg [facility] (Triamcinol (Triamcinol 0-13 S pirit one) one) 00:00: - [facility] 00 [facility] Kenalog Kenalog 2020-05 No 40mg [facility] (Triamcinol (Triamcinol 0-13 S pirit one) one) 00:00: - [facility] Kenalog Kenalog 2020-05 No 40mg [facility] (Triamcinol (Triamcinol 0-13 S pirit one) one) 00:00: - [facility] 00 [facility] Olivares 2020-05 No 40mg [facility] (Triamcinol (Triamcinol 0-13 S pirit one) one) 00:00: - [facility] 00 [facility] Olivares 2020-05 No 40mg [facility] (Triamcinol (Triamcinol 0-13 S pirit one) one) 00:00: - [facility] 00 [facility] Olivares 2020-05 No 40mg [facility] (Triamcinol (Triamcinol 0-13 S pirit one) one) 00:00: - [facility] 00 [facility] Olivares 2020-05 No 40mg [facility] (Triamcinol (Triamcinol 0-13 S pirit one) one) 00:00: - [facility] 00 [facility] Amoxicillin Amoxicillin 2020-05- No 1{table BID Amoxicilli -Pot -Pot 0-13 10-23 t} n-Pot Clavulanate Clavulanate 00:00: 00:00 Clavulanat 875-125 MG 875-125 MG 00 :00 e 875-125 MG Amoxicillin Amoxicillin 2020-05- No 1{table BID Amoxicilli -Pot -Pot 0-13 10-23 t} n-Pot Clavulanate Clavulanate 00:00: 00:00 Clavulanat 875-125 MG 875-125 MG 00 :00 e 875-125 MG FENTanyl PF Yes 25ug 25 mcg, Uni vers (SUBLIMAZE [...] 8-03 Starting ity of e-pf 14:38: Sat12/06/20 [place] (SENSORCAIN 00 at 0938, Medi aislinn E Until Branch W/EPINEPHRI Discontinu NE) 0.5 ed, %-1:200,000 Routine, injection Intra-op bupivacaine 0 Yes PRN, Univer s -epinephrin 8-03 Starting ity of e-pf 14:38: Sat12/06/20 [place] (SENSORCAIN 00 at 0938, Medi aislinn E Until Branch W/EPINEPHRI Discontinu NE) 0.5 ed, %-1:200,000 Routine, injection Intra-op lactated 0 202- No 1000mL at 42 Unive rs ringers IV 8-03 08-03 mL/hr, ity of infusion 12:30: 12:38 1,000 mL, Thad as 1,000 mL 00 :00 IV Medical Infusion, Branch ONCE, 1 dose, Sat12/06/20 at 0730, Routine, DSU Pre-op lactated 0 202- No 1000mL at 42 Unive rs ringers IV 8-03 08-03 mL/hr, ity of infusion 12:30: 12:38 1,000 mL, Thad as 1,000 mL 00 :00 IV Medical Infusion, Branch ONCE, 1 dose, Sat12/06/20 at 0730, Routine, DSU Pre-op ibuprofen 0 Yes [id number] 600mg Take 1 Univers 600 mg 8-03 tablet by ity of tablet 00:00: mouth [place] 00 every 6 Medical (six) Branch hours as needed for Pain (scale 1-3) or Pain (scale 4-6). acetaminoph Yes [id number] 650mg Take 2 Univers en 8-03 tablets by ity of (TYLENOL) 00:00: mouth [place] 325 mg 00 every 6 Medical tablet (six) Branch hours as needed for Pain (scale 1-3) or Pain (scale 4-6). simethicone Yes [id number] 80mg Take 1 Univers 80 mg 8-03 tablet by ity of chewable 00:00: mouth [place] tablet 00 after Medical meals and Branch at bedtime. ibuprofen 2020-0 Yes [id number] 600mg Take 1 Univers 600 mg 8-03 tablet by ity of tablet 00:00: mouth [place] 00 every 6 Medical (six) Branch hours as needed for Pain (scale 1-3) or Pain (scale 4-6). acetaminoph 2020-0 Yes [id number] 650mg Take 2 Univers en 8-03 tablets by ity of (TYLENOL) 00:00: mouth [place] 325 mg 00 every 6 Medical tablet (six) Branch hours as needed for Pain (scale 1-3) or Pain (scale 4-6). simethicone 2020-0 Yes [id number] 80mg Take 1 Univers 80 mg 8-03 tablet by ity of chewable 00:00: mouth [place] tablet 00 after Medical meals and Branch at bedtime. ibuprofen 2020-0 Yes [id number] 600mg Take 1 Univers 600 mg 8-03 tablet by ity of tablet 00:00: mouth [place] 00 every 6 Medical (six) Branch hours as needed for Pain (scale 1-3) or Pain (scale 4-6). acetaminoph 2020-0 Yes [id number] 650mg Take 2 Univers en 8-03 tablets by ity of (TYLENOL) 00:00: mouth [place] 325 mg 00 every 6 Medical tablet (six) Branch hours as needed for Pain (scale 1-3) or Pain (scale 4-6). simethicone 2020-0 Yes [id number] 80mg Take 1 Univers 80 mg 8-03 tablet by ity of chewable 00:00: mouth [place] tablet 00 after Medical meals and Branch at bedtime. ibuprofen 2020-0 Yes [id number] 600mg Take 1 Univers 600 mg 8-03 tablet by ity of tablet 00:00: mouth [place] 00 every 6 Medical (six) Branch hours as needed for Pain (scale 1-3) or Pain (scale 4-6). acetaminoph 2020-0 Yes [id number] 650mg Take 2 Univers en 8-03 tablets by ity of (TYLENOL) 00:00: mouth [place] 325 mg 00 every 6 Medical tablet (six) Branch hours as needed for Pain (scale 1-3) or Pain (scale 4-6). simethicone 202-0 Yes [id number] 80mg Take 1 Univers 80 mg 8-03 tablet by ity of chewable 00:00: mouth [place] tablet 00 after Medical meals and Branch at bedtime. ibuprofen 2020-0 Yes [id number] 600mg Take 1 Univers 600 mg 8-03 tablet by ity of tablet 00:00: mouth [place] 00 every 6 Medical (six) Branch hours as needed for Pain (scale 1-3) or Pain (scale 4-6). acetaminoph 2020-0 Yes [id number] 650mg Take 2 Univers en 8-03 tablets by ity of (TYLENOL) 00:00: mouth [place] 325 mg 00 every 6 Medical tablet (six) Branch hours as needed for Pain (scale 1-3) or Pain (scale 4-6). simethicone 2020-0 Yes [id number] 80mg Take 1 Univers 80 mg 8-03 tablet by ity of chewable 00:00: mouth [place] tablet 00 after Medical meals and Branch at bedtime. ibuprofen 2020-0 Yes [id number] 600mg Take 1 Univers 600 mg 8-03 tablet by ity of tablet 00:00: mouth [place] 00 every 6 Medical (six) Branch hours as needed for Pain (scale 1-3) or Pain (scale 4-6). acetaminoph 2020-0 Yes [id number] 650mg Take 2 Univers en 8-03 tablets by ity of (TYLENOL) 00:00: mouth [place] 325 mg 00 every 6 Medical tablet (six) Branch hours as needed for Pain (scale 1-3) or Pain (scale 4-6). simethicone 2020-0 Yes [id number] 80mg Take 1 Univers 80 mg 8-03 tablet by ity of chewable 00:00: mouth [place] tablet 00 after Medical meals and Branch at bedtime. ibuprofen 2020-0 Yes [id number] 600mg Take 1 Univers 600 mg 8-03 tablet by ity of tablet 00:00: mouth [place] 00 every 6 Medical (six) Branch hours as needed for Pain (scale 1-3) or Pain (scale 4-6). acetaminoph 2020-0 Yes [id number] 650mg Take 2 Univers en 8-03 tablets by ity of (TYLENOL) 00:00: mouth [place] 325 mg 00 every 6 Medical tablet (six) Branch hours as needed for Pain (scale 1-3) or Pain (scale 4-6). simethicone Yes [id number] 80mg Take 1 Univers 80 mg 8-03 tablet by ity of chewable 00:00: mouth [place] tablet 00 after Medical meals and Branch at bedtime. ibuprofen 2021- No [id number] 600mg Take 1 Univers 600 mg 8- 08-26 tablet by ity of tablet 00:00: 00:00 mouth [place] 00 :00 every 6 Medical (six) Branch hours as needed for Pain (scale 1-3) or Pain (scale 4-6). acetaminoph 2021- No [id number] 650mg Take 2 Univers en 8- 08-26 tablets by ity of (TYLENOL) 00:00: 00:00 mouth [place] 325 mg 00 :00 every 6 Medical tablet (six) Branch hours as needed for Pain (scale 1-3) or Pain (scale 4-6). simethicone 2021- No [id number] 80mg Take 1 Univers 80 mg 8-07 [...] [id number] 1{tbl} Take 1 U nivers -acetaminop 8 08-11 tablet by it y of hen [...] MG 00:00: 00 2020- No Take by [facility] Review[facility] rs vit 10-18-15 mouth. ity of calc,iron,f 22:40: 00:00 [facility] 04 :00 Medical ( Branch VITAMIN ORAL) 2020- No Take by Unive rs vit 10-1815 mouth. ity of calc,iron,f 22:40: 00:00 [facility] 04 :00 Medical ( Branch VITAMIN ORAL) calcium 2020- No Take by Univer s carbonate 10-1815 mouth. ity of (TUMS ORAL) 22:39: 00:00 [place] 54 :00 Medical Branch calcium 2020- No Take by Univer s carbonate 10-18 mouth. ity of (TUMS ORAL) 22:39: 00:00 [...] 25 mg 6-09 ity of tablet 00:00: [address] Branch QUEtiapine 2021-0 Yes Univers 25 mg 6-09 ity of tablet 00:00: [address] Branch QUEtiapine 2021-0 Yes Univers 25 mg 6-09 ity of tablet 00:00: [address] QUEtiapine 2021-0 Yes Univers 25 mg 6-09 ity of tablet 00:00: [address] Branch QUEtiapine 2021-0 Yes Univers 25 mg 6-09 ity of tablet 00:00: [address] QUEtiapine 2021-0 Yes Univers 25 mg 6-09 ity of tablet 00:00: [address] QUEtiapine 2021-0 Yes Univers 25 mg 6-09 ity of tablet 00:00: [address] QUEtiapine 2021-0 Yes Univers 25 mg 6-09 ity of tablet 00:00: [address] QUEtiapine 2021-0 Yes Univers 25 mg 6-09 ity of tablet 00:00: [address] Branch QUEtiapine 2021-0 Yes Univers 25 mg 6-09 ity of tablet 00:00: [address] QUEtiapine 2021-0 Yes Univers 25 mg 6-09 ity of tablet 00:00: [address] QUEtiapine 2021-0 Yes Univers 25 mg 6-09 ity of tablet 00:00: [address] QUEtiapine 2021-0 Yes Univers 25 mg 6-09 ity of tablet 00:00: [address] QUEtiapine 2021-0 Yes Univers 25 mg 6-09 ity of tablet 00:00: [address] SEROquel 25 SEROquel 25 1-0 No [...] 25 mg 6-09 ity of tablet 00:00: [address] QUEtiapine 2020-0 Yes Univers 25 mg 6-09 ity of tablet 00:00: [address] QUEtiapine 2020-0 Yes Univers 25 mg 6-09 ity of tablet 00:00: [address] QUEtiapine 2020-0 Yes Univers 25 mg 6-09 ity of tablet 00:00: [address] QUEtiapine 2020-0 Yes Univers 25 mg 6-09 ity of tablet 00:00: [address] QUEtiapine 2020-0 Yes Univers 25 mg 6-09 ity of tablet 00:00: [address] QUEtiapine 2020-0 Yes Univers 25 mg 6-09 ity of tablet 00:00: [address] QUEtiapine 2020-0 Yes Univers 25 mg 6-09 ity of tablet 00:00: [address] QUEtiapine 2020-0 Yes Univers 25 mg 6-09 ity of tablet 00:00: [address] QUEtiapine 2020-0 Yes Univers 25 mg 6-09 ity of tablet 00:00: [address] QUEtiapine 2020-0 Yes Univers 25 mg 6-09 ity of tablet 00:00: [address] QUEtiapine 202-0 Yes Univers 25 mg 6-09 ity of tablet 00:00: [address] QUEtiapine 202-0 Yes Univers 25 mg 6-09 ity of tablet 00:00: [address] QUEtiapine 2020-0 Yes Univers 25 mg 6-09 ity of tablet 00:00: [address] QUEtiapine 202-0 Yes Univers 25 mg 6-09 ity of tablet 00:00: [address] QUEtiapine 202-0 Yes Univers 25 mg 6-09 ity of tablet 00:00: [address] 2018-05 Yes Take by Univer s [...] [place] 04 Medical Branch Nitrofurant 2018-05 Yes [id number] 100mg Take 1 Univers oin&Nit. 1-19 capsule by ity o f Macrocryst 00:00: [place] 100 mg 00 (two) Medical capsule times Branch daily. Nitrofurant 2018-05- No [id number] 100mg Take 1 Univers oin&Nit. 1-19 06-15 capsule by ity of Macrocryst 00:00: 00:00 mouth 2 [place] 100 mg 00 :00 (two) Medical capsule times Branch daily. Nitrofurant 2018-05- No [id number] 100mg Take 1 Univers oin&Nit. 1-19 06-15 capsule by ity of Macrocryst 00:00: 00:00 mouth 2 [place] 100 mg 00 :00 (two) Medical capsule times Branch daily. doxylamine- Yes [id number] 1{tbl} Take 1 Univers pyridoxine, 5-13 tablet by ity of vit B6, 00:00: mouth [place] (DICLEGIS) 00 SEE-INSTRU Med ical 10-10 mg CTIONS. Branch per tablet doxylamine- 2020- No [id number] 1{tbl} Take 1 Univers pyridoxine, 5-13 06-15 tablet by it y of vit B6, 00:00: 00:00 mouth [place] (DICLEGIS) 00 :00 SEE-INSTRU Med ical 10-10 mg CTIONS. Branch per tablet doxylamine- 2020- No [id number] 1{tbl} Take 1 Univers pyridoxine, 5-13 06-15 tablet by it y of vit B6, 00:00: 00:00 mouth [place] (DICLEGIS) 00 :00 SEE-INSTRU Med ical 10-10 [...] :00 TWICE A Medical DAY Branch progesteron 0 2020- No TAKE ONE U nivers e [...] [facility] dose syringe dose syringe 16:52:00 [facility] Flucelvax - single Flucelvax - single 2022-04-23 Completed [facility] dose syringe dose syringe 16:52:00 [facility] Olivares 2021-02-15 Completed [facility] (Triamcinolone) (Triamcinolone) 16:40:00 [facility] Kenalog Kenalog 2021-02-15 Completed [facility] (Triamcinolone) (Triamcinolone) 16:40:00 [facility] Tb PPD intradermal, Tb PPD intradermal, 2020-05-24 Completed [facility] 09:56:00 [facility] Tb PPD intradermal, Tb PPD intradermal, 2020-05-24 Completed [facility] 09:56:00 [facility] Tb PPD intradermal, Tb PPD intradermal, 2020-05-24 Completed [facility] 09:56:00 [facility] Tb PPD intradermal, Tb PPD intradermal, 2020-05-24 Completed [facility] 09:56:00 [facility] Tb PPD intradermal, Tb PPD intradermal, 2020-05-24 Completed [facility] 09:56:00 [facility] Tb PPD intradermal, Tb PPD intradermal, 2020-05-24 Completed [facility] 09:56:00 [facility] Tb PPD intradermal, Tb PPD intradermal, 2020-05-24 Completed [facility] 09:56:00 [facility] Tb PPD intradermal, Tb PPD intradermal, 2020-05-24 Completed [facility] 09:56:00 [facility] Tb PPD intradermal, Tb PPD intradermal, 2020-05-24 Completed [facility] 09:56:00 [facility] Tb PPD intradermal, Tb PPD intradermal, 2020-05-24 Completed [facility] 09:56:00 [facility] Tb PPD intradermal, Tb PPD intradermal, 2020-05-24 Completed [facility] 09:56:00 [facility] Tb PPD intradermal, Tb PPD intradermal, 2020-05-24 Completed [facility] 09:56:00 [facility] Tb PPD intradermal, Tb PPD intradermal, 2020-05-24 Completed [facility] 09:56:00 [facility] Tb PPD intradermal, Tb PPD intradermal, 2020-05-24 Completed [facility] 09:56:00 [facility] Tb PPD intradermal, Tb PPD intradermal, 2020-05-24 Completed [facility] 09:56:00 [facility] Afluria single dose Afluria single dose 2020-05-11 Completed [facility] 10:06:00 [facility] Afluria single dose Afluria single dose 2020-05-11 Completed [facility] 10:06:00 [facility] Afluria single dose Afluria single dose 2020-05-11 Completed [facility] 10:06:00 [facility] Afluria single dose Afluria single dose 2020-05-11 Completed [facility] 10:06:00 [facility] Afluria single dose Afluria single dose 2020-05-11 Completed [facility] 10:06:00 [facility] Afluria single dose Afluria single dose 2020-05-11 Completed [facility] 10:06:00 [facility] Afluria single dose Afluria single dose 2020-05-11 Completed [facility] 10:06:00 [facility] Afluria single dose Afluria single dose 2020-05-11 Completed [facility] 10:06:00 [facility] Afluria single dose Afluria single dose 2020-05-11 Completed [facility] 10:06:00 [facility] Afluria single dose Afluria single dose 2020-05-11 Completed [facility] 10:06:00 - [facility] Afluria single dose Afluria single dose 2020-05-11 Completed [facility] 10:06:00 - [facility] Afluria single dose Afluria single dose 2020-05-11 Completed [facility] 10:06:00 - [facility] Afluria single dose Afluria single dose 2020-05-11 Completed [facility] 10:06:00 - [facility] Afluria single dose Afluria single dose 2020-05-11 Completed [facility] 10:06:00 - [facility] Afluria single dose Afluria single dose 2020-05-11 Completed [facility] 10:06:00 - [facility] Vital Signs Vital Name Observation Time Observation Value Comments Source Systolic blood 2022-10-08 15:45:00 135 mm[Hg] Univer sity of [facility] Diastolic blood 2022-10-08 15:45:00 100 mm[Hg] Unive rsity of [facility] Heart rate 2022-10-08 15:45:00 73 /min [facility] Body temperature 2022-10-08 15:45:00 37.11 [facility] Respiratory rate 2022-10-08 15:45:00 18 /min [facility] Body weight 2022-10-08 15:45:00 76.658 kg [facility] BMI 2022-10-08 15:45:00 33.01 kg/m2 [facility] Oxygen saturation in 2022-10-08 15:45:00 99 /min [facility] Arterial blood by [facility] Pulse oximetry Branch Systolic blood 2022-07-09 21:27:00 130 mm[Hg] Univer sity of [facility] Diastolic blood 2022-07-09 21:27:00 88 mm[Hg] Unive rsity of [facility] Heart rate 2022-07-09 21:27:00 77 /min [facility] Body temperature 2022-07-09 21:27:00 36.89 [facility] Body height 2022-07-09 21:27:00 152.4 cm Universi ty of [place] [facility] Body weight 2022-07-09 21:27:00 76.749 kg Universi ty of [place] [facility] BMI 2022-07-09 21:27:00 33.04 kg/m2 Universi ty of [place] [facility] Systolic blood 2022-06-16 04:23:16 135 mm[Hg] Univer sity of pressure [place] [facility] Diastolic blood 2022-06-16 04:23:16 95 mm[Hg] Unive rsity of pressure [place] [facility] Heart rate 2022-06-16 04:23:16 76 /min Universi ty of [place] [facility] Respiratory rate 2022-06-16 04:23:16 18 /min Univ ersity of [place] [facility] Oxygen saturation in 2022-06-16 04:23:16 100 /min University of Arterial blood by [facility] Pulse oximetry Branch Body temperature 2022-06-16 02:02:00 36.89 Krystal Univ ersity of [place] [facility] Body height 2022-06-16 02:02:00 152.4 cm Universi ty of [place] [facility] Body weight 2022-06-16 02:02:00 80.06 kg Universi ty of [place] [facility] BMI 2022-06-16 02:02:00 34.47 kg/m2 Universi ty of [place] [facility] Systolic blood 2022-05-02 23:21:00 124 mm[Hg] Univer sity of pressure [place] [facility] Diastolic blood 2022-05-02 23:21:00 80 mm[Hg] Unive rsity of pressure [place] [facility] Heart rate 2022-05-02 23:21:00 107 /min Universi ty of [place] [facility] Body temperature 2022-05-02 23:21:00 37.06 K[place] Univ ersity of [place] [facility] Respiratory rate 2022-05-02 23:21:00 18 /min Univ ersity of [place] [facility] Body height 2022-05-02 23:21:00 152.4 cm Universi ty of [place] [facility] Body weight 2022-05-02 23:21:00 79.124 kg Universi ty of [place] [facility] BMI 2022-05-02 23:21:00 34.07 kg/m2 Universi ty of [place] [facility] Oxygen saturation in 2022-05-02 23:21:00 99 /min [facility] Arterial blood by [place] [facility] Pulse oximetry Branch height 2022-04-23 16:20:00 62 [in_i] [facility] weight 2022-04-23 16:20:00 175.7 [lb_av] [facility] temperature 2022-04-23 16:20:00 97.5 [degF] [facility] bmi 2022-04-23 16:20:00 32.13 kg/m2 [facility] oximetry 2022-04-23 16:20:00 99 % [facility] respiratory rate 2022-04-23 16:20:00 18 /min [facility] blood pressure 2022-04-23 16:20:00 132 mm[Hg] [facility] systolic [facility] blood pressure 2022-04-23 16:20:00 77 mm[Hg] Common [facility] diastolic [facility] Systolic blood 2022-04-22 04:22:00 140 mm[Hg] Univer sity of pressure [facility] Diastolic blood 2022-04-22 04:22:00 97 mm[Hg] Unive rsity of [facility] Heart rate 2022-04-22 04:22:00 72 /min [facility] Body temperature 2022-04-22 04:22:00 37 [facility] rate 2022-04-22 04:22:00 18 /min [facility] Oxygen saturation in 2022-04-22 04:22:00 100 /min [facility] Arterial blood by [place] [facility] Pulse oximetry Branch Body height 2022-04-22 02:42:00 152.4 cm [facility] Body weight 2022-04-22 02:42:00 81.647 kg [facility] BMI 2022-04-22 02:42:00 35.15 kg/m2 [facility] Systolic blood 2022-03-22 12:59:00 137 mm[Hg] Univer sity of [facility] Diastolic blood 2022-03-22 12:59:00 108 mm[Hg] Unive rsity of pressure [place] [facility] [place] Heart rate 2022-03-22 12:59:00 107 /min Universi ty of [place] [facility] Body temperature 2022-03-22 12:59:00 37 K[place] Univ ersity of [place] [facility] Respiratory rate 2022-03-22 12:59:00 18 /min Univ ersity of [place] [facility] [place] Body weight 2022-03-22 12:59:00 84.369 kg Universi ty of [place] [facility] [place] BMI 2022-03-22 12:59:00 36.33 kg/m2 Universi ty of [place] [facility] [place] Oxygen saturation in 2022-03-22 12:59:00 96 /min University of Arterial blood by [place] [facility] Pulse oximetry Branch height 2022-03-22 17:00:00 62 [in_i] [facility] weight 2022-03-22 17:00:00 190 [lb_av] [facility] bmi 2022-03-22 17:00:00 34.75 kg/m2 [facility] Systolic blood 2021-12-01 16:05:00 122 mm[Hg] Univer sity of [facility] Diastolic blood 2021-12-01 16:05:00 76 mm[Hg] Unive rsity of pressure [facility] Heart rate 2021-12-01 16:05:00 75 /min Universi ty of [place] [facility] [place] Body temperature 2021-12-01 16:05:00 36.56 Krystal Univ ersity of [place] [facility] [place] Respiratory rate 2021-12-01 16:05:00 17 /min Univ ersity of [facility] Body height 2021-12-01 16:05:00 152.4 cm Universi ty of [place] [facility] [place] Body weight 2021-12-01 16:05:00 83.235 kg Universi ty of [place] [facility] [place] BMI 2021-12-01 16:05:00 35.84 kg/m2 [facility] [place] [facility] [place] Oxygen saturation in 2021-12-01 16:05:00 99 /min University of Arterial blood by [place] WeddingLovely aislinn Pulse oximetry Branch Systolic blood 2021-12-01 16:05:00 122 mm[Hg] Univer sity of pressure [facility] Diastolic blood 2021-12-01 16:05:00 76 mm[Hg] Unive rsity of pressure [facility] Heart rate 2021-12-01 16:05:00 75 /min Universi ty [facility] Body temperature 2021-12-01 16:05:00 36.56 Krystal [facility] Respiratory rate 2021-12-01 16:05:00 17 /min [facility] Body height 2021-12-01 16:05:00 152.4 cm Universi ty [facility] Body weight 2021-12-01 16:05:00 83.235 kg Universi ty [facility] BMI 2021-12-01 16:05:00 35.84 kg/m2 [facility] Oxygen saturation in 2021-12-01 16:05:00 99 /min [facility] Arterial blood by [facility] Pulse oximetry Branch height 2021-08-07 14:20:00 62 [in_i] Common [facility] weight 2021-08-07 14:20:00 190.7 [lb_av] [facility] temperature 2021-08-07 14:20:00 98.0 [degF] Common [facility] bmi 2021-08-07 14:20:00 34.88 kg/m2 [facility] oximetry 2021-08-07 14:20:00 99 % [facility] respiratory rate 2021-08-07 14:20:00 18 /min Comm on [facility] blood pressure 2021-08-07 14:20:00 130 mm[Hg] Common [facility] - systolic [facility] blood pressure 2021-08-07 14:20:00 80 mm[Hg] Common [facility] - diastolic [facility] height 2021-06-16 10:20:00 62 [in_i] Common [facility] weight 2021-06-16 10:20:00 200 [lb_av] [facility] bmi 2021-06-16 10:20:00 36.58 kg/m2 Common S pirit [facility] Systolic blood 2021-03-15 16:09:00 124 mm[Hg] Univer sity of pressure [facility] Diastolic blood 2021-03-15 16:09:00 87 mm[Hg] Unive rsity of pressure [facility] Heart rate 2021-03-15 16:09:00 75 /min Universi ty [facility] Body temperature 2021-03-15 16:09:00 37.28 K[facility] ersity [facility] Respiratory rate 2021-03-15 16:09:00 18 /min [facility] Body height 2021-03-15 16:09:00 152.4 cm Universi ty [facility] Body weight 2021-03-15 16:09:00 90.719 kg Universi ty [facility] BMI 2021-03-15 16:09:00 39.06 kg/m2 [facility] Oxygen saturation in 2021-03-15 16:09:00 98 /min [facility] Arterial blood by [facility] Pulse oximetry Branch temperature 2021-02-15 16:30:00 97.9 [degF] Common [facility] bmi 2021-02-15 16:30:00 36.5 kg/m2 [facility] oximetry 2021-02-15 16:30:00 99 % [facility] respiratory rate 2021-02-15 16:30:00 18 /min Comm on [facility] blood pressure 2021-02-15 16:30:00 126 mm[Hg] Common [facility] - systolic [facility] blood pressure 2021-02-15 16:30:00 86 mm[Hg] Common [facility] - diastolic [facility] height 2021-02-15 16:30:00 62 [in_i] Common [facility] weight 2021-02-15 16:30:00 199.6 [lb_av] Common [facility] Systolic blood 2020-12-06 16:05:00 107 mm[Hg] Univer sity of [facility] Diastolic blood 2020-12-06 16:05:00 69 mm[Hg] Unive rsity of pressure [facility] Heart rate 2020-12-06 16:05:00 71 /min [facility] [place] [facility] Respiratory rate 2020-12-06 16:05:00 16 /min [facility] [place] [facility] Oxygen saturation in 2020-12-06 16:05:00 98 /min [facility] Arterial blood by [place] [employer] aisl[facility] Pulse oximetry Branch Body temperature 2020-12-06 15:15:00 36.28 Krystal [facility] [place] [facility] Body height 2020-12-05 15:02:00 152.4 cm [facility] [place] [facility] Body weight 2020-12-05 15:02:00 86.183 kg [facility] BMI 2020-12-05 15:02:00 37.11 kg/m2 [facility] [place] [facility] Systolic blood 2020-12-06 15:15:00 110 mm[Hg] Univer sity of pressure [facility] Diastolic blood 2020-12-06 15:15:00 66 mm[Hg] Unive rsity of pressure [facility] Body temperature 2020-12-06 15:15:00 36.28 Krystal [facility] [place] [facility] Respiratory rate 2020-12-06 15:15:00 20 /min [facility] [place] [facility] Heart rate 2020-12-06 12:36:00 83 /min [facility] [place] [facility] Oxygen saturation in 2020-12-06 12:36:00 98 /min [facility] Arterial blood by [place] [employer] aisl[facility] Pulse oximetry Branch Body height 2020-12-05 15:02:00 152.4 cm [facility] [place] [facility] Body weight 2020-12-05 15:02:00 86.183 kg [facility] [place] [facility] BMI 2020-12-05 15:02:00 37.11 kg/m2 [facility] [place] [facility] Systolic blood 2020-11-21 14:15:00 119 mm[Hg] Univer sity of pressure [facility] Diastolic blood 2020-11-21 14:15:00 86 mm[Hg] Unive rsity of pressure [facility] Heart rate 2020-11-21 14:15:00 98 /min [facility] [place] [facility] Body temperature 2020-11-21 14:15:00 36.72 Krystal [facility] Respiratory rate 2020-11-21 14:15:00 18 /min [facility] Body height 2020-11-21 14:15:00 152.4 cm [facility] Body weight 2020-11-21 14:15:00 88.724 kg [facility] BMI 2020-11-21 14:15:00 38.20 kg/m2 [facility] Oxygen saturation in 2020-11-21 14:15:00 98 /min [facility] Arterial blood by [facility] Pulse oximetry Branch Systolic blood 2020-10-18 20:43:00 127 mm[Hg] [facility] Diastolic blood 2020-10-18 20:43:00 88 mm[Hg] [facility] Heart rate 2020-10-18 20:43:00 77 /min [facility] Body temperature 2020-10-18 20:43:00 36.72 Krystal [facility] Respiratory rate 2020-10-18 20:43:00 16 /min [facility] Body height 2020-10-18 20:43:00 152.4 cm [facility] Body weight 2020-10-18 20:43:00 88.633 kg [facility] BMI 2020-10-18 20:43:00 38.16 kg/m2 [facility] Procedures Procedure Date / Time Performing Clinician Source Performed POCT TEST 2022-10-08 16:36:00 Emeka Patino [facility] LIPASE 2022-10-08 16:29:00 Emeka Patino [place] o [place] [facility] HEPATIC FUNCTION PANEL 2022-10-08 16:29:00 Emeka Patino [facility] ([id number]) (ALB,T.PRO,BILI Medical Branch T,BU/BC,ALT,AST,ALK PHOS) BASIC METABOLIC PANEL 2022-10-08 16:29:00 Emeka Patino [facility] (NA, K, CL, CO2, Medical Branch GLUCOSE, BUN, CREATININE, CA) CBC WITH DIFF 2022-10-08 16:29:00 [facility] URINALYSIS 2022-10-08 16:29:00 [facility] CONSENT/REFUSAL FOR 2022-10-08 15:40:08 Doctor Unassigned, No [facility] [place] DIAGNOSIS AND TREATMENT Name [facility] POCT URINALYSIS W/O 2022-07-09 00:00:00 Leny Alvarado [facility] SPECIFIC GRAVITY [facility] POCT TEST 2022-06-16 02:37:00 Leandro Suazo [facility] URINALYSIS 2022-06-16 02:36:00 Gabriele [facility] CONSENT/REFUSAL FOR 2022-06-16 01:54:31 Doctor Unassigned, No [facility] [place] [facility] Name [facility] CT 2022-04-22 03:35:02 Altagracia Mead [facility] MAXILLOFACIAL/MANDIBLE Medical B ranch WO CONTRAST CT HEAD WO CONTRAST 2022-04-22 03:35:02 Altagracia Mead [facility] CONSENT/REFUSAL FOR 2022-04-22 02:21:08 Doctor Unassigned, No [facility] [place] DIAGNOSIS [facility] TREATMENT Name [facility] POCT TEST 2022-03-22 13:36:00 Giovany Roper [facility] URINALYSIS 2022-03-22 13:35:00 Giovany [facility] RAPID INFLUENZA A/B 2022-03-22 13:05:00 Vin Kemp [facility] COVID-19 (ID NOW RAPID 2022-03-22 13:05:00 Vin Kemp [facility] TESTING) Medical Branch NOTICE OF PRIVACY 2022-03-22 12:42:09 Doctor Unassigned, No [facility] PRACTICES Name [facility] CONSENT/REFUSAL FOR 2022-03-22 12:41:26 Doctor Unassigned, No [facility] [place] DIAGNOSIS AND TREATMENT Name [facility] HB ECG ROUTINE & RHYTHM 2021-12-01 16:08:47 Antonio Leblanc [facility] XR CHEST 2 VW 2021-03-15 16:51:19 Kaur Bueno [place] [facility] RAPID STREP SCREEN FOR 2021-03-15 16:14:00 Kaur Bueno [facility] GROUP A Medical Branch SURGICAL PATHOLOGY EXAM 2020-12-06 14:48:00 Ophelia Greenwood [facility] LAPAROSCOPIC 2020-12-06 13:44:00 Greenwood [facility] SALPINGECTOMY Medical Branch LAPAROSCOPIC 2020-12-06 13:44:00 [facility] SALPINGECTOMY [facility] POCT TEST 2020-12-06 12:10:00 Usama Ragini [facility] POCT TEST 2020-12-06 12:10:00 Usama Ragini [facility] DAY SURGERY - ADC 2020-12-06 05:01:00 Doctor Unassigned, No [facility] DSU PRE-OP 2020-11-21 05:01:00 Doctor Unassigned, No [facility] DSU PRE-OP 2020-11-21 05:01:00 Doctor Unassigned, No [facility] ASSIGNMENT OF BENEFITS 2020-10-18 20:15:25 Doctor Unassigned, No [facility] Encounters Start End Encounter Admission Attending Care Care Encounter Source Date/Time Date/Time Type Type Clinicians Facility Department ID 2022-07-23 Outpatient Camacho, [facility] [id number] Common 16:15:00 [place] [id number] [facility] 2022-04-19 Outpatient Camacho, [facility] [id number] Common 16:21:00 Ce [id number] [facility] 2022-01-24 Outpatient Camacho, [facility] [id number] Common 15:43:00 Ce [facility] 2021-08-07 [facility] [id number] Common 14:33:01 Ce [facility] 2021-08-04 Outpatient Camacho, STLMLC STL[facility] [id number] Common 13:49:00 Ce [facility] 2021-05-31 Outpatient Camacho, STLMLC STLMLC [id number] Common 14:00:09 Ce [id number] [facility] 2021-05-31 Outpatient Camacho, STLMLC STLMLC [id number] Common 13:51:32 Ce [id number] [facility] 2021-05-31 Outpatient Camacho, STLMLC STLMLC [id number] Common 13:45:04 Ce 04727 [facility] 2021-05-31 Outpatient Camacho, STLMLC STLMLC [id number] Common 12:58:53 Ce [id number] [facility] 2021-05-31 Outpatient Camacho, STLMLC STLMLC [id number] Common 12:47:35 Ce [id number] [facility] 2021-05-31 Outpatient Camacho, STLMLC STLMLC [id number] Common 12:47:28 Ce [id number] [facility] 2021-05-31 Outpatient Camacho, STLMLC STLMLC [id number] Common 12:26:17 Ce [id number] [facility] 2021-05-31 Outpatient Camacho, STLMLC STLMLC [id number] Common 12:25:26 Ce [id number] [facility] 2021-05-31 Outpatient Camacho, STLMLC STLMLC [id number] Common 12:24:10 Ce [id number] [facility] 2021-05-31 Outpatient Camacho, STLMLC STLMLC [id number] Common 12:22:35 Ce [id number] [facility] 2021-05-31 Outpatient Camacho, STLMLC STLMLC [id number] Common 12:18:40 Ce [id number] [facility] 2021-05-31 Outpatient zzzRekhi, STLMLC STLMLC [id number] Common 12:15:28 Dennis 16657 Sp[facility] 2021-03-06 Outpatient OPHELIA GREENWOOD [facility] MEASUREMENT COORDINATOR [id number] Univers 10:31:20 [facility] 2022-10-08 2022-10-08 Emergency [facility] [id number] Univers 10:46:00 13:27:00 CYNAIDE [facility] 2022-10-08 2022-10-08 Emergency [facility] [id number] Univers 10:46:00 13:27:00 Cynaide SUE [id number] i ty [id number] [id number] [address] 2022-08-06 2022-08-06 [facility] [id number] Univers 16:00:00 [facility]:00[facility]00 [facility]22-07-09 2022-07-09 [facility] [id number] Univers 15:00:00 16:09:05 [facility] 2022-07-09 2022-07-09 Office [facility] [id number] Univers 15:00:00 16:09:05 Visit Leny SUE [id number] i ty of [id number] [id number] Nj dical NAL 098 [facility] 2022-07-02 2022-07-02 [facility] [id number] Univers 15:00:00 15:00:00 LENY [facility] 2022-06-22 2022-06-22 Telephone [facility] [id number] Univers 00:00:00 00:00:00 Neville SUE [id number] i ty of [facility] [id number] [id number] Nj dical NAL 134 [facility] 2022-06-18 2022-06-18 Telephone Ophelia Greenwood [facility] 1.2.840.114 [id number] Univers 00:00:00 00:00:00 Neville SUE [id number] i ty of [facility] [id number] [phone] Nj dical SALOME 134 [facility] 2022-06-15 2022-06-15 Emergency X LEANDRO SUAZO [facility] ERT [id number] Univers 20:10:00 22:26:00 LEANDRO SUAZO itjustin [facility] 2022-06-15 2022-06-15 Emergency [facility] [id number] Univers 20:10:00 22:26:00 Leandro SUE 350.1.13.10 i ty of [facility] [id number] [id number] [address] 2022-05-02 2022-05-02 Urgent Larry Vincent [facility] [id number] Univers 17:20:00 17:40:00 Care Unknown, Attending HEALTH [id number] ity of Florencia Barrera [id number] [place] AR?BLEA [phone] Nj liborio [address] MEDICAL OFFICE [facility] 2022-05-02 2022-05-02 Outpatient R WILLAM [facility] [id number] Univers 17:20:00 17:20:00 REENU ity [facility] 2022-05-02 2022-05-02 Letter Willam [facility] [id number] Univers 00:00:00 00:00:00 (Out) [facility] HEALTH [id number] it y of [facility] [id number] [place]?BLEA [id number] Nj liborio [address] MEDICAL OFFICE BUILDING 2022-04-24 2022-04-24 (TEL) [facility] [id number] Co mmon 00:00:00 00:00:00 [facility] 2022-04-23 2022-04-23 [facility] [id number] Common 00:00:00 00:00:00 EST AGE Spirit 18-39 - [facility] 2022-04-21 2022-04-21 Emergency X ALYCE, Altagracia [facility] ERT [id number] Univers 20:46:00 22:31:00 ity [facility] 2022-04-21 2022-04-21 Emergency Altagracia Mead [facility] 1.2.840.114 [id number] Univers 20:46:00 22:31:00 Kell SUE 350.1.13.10 i ty of [place] 4.2.7.2.686 [facility] [id number] [address] 2022-03-22 2022-03-22 Emergency X JUDSON, [facility] ERT [id number] Univers 06:58:00 08:41:00 GIOVANY [facility] 2022-03-22 2022-03-22 [facility] [id number] Univers 06:58:00 08:41:00 Giovany SUE 350.1.13.10 i ty of [place] 4.2.7.2.686 [facility] [id number] [address] 2022-03-22 2022-03-22 (TEL) STLMLC STLMLC [id number] Co mmon 00:00:00 00:00:00 [facility] 2022-03-22 2022-03-22 OFFICE STLMLC STLMLC [id number] Co mmon 00:00:00 00:00:00 VISIT EST Spir it PT LEVEL 3 - [facility] 2022-03-12 2022-03-12 (TEL) STLMLC STLMLC [id number] Co mmon 00:00:00 00:00:00 [facility] 2022-01-29 2022-01-29 Outpatient BENJAMÍN DENG [facility] [id number] Univers 10:30:00 10:30:00 ity [facility] 2022-01-24 2022-01-24 (TEL) STLMLC STLMLC [id number] Co mmon 00:00:00 00:00:00 [facility] 2022-01-22 2022-01-22 Outpatient R AGNES, [facility] [id number] Univers 11:00:00 11:00:00 LENY bai [facility] 2022-01-18 2022-01-18 Outpatient R NARINDER, [facility] [id number] Univers 13:59:44 23:59:00 ANTONIO bai o [facility] 2022-01-18 2022-01-18 Outpatient R NARINDER, [facility] [id number] Univers 13:59:44 23:59:00 ANTONIO bai o [facility] 2022-01-18 2022-01-18 Telephone [facility] [id number] Univers 00:00:00 00:00:00 Antonio CHEGNTON [id number] ity of [id number] [id number] Nj dical NAL 9 [facility] 2022-01-17 2022-01-17 Outpatient R ERI KENDALL [facility] B [id number] Univers 10:00:00 10:00:00 ERI KENDALL [facility] 2022-01-15 2022-01-15 Outpatient R ERI KENDALL [facility] B [id number] Univers 10:30:00 10:30:00 ERI KENDALL [facility] 2022-01-11 2022-01-11 Outpatient R NARINDER, [facility] [id number] Univers 14:00:00 14:00:00 ANTONIO ramon [facility] 2021-12-29 2021-12-29 Outpatient R NARINDER, [facility] [id number] Univers 15:00:00 15:00:00 ANTONIO ramon [facility] 2021-12-29 2021-12-29 Telephone [facility] [id number] Univers 00:00:00 00:00:00 Antonio CHENGTON [id number] ity of [id number] [id number] Me dical NAL 059 [facility] 2021-12-28 2021-12-28 Outpatient R BENJAMÍN GOODSON [facility] [id number] Univers 09:30:00 11:08:36 ity of [facility] 2021-12-28 2021-12-28 Office Benjamín Goodson [facility] 1.2.840.114 [id number] Univers 09:30:00 11:08:36 Visit AGNES 350.1.13.[address] [facility] [id number] [facility] [id number] [facility] [address] 2021-12-26 2021-12-26 Outpatient R TYSNO [facility] [id number] Univers 13:20:00 13:44:59 LISETTE prietoy o f [facility] 2021-12-26 2021-12-26 Urgent [facility] 1.2.840.114 [id number] Univers 13:20:00 13:40:00 Care [facility] 350.1.13.10 i ty of [place] 4.2.7.2.686 Thad as AR?BLEA [id number] Nj dical KNEY [address] [place] MEDICAL OFFICE BUILDING 2021-12-26 2021-12-26 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 10 ity of [place] 4.2.7.2.686 [facility] [id number] [facility] [address] 2021-12-26 2021-12-26 Outpatient R PARKER MANN [facility] [id number] Univers 12:00:00 12:00:00 PARKER MANN [facility] 2021-12-26 2021-12-26 Outpatient R PARKER MANN [facility] [id number] Univers 10:00:00 10:00:00 PARKER MANN [facility] 2021-12-26 2021-12-26 Orders Doctor CHENG 1.2.840.114 [id number] Univers 00:00:00 00:00:00 Only Unassigned, DREW 350.1.13.10 ity of [place] [facility] 4.2.7.2.686 Thad as [id number] [address] 2021-12-14 2021-12-14 Outpatient R NARINDER, [facility] [id number] Univers 15:58:58 23:59:00 ANTONIO bai o [facility] 2021-12-14 2021-12-14 Outpatient R NARINDER, [facility] [id number] Univers 15:58:58 23:59:00 ANTONIO ity o [facility] 2021-12-05 2021-12-05 Telephone [facility] [id number] Univers 00:00:00 00:00:00 Jobshay LINETTE 350.1.13.10 ity [place] [phone] Nj dical NAL 059 [facility] 2021-12-05 2021-12-05 Orders Doctor CHENG 1.2.840.114 [id number] Univers 00:00:00 00:00:00 Only Unassigned, DREW 350.1.13.10 ity of [place] [facility] 4.2.7.2.686 Thad as [id number] [address] 2021-12-04 2021-12-04 Outpatient R [facility] [id number] Univers 16:16:11 23:59:00 ANTONIO bai o [facility] 2021-12-04 2021-12-04 Outpatient R [facility] [id number] Univers 16:30:00 16:30:00 ANTONIO bai o [facility] 2021-12-01 2021-12-01 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 2, Adc Lab [facility] 1.2.840.114 [id number] Univers 11:45:00 12:00:00 Visit Antonio Leblanc 350.1.13.10 ity of [place] [id number] Nj dical NAL 353 [facility] 2021-12-01 2021-12-01 Outpatient R NARINDER, [facility] [id number] Univers 10:40:00 11:28:26 ANTONIO prietoy o [facility] 2021-12-01 2021-12-01 Outpatient R NARINDER, [facility] [id number] Univers 10:40:00 11:28:26 ANTONIO prietoy o [facility] 2021-12-01 2021-12-01 Outpatient R NARINDER, [facility] [id number] Univers 10:40:00 11:28:26 ANTONIO prietoy o [facility] 2021-12-01 2021-12-01 Office Narinder, [facility] 1.2.840.114 [id number] Univers 10:40:00 11:28:26 Visit Antonio LINETTE 350.1.13.10 ity of [place] [id number] [address] 2021-12-01 2021-12-01 Office [facility] 1.2.840.114 [id number] Univers 10:40:00 11:28:26 Visit Antonio LINETTE 350.1.13.10 ity of [place] [id number] [address] 2021-12-01 2021-12-01 Outpatient R NARINDER, [facility] [id number] Univers 10:40:00 11:28:26 ANTONIO prietojustin o [facility] 2021-12-01 2021-12-01 Outpatient R NARINDER, [facility] [id number] Univers 10:40:00 11:28:26 ANTONIO prietoy o [facility] 2021-12-01 2021-12-01 Orders Doctor CHENG 1.2.840.114 [id number] Univers 00:00:00 00:00:00 Only Unassigned, DREW 350.1.13.10 [facility] 4.2.7.2.686 Thad as [id number] [address] 2021-11-15 2021-11-15 Orders Doctor CHENG 1.2.840.114 [id number] Univers 00:00:00 00:00:00 Only Unassigned, DREW 350.1.13.10 ity of [place] [facility] 4.2.7.2.686 Thad as [id number] [address] 2021-11-14 2021-11-14 (TEL) STLMLC STLMLC [id number] Co mmon 00:00:00 00:00:00 [facility] 2021-08-15 2021-08-15 (TEL) STLMLC STLMLC [id number] Co mmon 00:00:00 00:00:00 [facility] 2021-08-07 2021-08-07 OFFICE STLMLC STLMLC [id number] Co mmon 00:00:00 00:00:00 VISIT EST Spir it PT LEVEL 3 [facility] 2021-08-04 2021-08-04 (TEL) STLMLC STLMLC [id number] Co mmon 00:00:00 00:00:00 [facility] 2021-06-16 2021-06-16 OFFICE STLMLC STLMLC [id number] Co mmon 00:00:00 00:00:00 VISIT EST Spir it PT LEVEL 3 [facility] 2021-06-14 2021-06-14 (TEL) STLMLC STLMLC [id number] Co mmon 00:00:00 00:00:00 [facility] 2021-05-09 2021-05-09 Outpatient R OPHELIA GREENWOOD [facility] [id number] Univers 08:00:00 08:00:00 ity of [facility] 2021-03-15 2021-03-15 [facility] [id number] Univers 10:28:03 23:59:00 Encounter [facility] 350.1.13.10 ity of [place] 4.2.7.2.686 Thad as AR?BLEA [id number] [place] [id number] [place] [facility] 2021-03-15 2021-03-15 Outpatient R [facility] [id number] Univers 10:00:00 10:36:03 HIIA ity of [facility] 2021-03-15 2021-03-15 Urgent Kaur Bueno [facility] 1.2.840.114 [id number] Univers 09:56:50 10:36:03 Care Randal Sheree [facility] [id number] ity [facility] 4.2.7.2.686 Thad as AR?BLEA [phone] [facility] OFFICE [facility] 2021-03-15 2021-03-15 Telephone NurseAnup [facility] [id number] Univers 00:00:00 00:00:00 Db Urgent HEALTH [id number] ity of Care [place] 4.2.7.2.686 Thad as AR?BLEA [phone] [address] OFFICE [facility] 2021-02-15 2021-02-15 (TEL) STLMLC STLMLC [id number] Co mmon 00:00:00 00:00:00 [facility] 2021-02-15 2021-02-15 OFFICE STLMLC STLMLC [id number] Co mmon 00:00:00 00:00:00 VISIT EST Spir it PT LEVEL 3 - [facility] 2021-01-04 2021-01-04 Outpatient STLMLC STLMLC [id number] Common 00:00:00 00:00:00 [facility] 2020-12-27 2020-12-27 Outpatient R [facility] [id number] Univers 15:00:00 15:00:00 ity of [facility] 2020-12-08 2020-12-08 Telephone [facility] 1.2.840.114 [id number] Univers 00:00:00 00:00:00 [place] 350.1.13.10 [place] [phone] [facility] [address] 2020-12-06 2020-12-06 Hospital Ophelia Greenwood [facility] 1.2.840.114 [id number] Univers 07:05:00 11:20:00 Encounter Cam [place] [id number] [place] [phone] [facility] [address] 2020-12-06 2020-12-06 Outpatient R OPHELIA GREENWOOD [facility] MEASUREMENT COORDINATOR [id number] Univers 07:05:00 11:20:00 ity of [facility] 2020-12-06 2020-12-06 Surgery Ophelia Greenwood [facility] 1.2.005.047 [id number] Univers 08:59:00 10:24:00 Cam [place] 350.1.13.10 [place] [phone] [facility] [address] 2020-12-06 2020-12-06 Orders Doctor PROSPER 1.2.840.114 [id number] Univers 00:00:00 00:00:00 Only Unassigned, DREW 350.1.13.10 ity of [place] [facility] 4.2.7.2.686 Thad as [phone] [facility] [address] 2020-12-05 2020-12-05 Laboratory Only, Adc Test [facility] 1.2.840. 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 Jodri, Adc Lab Main [facility] 1.2.8 40.114 [id number] Univers 09:07:59 09:22:59 Visit Ophelia Greenwood 350.1.13.10 ity of [place] [phone] [place] [facility] [address] Building 2020-12-05 2020-12-05 Outpatient R [facility] [id number] Univers 08:45:00 08:45:00 ity of [facility] 2020-11-29 2020-11-29 Telephone Ophelia Greenwood [facility] 1.2.840.114 [id number] Univers 00:00:00 00:00:00 [place] 350.1.13.10 [place] [phone] [address] 2020-11-21 2020-11-21 Office Ophelia Greenwood [facility] 1.2.780.162 [id number] Univers 08:57:51 09:51:19 Visit Cam [place] 350.1.13.10 i [place] [phone] [address] 2020-11-21 2020-11-21 Outpatient R [facility] [id number] Univers 09:00:00 09:00:00 ity of [facility] 2020-11-21 2020-11-21 Prep For Ophelia Greenwood [facility] 1.2.840.114 [id number] Univers 00:00:00 00:00:00 Surgery Cam [place] 350.1.13.10 [place] [phone] [address] 2020-11-17 2020-11-17 Outpatient R [facility] [id number] Univers 15:00:00 15:00:00 ity of [facility] 2020-10-18 2020-10-18 [facility] 1.2.286.483 [id number] Univers 15:16:09 16:31:46 Visit Neville Sue 350.1.13.10 [place] [phone] [address] 2020-10-18 2020-10-18 Outpatient R [facility] [id number] Univers 15:00:00 15:00:00 ity of [facility] 2020-10-18 2020-10-18 Orders Doctor CHENG 1.2.840.114 [id number] Univers 00:00:00 00:00:00 Only Unassigned, DREW 350.1.13.10 ity of [place] [facility] 4.2.7.2.686 Thad as [phone] [place] [address] Branch 2020-10-12 2020-10-12 Outpatient STLMLC STLMLC [id number] Common 00:00:00 00:00:00 [facility] 2020-08-12 2020-08-12 Outpatient STLMLC STLMLC [id number] Common 00:00:00 00:00:00 [facility] 2020-08-12 2020-08-12 Outpatient STLMLC STLMLC [id number] Common 00:00:00 00:00:00 [facility] 2020-08-08 2020-08-08 Outpatient STLMLC STLMLC [id number] Common 00:00:00 00:00:00 [facility] 2020-08-08 2020-08-08 Outpatient STLMLC STLMLC [id number] Common 00:00:00 00:00:00 [facility] 2020-06-02 2020-06-02 Outpatient STLMLC STLMLC [id number] Common 00:00:00 00:00:00 [facility] 2020-05-26 2020-05-26 Outpatient STLMLC STLMLC [id number] Common 00:00:00 00:00:00 [facility] 2020-05-25 2020-05-25 Outpatient STLMLC STLMLC [id number] Common 00:00:00 00:00:00 [facility] 2020-05-24 2020-05-24 Outpatient STLMLC STLMLC [id number] Common 00:00:00 00:00:00 [facility] 2020-05-19 2020-05-19 Outpatient STLMLC STLMLC [id number] Common 00:00:00 00:00:00 [facility] 2020-05-11 2020-05-11 Outpatient STLMLC STLMLC [id number] Common 00:00:00 00:00:00 [facility] 2020-05-11 2020-05-11 Outpatient STLMLC STLMLC [id number] Common 00:00:00 00:00:00 [facility] 2018-09-02 2018-09-02 Outpatient Lorena Araujo 25 [id number] Common 11:39:00 11:39:00 [facility] Results Test Description Test Time Test Comments Results Result Comments Source HEPATIC FUNCTION PANEL (31454) (ALB,T.PRO,BILI 2022-10-08 17 :05:46 T,BU/BC,ALT,AST,ALK PHOS) Test Item Value Reference Range Interpretation Comme nts TOTAL BILI (test code = 9126453186) 0.5 mg/dL 0.1-1.1 BILI UNCON (test code = 8801694268) 0.2 mg/dL 0.1-1.1 BILI CONJ (test code = 8217183531) 0.0 mg/dL 0.0-0.3 T PROTEIN (test code = 5757507869) 7.0 g/dL 6.3-8.2 ALBUMIN (test code = 7648781576) 4.2 g/dL 3.5-5.0 ALK PHOS (test code = 7509901939) 47 U/L 34-122 ALTv (test code = 1742-6) 27 U/L 5-35 AST(SGOT) (test code = 1442635468) 23 U/L 13-40 Lab Interpretation (test code = 14233-4) [facility] Test Item Value Reference Range Interpretation Comments LIPASE (test code = 7432686538) 77 U/L 0-220 Lab Interpretation (test code = Normal 47938-9) [facility] (NA, K, CL, CO2, GLUCOSE, BUN, CREATININE, CA)2022-10-08 17:05:30 Test Item Value Reference Range Interpretation Comments NA (test code = 139 mmol/L 135-145 9177847934) K (test code = 4.0 mmol/L 3.5-5.0 2118306913) CL (test code = 104 mmol/L 98-108 1014771103) CO2 TOTAL (test code 26 mmol/L 23-31 = 4475356334) AGAP (test code = 9 2-16 0807100497) BUN (test code = 9 mg/dL 7-23 8052865222) GLUCOSE (test code = 94 mg/dL 70-110 7708819452) CREATININE (test code 0.51 mg/dL 0.50-1.04 = 8233551616) CALCIUM (test code = 9.1 mg/dL 8.6-10.6 2875630025) eGFR (test code = 141.6 mL/min/1.73m2 3572243327) SHARYN (test code = SHARYN) Association of [...] or urine or abnormalities in imaging tests). [facility] WITH [id number] 16:50:44 Test Item Value Reference Range Interpretation Comments WBC (test code = 4.99 See_Comment [Automated message] 6690-2) The system [employer] generated this result transmitted ref erence range: 4.30 - 1 1.10 10*3/?L. The re ference range was not u sed to interpret this result as normal/abnor mal. RBC (test code = 4.01 See_Comment [Automated message] 789-8) The system [employer] generated this result transmitted ref erence range: [...] RDW-SD (test code 47.5 fL 39.0-49.9 = 80020-6) RDW-CV (test code 14.1 % 12.0-15.5 = 788-0) PLT (test code = 204 See_Comment [Automated message] 777-3) The system [employer] generated this result transmitted ref erence range: 166 - 35 8 10*3/?L. The re ference range was not u sed to interpret this result as normal/abnor mal. MPV (test code = 10.6 fL 9.5-12.9 52478-6) NRBC/100 WBC (test 0.0 See_Comment [Automat ed message] code = 8132396212) The [employer] which generated this result transmitted ref erence range: 0.0 - 10 .0 /100 WBCs. The refer ence range was not u sed to interpret this result as normal/abnor mal. NRBC x10^3 (test See_Comment [Automated message] code = 9606373147) The syste m which generated this result transmitted ref erence range: 10*3/?L. The reference range was not used to interpr et this result as normal/abnormal . GRAN MAT (NEUT) % 47.3 % (test code = 770-8) IMM GRAN % (test 0.40 % code = 5691533073) LYMPH % (test code 37.3 % = 736-9) MONO % (test code 10.6 % = 5905-5) EOS % (test code = 3.4 % 713-8) BASO % (test code 1.0 % = 706-2) GRAN MAT 2.36 10*3/uL 1.88-7.09 x10^3(ANC) (test code = 1792618077) IMM GRAN x10^3 0.00-0.06 (test code = 0081690969) LYMPH x10^3 (test 1.86 10*3/uL 1.32-3.29 code = 731-0) MONO x10^3 (test 0.53 10*3/uL 0.33-0.92 code = 742-7) EOS x10^3 (test 0.17 10*3/uL 0.03-0.39 code = 711-2) BASO x10^3 (test 0.05 10*3/uL 0.01-0.07 code = 704-7) [facility] [id number] 16:36:00 Test Item Value Reference Range Interpretation Comments POCT PREG (test code = 1605) Negative On board controls acceptable Yes with C Line (test code = 3574) POCT PREG LOT # (test code = [id number]) POCT PREG TEST DATE 02/09/2024 (test code = 3576) Lab Interpretation (test code = Normal 73599-9) [facility] URINALYSIS W/O SPECIFIC [id number] 21:26:00 Test Item Value Reference Range Interpretation [...] code = 3257) Negative Negative - Negative [facility] URINALYSIS W/O SPECIFIC [id number] 21:26:00 Test Item Value Reference Range Interpretation [...] code = 3257) Negative Negative - Negative [facility] [id number] 02:37:00 Test Item Value Reference Range Interpretation Comments POCT PREG (test code = 1605) Negative On board controls acceptable with Present C Line (test code = 3574) POCT PREG LOT # (test code = 3575) [id number] POCT PREG TEST DATE (test 08-04-2023 code = 3576) Lab Interpretation (test code = Normal 65630-5) [facility] [id number] 13:36:00 Test Item Value Reference Range Interpretation Comments POCT PREG (test code = 1605) negative On board controls acceptable with present C Line (test code = 3574) POCT PREG LOT # (test code = 3575) [id number] POCT PREG TEST DATE (test code = 3576) Lab Interpretation (test code = Normal 55611-7) [facility] [id number] 15:35:34 Test Item Value Reference Range Interpretation Comments Case Report (test code Surgical Pathology ? ? = 4376754898) ?Case: [id number] ? Authorizing Provider: ?Ophelia Greenwood MD ?Collected: ? 12/06/2020 0948 ?Ordering Location: ? ? [facility] ? ? ?Received: ?12/06/2020 1414 ? [facility] ?Pathologist: ? Dionisio Forde, ?Specimens: ? A) - FALLOPIAN TUBE, LEFT ? B) - FALLOPIAN TUBE, RIGHT ? Final Diagnosis (test p9nmsZNcMOLef0nuEYRkyOI code = 1967288485) uZzEwMzNcZnRuYmpcdWMxIH flsiDyTScdnPdzXUHrS1sop iIvVBHkuAGxF0QdheryWHle YH9pFG8ftYhjmTFfnJPuSAA lKhPyl3ofk970dWZtp9xrUV HZjeyeqPq8iVssW85lg2V6T ogiM24dwOQeHRY0MOMkYGZk nBWbFSPiTDE5EGLurAHpA1y cUBGhQC9isvamGIwpALktBM XvqDP7PAYwgYJxA0SgVDWfD YmjYIPectk6CxWpGu2fpHPw eTcyMFxwYXJkXHBsYWluXGZ zMjBccGFyIEEuIEZBTExPUE lBTiBUVUJFLCBMRUZULCBTR WdADW5FQXnjDiDGCXNCED2Y OlxwYXIgICAgLSBGVUxMIEN CV6PLRXOKH3RUZ22sB9CcXs SKQH9YKZTAAATZOyAzLLEMI lRJRklFRFxwYXJccGFyIEIu IEZBTExPUElBTiBUVUJFLCB WUUgXVUjeL2NDYPAMHQACTJ ZGW9CWRQfATgiflRZmKXTbL Y1fGiIGTHLTRo7COxHEWYSM ZJ2GPD1SUOMKSHzBGMeDWsV EJGSSUTdICK4XHAUIBSQkBZ BhclxwYXIgQmlsbGllIFNoa I3fXCABWbDsFA69JhHpKxIs AOElAlCuHBKDLNuzXXL8o8w ydGYxXHNzdGVjZjIyMDAwXG Mse0lhVUPtvLNgHeXyKkIbN sGzEuixcWQcBYOoKpScg1au n006iILdb7xgRTVrMzQ7zYA hGBKuvRkgzst7aEscFwYqIR Whz2bnjzOqJdKaCGUsKEPfT ATfqSWqD516JCUzBAgpl6vo x1DmQAIwlUSff1Y5LVLQVSq qHfUsJ488m0hap7gyklTjdO T0GLBtEYE6BSfhrcModcA8E LpsaPQdMeC6GRozpyJaHGuu gxKlhmUiJse1RSWcA993SZB 6qRwiv3abEDO0LQSxXTQqFb uhJa2egUQcZ057CHSpMNIXS VKtgYh8BPIdxlMcfiXyhPOX e589A966r8tkQJYpcuVkdQr Akjogn4cvV355QMWhsZFqwh PqRoEmRFSgvWNxjUZ5DSAxH O4kjukgYUvsUYvqKQOilqP1 AMHciMRuH7SqHAHqBB3wrtx sMIY3ODvjFFLjEVO0VtUvQC Kue2Bzrwq4YxQztp4kif84P ZW7j8LdiIhcNYI0MSX8LaBb Ul8yvXAwCTIhPM8eLwPtmWX wVTYlac49aUdaJGvddoSkmK 5fJrJzLSQomKXpYUBsBF5ek NNjJQTfzZ3szofjQEQhUxQm xygjJJZjeKtsetOnWd9inAw yQEG8KTvgW5wcbW2lQxM3PT iuD2tbhH7jBOg6AMthpBD0U FZgeM5lNJ0ibuhyg2apYOgu JApzQKTultY1seF8XJHvhJY lX8XsnX6lAWStJR9cxlkpb5 ytEDN2FVslBBTdJKY0CuJbN HQnn9Lovsp7ZjCkm1KngTGe XDyuT26bd508SFTijrIbS7d wbGFpblxwbGFpblxmMFxmcz W8CWEcPVIaULljRKSoDZSsE jBcbGFuZzEwMzNcaGljaFxm JTetXmIpWJIjVOnmE2qzGjP hZ8OqLAJrHzIddAFoXCfgpS M9ANVlVVBxp99rcCt0PAZff acvi5NrSREppLRdkHHkzC9c wdLww0flSQXyQFDbNHIiZ5Z pLJQ6xYMfHRHjjQZpyQE7IT 8ksjYnJK6mYLFiVakipeRrc UVltcUtHTNyLHltu2umJW7z ZCHmuUrrcV8bdVS8NDOgh6u zcVSzvACqo6lbq7JebkGaAW ivDVDwQKsxNUWzUPNbYY2yT ULdjEJsmgXsi4R3RpdkrDRz ickuZfisawR0AIpteraaXVD cUHjtS3tkEaZxXRFigXxnDi heq6EnFTZiDJXbGrqfeVRpi X0= Clinical Information Desires sterilzation (test code = 8817590434) Gross Description x0hdnWWzURUedFURTZAgK0w (test code = ihcXuGBXdkVFxU3TwdwynSV 7421193027) cuUP1qNE5syNjvpDXulDMvU P0UJCCpSnHrAJZmlHPvolZe FeAvMXVcnAZohHL1KZBpSK2 dymjaBQrzVBusVSWjrrF5KV WlxNDtC8WwXUEuWF2rutqdF RY4ZKxrrZ9edoXFNxbvWk5b dHRibHtcZjFcZmNoYXJzZXQ wDNByhHbfQHHoUUy3jG7OAr twHRM0TYWWAfjgHSGcYV3Nw 0keJVTfpODcNDH7YXvckNVb CKKoBUWaGUg0KPKkLLhxpJH vVV9itEykHmyxkXpin8XhqF BcXGlkIDUxMDAyIFxcZGIgI N7EMmTgLJj7GgY9EyLnWDo7 CCv4IT0FKhKsCUItXyLzIMD 8QVFrRLq7QBqyUK3TPAGoZY D3RlpyKKjoVOW4MyPuEAf4V DIgXFxmIEFyaWFsIFxcZnMg OPYlUJmrwRXyYP1ghMmbaIP pblxmczIwXHBhciANClxwbG FpblxlcGljTmVzdERvYzEgD QpcbHRycGFyXGxpbjBccmlu MCANClxsdHJjaFxmczIyIFN wZWNpbWVuIEEgaXMgcmVjZW r4CYKisC4jOq2ncAGrnH9aa MPoYAxrZGO5yYNfHWDaJKJg DTKkCF28K6FrfhQbQTdxTRr gbnVtYmVyLCAiIEZhbGxvcG wrxxM1gBSbTYCbXIW2KvMcw nEoZ47az8bzfJBiy1MkHUNk tV2ojPSvxXQoSSOqospbk7X dwXVhcFXbSrTfpX8nxwbndH HzKWIhpGpkbZkzdiS9xYCeD Nm2PjMcsPKdKjHdiZDaDjFo M73qNKtuiDKcDWrfJHIjzxh koVt3NWOeJ8Pzu28gXNE7tz ByZXZlYWwgdGFuLXBpbmsgZ 1Ojh3QpuGI0ubCbyKAil1Ed bGOlS1O5YSP4kaAnY7CwMYu yeVczNRBpnM3hm7bweLTsyR 4nmf9lOfXrxbMsTZ32CILaj aPnM7Uwq9Jel2YviSxnzgEs AD5zZOUhSWVuqxZyceVhXdy wKRN4JZWhIitsFsLqGCAfOX WqmkZoHZGwXDA5Gl0dgMCyH CBibHVlIGluayBzaWRlIGRv u53wnB8iFEPyTOtquNwesB1 iNHWdO70po0PUd8EdDMSxLR vxi7ygtZfpo5XasCBlFPknC WKirILfLFrlyI7yAcWjw6ft uKz0JUmwmeY0KLUrav9QKsl kNppzvKdat0AcuNVrLProTZ NmKRZcUAtdGAHyYN8NXmJuH Ex3YuZ1JoLnYJg1JJr6UI0E MiUsRPPsVbWrRKU2QYHgGNe 3XYqyXW9UNZJgIFS4Erd5Xj EdDLA4GnMwNPa0ZIJcDWmfG EFyaWFsIFxcZnMgMTAgXFxm fERpWX3krLdewbKkGGSfhyK NClxwbGFpblxlcGljTmVzdE RvYzEgDQpcbHRycGFyXGxpb jBccmluMCANClxsdHJjaFxm czIyIFNwZWNpbWVuIEIgaXM rhdYuSZs6XVHliQ4sZw6cgE AcbX4mwQTpAClyBGW1qKDpP HYeHQBoAIPiKC51N7UsuxMp ZSwgVUggbnVtYmVyLCAiIEZ rjYbhnHzstxY0cMSnBMBwxF lirAPeXJ0rFDQoptIxq7GyO L0eROVcy5fvR9kpZAVlvk2h tX9sXMApA93lbuFeb1IeFmv pXtTvABHwZPRnYJcxk3CcGO 5ntSIsCJRdKM68LGtnVX5dR DshIB80LPIlWND7mHcaoIFl rlYlWVWyVLjteGPoGQC7gE8 bMUWsgB9kirE5JVMfLIUear 8lkK7aGQtvm4TbnSwcnO9oB Z6mwrntOkmiAUO4kAOzvLEa IHKnifW0cIHsEPDamWsutE6 wukTuiDJkAZ6hMCIscKWis6 FhaFQ7mVZcWDMdl2AoELIuO 7Raa07iQEMaFZV0cIQiBY23 gXCdFQNoz0XptVTpARVimTZ soUJ1SBDeHN4pDDYeTJYdtE TtyWL8GJPnBsc7YLYukcvpn 1iwQZHym4dvUYjsRRMfBcje AYFjLOhtnFTmYI5KDUSsjCM HZOiyf6BgFTngLUJEWdvbiJ FpblxlcGljTmVzdERvYzBcc RueiF99PDZqkVNuNVK0QG6h UACxueuzAZDnKIJqYUM5ICx abS78bRJoWRAdOPTcnQUquV 3GZAZsQDK5IGgveR07sGHvR G9MSYArYWO2HTAnfIWbZXP9 YC1gcG5FnF== Disclaimer (test code l3mflVYaSXLsq2aePVTfcIF = [id number]) uZzEwMzNcZnRuYmpcdWMxIH ipcaMgCFrgo3ZtX0JmUrTtO FxhbnNpXGRlZmxhbmcxMDMz THU5mzCpYJCiRDaoPAJpKCn qJc4vxRUimUpjHeSkFWLtg5 gnboBSGErpAcPvA844PJDaA Uoeo2jcw9JwDNGghFTpq5C8 DQPBldihcOo0rLnmD27td0M 0ZffqU0hwWJKhYRRfI8XdMX 2gIZJaXiw7GUD3FUO0HEWdE JHhO2JzMR0qEWWgqVNgZAe8 m1iwpZkwVUBeNXM4l2ycUGl dxtBeWM2hir6vbGq0u6xjlv QfDYIdJWPicIAWYYGtV2Yld MpnMi5rdJd8gGfgQuxtRKE9 Mau6TI1mdz11nhz0cVeiNUP lfmadLtV6WTuhVKShgwboUK m7EDhkOWZttSP8XDTsrDAlG 2QeLUPqVB1dero0XNQ2AIho JKXmKnL6LRKwrNHdVBMxfWz vTDsfl160SQJ6SeRbUF2jT2 Snr7H5vB8taGTcCLMufZJkT fCyAESkop3jlGTgZTrch0Vw XJZ5drN4mYDiiACqVXNnEW4 0Lrvvh3OvNjjkq8SnU63hjS V8BYenv7xbXY6cZfS7vdAeO Irgn0crcW6xDrS4CWymTT5z KL5nGIWuhN8lhjvuZFTwZvH rppnrHUWswYsbzaTpOo7mwT nuECV0PJhvO2nsmE1pXtW2S TnbM3wfnJ2cEKw7QOzhaVZ8 YSBvuS4xKM1zbkjhj2kjVSz fWJnrULGnuhK2wmK1MIKzqI DnZ7NgsL0uJCNfDI9yxfbby 4opIRQ5FUchNXUgGYU6EqRw KHQye5Avfsw5VnLjm0WntUX iKBnmR85oi009LQOwsdOoW9 xwbGFpblxwbGFpblxmMFxmc dW1FNSocfPdo9QaGSNfNOO6 OEbwPAcdeHDpBDXwwRuja2s sQ8HavPLgITUbGCzzSPTtMO ZzMjBcbGFuZzEwMzNcaGlja QolLOxkCiOkHBMoKGisD2st SvXlH9WqBGXcUxUguUKuO8h rNStcfiReKZUqxiOiwGL0CG mqL2n4FQQdqzHywMy1rlKjG gOqETKvVOZ1BZvnsKNsTGZs x6MrhegnzVEkVz3wjKBxIIY pmB9bGPCsWOSxIBgkEW0ihU u5MBXXrBHxzVRwPtMVFXYhS X65jjAfNMTClzghx0M8RRob CLNyx7TfdPCmC1zmb1ZqTSC id70aKV2uz8L4v6gwGNA2QK 4ec7ZdHIDyeSXjdIDoAOKgo 6Labhoru5AhMRDecxBja7Qs ZCBhbmQgaXRzIHBlcmZvcm1 lsaAiQNMmJBXgB9TqjoxsmJ bzdzKgIPYnko6sitTfNYO5I QYENSOzZUBhz0HyfR7rdHRZ LAW3sWDefc2wspKXtXZgBQA ajj36CQLlHT5iT8kqZZKtZB TvejRtbJLom7SqZRAqhXG9e RBkOA8QIbBCr15oGMNnTIEN yvEzJQGixRyjgVI5okU1yZ6 uIChGREEpLlx+IFRoZSBGRE PxJI4kqvClh0TfqyVscTjuN PGjjPBfz9QqhBBor5GpjRkx y4BriMFgiJFgVM4xIERvnnw oUQZnTYUBYnNMLQWmcrV8f8 PvOBBiOLHoTRI3ySjteez0S CCnmX7aRFTrG2eyirneNVex LIAee5WfmA9ihZIZpXTzt9G ttHXhcTLKaJAnJZ2eszZeJR dLOUfGIHB9kqKiJVHlh5KqA UkkA8xjI25noVmrbBp8dYI6 VLQ6iW2fMwd+IFxwYXJccGF yIEFwcHJvcHJpYXRlbHkgcm SsF7FlscGyiR6reCRtfxEnT H6lJX2uI0S9mCBpJGZubxGo h6boOQynqsPxYpOvrgFbDSU gGLzaQNQql5HyDHqqRZY2YC lucyBpbmNsdWRpbmcgSCZFL SAQeEHbjPJdOKS5ECskurMf qcPbOR3nzF3pgHxqmI2abLV akFL0vguhLQRpSZGyeSbsXT RaQV3liKKaYBIfbcFFxAhix OAfoJ9eO7AiKTFsAWVzxf1j CACnjU6jWYnzj6SrbdgvSRG kHRVwLLHemeUnpc4gQMJrzW AWKP7ZFAvpdWVeg4TxroFwE 6rBSWC1DKTmPbCyOgsoBACp uALkyPTxNFIvhz40IYDwqD8 zxUpdERDojW9brV0cqRtdyO 0qZlTsUsZmGTcyUU2oRHIyV 7ubmAMcJHAiTBRiD5haKtQo aQ3rrVlyLZvzBkCoVuJyORb aXKB7tP== Embedded Images (test code = [id number]) [facility] [id number] 12:10:00 Test Item Value Reference Range Interpretation Comments POCT PREG (test code = 1605) Negative On board controls acceptable with Yes C Line (test code = 3574) POCT PREG LOT # (test code = HCG [id number]) POCT PREG TEST DATE (test code = 3576) [facility] [id number] 12:10:00 Test Item Value Reference Range Interpretation Comments POCT PREG (test code = 1605) Negative On board controls acceptable with Yes C Line (test code = 3574) POCT PREG LOT # (test code = HCG [id number]) POCT PREG TEST DATE (test code = 3576) [id number] 07:11:00 Test Item Value Reference Range Interpretation Comments HEMOGLOBIN (test code = HGB) 8.1 g/dL 10.7-13.9 L HEMATOCRIT (test code = HCT) 26.4 % 32.1-42.1 L AG HEPATITIS B [id number] 10:15:00 Test Item Value Reference Range Interpretation Comments AG HEPATITIS B SURFACE (test code NONREACTIVE NONREACTIVE = HBSAG) Specimen Comment: LDO [facility] CONSENT FORM SIGNED FOR HIV TESTING? YAB HEPATITIS C [id number] 10:15:00 Test Item Value Reference Range Interpretation [...] detect mostseropositiv e persons. Specimen Comment: LDO [facility] CONSENT FORM SIGNED FOR HIV TESTING? YAB TREPONEMA 2019-04-19 10:15:00 Test Item Value Reference Range Interpretation Comments AB TREPONEMA (test code = TREPAB) NONREACTIVE NONREACTIVE Specimen Comment: O [facility] CONSENT FORM SIGNED FOR HIV TESTING? YAB HIV 1 2 2019-04-19 10:15:00 Test Item Value Reference Range Interpretation Comments AB HIV 1 2 (test code = NONREACTIVE INDEX NONREACTIVE [id number]) Specimen Comment: O [facility] CONSENT FORM SIGNED FOR HIV TESTING? YAB HIV 1 2 2019-04-19 10:14:00 Test Item Value Reference Range Interpretation Comments AB HIV 1 2 (test code = NONREACTIVE INDEX NONREACTIVE [id number]) Specimen Comment: [facility] CONSENT FORM SIGNED FOR HIV TESTING? [id number] 08:56:00 Test Item Value Reference Range Interpretation Comments GLUBED (test code = GLUBED) 98 mg/dL 65-110 N [id number] 05:34:00 Test Item Value Reference Range Interpretation Comments GLUBED (test code = GLUBED) 107 mg/dL 65-110 N AG HEPATITIS B [id number] 04:58:00 Test Item Value Reference Range Interpretation Comments AG HEPATITIS B SURFACE (test code NONREACTIVE NONREACTIVE = HBSAG) Specimen Comment: LDO [facility] CONSENT FORM SIGNED FOR HIV TESTING? YAB HEPATITIS C [id number] 04:58:00 Test Item Value Reference Range Interpretation [...] detect mostseropositiv e persons. Specimen Comment: O [facility] CONSENT FORM SIGNED FOR HIV TESTING? YAB TREPONEMA 2019-04-19 04:58:00 Test Item Value Reference Range Interpretation Comments AB TREPONEMA (test code = TREPAB) NONREACTIVE NONREACTIVE Specimen Comment: [facility] CONSENT FORM SIGNED FOR HIV TESTING? YAB HIV 1 2 2019-04-19 04:58:00 Test Item Value Reference Range Interpretation Comments AB HIV 1 2 (test code = QVP27TS) NONREACTIVE Specimen Comment: [facility] CONSENT FORM SIGNED FOR HIV TESTING? YAG HEPATITIS B [id number] 03:42:00 Test Item Value Reference Range Interpretation Comments AG HEPATITIS B SURFACE (test code NONREACTIVE NONREACTIVE = HBSAG) Specimen Comment: O [facility] CONSENT FORM SIGNED FOR HIV TESTING? YAB HEPATITIS C [id number] 03:42:00 Test Item Value Reference Range Interpretation Comments AB HEPATITIS C (test code = NONREACTIVE NONREACTIVE HCVAB) SIGNAL TO CUTOFF (test code = <0.02 <0.80 N CUTOFF) Specimen Comment: [facility] CONSENT FORM SIGNED FOR HIV TESTING? YAB TREPONEMA 2019-04-19 03:42:00 Test Item Value Reference Range Interpretation Comments AB TREPONEMA (test code = TREPAB) NONREACTIVE NONREACTIVE Specimen Comment: LDO [facility] CONSENT FORM SIGNED FOR HIV TESTING? YAB HIV 1 2 2019-04-19 03:42:00 Test Item Value Reference Range Interpretation Comments AB HIV 1 2 (test code = [id number]) NONREACTIVE Specimen Comment: LDO [facility] CONSENT FORM SIGNED FOR HIV TESTING? YAG HEPATITIS B [id number] 03:11:00 Test Item Value Reference Range Interpretation Comments AG HEPATITIS B SURFACE (test code NONREACTIVE NONREACTIVE = HBSAG) Specimen Comment: LDO [facility] CONSENT FORM SIGNED FOR HIV TESTING? YAB HEPATITIS C [id number] 03:11:00 Test Item Value Reference Range Interpretation [...] AB HIV 1 2 (test code = NGK08AB) NONREACTIVE Specimen Comment: LDO [facility] CONSENT FORM SIGNED FOR HIV TESTING? YGLUCOSE 2019-04-19 01:26:00 Test Item Value Reference Range Interpretation Comments GLUCOSE (test code = GLU) 89 mg/dL 65-110 N CBC W/AUTO [id number] 01:11:00 Test Item Value Reference Range Interpretation [...] = PLTMR) - US FET BIO PH PA W/O [id number] 02:11:00 Patient Name: RUBY ZUNIGA Unit No: [id number] EXAMS: CPT CODE: [id number] US FET BIO PH PA W/O NST 83277 EXAM: US, US FET BIO PH PA W/O NST : 06/09/2018, 0132 hours Clinical [...] the clinical development during . SL: [facility] NAME: JOERUBY Radiology Department PHYS: Morris Rodrigues III, MD [address] : 1990 AGE: 28 SEX: F [place] [address] LOC: [facility] PHONE #: [phone] EXAM DATE: 04/08/2019 STATUS: REG ER FAX #: [phone] RAD NO: Page 1 Signed Report (CONTINUED) Patient Name: RUBY PALACIOS Unit No: [id number] EXAMS: CPT CODE: [id number] US FET BIO PH PA W/O NST 93632 (Continued) at 0211 Reported and signed by: Angel Alcantar M.D. CC: Lucian Farfan MD; Morris Valentine III, MD Technologist: Kylie Logan RDMS Probe: Trnscrbd D/ (0211) [email or web address] Orig Print D/T: S: 04/08/2019 (0445) [facility] NAME: RUBY ZUNIGA Radiology Department PHYS: Morris Rodrigues III, MD [address] : 1990 AGE: 28 SEX: [place] [address] LOC: MarisaSHARRON PHONE #: [phone] EXAM DATE: 04/08/2019 STATUS: REG ER FAX #: [phone] RAD NO: Page 2 Signed Report Patient Name: RUBY ZUNIGA Unit No: [id number] EXAMS: CPT CODE: [id number] US FET BIO PH PA W/O NST 26064 (Continued) [facility] NAME: RUBY ZUNIGA Radiology Department PHYS: Morris Rodrigues III, MD [address] : 1990 AGE: 28 SEX: F [place], [place] [address] LOC: F.SHARRON PHONE #: [phone] EXAM DATE: 04/08/2019 STATUS: REG ER FAX #: [phone] RAD NO: Page 3 Signed Report Notes Date/Time Note Provider Source 2019-04-21 13:59:00-00:00 [facility] ([facility]) OB Disch REPORT#:[id number] REPORT STATUS: Signed DATE:04/21/19 TIME: 1359 PATIENT: RUBY ZUNIGA UNIT #: [id number] ROOM/BED: [address] : [birth year] AGE: 28 SEX: F ATTEND: Cecil Farfan MD ADM AUTHOR: Lucian Farfan MD * ALL edits or amendments must be made on the [employer]/computer document * Subjective Subjective Admission EGA (wks/days): [...] Date Time B/P 128/04/21 Temp 98.6 04/21 719 Pulse 76 04/21 07 Resp 19 04/21 719 B/P Mean 83.0 04/19 1339 Patient Weight Weight (lb): 161 Weight (oz): Weight (kg): 73.043237 Physical Exam Neuro: Exam: alert, oriented x3, [...] of admission: 04/18/19 Admission diagnosis: labor-spontaneous, labor-te rm Hospital course: spontaneous labor, augmentation of labor, [...] 38.1 EGA at admit (weeks): Delivery date A: 04/19/19 Delivery time i nfant A: 1112 Birthweight (gm) infant A: 2780 Feeding preference: Gender infant A: Female 1 minute A: 5 minutes infant A: 10 minutes infant A: Provider comments [...] Lucian Farfan MD on at 1401 RPT #:[id number] END OF REPORT 2019-04-19 11:34:00-00:00 [facility] ([facility]) OB Delivery Note REPORT#:[id number] REPORT STATUS: Signed DATE:04/19/19 TIME: 1134 PATIENT: RUBY ZUNIGA UNIT #: [id number] ROOM/BED: [address] : [birth year] AGE: 28 SEX: F [...] Steroids prior to arrival: Antibiotic prophylaxis given: [place] evaluation at delivery: Delivery date infant A: 04/19/19 Delivery time i nfant A: 111 Birthweight (gm) A: Weight (lb) A: Weight (oz) A: Gender infant A: Female 1 minute A: 5 minutes A: 10 minutes A: Cord pH obtained infant A: Vacuum time A: Vacuum # pulls infant A: Vacuum # popoffs infant A: __ Provider comments on imported nursing data: [] Pre-delivery GBS status: GBS status: negative Prophylaxis administered: none evaluation at delivery: NRP certified [facility] Admission EGA (wks/days): 38 weeks EGA at [...] High vaginal laceration: no Electronically Signed by Lcuian Farfan MD on at 1138 RPT #:[id number] END OF REPORT 2019-04-19 06:40:00-00:00 [facility] ([facility]) Clinical Note REPORT#:[id number] REPORT STATUS: Signed DATE:04/19/19 TIME: 639 PATIENT: RUBY ZUNIGA UNIT #: [id number] ROOM/BED: [address] : [birth year] AGE: 28 SEX: F ATTEND: Cecil Farfan MD ADM AUTHOR: Elenita Meredith MD * ALL edits or amendments must be made on the [employer] document * Clinical Note Note: increasing contractions Last Documented: Result Date Time B/P Mean 95.0 04/19 518 B/P 119/78 04/19 518 Temp 98.1 04/19 518 Pulse 85 04/19 518 Resp 18 04/19 0122 SVE 5/70/-2 AROM clear FHT 140s cat 1 TOCO q 3 min recheck prn Electronically Signed by Elenita Meredith MD on at 0640 RPT #:[id number] END OF REPORT 2019-04-19 00:23:00-00:00 [facility] ([facility]) OB Admission / H P REPORT#:[id number] REPORT STATUS: Signed DATE:04/19/19 TIME: 22 PATIENT: RUBY ZUNIGA UNIT #: [id number] [facility] [birth year] AGE: 28 SEX: F ATTEND: Cecil Farfan MD ADM AUTHOR: Elenita Meredith MD * ALL edits or amendments must be made on the [employer]/computer document * OB Admission H P Hx [...] Mean 86.0 04/18 1923 B/P 112/68 04/18 192 Temp 98.5 04/18 1923 Pulse 83 04/18 1923 Resp 18 04/18 192 Vital Signs Date Temp Pulse Resp B/P B/P Mean Pulse Ox FiO2 04/18 98.5 83 18 112/68 86.0 Patient Weight Weight (lb): Weight (oz): Weight (kg): 73.337338 Physical Exam HEENT: normocephalic w/o injury Neuro: [...] Elenita Meredith MD on at 0029 RPT #:[id number] END OF REPORT 2019-04-08 00:40:00-00:00 [facility] ([facility]) EMERGENCY PROVIDER REPORT REPORT#:[id number] REPORT STATUS: Signed DATE:04/08/19 TIME: 39 PATIENT: RUBY ZUNIGA UNIT #: [id number] ROOM/BED: AGE: 28 SEX: F PCP PHYS: Lucian Farfan MD SERVICE AUTHOR: Morris Valentine III, MD * ALL edits or amendments must be made on the [employer]/computer document * SHARRON History Nursing Documentation Review [...] her for discharge pending evaluation by the CHEMICAL EQUIPMENT REPAIRER Hospitalist. PMH NKDA LATEX ALLERGY OB SAB2 2 previous vaginal delivery at rm GDM 2 miscarriages, one with d [...] Terbutaline Sulfate 0 .STK-MED ONE 04/08 0538 D C (TERBUTALINE 1 MG/ML .ROUTE 1 ML AMP) [...] Weight Weight (lb): Weight (oz): Weight (kg): 76.761448 Allergies Allergy Severity Reaction Updated Coded latex Intermediate HIVES 04/08/19 No acute distess, alert, normal affect Chest clear to auscultation CVR RRR AB gravid and nontender SVE by nursing staff 3cm/60%/-3 station not [facility] fluid, both nitrazine and amnisure neg 3cm/60%/-3 [...] Impressions: ULTRASOUND - US FET BIO PH PA W/O NST 04/08 140 Report Impression - [...] Impressions: ULTRASOUND - US FET BIO PH PA W/O NST 04/08 140 Report Impression - [...] III, MD on 10/22 at 2021 RPT #:[id number] END OF REPORT"
--- NOTE | 2022-12-21 22:42 | RAD REPORT ---
EXAM DESCRIPTION: RAD - Chest Pa And Lat (2 Views) - 12/21/2022 10:24 pm CLINICAL HISTORY: COUGH COMPARISON: Chest Single View dated 06/14/2021; CHEST PA AND LAT 2 VIEW dated 10/23/2009 TECHNIQUE: PA and lateral views of the chest were obtained. FINDINGS: The lungs are clear. Heart size is normal and central vasculature is within normal limits. No pleural effusion or pneumothorax seen. No acute bony finding noted. IMPRESSION: No acute cardiopulmonary process.
[2022-12-21] MEDS ORDERED: ALBUTEROL 2.5 MG/3 ML NEB SOL ONE (23:36)
[2022-12-21] MEDS ORDERED: BENZONATATE 100 MG CAP PO ONE (23:36)
[2022-12-21] MEDS ORDERED: IPRATROPIUM BROM 0.5MG/2.5ML ONE (23:36)
--- NOTE | 2022-12-22 00:09 | EDPHYS ---
Physician Documentation [facility] Name: Zaira Zuniga Age: 32 yrs Sex: Female : 1990 Arrival Date: 12/21/2022 Time: 21:06 Bed 10 Private MD: ED Physician Taya Muro HPI: 12/21 21:45 This 32 yrs old Female presents to ER via Ambulatory with complaints of Cough, cp Congestion. 21:45 The patient or guardian reports cough. cp 21:45 Onset: The symptoms/episode began/occurred 1 month(s) ago. cp 21:45 Severity of symptoms: in the emergency department the symptoms are unchanged, despite cp home interventions. Associated signs and symptoms: Pertinent negatives: chest pain, diarrhea, fever, vomiting. Patient presents to ED with c/o productive cough that started 1 month ago after inhaling cleaning solution while in enclosed area of home. No fever, denies coughing up blood. Historical: - Allergies: 21:32 Latex, Natural Rubber; cm10 - PMHx: 21:32 Endometrosis; gastritis; mitral valve prolapse; scoliosis; cm10 - PSHx: 21:32 Ligation of fallopian tube; cm10 - Immunization history:: Adult Immunizations up to date. - Social history:: Smoking status: Patient denies any tobacco usage or history of. ROS: 21:50 Constitutional: Negative for body aches, chills, fever, poor PO intake. cp 21:50 Eyes: Negative for injury, pain, redness, and discharge. cp 21:50 ENT: Negative for drainage from ear(s), ear pain, difficulty swallowing, difficulty handling secretions. 21:50 Cardiovascular: Negative for chest pain, edema, palpitations. 21:50 Respiratory: Positive for cough, "sounds productive". 21:50 Abdomen/GI: Negative for abdominal pain, nausea, vomiting, and diarrhea. 21:50 Neuro: Negative for altered mental status, headache, weakness. 21:50 All other systems are negative. Exam: 21:55 Constitutional: The patient appears in no acute distress, alert, awake, non-toxic, well cp developed, well nourished. 21:55 Head/Face: Normocephalic, atraumatic. cp 21:55 Eyes: Periorbital structures: appear normal, Conjunctiva: normal, no exudate, no injection, Sclera: no appreciated abnormality, Lids and lashes: appear normal, bilaterally. 21:55 ENT: External ear(s): are unremarkable, Ear canal(s): are normal, clear, TM's: dullness, bilaterally, Nose: is normal, Mouth: Lips: moist, Oral mucosa: pink and intact, moist, Posterior pharynx: is normal, airway is patent, no erythema, no exudate, Voice: is normal. 21:55 Neck: ROM/movement: is normal, is supple, without pain, no range of motions limitations, no meningismus. 21:55 Chest/axilla: Inspection: normal, Palpation: is normal, no crepitus, no tenderness. 21:55 Cardiovascular: Rate: normal, Rhythm: regular. 21:55 Respiratory: the patient does not display signs of respiratory distress, Respirations: normal, no use of accessory muscles, no retractions, labored breathing, is not present, Breath sounds: decreased breath sounds, are not appreciated, stridor, is not appreciated, wheezing: is not appreciated. 21:55 Abdomen/GI: Inspection: abdomen appears normal, Palpation: abdomen is soft and non-tender, in all quadrants. 21:55 Back: pain, is absent, ROM is normal. 21:55 Skin: no rash present. 21:55 Neuro: Orientation: to person, place \\T\\ time. Mentation: is normal, Motor: moves all fours, strength is normal, Sensation: is normal. Vital Signs: 21:30 BP 128 / 95; Pulse 83; Resp 18; Temp 97.3(TE); Pulse Ox 99% ; Weight 72.57 kg; Height 5 cm10 ft. 0 in. ; Pain 7/; 12/22 00:13 BP 118 / 88; Pulse 82; Resp 16; Pulse Ox 98% on R/A; cm10 12/21 21:30 Body Mass Index 31.25 (72.57 kg, 152.4 cm) cm10 12/21 21:30 Pain Scale: Adult cm10 MDM: 12/21 21:37 Patient medically screened. cp 12/22 00:07 Data reviewed: vital signs, nurses notes. cp 00:07 Differential Diagnosis: Bronchitis Influenza Pharyngitis Otitis Media Viral Syndrome cp Pneumonia. I considered the following discharge prescriptions or medication management in the emergency department Medications were administered in the Emergency Department. See MAR. Counseling: I had a detailed discussion with the patient and/or guardian regarding the historical points, exam findings, and any diagnostic results supporting the discharge/admit diagnosis, lab results, radiology results. Response to treatment: the patient's symptoms have markedly improved after treatment, and as a result, I will discharge patient. 12/21 21:39 Order name: COVID-19 SARS RT PCR; Complete Time: 00:07 12/21 21:39 Order name: Influenza Screen (a \\T\\ B); Complete Time: 00:07 cp 12/21 21:39 Order name: XRAY Chest Pa And Lat (2 Views); Complete Time: 22:49 12/21 22:49 Interpretation: Report reviewed. cp Administered Medications: 12/21 23:25 Drug: Tessalon Perle PO 200 mg Route: PO; pf1 12/22 00:04 Follow up: Response: No adverse reaction; Marked relief of symptoms pf1 12/21 23:25 Drug: Albuterol Inhalation 2.5 mg Route: Inhalation; pf1 12/22 00:04 Follow up: Response: No adverse reaction; Marked relief of symptoms pf1 12/21 23:25 Drug: Ipratropium Inhalation Aerosol 0.5 mg Route: Inhalation; pf1 12/22 00:04 Follow up: Response: No adverse reaction; Marked relief of symptoms pf1 Disposition Summary: 12/22/22 00:08 Discharge Ordered Location: Home cp Problem: new cp Symptoms: have improved cp Condition: Stable cp Diagnosis - Cough cp Followup: cp - With: Private Physician - When: 2 - 3 days - Reason: Recheck today's complaints Discharge Instructions: - Discharge Summary Sheet cp - Cool Mist Vaporizer cp - Cough, Adult cp Forms: - Medication Reconciliation Form cp - Thank You Letter cp - Antibiotic Education cp - Prescription Opioid Use cp - Patient Portal Instructions cp - Leadership Thank You Letter cp Prescriptions: - albuterol sulfate 90 mcg/actuation Inhalation HFA Aerosol Inhaler - inhale 1 inhalation by INHALATION route every 4 to 6 hours as needed for cp bronchospasm; administer via ventilator; 1 unit; Refills: 0, Product Selection Permitted - Tessalon Perles 100 mg Oral Capsule - take 1 capsule by ORAL route every 8 hours As needed; 15 capsule; Refills: 0, cp Product Selection Permitted - Zithromax Z-Hira 250 mg Oral Tablet - take 1 tablet by ORAL route as directed for 5 days Day 1 - take two (2) tablets cp one time. Day 2, 3, 4 , 5 take one (1) tablet once daily.; 6 tablet; Refills: 0, Product Selection Permitted - Medrol (Hira) 4 mg Oral Tablets, Dose Pack - take 1 tablet by ORAL route as directed - follow package instructions; 1 cp packet; Refills: 0, Product Selection Permitted Addendum: 12/23/2022 06:40 STAFF ATTESTATION STATEMENT: I was immediately available onsite in the emergency s d2 department for consultation in the care of this patient. I did not see or examine this patient. Taya Muro MD. Signatures: Dispatcher [employer] EDMS Alec Medeiros PA PA cp Dunlop, Stephanie, MD MD sd2 Krista Chicas, RN RN pf1 Sylvia Portillo RN RN cm10 Corrections: (The following items were deleted from the chart) 12/22 23:44 12/21 21:45 Patient presents to ED with c/o productive cough that started 1 month ago cp after exposure to cleaning solution at home. cp
--- NOTE | 2022-12-22 00:09 | ER ---
Nurse's Notes [facility] Name: Zaira Zuniga Age: 32 yrs Sex: Female : 1990 Arrival Date: 12/21/2022 Time: 21:06 Bed 10 Private MD: Diagnosis: Cough Presentation: 12/21 21:30 Chief complaint: Patient states: Cough, congestion X1 month. Pt states that the cough cm10 is productive. 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 Coronavirus screen: Vaccine status: Patient reports receiving the 2nd dose of the covid vaccine. Ebola Screen: Patient denies travel to an Ebola-affected area in the 21 days before illness onset. No symptoms or risks identified at this time. Resp Distress? No respiratory distress is noted at this time. Initial Sepsis Screen: Does the patient meet any 2 criteria? No. Patient's initial sepsis screen is negative. Does the patient have a suspected source of infection? No. Patient's initial sepsis screen is negative. Risk Assessment: Do you want to hurt yourself or someone else? Patient reports no desire to harm self or others. Onset of symptoms was December 21, 2022. 21:30 Method Of Arrival: Ambulatory cm10 21:30 Acuity: MACK 3 cm10 Triage Assessment: 21:34 General: Appears in no apparent distress. comfortable, Behavior is calm, cooperative. cm10 Neuro: No deficits noted. Level of Consciousness is awake, alert, obeys commands, Oriented to person, place, time, situation. Respiratory: No deficits noted. Reports cough that is productive, Airway is patent Respiratory effort is even, unlabored, Respiratory pattern is regular, symmetrical, Sputum is brown. Historical: - Allergies: 21:32 Latex, Natural Rubber; cm10 - PMHx: 21:32 Endometrosis; gastritis; mitral valve prolapse; scoliosis; cm10 - PSHx: 21:32 Ligation of fallopian tube; cm10 - Immunization history:: Adult Immunizations up to date. - Social history:: Smoking status: Patient denies any tobacco usage or history of. Screenin/19 00:07 [facility] ED Fall Risk Assessment (Adult) History of falling in the last 3 months, cm10 including since admission No falls in past 3 months (0 pts) Confusion or Disorientation No (0 pts) Intoxicated or Sedated No (0 pts) Impaired Gait No (0 pts) Mobility Assist Device Used No (0 pt) Altered Elimination No (0 pt) Score/Fall Risk Level 0 - 2 = Low Risk Oriented to surroundings, Maintained a safe environment, Hourly rounding (assess needs \\T\\ fall precautionary measures) done. Abuse screen: Denies threats or abuse. Denies injuries from another. Nutritional screening: No deficits noted. Tuberculosis screening: No symptoms or risk factors identified. Assessment: 00:06 Reassessment: Patient and/or family updated on plan of care and expected duration. Pain cm10 level reassessed. Patient is alert, oriented x 3, equal unlabored respirations, skin warm/dry/pink. Patient states feeling better. Patient states symptoms have improved. Pain: Denies pain. Cardiovascular: No deficits noted. Cardiovascular: Capillary refill. Respiratory: Respiratory: Breath sounds with wheezes. Respiratory: Airway is patent Respiratory effort is even, unlabored, Respiratory pattern is regular, symmetrical. Vital Signs: 12/21 21:30 BP 128 / 95; Pulse 83; Resp 18; Temp 97.3(TE); Pulse Ox 99% ; Weight 72.57 kg; Height 5 cm10 ft. 0 in. ; Pain 7/10; 12/22 00:13 BP 118 / 88; Pulse 82; Resp 16; Pulse Ox 98% on R/A; cm10 12/21 21:30 Body Mass Index 31.25 (72.57 kg, 152.4 cm) cm10 12/21 21:30 Pain Scale: Adult cm10 ED Course: 12/21 21:07 Patient arrived in ED. jj6 21:15 Alec Medeiros PA is PHCP. cp 21:15 Taya Muro MD is Attending Physician. cp 21:32 Triage completed. cm10 21:33 Arm band placed on Patient placed in waiting room. cm10 22:24 XRAY Chest Pa And Lat (2 Views) In Process Unspecified. EDMS 12/22 00:07 Patient has correct armband on for positive identification. Bed in low position. Call cm10 light in reach. Provided Education on: N/A. 00:08 No provider procedures requiring assistance completed. Patient did not have IV access cm10 during this emergency room visit. Administered Medications: 12/21 23:25 Drug: Tessalon Perle PO 200 mg Route: PO; pf1 12/22 00:04 Follow up: Response: No adverse reaction; Marked relief of symptoms pf1 12/21 23:25 Drug: Albuterol Inhalation 2.5 mg Route: Inhalation; pf1 12/22 00:04 Follow up: Response: No adverse reaction; Marked relief of symptoms pf1 12/21 23:25 Drug: Ipratropium Inhalation Aerosol 0.5 mg Route: Inhalation; pf1 12/22 00:04 Follow up: Response: No adverse reaction; Marked relief of symptoms pf1 Medication: 00:07 VIS not applicable for this client. cm10 Outcome: 00:08 Discharge ordered by . cp 00:12 Discharged to home ambulatory. cm10 00:12 Condition: good 00:12 Discharge instructions given to patient, Instructed on discharge instructions, follow up and referral plans. Demonstrated understanding of instructions, follow-up care, medications, Prescriptions given X 4. 00:13 Patient left the ED. cm10 Signatures: Dispatcher [employer] EDMS Alec Medeiros PA PA cp Jeffries, Jennifer jj6 Krista Chicas, RN RN pf1 Sylvia Portillo, RN RN cm10 Corrections: (The following items were deleted from the chart) 12/21 21:34 21:30 BP 128 / 95; Pulse 83bpm; Resp 28bpm; Pulse Ox 99%; Temp 97.3F Temporal; 72.57 cm10 kg; Height 5 ft. 0 in.; BMI: 31.2; Pain 7/10, Adult; cm10 12/22 00:12 00:12 Discharge instructions given to patient, Instructed on discharge instructions, cm10 follow up and referral plans. Demonstrated understanding of instructions, follow-up care, cm10
[2022-12-22 00:20] VITALS: TEMP 97.3
[2022-12-22 00:22] VITALS: BP 118/88; O2SAT 98
== END 2022-12-22 00:13 | disposition home or self-care (01) ==
LOC: ER 21:06
DX: R05.9 Cough, unspecified (principal); Z20.822 Contact with and (suspected) exposure to COVID-19; Z91.040 Latex allergy status
CPT/HCPCS: 71046; 87635; 87804; 99284; J7613; J7644

== ENCOUNTER 2023-04-15 12:10 | Emergency (ER) | payer OTHER ==
[2023-04-15] MEDS ORDERED: ONDANSETRON 4 MG/2 ML VIAL ONE (13:42)
[2023-04-15] MEDS ORDERED: NA CHLORIDE 0.9% 1,000 ML ONE (13:42)
[2023-04-15 13:59] LABS: Absolute Lymphocytes (CBC) 0.4 K/uL (0.7-4.9); Hematocrit 38.3 % (36.0-45.0); Lymphocytes % 3.5 % (15.3-44.8); MCV 91.5 fL (80-100); MPV 9.4 fL (7.6-11.3); Platelets 156 thou/uL (152-406); RBC Red Blood Cell Count 4.19 M/uL (3.86-4.86)
[2023-04-15 14:08] LABS: Albumin 3.4 g/dL (3.4-5.0); Bilirubin Direct 0.2 mg/dL (0-0.2); Bilirubin Indirect, Calculated 0.6 mg/dL (0.2-0.8); Bilirubin Total 0.8 mg/dL (0.2-1.0); Magnesium 1.5 mg/dL (1.6-2.4); Potassium 3.6 mEq/L (3.5-5.1); Protein, Total 7.1 g/dL (6.4-8.2)
[2023-04-15 14:23] LABS: SARS-CoV-2 Antigen Rapid Res Negative (Negative)
[2023-04-15] MEDS ORDERED: MORPHINE 4 MG/ML SYR ONE (14:37)
[2023-04-15] MEDS ORDERED: MAGNESIUM SULFATE 1 gm IVPB 1 GM/100 ML BAG IV ONE (14:37)
[2023-04-15 14:40] LABS: Specific Gravity > 1.030 (1.005-1.030)
[2023-04-15 14:43] LABS: Specific Gravity > 1.030 (1.005-1.030); Urine Bacteria <20 /HPF (<20); Urine Bilirubin NEGATIVE (Negative); Urine Blood Negative (Negative); Urine Clarity Turbid (Clear); Urine Color Yellow (Yellow); Urine Glucose NEGATIVE (Negative); Urine Mucus 1+ /HPF (None Seen); Urine Protein 1+ (Negative); Urine RBC <5 /HPF (None Seen); Urine Urobilinogen Normal (Normal)
--- NOTE | 2023-04-15 14:58 | RAD REPORT ---
EXAM DESCRIPTION: CT - Chest For Pe Angio - 04/15/2023 2:34 pm CLINICAL HISTORY: Chest pain COMPARISON: None. TECHNIQUE: Dynamically enhanced axial 3 mm thick images of the chest were obtained during administra tion of 100 mL Isovue 370 IV contrast. Coronal and oblique reconstruction images were generated and r eviewed. Exam utilizes a protocol for optimal evaluation of pulmonary arterial tree. Maximum intensity projections 3D imaging was utilized All CT scans are performed using dose optimization technique as appropriate and may include automated exposure control or mA/KV adjustment according to patient size. FINDINGS: A pulmonary embolus is not seen. A thoracic aortic aneurysm is not noted. A pleural effusion is not seen. A pericardial effusion is not seen. A lung consolidation is not present. IMPRESSION: Negative for a pulmonary embolism.
--- NOTE | 2023-04-15 15:03 | RAD REPORT ---
EXAM DESCRIPTION: [place] Single View04/15/2023 2:13 pm CLINICAL HISTORY: Chest pain COMPARISON: December 2022 FINDINGS: The lungs appear clear of acute infiltrate. The heart is normal size IMPRESSION: No acute abnormalities displayed
--- NOTE | 2023-04-15 15:03 | RAD REPORT ---
EXAM DESCRIPTION: CT - Abdomen Pelvis W Contrast - 04/15/2023 2:34 pm CLINICAL HISTORY: Abdominal pain COMPARISON: none. TECHNIQUE: Computed axial tomography of the abdomen pelvis was obtained. 100 cc Isovue-300 was admin istered intravenously. Oral contrast was not requested which limits evaluation of bowel and appendix All CT scans are performed using dose optimization technique as appropriate and may include automated exposure control or mA/KV adjustment according to patient size. FINDINGS: The liver, pancreas, adrenal and kidneys appear unremarkable. Borderline splenomegaly There is no evidence of diverticulitis. Normal appendix Fluid within nondilated small bowel 2 centimeter right ovarian cyst. No followup imaging recommended. Minimal amount of free fluid. IMPRESSION: Fluid within nondilated small bowel may indicate enteritis Borderline splenomegaly
--- NOTE | 2023-04-15 15:45 | EDPHYS ---
Physician Documentation [facility] Name: Zaira Zuniga Age: 32 yrs Sex: Female : 1990 Arrival Date: 04/15/2023 Time: 12:10 Bed 14 Private MD: Cliff Camacho ED Physician Serge Burns HPI: 04/15 12:23 This 32 yrs old Female presents to ER via Ambulatory with complaints of sb4 Weakness, SHOB, nausea, vomiting, diarrhea. 12:23 Patient states she woke up this morning feeling very weak, short of breath, heavy arms sb4 and legs, with associated nausea, vomiting, and diarrhea. She states that she was feeling otherwise fine yesterday. She does endorse some sick contacts this weekend. She denies any chest pain, fever, urinary symptoms, vaginal bleeding. Denies any chance of , has had her tubes tied. 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 - Social history:: Smoking status: Patient denies any tobacco usage or history of. ROS: 12:23 Constitutional: Negative for fever, chills, and weight loss, sb4 12:23 Respiratory: Positive for shortness of breath, 12:23 Abdomen/GI: Positive for abdominal pain, nausea, vomiting, and diarrhea, 12:23 Neuro: Positive for weakness, 12:23 All other systems are negative, Exam: 12:23 Head/Face: Normocephalic, atraumatic. Eyes: Extra-ocular motions intact. Periorbital sb4 areas with no swelling, redness, or edema. ENT: Mucous membranes moist. Cardiovascular: Regular rate and rhythm with a normal S1 and S2. Respiratory: Lungs have equal breath sounds bilaterally, clear to auscultation and percussion. No rales, rhonchi or wheezes noted. No increased work of breathing, no retractions or nasal flaring. Abdomen/GI: Soft, non-tender, no distension. Skin: Warm, dry with normal turgor. Normal color with no rashes, no lesions, and no evidence of cellulitis. MS/ Extremity: Pulses equal, no cyanosis. Neurovascular intact. Full, normal range of motion. Neuro: Awake and alert, GCS 15, oriented to person, place, time, and situation. Motor strength 5/5 in all extremities. Sensory grossly intact. 12:23 Constitutional: The patient appears alert, awake, pale, Vital Signs: 12:15 BP 117 / 57; Pulse 91; Resp 18; Temp 97.3; Pulse Ox 100% on R/A; Weight 77.11 kg; cm10 Height 5 ft. 0 in. ; Pain 6/10; 15:00 BP 106 / 72; Pulse 90; Resp 16; Pulse Ox 99% ; cp4 16:05 BP 101 / 66; Pulse 88; Resp 16; Pulse Ox 100% ; cp4 12:15 Body Mass Index 33.20 (77.11 kg, 152.4 cm) cm10 12:15 Pain Scale: Adult cm10 MDM: 12:17 Patient medically screened. sb4 15:19 Data reviewed: vital signs, nurses notes, lab test result(s), EKG, radiologic studies, sb4 and as a result, I will discharge patient. Consideration of Admission/Observation Escalation of care including admission/observation considered. Historians other than the Patient: Spouse/Significant Other: . Counseling: I had a detailed discussion with the patient and/or guardian regarding the historical points, exam findings, and any diagnostic results supporting the discharge/admit diagnosis, lab results, radiology results, to return to the emergency department if symptoms worsen or persist or if there are any questions or concerns that arise at home. 04/15 12:21 Order name: Basic Metabolic Panel; Complete Time: 14:14 sb4 04/15 12:21 Order name: CBC with Diff; Complete Time: 14:04 sb4 04/15 12:21 Order name: D-Dimer; Complete Time: 14:04 sb4 04/15 12:21 Order name: LFT's; Complete Time: 14:14 sb4 04/15 12:21 Order name: Magnesium; Complete Time: 14:14 sb4 04/15 12:21 Order name: Troponin HS; Complete Time: 14:14 sb4 04/15 12:21 Order name: Lipase; Complete Time: 14:14 sb4 04/15 12:21 Order name: UAM; Complete Time: 14:44 sb4 04/15 12:21 Order name: Test, Urine; Complete Time: 14:40 sb4 04/15 12:22 Order name: SARS RAPID; Complete Time: 14:24 sb4 04/15 12:22 Order name: Flu; Complete Time: 14:40 sb4 04/15 12:21 Order name: XRAY Chest (1 view); Complete Time: 15:05 sb4 04/15 14:06 Order name: CT Chest For PE Angio; Complete Time: 15:01 sb4 04/15 14:06 Order name: CT Abd/Pelvis - IV Contrast Only; Complete Time: 15:05 sb4 04/15 12:21 Order name: EKG; Complete Time: 12:22 sb4 04/15 12:21 Order name: Cardiac monitoring; Complete Time: 15:44 sb4 04/15 12:21 Order name: EKG - Nurse/Tech; Complete Time: 14:33 sb4 04/15 12:21 Order name: IV Saline Lock; Complete Time: 14:33 sb4 04/15 12:21 Order name: Labs collected and sent; Complete Time: 14:33 sb4 04/15 12:21 Order name: O2 Per Protocol; Complete Time: 13:32 sb4 04/15 12:21 Order name: O2 Sat Monitoring; Complete Time: 13:32 sb4 04/15 15:16 Order name: PO challenge; Complete Time: 15:43 sb4 EC:02 Rate is 87 beats/min. Rhythm is regular, Normal Sinus Rhythm. QRS [place] is Normal. IN sb4 interval is normal at 164 msec. QRS interval is normal at 86 msec. QT interval is normal at 390 msec. No Q waves. T waves are Normal. No ST changes noted. Clinical impression: Normal ECG and No evidence of ischemia. Interpreted by me. Reviewed by me. Administered Medications: 13:37 Drug: Ondansetron IVP 4 mg IVP once; over 2 minutes Route: IVP; Site: right antecubital;kc6 14:01 Drug: NS 0.9% IV 1000 ml IV at 1 bolus Per protocol; 1000 mL bolus Route: IV; Rate: 1 cp4 bolus; Site: right antecubital; 14:30 Drug: morphine IVP or IV 4 mg IVP once over 4 mins Route: IVP; Infused Over: 4 mins; cp4 Site: right antecubital; 14:30 Drug: Magnesium Sulfate IVPB 1 grams IVPB once over 1 hrs Route: IVPB; Infused Over: 1 cp4 hrs; Site: right antecubital; 15:43 Drug: Famotidine IVP 20 mg IVP once; dilute with 10 mL 0.9% NaCl; give over 2 minutes cp4 Route: IVP; Site: right antecubital; Disposition: 17:06 Co-signature as Attending Physician, Serge Burns MD I reviewed the patient's care rn provided by the Advanced Practice Provider and agree with the diagnosis and treatment plan. Disposition Summary: 04/15/23 15:44 Discharge Ordered Notes: Location: Home sb4 Problem: new sb4 Symptoms: have improved sb4 Condition: Stable sb4 Diagnosis - acute enteritis sb4 Followup: sb4 - With: Cliff Camacho, DO - When: 2 - 3 days - Reason: Recheck today's complaints, Re-evaluation by your physician Discharge Instructions: - Discharge Summary Sheet sb4 Forms: - Medication Reconciliation Form sb4 - Thank You Letter sb4 - Antibiotic Education sb4 - Prescription Opioid Use sb4 - Patient Portal Instructions sb4 - Leadership Thank You Letter sb4 Prescriptions: - Flagyl 500 mg Oral Tablet - take 1 tablet ORAL route every 12 hours for 7 days; 14 tablet; Refills: 0, sb4 Product Selection Permitted - Zofran 4 mg Oral Tablet - take 1 tablet ORAL route every 12 hours As needed; 20 tablet; Refills: 0, sb4 Product Selection Permitted - dicyclomine 20 mg Oral tablet - take 1 tablet ORAL route 4 times per day; 20 tablet; Refills: 0, Product sb4 Selection Permitted Signatures: Dispatcher [employer] Serge Gonzalez MD MD rn Campbell, Kaitlyn RN RN kc6 Nemo Briggs PA-C PAKanwal sb4 Sylvia Portillo RN RN cm10 Reina Tucker cp4
--- NOTE | 2023-04-15 15:45 | ER ---
Nurse's Notes [facility] Name: Zaira Zuniga Age: 32 yrs Sex: Female : 1990 Arrival Date: 04/15/2023 Time: 12:10 Bed 14 Private MD: Cliff Camacho Diagnosis: acute enteritis Presentation: 04/15 12:15 Chief complaint: Patient states: shortness of breath, vomiting, diarrhea, and cm10 generalized weakness onset today. Pt reports 8 episodes of vomiting and diarrhea. Coronavirus screen: Vaccine status: Patient reports receiving the 2nd dose of the covid vaccine. Client denies travel out of the [place] in the last 14 days. Ebola Screen: Patient denies travel to an Ebola-affected area in the 21 days before illness onset. No symptoms or risks identified at this time. Initial Sepsis Screen: Does the patient meet any 2 criteria? No. Patient's initial sepsis screen is negative. Does the patient have a suspected source of infection? No. Patient's initial sepsis screen is negative. Risk Assessment: Do you want to hurt yourself or someone else? Patient reports no desire to harm self or others. Onset of symptoms was April 15, 2023. 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 - Social history:: Smoking status: Patient denies any tobacco usage or history of. Screenin:06 [facility] ED Fall Risk Assessment (Adult) History of falling in the last 3 months, cp4 including since admission No falls in past 3 months (0 pts) Confusion or Disorientation No (0 pts) Intoxicated or Sedated No (0 pts) Impaired Gait No (0 pts) Mobility Assist Device Used No (0 pt) Altered Elimination No (0 pt) Score/Fall Risk Level 0 - 2 = Low Risk Oriented to surroundings, Maintained a safe environment, Educated pt \T\ family on fall prevention, incl call for assistance when getting out of bed, Assessed \T\ reinforced patient's understanding of fall precautions, Hourly rounding (assess needs \T\ fall precautionary measures) done. Abuse screen: Denies threats or abuse. Nutritional screening: No deficits noted. Tuberculosis screening: No symptoms or risk factors identified. Assessment: 16:06 General: Appears in no apparent distress. Behavior is calm, cooperative, appropriate cp4 for age. Pain: Denies pain. Vital Signs: 12:15 BP 117 / 57; Pulse 91; Resp 18; Temp 97.3; Pulse Ox 100% on R/A; Weight 77.11 kg; cm10 Height 5 ft. 0 in. ; Pain 6/10; 15:00 BP 106 / 72; Pulse 90; Resp 16; Pulse Ox 99% ; cp4 16:05 BP 101 / 66; Pulse 88; Resp 16; Pulse Ox 100% ; cp4 12:15 Body Mass Index 33.20 (77.11 kg, 152.4 cm) cm10 12:15 Pain Scale: Adult cm10 ED Course: 12:12 Patient arrived in ED. rg4 12:12 Cliff Camacho DO is Private Physician. rg4 12:15 Nemo Briggs PA-C is PHCP. sb4 12:15 Serge Burns MD is Attending Physician. sb4 12:17 Triage completed. cm10 12:17 Arm band placed on Patient placed in an exam room, on a stretcher. cm10 13:24 Richelle Mcclure, RN is Primary Nurse. kc6 14:14 XRAY Chest (1 view) In Process Unspecified. EDMS 14:33 Initial lab(s) drawn, by me, sent to lab. EKG done, by ED staff, reviewed by Nemo Briggs PA-C. Inserted saline lock: 20 gauge in right antecubital area, using aseptic technique. Blood collected. 14:36 CT Chest For PE Angio In Process Unspecified. EDMS 14:36 CT Abd/Pelvis - IV Contrast Only In Process Unspecified. EDMS 15:44 Cliff Camacho DO is Referral Physician. sb4 16:06 Placed in gown. Bed in low position. Call light in reach. Side rails up X 1. Provided cp4 Education on: stomach virus. 16:06 No provider procedures requiring assistance completed. cp4 16:06 intact, bleeding controlled, No redness/swelling at site. Pressure dressing applied. cp4 Administered Medications: 13:37 Drug: Ondansetron IVP 4 mg IVP once; over 2 minutes Route: IVP; Site: right antecubital;kc6 14:01 Drug: NS 0.9% IV 1000 ml IV at 1 bolus Per protocol; 1000 mL bolus Route: IV; Rate: 1 cp4 bolus; Site: right antecubital; 14:30 Drug: morphine IVP or IV 4 mg IVP once over 4 mins Route: IVP; Infused Over: 4 mins; cp4 Site: right antecubital; 14:30 Drug: Magnesium Sulfate IVPB 1 grams IVPB once over 1 hrs Route: IVPB; Infused Over: 1 cp4 hrs; Site: right antecubital; 15:43 Drug: Famotidine IVP 20 mg IVP once; dilute with 10 mL 0.9% NaCl; give over 2 minutes cp4 Route: IVP; Site: right antecubital; Medication: 16:06 VIS not applicable for this client. cp4 Outcome: 15:44 Discharge ordered by . sb4 16:06 Discharged to home ambulatory, cp4 16:06 Condition: stable 16:06 Discharge instructions given to patient, Instructed on discharge instructions, follow up and referral plans. medication usage, Demonstrated understanding of instructions, follow-up care, medications, Prescriptions given X 3, 16:09 Patient left the ED. cp4 Signatures: Dispatcher [employer] Ricky Leon em1 Jacinda Lund4 Richelle Mcclure RN RN kc6 Nemo Briggs, JOEL PAKanwal [id number] Sylvia Portillo RN RN cm10 Reina Tucker cp4
[2023-04-15] MEDS ORDERED: FAMOTIDINE 20 MG/2 ML VIAL IV ONE (15:55)
[2023-04-15 16:34] VITALS: TEMP 97.3; O2SAT 100
[2023-04-15 16:36] VITALS: BP 101/66
--- NOTE | 2023-04-16 13:43 | EKG ---
Test Date: 2023-04-15 Test Time: 13:58:16 Elocution Teacher: EVELYN MEASUREMENT RESULTS: Intervals: Rate: 87 CA: 164 QRSD: 86 QT: 390 QTc: 469 [place]: P: 61 CA: 164 QRS: 63 T: 43 INTERPRETIVE STATEMENTS: Normal sinus rhythm Normal ECG No previous ECG available for comparison Electronically Signed On 04-16-23 13:39:43 CAR SEAT UPHOLSTERER by Italo Thao
== END 2023-04-15 16:09 | disposition home or self-care (01) ==
LOC: ER 12:10
DX: K52.9 Noninfective gastroenteritis and colitis, unspecified (principal); R53.1 Weakness; Z11.52 Encounter for screening for COVID-19; Z91.040 Latex allergy status
CPT/HCPCS: 93005; 85025; 81001; 80048; 36415; 83735; 81025; 85379; 80076; 84484; 83690; 87804 ×2; 71275; 74177; 71045; 96375; 96374; 99284; 87811; Q9967; J3475; J2405; J7030

== ENCOUNTER 2023-08-03 18:46 | Emergency (ER) | payer OTHER ==
--- OUTSIDE RECORDS SUMMARY | 2023-08-03 18:54 | XMS REPORT | Continuity of Care Document ---
Author Name Unknown Address [address] [facility] [address] [place] [address] [facility] Address [address] [facility] [address] [place] [address] Care Team Providers Care Medical Surgical Tech Name Role Phone CE CAMACHO Primary Care Physician Unavailab Ce Espinoza Attending Clinician Unavailable Dennis Owens Attending Clinician UnavailOPHELIA Wilburn Attending Clinician Unavailable CHIDI FLORES Attending Clinician Unavailable SALTY GRAHAM Attending Clinician Unavailable ROZINA MORALES Attending Clinician Unavailable Doctor Unassigned, [place] Attending Clinician U BENJAMÍN Morrow Attending Clinician Unavailable EMEKA PATINO Attending Clinician Unavailable Carey FURNITURE ARRANGEREmeka Irizarry Attending Clinician [phone] LENY ALVARADO Attending Clinician Unavailable Ophelia Greenwood MD Attending Clinician [phone] LEANDRO SUAZO Attending Clinician Unavailable LEANDRO SUAZO Attending Clinician Unavailable Larry Rapp Attending Clinician [phone] Unknown, Attending Attending Clinician UnavailFlorencia Bowling MD Attending Clinician [phone] LARRY VINCENT Attending Clinician Unavailable Altagracia MEAD Attending Clinician Unavailable Altagracia Cuellar Attending Clinician [phone] GIOVANY ROPER Attending Clinician Unavail able Giovany Roper MD Attending Clinician [phone] Antonio Leblanc MD Attending Clinician [phone] ANTONIO LEBLANC Attending Clinician Unavailable ERI KENDALL Attending Clinician Unavaila ERI Geller Attending Clinician UnavailBenjamín Thomason MD Attending Clinician [phone] LISETTE DILLON Attending Clinician UnavailLisette Woodruff Attending Clinician [phone] [facility] Sleep Lab Attending Clinician UnavailParker Reyes MD Attending Clinician + [phone] PARKER FONSECA Attending Clinician UnavailPARKER Reyes Attending Clinician Unavaila ble 2, [facility] Attending Clinician Unavailable EbKaur Leos Attending Clinician [phone] KAUR BUENO Attending Clinician Unavailable RandalSheree Reyes Attending Clinician + [phone] Nurse, [facility] Attending Clinician Un available Only, [facility] Test Attending Clinician Unavailable Pob, [facility] Main Attending Clinician Unavailabl e OPHELIA GREENWOOD Admitting Clinician Unavailable Altagracia MEAD Admitting Clinician Unavailable ANTONIO LEBLANC Admitting Clinician Unavailable Ophelia Greenwood MD Admitting Clinician [phone] Payers Payer Name Policy Type Policy Number Effective Date Expirati on Date Source [employer]ICA[employer] [id number] 2018 00:00:00 [facility] [id number] 2018 00:00:00 [facility] [id number] 2018 00:00:00 [facility] Problems Condition Name Condition Details Condition Category Status Onset Date Resolution Date Last Treatment Date Treating Clinician Comments Source 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, without psychotic features Disease Active 10-18 00:00: 00 [facility] Anxiety disorder, unspecifie d type Anxiety disorder, unspecifie d type Disease Active 10-18 00:00: 00 [facility] History of anxiety History of anxiety Disease Active 09-15 00:00: 00 [facility] History of depression History of depression Disease Active 09-15 00:00: 00 [facility] Frequent UTI Frequent UTI Disease Active 10-31 00:00: 00 [facility] Hypertroph y of breast Hypertroph y of breast Disease Active 09-29 00:00: 00 [facility] Mitral valve disorder Prolapse of mitral valve Problem [facility] [id number] Adult BMI 32.0-32.9 kg/sq m Problem [facility] [id number] Obesity due to excess calories without serious comorbidit y, unspecifie d classifica tion Problem [facility] [id number] Interstiti al cystitis Problem [facility] [id number] Memory loss Problem [facility] [id number] Gastroesop hageal reflux disease without esophagiti s Problem [facility] [id number] Maxillary sinusitis, unspecifie d chronicity Problem [facility] [id number] Environmen pato allergies Problem [facility] [id number] History of gestationa l diabetes Problem [facility] Body mass index 30.00 to 34.99 Body mass index (BMI) of 33.0-33.9 in adult Problem [facility] [id number] Mitral valve prolapse Problem [facility] [id number] Mixed hyperlipid emia Problem [facility] [id number] Migraine without aura and without status migrainosu s, not intractabl e Problem [facility] [id number] Non-season al allergic rhinitis, unspecifie d trigger Problem [facility] [id number] Endometrio sis Problem [facility] Anxiety depression Anxiety with depression Problem [facility] [id number] PCOS (polycysti c ovarian syndrome) Problem [facility] [id number] Lumbago with sciatica, right side Problem [facility] [id number] Lumbago with sciatica, left side Problem [facility] [id number] Bipolar affective disorder, current episode mixed, current episode severity unspecifie d Problem [facility] Allergies, Adverse Reactions, Alerts Allergy Name Allergy Type Status Severity Reaction(s) Onset Date Inactive Date Treating Clinician Comments Source latex DA Active MO 2018-05 00:00: 00 [facility] latex DA Active MO 2018-05 00:00: 00 [facility] LATEX DRUG INGREDI Active Rash 09-07 00:00: 00 [facility] acetamin ophen DA Active MO 08-10 00:00: 00 [facility] latex DA Active MO 08-10 00:00: 00 [facility] LATEX DRUG INGREDI Active Swelling 10-31 00:00: 00 [facility] Acetamin ophen Propensi ty to adverse reaction s Active Rash 08-08 00:00: 00 Possible per Mom not for sure. [facility] ACETAMIN OPHEN DRUG INGREDI Active Med Rash 08-08 00:00: 00 [facility] Latex Latex Active Unknown [facility] Social History Social Habit Start Date Stop Date Quantity Comments Source History SDOH Alcohol Frequency [facility] History SD[facility]OH Alcohol Binge [facility] of Tobacco Use [facility] Sex Assigned At [facility] Alcohol intake 2023-08-02 00:00:00 2023-08-02 00:00:00 Ex-drinker (finding) [facility] History of Social function 2023-06-11 00:00:00 2023-06-11 00:00:00 [facility] Exposure to SARS-CoV-2 (event) 2022-06-29 00:00:00 2022-07-09 14:54:00 Not sure [facility] Tobacco use and exposure 2021-12-26 00:00:00 2021-12-26 00:00:00 Smokeless tobacco non-user [facility] Alcohol Comment 2018-09-15 00:00:00 2018-09-15 00:00:00 occasional [facility] Smoking Status Start Date Stop Date Source Never smoked tobacco [facility] Medications Ordered Medication Name Filled Medication Name Start Date Stop Date Current Medication? Ordering Clinician Indication Dosage Frequency Signature (SIG) Comments Components Source azithromyci n 250 mg tablet 06-11 13:32: 50 06-11 00:00 :00 No 2 tablets on the first day, then 1 tablet daily for 4 days [facility] azithromyci n 250 mg tablet 06-11 13:32: 50 06-11 00:00 :00 No 2 tablets on the first day, then 1 tablet daily for 4 days [facility] ARIPiprazol e 5 mg tablet 06-11 13:32: 47 06-11 00:00 :00 No 1 tablet [facility] ARIPiprazol e 5 mg tablet 06-11 13:32: 47 06-11 00:00 :00 No 1 tablet [facility] dicyclomine (BENTYL) injection 20 mg 10-08 17:45: 00 10-08 17:08 :00 No 20mg 20 mg, Intramuscu lar, ONCE, 1 dose, [facility] Sat10/08/22 at 1245[facility]diph enhydrAMINE :lidocaine 2 % viscous 1:1:1 [facility] oral suspension 15 mL 10-08 16:45: 00 10-08 17:09 :00 No 15mL 15 mL, Oral, ONCE, 1 dose, On Sat10/08/22 at 1145, Routine [facility] famotidine (PEPCID (PF)) injection 20 mg 10-08 16:45: 00 10-08 17:08 :00 No 20mg 20 mg, Slow IV Push, ONCE, 1 dose, On Sat10/08/22 at 1145, [facility] ondansetron (ZOFRAN (PF)) injection 4 mg 10-08 16:45: 00 10-08 17:08 :00 No 4mg 4 mg, Slow IV Push, ONCE, 1 dose, On Sat10/08/22 at 1145, [facility] dicyclomine 20 mg tablet 10-08 00:00: 00 Yes [id number] 20mg Take 1 tablet by mouth 4 (four) times daily as needed for Abdominal pain. [facility] ondansetron 4 mg disintegrat ing tablet 10-08 00:00: 00 Yes [id number] 4mg Take 1 tablet by mouth every 8 (eight) hours as needed for Nausea and Vomiting (N/V). [facility] famotidine 20 mg tablet 10-08 00:00: 00 Yes [id number] 20mg Take 1 tablet by mouth as needed for Heartburn or Indigestio n. [facility] dicyclomine 20 mg tablet 0 10-08 00:00: 00 Yes [id number] 20mg Take 1 tablet by mouth 4 (four) times daily as needed for Abdominal pain. [facility] ondansetron 4 mg disintegrat ing tablet 10-08 00:00: 00 Yes [id number] 4mg Take 1 tablet by mouth every 8 (eight) hours as needed for Nausea and Vomiting (N/V). [facility] famotidine 20 mg tablet 0 10-08 00:00: 00 Yes [id number] 20mg Take 1 tablet by mouth as needed for Heartburn or Indigestio n. [facility] dicyclomine 20 mg tablet 10-08 00:00: 00 Yes [id number] 20mg Take 1 tablet by mouth 4 (four) times daily as needed for Abdominal pain. [facility] ondansetron 4 mg disintegrat ing tablet 10-08 00:00: 00 Yes [id number] 4mg Take 1 tablet by mouth every 8 (eight) hours as needed for Nausea and Vomiting (N/V). [facility] famotidine 20 mg tablet 10-08 00:00: 00 Yes [id number] 20mg Take 1 tablet by mouth as needed for Heartburn or Indigestio n. [facility] dicyclomine 20 mg tablet 10-08 00:00: 00 06-11 00:00 :00 No [id number] 20mg Take 1 tablet by mouth 4 (four) times daily as needed for Abdominal pain. [facility] ondansetron 4 mg disintegrat ing tablet 10-08 00:00: 00 06-11 00:00 :00 No [id number] 4mg Take 1 tablet by mouth every 8 (eight) hours as needed for Nausea and Vomiting (N/V). [facility] famotidine 20 mg tablet 10-08 00:00: 00 06-11 00:00 :00 No [id number] 20mg Take 1 tablet by mouth as needed for Heartburn or Indigestio n. [facility] dicyclomine 20 mg tablet 10-08 00:00: 00 06-11 00:00 :00 No [id number] 20mg Take 1 tablet by mouth 4 (four) times daily as needed for Abdominal pain. [facility] ondansetron 4 mg disintegrat ing tablet 10-08 00:00: 00 06-11 00:00 :00 No [id number] 4mg Take 1 tablet by mouth every 8 (eight) hours as needed for Nausea and Vomiting (N/V). [facility] famotidine 20 mg tablet 10-08 00:00: 00 06-11 00:00 :00 No [id number] 20mg Take 1 tablet by mouth as needed for Heartburn or Indigestio n. [facility] Kenalog (Triamcinol one) Kenalog (Triamcinol one) 08-15 00:00: 00 No 40mg [facility] Kenalog (Triamcinol one) Kenalog (Triamcinol one) 0 08-15 00:00: 00 No 40mg [facility] Kenalog (Triamcinol one) Kenalog (Triamcinol one) 0 08-15 00:00: 00 No 40mg [facility] Kenalog (Triamcinol one) Kenalog (Triamcinol one) 08-15 00:00: 00 No 40mg [facility] Kenalog (Triamcinol one) Kenalog (Triamcinol one) 0 - 00:00: 00 No 40mg [facility] Kenalog (Triamcinol one) Kenalog (Triamcinol one) 0 -12 00:00: 00 No 40mg [facility] Kenalog (Triamcinol one) Kenalog (Triamcinol one) 0 -12 00:00: 00 No 40mg [facility] Kenalog (Triamcinol one) Kenalog (Triamcinol one) 2022-0 4-12 00:00: 00 No 40mg [facility] Kenalog (Triamcinol one) Kenalog (Triamcinol one) 2022-0 4-12 00:00: 00 No 40mg [facility] Kenalog (Triamcinol one) Kenalog (Triamcinol one) 2022-0 4-12 00:00: 00 No 40mg [facility]- [facility] (URIBEL) 118-10-40.8 -36 mg capsule 0 3-06 00:00: 00 Yes [id number] 1{capsu le} Take 1 capsule by mouth 2 (two) times daily as needed for Other (bladder spasms). [facility]-PhSal- Hyo (URIBEL) 118-10-40.8 -36 mg capsule 2022-0 3-06 00:00: 00 Yes [id number] 1{capsu le} Take 1 capsule by mouth 2 (two) times daily as needed for Other (bladder spasms). [facility]-PhSal- Hyo (URIBEL) 118-10-40.8 -36 mg capsule 2022-0 3-06 00:00: 00 Yes [id number] 1{capsu le} Take 1 capsule by mouth 2 (two) times daily as needed for Other (bladder spasms). [facility] Blue-Sod Phos-PhSal- Hyo (URIBEL) 118-10-40.8 -36 mg capsule 2022-0 3-06 00:00: 00 Yes [id number] 1{capsu le} Take 1 capsule by mouth 2 (two) times daily as needed for Other (bladder spasms). [facility] Blue-Sod Phos-PhSal- Hyo (URIBEL) 118-10-40.8 -36 mg capsule 2022-0 3-06 00:00: 00 Yes [id number] 1{capsu le} Take 1 capsule by mouth 2 (two) times daily as needed for Other (bladder spasms). [facility]os-PhSal- Hyo (URIBEL) 118-10-40.8 -36 mg capsule 2022-0 3-06 00:00: 00 06-11 00:00 :00 No [id number] 1{capsu le} Take 1 capsule by mouth 2 (two) times daily as needed for Other (bladder spasms). [facility] Phos-PhSal- Hyo (URIBEL) 118-10-40.8 -36 mg capsule 3- 00:00: 00 06-11 00:00 :00 No [id number] 1{capsu le} Take 1 capsule by mouth 2 (two) times daily as needed for Other (bladder spasms). [facility] azithromyci n (ZITHROMAX Z-LEANDRO) 250 mg tablet 2021-05 00:00: 00 Yes [id number] Z pack as directed. [facility] azithromyci n (ZITHROMAX Z-LEANDRO) 250 mg tablet 2021-05 00:00: 00 Yes [id number] Z pack as directed. [facility] azithromyci n (ZITHROMAX Z-LEANDRO) 250 mg tablet 2021-05 00:00: 00 Yes [id number] Z pack as directed. [facility] azithromyci n (ZITHROMAX Z-LEANDRO) 250 mg tablet 2021-05 00:00: 00 Yes [id number] Z pack as directed. [facility] azithromyci n (ZITHROMAX Z-LEANDRO) 250 mg tablet 2021-05 00:00: 00 Yes [id number] Z pack as directed. [facility] azithromyci n (ZITHROMAX Z-LEANDRO) 250 mg tablet 2021-05 00:00: 00 Yes [id number] Z pack as directed. [facility] azithromyci n (ZITHROMAX Z-LEANDRO) 250 mg tablet 2021-05 00:00: 00 Yes [id number] Z pack as directed. [facility] azithromyci n (ZITHROMAX Z-LEANDRO) 250 mg tablet 2021-05 00:00: 00 Yes [id number] Z pack as directed. [facility] azithromyci n (ZITHROMAX Z-LEANDRO) 250 mg tablet 2021-05 00:00: 00 Yes [id number] Z pack as directed. [facility] azithromyci n (ZITHROMAX Z-LEANDRO) 250 mg tablet 2021-05 00:00: 00 Yes [id number] Z pack as directed. [facility] azithromyci n (ZITHROMAX Z-LEANDRO) 250 mg tablet 2021-05 00:00: 00 10-08 00:00 :00 No [id number] Z pack as directed. [facility] benzonatate 200 mg capsule 2021-05 00:00: 00 05-13 05:59 :00 No [id number] 200mg Take 1 capsule by mouth 3 (three) times daily as needed for Cough for up to 10 days. [facility] predniSONE 20 mg tablet 2021-05 00:00: 00 05-08 05:59 :00 No [id number] 20mg Take 1 tablet by mouth in the morning for 5 days. [facility] codeine-gua ifenesin 10-100 mg/5 mL oral solution 2021-05 00:00: 00 05-08 05:59 :00 No 10mL Take 10 mL by mouth every 6 (six) hours as needed for Cough for up to 5 days. Indication s: cough [facility] HYDROcodone -acetaminop hen (NORCO 5) 5-325 mg tablet 1 tablet 2021-05 04:15: 00 04-22 03:14 :00 No 1{tbl} 1 tablet, Oral, ONCE, 1 dose, On 04/21/22 at 2215, [facility] ondansetron (ZOFRAN-ODT ) disintegrat ing tablet 4 mg 2021-05 04:15: 00 04-22 03:14 :00 No 4mg 4 mg, Oral, ONCE, 1 dose, On 04/21/22 at 2215, Routine [facility] ibuprofen 600 mg tablet 2021-05 00:00: 00 Yes [id number] 600mg Take 1 tablet by mouth every 6 (six) hours as needed for Pain (scale 4-6). [facility] ibuprofen 600 mg tablet 2021-05 00:00: 00 Yes [id number] 600mg Take 1 tablet by mouth every 6 (six) hours as needed for Pain (scale 4-6). [facility] ibuprofen 600 mg tablet 2021-05 00:00: 00 Yes [id number] 600mg Take 1 tablet by mouth every 6 (six) hours as needed for Pain (scale 4-6). [facility] ibuprofen 600 mg tablet 2021-05 00:00: 00 Yes [id number] 600mg Take 1 tablet by mouth every 6 (six) hours as needed for Pain (scale 4-6). [facility] ibuprofen 600 mg tablet 2021-05 00:00: 00 Yes [id number] 600mg Take 1 tablet by mouth every 6 (six) hours as needed for Pain (scale 4-6). [facility] ibuprofen 600 mg tablet 2021-05 00:00: 00 Yes [id number] 600mg Take 1 tablet by mouth every 6 (six) hours as needed for Pain (scale 4-6). [facility] ibuprofen 600 mg tablet 2021-05 00:00: 00 Yes [id number] 600mg Take 1 tablet by mouth every 6 (six) hours as needed for Pain (scale 4-6). [facility] ibuprofen 600 mg tablet 2021-05 00:00: 00 Yes [id number] 600mg Take 1 tablet by mouth every 6 (six) hours as needed for Pain (scale 4-6). [facility] ibuprofen 600 mg tablet 2021-05 00:00: 00 Yes [id number] 600mg Take 1 tablet by mouth every 6 (six) hours as needed for Pain (scale 4-6). [facility] ibuprofen 600 mg tablet 2021-05 00:00: 00 Yes [id number] 600mg Take 1 tablet by mouth every 6 (six) hours as needed for Pain (scale 4-6). [facility] ibuprofen 600 mg tablet 2021-05 00:00: 00 Yes [id number] 600mg Take 1 tablet by mouth every 6 (six) hours as needed for Pain (scale 4-6). [facility] ibuprofen 600 mg tablet 2021-05 00:00: 00 Yes [id number] 600mg Take 1 tablet by mouth every 6 (six) hours as needed for Pain (scale 4-6). [facility] ibuprofen 600 mg tablet 2021-05 00:00: 00 Yes [id number] 600mg Take 1 tablet by mouth every 6 (six) hours as needed for Pain (scale 4-6). [facility] ibuprofen 600 mg tablet 2021-05 00:00: 00 Yes [id number] 600mg Take 1 tablet by mouth every 6 (six) hours as needed for Pain (scale 4-6). [facility] ibuprofen 600 mg tablet 2021-05 00:00: 00 06-11 00:00 :00 No [id number] 600mg Take 1 tablet by mouth every 6 (six) hours as needed for Pain (scale 4-6). [facility] ibuprofen 600 mg tablet 2021-05 00:00: 00 06-11 00:00 :00 No [id number] 600mg Take 1 tablet by mouth every 6 (six) hours as needed for Pain (scale 4-6). [facility] ibuprofen (IBU) tablet 600 mg 2021-05 13:30: 00 03-22 13:35 :00 No 600mg 600 mg, Oral, ONCE, 1 dose, On Yissel 03/22/22 at 0730, [facility] ARIPiprazol e 5 mg tablet 2021-05 08:27: 22 Yes 1 tablet [facility] azithromyci n 250 mg tablet 2021-05 08:27: 22 Yes 2 tablets on the first day, then 1 tablet daily for 4 days [facility] ARIPiprazol e 5 mg tablet 2021-05 08:27: 22 Yes 1 tablet [facility] azithromyci n 250 mg tablet 2021-05 08:27: 22 Yes 2 tablets on the first day, then 1 tablet daily for 4 days [facility] ARIPiprazol e 5 mg tablet 2021-05 08:27: 22 Yes 1 tablet [facility] azithromyci n 250 mg tablet 2021-05 08:27: 22 Yes 2 tablets on the first day, then 1 tablet daily for 4 days [facility] ARIPiprazol e 5 mg tablet 2021-05 08:27: 22 Yes 1 tablet [facility] azithromyci n 250 mg tablet 2021-05 08:27: 22 Yes 2 tablets on the first day, then 1 tablet daily for 4 days [facility] ARIPiprazol e 5 mg tablet 2021-05 08:27: 22 Yes 1 tablet [facility] azithromyci n 250 mg tablet 2021-05 08:27: 22 Yes 2 tablets on the first day, then 1 tablet daily for 4 days [facility] ARIPiprazol e 5 mg tablet 2021-05 08:27: 22 Yes 1 tablet [facility] azithromyci n 250 mg tablet 2021-05 08:27: 22 Yes 2 tablets on the first day, then 1 tablet daily for 4 days [facility] ARIPiprazol e 5 mg tablet 2021-05 08:27: 22 Yes 1 tablet [facility] azithromyci n 250 mg tablet 2021-05 08:27: 22 Yes 2 tablets on the first day, then 1 tablet daily for 4 days [facility] ARIPiprazol e 5 mg tablet 2021-05 08:27: 22 Yes 1 tablet [facility] azithromyci n 250 mg tablet 2021-05 08:27: 22 Yes 2 tablets on the first day, then 1 tablet daily for 4 days [facility] ARIPiprazol e 5 mg tablet 2021-05 08:27: 22 Yes 1 tablet [facility] azithromyci n 250 mg tablet 2021-05 08:27: 22 Yes 2 tablets on the first day, then 1 tablet daily for 4 days [facility] ARIPiprazol e 5 mg tablet 2021-05 08:27: 22 Yes 1 tablet [facility] azithromyci n 250 mg tablet 2021-05 08:27: 22 Yes 2 tablets on the first day, then 1 tablet daily for 4 days [facility] ARIPiprazol e 5 mg tablet 2021-05 08:27: 22 Yes 1 tablet [facility] azithromyci n 250 mg tablet 2021-05 08:27: 22 Yes 2 tablets on the first day, then 1 tablet daily for 4 days [facility] ARIPiprazol e 5 mg tablet 2021-05 08:27: 22 Yes 1 tablet [facility] azithromyci n 250 mg tablet 2021-05 08:27: 22 Yes 2 tablets on the first day, then 1 tablet daily for 4 days [facility] ARIPiprazol e 5 mg tablet 2021-05 08:27: 22 Yes 1 tablet [facility] azithromyci n 250 mg tablet 2021-05 08:27: 22 Yes 2 tablets on the first day, then 1 tablet daily for 4 days [facility] ARIPiprazol e 5 mg tablet 2021-05 08:27: 22 Yes 1 tablet [facility] azithromyci n 250 mg tablet 2021-05 08:27: 22 Yes 2 tablets on the first day, then 1 tablet daily for 4 days [facility] ARIPiprazol e 5 mg tablet 2021-05 08:27: 22 Yes 1 tablet [facility] azithromyci n 250 mg tablet 2021-05 08:27: 22 Yes 2 tablets on the first day, then 1 tablet daily for 4 days [facility] ARIPiprazol e 5 mg tablet 2021-05 08:27: 22 Yes 1 tablet [facility] azithromyci n 250 mg tablet 2021-05 08:27: 22 Yes 2 tablets on the first day, then 1 tablet daily for 4 days [facility] ARIPiprazol e 5 mg tablet 2021-05 08:27: 22 Yes 1 tablet [facility] azithromyci n 250 mg tablet 2021-05 08:27: 22 Yes 2 tablets on the first day, then 1 tablet daily for 4 days [facility] ARIPiprazol e 5 mg tablet 2021-05 08:27: 22 Yes 1 tablet [facility] azithromyci n 250 mg tablet 2021-05 08:27: 22 Yes 2 tablets on the first day, then 1 tablet daily for 4 days [facility] metoclopram katelyn HCl 10 mg tablet 2021-05 00:00: 00 Yes [id number] 10mg Take 1 tablet by mouth every 6 (six) hours as needed for Nausea and Vomiting (N/V) (headache) for up to 15 doses. [facility] ibuprofen (MOTRIN IB) 200 mg tablet 2021-05 00:00: 00 Yes [id number] 400mg Take 2 tablets by mouth every 6 (six) hours as needed for Pain (scale 1-3) for up to 30 doses. [facility] benzonatate 100 mg capsule 2021-05 00:00: 00 Yes [id number] 100mg Take 1 capsule by mouth 3 (three) times daily as needed for Cough. [facility] metoclopram katelyn HCl 10 mg tablet 2021-05 00:00: 00 Yes [id number] 10mg Take 1 tablet by mouth every 6 (six) hours as needed for Nausea and Vomiting (N/V) (headache) for up to 15 doses. [facility] ibuprofen (MOTRIN IB) 200 mg tablet 2021-05 00:00: 00 Yes [id number] 400mg Take 2 tablets by mouth every 6 (six) hours as needed for Pain (scale 1-3) for up to 30 doses. [facility] benzonatate 100 mg capsule 2021-05 00:00: 00 Yes [id number] 100mg Take 1 capsule by mouth 3 (three) times daily as needed for Cough. [facility] metoclopram katelyn HCl 10 mg tablet 2021-05 00:00: 00 Yes [id number] 10mg Take 1 tablet by mouth every 6 (six) hours as needed for Nausea and Vomiting (N/V) (headache) for up to 15 doses. [facility] ibuprofen (MOTRIN IB) 200 mg tablet 2021-05 00:00: 00 Yes [id number] 400mg Take 2 tablets by mouth every 6 (six) hours as needed for Pain (scale 1-3) for up to 30 doses. [facility] benzonatate 100 mg capsule 2021-05 00:00: 00 Yes [id number] 100mg Take 1 capsule by mouth 3 (three) times daily as needed for Cough. [facility] metoclopram katelyn HCl 10 mg tablet 2021-05 00:00: 00 Yes [id number] 10mg Take 1 tablet by mouth every 6 (six) hours as needed for Nausea and Vomiting (N/V) (headache) for up to 15 doses. [facility] ibuprofen (MOTRIN IB) 200 mg tablet 2021-05 00:00: 00 Yes [id number] 400mg Take 2 tablets by mouth every 6 (six) hours as needed for Pain (scale 1-3) for up to 30 doses. [facility] benzonatate 100 mg capsule 2021-05 00:00: 00 Yes [id number] 100mg Take 1 capsule by mouth 3 (three) times daily as needed for Cough. [facility] metoclopram katelyn HCl 10 mg tablet 2021-05 00:00: 00 Yes [id number] 10mg Take 1 tablet by mouth every 6 (six) hours as needed for Nausea and Vomiting (N/V) (headache) for up to 15 doses. [facility] ibuprofen (MOTRIN IB) 200 mg tablet 2021-05 00:00: 00 Yes [id number] 400mg Take 2 tablets by mouth every 6 (six) hours as needed for Pain (scale 1-3) for up to 30 doses. [facility] benzonatate 100 mg capsule 2021-05 00:00: 00 Yes [id number] 100mg Take 1 capsule by mouth 3 (three) times daily as needed for Cough. [facility] metoclopram katelyn HCl 10 mg tablet 2021-05 00:00: 00 Yes [id number] 10mg Take 1 tablet by mouth every 6 (six) hours as needed for Nausea and Vomiting (N/V) (headache) for up to 15 doses. [facility] ibuprofen (MOTRIN IB) 200 mg tablet 2021-05 00:00: 00 Yes [id number] 400mg Take 2 tablets by mouth every 6 (six) hours as needed for Pain (scale 1-3) for up to 30 doses. [facility] benzonatate 100 mg capsule 2021-05 00:00: 00 Yes [id number] 100mg Take 1 capsule by mouth 3 (three) times daily as needed for Cough. [facility] metoclopram katelyn HCl 10 mg tablet 2021-05 00:00: 00 Yes [id number] 10mg Take 1 tablet by mouth every 6 (six) hours as needed for Nausea and Vomiting (N/V) (headache) for up to 15 doses. [facility] ibuprofen (MOTRIN IB) 200 mg tablet 2021-05 00:00: 00 Yes [id number] 400mg Take 2 tablets by mouth every 6 (six) hours as needed for Pain (scale 1-3) for up to 30 doses. [facility] benzonatate 100 mg capsule 2021-05 00:00: 00 Yes [id number] 100mg Take 1 capsule by mouth 3 (three) times daily as needed for Cough. [facility] metoclopram katelyn HCl 10 mg tablet 2021-05 00:00: 00 Yes [id number] 10mg Take 1 tablet by mouth every 6 (six) hours as needed for Nausea and Vomiting (N/V) (headache) for up to 15 doses. [facility] ibuprofen (MOTRIN IB) 200 mg tablet 2021-05 00:00: 00 Yes [id number] 400mg Take 2 tablets by mouth every 6 (six) hours as needed for Pain (scale 1-3) for up to 30 doses. [facility] benzonatate 100 mg capsule 2021-05 00:00: 00 Yes [id number] 100mg Take 1 capsule by mouth 3 (three) times daily as needed for Cough. [facility] metoclopram katelyn HCl 10 mg tablet 2021-05 00:00: 00 Yes [id number] 10mg Take 1 tablet by mouth every 6 (six) hours as needed for Nausea and Vomiting (N/V) (headache) for up to 15 doses. [facility] ibuprofen (MOTRIN IB) 200 mg tablet 2021-05 00:00: 00 Yes [id number] 400mg Take 2 tablets by mouth every 6 (six) hours as needed for Pain (scale 1-3) for up to 30 doses. [facility] benzonatate 100 mg capsule 2021-05 00:00: 00 Yes [id number] 100mg Take 1 capsule by mouth 3 (three) times daily as needed for Cough. [facility] metoclopram katelyn HCl 10 mg tablet 2021-05 00:00: 00 Yes [id number] 10mg Take 1 tablet by mouth every 6 (six) hours as needed for Nausea and Vomiting (N/V) (headache) for up to 15 doses. [facility] ibuprofen (MOTRIN IB) 200 mg tablet 2021-05 00:00: 00 Yes [id number] 400mg Take 2 tablets by mouth every 6 (six) hours as needed for Pain (scale 1-3) for up to 30 doses. [facility] benzonatate 100 mg capsule 2021-05 00:00: 00 Yes [id number] 100mg Take 1 capsule by mouth 3 (three) times daily as needed for Cough. [facility] metoclopram katelyn HCl 10 mg tablet 2021-05 00:00: 00 Yes [id number] 10mg Take 1 tablet by mouth every 6 (six) hours as needed for Nausea and Vomiting (N/V) (headache) for up to 15 doses. [facility] ibuprofen (MOTRIN IB) 200 mg tablet 2021-05 00:00: 00 Yes [id number] 400mg Take 2 tablets by mouth every 6 (six) hours as needed for Pain (scale 1-3) for up to 30 doses. [facility] benzonatate 100 mg capsule 2021-05 00:00: 00 Yes [id number] 100mg Take 1 capsule by mouth 3 (three) times daily as needed for Cough. [facility] metoclopram katelyn HCl 10 mg tablet 2021-05 00:00: 00 Yes [id number] 10mg Take 1 tablet by mouth every 6 (six) hours as needed for Nausea and Vomiting (N/V) (headache) for up to 15 doses. [facility] ibuprofen (MOTRIN IB) 200 mg tablet 2021-05 00:00: 00 Yes [id number] 400mg Take 2 tablets by mouth every 6 (six) hours as needed for Pain (scale 1-3) for up to 30 doses. [facility] benzonatate 100 mg capsule 2021-05 00:00: 00 Yes [id number] 100mg Take 1 capsule by mouth 3 (three) times daily as needed for Cough. [facility] metoclopram katelyn HCl 10 mg tablet 2021-05 00:00: 00 Yes [id number] 10mg Take 1 tablet by mouth every 6 (six) hours as needed for Nausea and Vomiting (N/V) (headache) for up to 15 doses. [facility] ibuprofen (MOTRIN IB) 200 mg tablet 2021-05 00:00: 00 Yes [id number] 400mg Take 2 tablets by mouth every 6 (six) hours as needed for Pain (scale 1-3) for up to 30 doses. [facility] benzonatate 100 mg capsule 2021-05 00:00: 00 Yes [id number] 100mg Take 1 capsule by mouth 3 (three) times daily as needed for Cough. [facility] metoclopram katelyn HCl 10 mg tablet 2021-05 00:00: 00 Yes [id number] 10mg Take 1 tablet by mouth every 6 (six) hours as needed for Nausea and Vomiting (N/V) (headache) for up to 15 doses. [facility] ibuprofen (MOTRIN IB) 200 mg tablet 2021-05 00:00: 00 Yes [id number] 400mg Take 2 tablets by mouth every 6 (six) hours as needed for Pain (scale 1-3) for up to 30 doses. [facility] benzonatate 100 mg capsule 2021-05 00:00: 00 Yes [id number] 100mg Take 1 capsule by mouth 3 (three) times daily as needed for Cough. [facility] metoclopram katelyn HCl 10 mg tablet 2021-05 00:00: 00 Yes [id number] 10mg Take 1 tablet by mouth every 6 (six) hours as needed for Nausea and Vomiting (N/V) (headache) for up to 15 doses. [facility] ibuprofen (MOTRIN IB) 200 mg tablet 2021-05 00:00: 00 Yes [id number] 400mg Take 2 tablets by mouth every 6 (six) hours as needed for Pain (scale 1-3) for up to 30 doses. [facility] benzonatate 100 mg capsule 2021-05 00:00: 00 Yes [id number] 100mg Take 1 capsule by mouth 3 (three) times daily as needed for Cough. [facility] Tamiflu 75 MG Tamiflu 75 MG 2021-05 00:00: 00 No 1{capsu le} BID Tamiflu 75 MG Tamiflu 75 MG Tamiflu 75 MG 2021-05 00:00: 00 No 1{capsu le} BID Tamiflu 75 MG metoclopram katelyn HCl 10 mg tablet 2021-05 00:00: 00 06-11 00:00 :00 No [id number] 10mg Take 1 tablet by mouth every 6 (six) hours as needed for Nausea and Vomiting (N/V) (headache) for up to 15 doses. [facility] ibuprofen (MOTRIN IB) 200 mg tablet 2021-05 00:00: 00 06-11 00:00 :00 No [id number] 400mg Take 2 tablets by mouth every 6 (six) hours as needed for Pain (scale 1-3) for up to 30 doses. [facility] benzonatate 100 mg capsule 2021-05 00:00: 00 06-11 00:00 :00 No [id number] 100mg Take 1 capsule by mouth 3 (three) times daily as needed for Cough. [facility] metoclopram katelyn HCl 10 mg tablet 2021-05 00:00: 00 06-11 00:00 :00 No [id number] 10mg Take 1 tablet by mouth every 6 (six) hours as needed for Nausea and Vomiting (N/V) (headache) for up to 15 doses. [facility] ibuprofen (MOTRIN IB) 200 mg tablet 2021-05 00:00: 00 06-11 00:00 :00 No [id number] 400mg Take 2 tablets by mouth every 6 (six) hours as needed for Pain (scale 1-3) for up to 30 doses. [facility] benzonatate 100 mg capsule 2021-05 00:00: 00 06-11 00:00 :00 No [id number] 100mg Take 1 capsule by mouth 3 (three) times daily as needed for Cough. [facility] ibuprofen 200 mg tablet 0 12-29 17:15: 41 12-29 00:00 :00 No 200mg Take 200 mg by mouth every 6 (six) hours as needed. [facility] ibuprofen 200 mg tablet 2021-0 - 17:15: 41 12-29 00:00 :00 No 200mg Take 200 mg by mouth every 6 (six) hours as needed. [facility] amitriptyli ne 25 mg tablet 2021-0 825 00:00: 00 Yes [id number] 25mg Take 1 tablet by mouth at bedtime. [facility] amitriptyli ne 25 mg tablet 2021-0 8-25 00:00: 00 Yes [id number] 25mg Take 1 tablet by mouth at bedtime. [facility] amitriptyli ne 25 mg tablet 2021-0 8-25 00:00: 00 Yes [id number] 25mg Take 1 tablet by mouth at bedtime. [facility] amitriptyli ne 25 mg tablet 2021-0 8-25 00:00: 00 Yes [id number] 25mg Take 1 tablet by mouth at bedtime. [facility] amitriptyli ne 25 mg tablet 2021-0 8-25 00:00: 00 Yes [id number] 25mg Take 1 tablet by mouth at bedtime. [facility] amitriptyli ne 25 mg tablet 2021-0 825 00:00: 00 Yes [id number] 25mg Take 1 tablet by mouth at bedtime. [facility] amitriptyli ne 25 mg tablet 2021-0 825 00:00: 00 Yes [id number] 25mg Take 1 tablet by mouth at bedtime. [facility] amitriptyli ne 25 mg tablet 2021-0 825 00:00: 00 Yes [id number] 25mg Take 1 tablet by mouth at bedtime. [facility] amitriptyli ne 25 mg tablet 2021-0 825 00:00: 00 Yes [id number] 25mg Take 1 tablet by mouth at bedtime. [facility] amitriptyli ne 25 mg tablet 2021-0 8-25 00:00: 00 Yes [id number] 25mg Take 1 tablet by mouth at bedtime. [facility] amitriptyli ne 25 mg tablet 2-0 8-25 00:00: 00 Yes [id number] 25mg Take 1 tablet by mouth at bedtime. [facility] amitriptyli ne 25 mg tablet 2-0 8-25 00:00: 00 Yes [id number] 25mg Take 1 tablet by mouth at bedtime. [facility] amitriptyli ne 25 mg tablet 2021-0 8-25 00:00: 00 Yes [id number] 25mg Take 1 tablet by mouth at bedtime. [facility] amitriptyli ne 25 mg tablet 2021-0 8-25 00:00: 00 Yes [id number] 25mg Take 1 tablet by mouth at bedtime. [facility] amitriptyli ne 25 mg tablet 0 8-25 00:00: 00 Yes [id number] 25mg Take 1 tablet by mouth at bedtime. [facility] amitriptyli ne 25 mg tablet 2021-0 8-25 00:00: 00 Yes [id number] 25mg Take 1 tablet by mouth at bedtime. [facility] amitriptyli ne 25 mg tablet 0 8-25 00:00: 00 Yes [id number] 25mg Take 1 tablet by mouth at bedtime. [facility] amitriptyli ne 25 mg tablet 0 8-25 00:00: 00 Yes [id number] 25mg Take 1 tablet by mouth at bedtime. [facility] amitriptyli ne 25 mg tablet 0 8-25 00:00: 00 06-11 00:00 :00 No [id number] 25mg Take 1 tablet by mouth at bedtime. [facility] amitriptyli ne 25 mg tablet 0 8-25 00:00: 00 06-11 00:00 :00 No [id number] 25mg Take 1 tablet by mouth at bedtime. [facility] SERTraline 50 mg tablet 2021-0 4-12 00:00: 00 Yes 1 tablet [facility] SERTraline 50 mg tablet 2021-0 4-12 00:00: 00 Yes 1 tablet [facility] SERTraline 50 mg tablet 2021-0 4-12 00:00: 00 Yes 1 tablet [facility] SERTraline 50 mg tablet 2021-0 4-12 00:00: 00 Yes 1 tablet [facility] SERTraline 50 mg tablet 2022-0 4-12 00:00: 00 Yes 1 tablet [facility] SERTraline 50 mg tablet 2021-0 4-12 00:00: 00 Yes 1 tablet [facility] SERTraline 50 mg tablet 2021-0 4-12 00:00: 00 Yes 1 tablet [facility] SERTraline 50 mg tablet 2021-0 4-12 00:00: 00 Yes 1 tablet [facility] SERTraline 50 mg tablet 2021-0 4-12 00:00: 00 Yes 1 tablet [facility] SERTraline 50 mg tablet 2021-0 4-12 00:00: 00 Yes 1 tablet [facility] SERTraline 50 mg tablet 2021-0 4-12 00:00: 00 Yes 1 tablet [facility] SERTraline 50 mg tablet 2021-0 4-12 00:00: 00 Yes 1 tablet [facility] SERTraline 50 mg tablet 2021-0 4-12 00:00: 00 Yes 1 tablet [facility] SERTraline 50 mg tablet 2021-0 4-12 00:00: 00 Yes 1 tablet [facility] SERTraline 50 mg tablet 2021-0 4-12 00:00: 00 Yes 1 tablet [facility] SERTraline 50 mg tablet 2021-0 4-12 00:00: 00 Yes 1 tablet [facility] SERTraline 50 mg tablet 2021-0 4-12 00:00: 00 Yes 1 tablet [facility] SERTraline 50 mg tablet 2021-0 4-12 00:00: 00 Yes 1 tablet [facility] Zoloft 50 MG Zoloft 50 MG 2-0 4-12 00:00: 00 No 1{table t} QD Zoloft 50 MG Zoloft 50 MG Zoloft 50 MG 2-0 4-12 00:00: 00 No 1{table t} QD Zoloft 50 MG Zoloft 50 MG Zoloft 50 MG 2-0 4-12 00:00: 00 No 1{table t} QD Zoloft 50 MG Zoloft 50 MG Zoloft 50 MG 2-0 4-12 00:00: 00 No 1{table t} QD Zoloft 50 MG Zoloft 50 MG Zoloft 50 MG 2-0 4-12 00:00: 00 No 1{table t} QD Zoloft 50 MG Zoloft 50 MG Zoloft 50 MG 2-0 4-12 00:00: 00 No 1{table t} QD Zoloft 50 MG Zoloft 50 MG Zoloft 50 MG 2-0 4-12 00:00: 00 No 1{table t} QD Zoloft 50 MG Zoloft 50 MG Zoloft 50 MG 2-0 4-12 00:00: 00 No 1{table t} QD Zoloft 50 MG Zoloft 50 MG Zoloft 50 MG 2-0 4-12 00:00: 00 No 1{table t} QD Zoloft 50 MG Zoloft 50 MG Zoloft 50 MG 2-0 4-12 00:00: 00 No 1{table t} QD Zoloft 50 MG Zoloft 50 MG Zoloft 50 MG 2021-0 4-12 00:00: 00 No 1{table t} QD Zoloft 50 MG Zoloft 50 MG Zoloft 50 MG 2021-0 -12 00:00: 00 No 1{table t} QD Zoloft 50 MG Zoloft 50 MG Zoloft 50 MG 2021-0 -12 00:00: 00 No 1{table t} QD Zoloft 50 MG SERTraline 50 mg tablet 2021-0 -12 00:00: 00 06-11 00:00 :00 No 1 tablet [facility] SERTraline 50 mg tablet 0 -12 00:00: 00 06-11 00:00 :00 No 1 tablet [facility] codeine-gua ifenesin 10-100 mg/5 mL oral solution 2020-05 1- 00:00: 00 03-23 05:59 :00 No 10mL Take 10 mL by mouth every 6 (six) hours as needed for Cough for up to 7 days. Indication s: cough [facility] codeine-gua ifenesin 10-100 mg/5 mL oral solution 2020-05 00:00: 00 03-23 05:59 :00 No 10mL Take 10 mL by mouth every 6 (six) hours as needed for Cough for up to 7 days. Indication s: cough [facility] codeine-gua ifenesin 10-100 mg/5 mL oral solution 2020-05 00:00: 00 03-23 05:59 :00 No 10mL Take 10 mL by mouth every 6 (six) hours as needed for Cough for up to 7 days. Indication s: cough [facility] predniSONE 20 mg tablet 2020-05 00:00: 00 03-21 05:59 :00 No [id number] 20mg Take 1 tablet by mouth daily for 5 days. [facility] fluticasone propionate (FLONASE ALLERGY RELIEF) 50 mcg/actuati on nasal spray 2020-05 00:00: 00 03-21 05:59 :00 No [id number] 1{spray } Use 1 [place] in each nostril daily for 5 days. [facility] predniSONE 20 mg tablet 2020-05 00:00: 00 03-21 05:59 :00 No [id number] 20mg Take 1 tablet by mouth daily for 5 days. [facility] fluticasone propionate (FLONASE ALLERGY RELIEF) 50 mcg/actuati on nasal spray 2020-05 00:00: 00 03-21 05:59 :00 No [id number] 1{spray } Use 1 [place] in each nostril daily for 5 days. [facility] predniSONE 20 mg tablet 2020-05 00:00: 00 03-21 05:59 :00 No [id number] 20mg Take 1 tablet by mouth daily for 5 days. [facility] fluticasone propionate (FLONASE ALLERGY RELIEF) 50 mcg/actuati on nasal spray 2020-05 00:00: 00 03-21 05:59 :00 No [id number] 1{spray } Use 1 [place] in each nostril daily for 5 days. [facility] Kenalog (Triamcinol one) Kenalog (Triamcinol one) 2020-05 0-13 00:00: 00 No 40mg [facility] Kenalog (Triamcinol one) Kenalog (Triamcinol one) 2020-05 0-13 00:00: 00 No 40mg [facility] Kenalog (Triamcinol one) Kenalog (Triamcinol one) 2020-05 0-13 00:00: 00 No 40mg [facility] Kenalog (Triamcinol one) Kenalog (Triamcinol one) 2020-05 0-13 00:00: 00 No 40mg [facility] Kenalog (Triamcinol one) Kenalog (Triamcinol one) 2020-05 0- 00:00: 00 No 40mg [facility] Kenalog (Triamcinol one) Kenalog (Triamcinol one) 2020-05 0- 00:00: 00 No 40mg [facility] Kenalog (Triamcinol one) Kenalog (Triamcinol one) 2020-05 0- 00:00: 00 No 40mg [facility] Kenalog (Triamcinol one) Kenalog (Triamcinol one) 2020-05 0-13 00:00: 00 No 40mg [facility] Kenalog (Triamcinol one) Kenalog (Triamcinol one) 2020-05 0-13 00:00: 00 No 40mg [facility] Kenalog (Triamcinol one) Kenalog (Triamcinol one) 2020-05 0-13 00:00: 00 No 40mg [facility] Kenalog (Triamcinol one) Kenalog (Triamcinol one) 2020-05 0-13 00:00: 00 No 40mg [facility] Kenalog (Triamcinol one) Kenalog (Triamcinol one) 2020-05 0-13 00:00: 00 No 40mg [facility] Kenalog (Triamcinol one) Kenalog (Triamcinol one) 2020-05 0-13 00:00: 00 No 40mg [facility] Kenalog (Triamcinol one) Kenalog (Triamcinol one) 2020-05 0-13 00:00: 00 No 40mg [facility] Kenalog (Triamcinol one) Kenalog (Triamcinol one) 2020-05 0-13 00:00: 00 No 40mg [facility] Kenalog (Triamcinol one) Kenalog (Triamcinol one) 2020-05 0-13 00:00: 00 No 40mg [facility] Kenalog (Triamcinol one) Kenalog (Triamcinol one) 2020-05 0-13 00:00: 00 No 40mg [facility] Kenalog (Triamcinol one) Kenalog (Triamcinol one) 2020-05 0- 00:00: 00 No 40mg [facility] Kenalog (Triamcinol one) Kenalog (Triamcinol one) 2020-05 0 00:00: 00 No 40mg [facility] Kenalog (Triamcinol one) Kenalog (Triamcinol one) 2020-05 0-13 00:00: 00 No 40mg [facility] Kenalog (Triamcinol one) Kenalog (Triamcinol one) 2020-05 0- 00:00: 00 No 40mg [facility] Amoxicillin -Pot Clavulanate 875-125 MG Amoxicillin -Pot Clavulanate 875-125 MG 2020-05 0-13 00:00: 00 02-25 00:00 :00 No 1{table t} BID Amoxicilli n-Pot Clavulanat e 875-125 MG Amoxicillin -Pot Clavulanate 875-125 MG Amoxicillin -Pot Clavulanate 875-125 MG 2020-05 0-13 00:00: 00 02-25 00:00 :00 No 1{table t} BID Amoxicilli n-Pot Clavulanat e 875-125 MG FENTanyl PF (SUBLIMAZE (PF)) injection 25 mcg 12-06 15:48: 45 Yes 25ug 25 mcg, Slow IV Push, Q5MIN PRN, 4 doses, Starting Sat12/06/20 at 1048, Until Discontinu ed, Routine, Pain (scale 4-6), PACU [facility] FENTanyl PF (SUBLIMAZE (PF)) injection 25 mcg 12-06 15:48: 45 Yes 25ug 25 mcg, Slow IV Push, Q5MIN PRN, 4 doses, Starting Sat12/06/20 at 1048, Until Discontinu ed, Routine, Pain (scale 4-6), PACU [facility] bupivacaine -epinephrin e-pf (SENSORCAIN E W/EPINEPHRI NE) 0.5 %-1:200,000 injection 12-06 14:38: 00 Yes PRN, Starting Sat12/06/20 at 0938, Until Discontinu ed, Routine, Intra-op [facility] bupivacaine -epinephrin e-pf (SENSORCAIN E W/EPINEPHRI NE) 0.5 %-1:200,000 injection 12-06 14:38: 00 Yes PRN, Starting Sat12/06/20 at 0938, Until Discontinu ed, Routine, Intra-op [facility] lactated ringers IV infusion 1,000 mL 12-06 12:30: 00 12-06 12:38 :00 No 1000mL at 42 mL/hr, 1,000 mL, IV Infusion, ONCE, 1 dose, Sat12/06/20 at 0730, Routine, DSU Pre-op [facility] lactated ringers IV infusion 1,000 mL 12-06 12:30: 00 12-06 12:38 :00 No 1000mL at 42 mL/hr, 1,000 mL, IV Infusion, ONCE, 1 dose, Sat12/06/20 at 0730, Routine, DSU Pre-op [facility] ibuprofen 600 mg tablet 12-06 00:00: 00 Yes [id number] 600mg Take 1 tablet by mouth every 6 (six) hours as needed for Pain (scale 1-3) or Pain (scale 4-6). [facility] acetaminoph en (TYLENOL) 325 mg tablet 12-06 00:00: 00 Yes [id number] 650mg Take 2 tablets by mouth every 6 (six) hours as needed for Pain (scale 1-3) or Pain (scale 4-6). [facility] simethicone 80 mg chewable tablet 12-06 00:00: 00 Yes [id number] 80mg Take 1 tablet by mouth after meals and at bedtime. [facility] ibuprofen 600 mg tablet 12-06 00:00: 00 Yes [id number] 600mg Take 1 tablet by mouth every 6 (six) hours as needed for Pain (scale 1-3) or Pain (scale 4-6). [facility] acetaminoph en (TYLENOL) 325 mg tablet 12-06 00:00: 00 Yes [id number] 650mg Take 2 tablets by mouth every 6 (six) hours as needed for Pain (scale 1-3) or Pain (scale 4-6). [facility] simethicone 80 mg chewable tablet 12-06 00:00: 00 Yes [id number] 80mg Take 1 tablet by mouth after meals and at bedtime. [facility] ibuprofen 600 mg tablet 12-06 00:00: 00 Yes [id number] 600mg Take 1 tablet by mouth every 6 (six) hours as needed for Pain (scale 1-3) or Pain (scale 4-6). [facility] acetaminoph en (TYLENOL) 325 mg tablet 12-06 00:00: 00 Yes [id number] 650mg Take 2 tablets by mouth every 6 (six) hours as needed for Pain (scale 1-3) or Pain (scale 4-6). [facility] simethicone 80 mg chewable tablet 12-06 00:00: 00 Yes [id number] 80mg Take 1 tablet by mouth after meals and at bedtime. [facility] ibuprofen 600 mg tablet 12-06 00:00: 00 Yes [id number] 600mg Take 1 tablet by mouth every 6 (six) hours as needed for Pain (scale 1-3) or Pain (scale 4-6). [facility] acetaminoph en (TYLENOL) 325 mg tablet 12-06 00:00: 00 Yes [id number] 650mg Take 2 tablets by mouth every 6 (six) hours as needed for Pain (scale 1-3) or Pain (scale 4-6). [facility] simethicone 80 mg chewable tablet 12-06 00:00: 00 Yes [id number] 80mg Take 1 tablet by mouth after meals and at bedtime. [facility] ibuprofen 600 mg tablet 12-06 00:00: 00 Yes [id number] 600mg Take 1 tablet by mouth every 6 (six) hours as needed for Pain (scale 1-3) or Pain (scale 4-6). [facility] acetaminoph en (TYLENOL) 325 mg tablet 12-06 00:00: 00 Yes [id number] 650mg Take 2 tablets by mouth every 6 (six) hours as needed for Pain (scale 1-3) or Pain (scale 4-6). [facility] simethicone 80 mg chewable tablet 12-06 00:00: 00 Yes [id number] 80mg Take 1 tablet by mouth after meals and at bedtime. [facility] ibuprofen 600 mg tablet 12-06 00:00: 00 Yes [id number] 600mg Take 1 tablet by mouth every 6 (six) hours as needed for Pain (scale 1-3) or Pain (scale 4-6). [facility] acetaminoph en (TYLENOL) 325 mg tablet 12-06 00:00: 00 Yes [id number] 650mg Take 2 tablets by mouth every 6 (six) hours as needed for Pain (scale 1-3) or Pain (scale 4-6). [facility] simethicone 80 mg chewable tablet 12-06 00:00: 00 Yes [id number] 80mg Take 1 tablet by mouth after meals and at bedtime. [facility] ibuprofen 600 mg tablet 12-06 00:00: 00 Yes [id number] 600mg Take 1 tablet by mouth every 6 (six) hours as needed for Pain (scale 1-3) or Pain (scale 4-6). [facility] acetaminoph en (TYLENOL) 325 mg tablet 12-06 00:00: 00 Yes [id number] 650mg Take 2 tablets by mouth every 6 (six) hours as needed for Pain (scale 1-3) or Pain (scale 4-6). [facility] simethicone 80 mg chewable tablet 12-06 00:00: 00 Yes [id number] 80mg Take 1 tablet by mouth after meals and at bedtime. [facility] ibuprofen 600 mg tablet 12-06 00:00: 00 12-29 00:00 :00 No [id number] 600mg Take 1 tablet by mouth every 6 (six) hours as needed for Pain (scale 1-3) or Pain (scale 4-6). [facility] acetaminoph en (TYLENOL) 325 mg tablet 12-06 00:00: 00 12-29 00:00 :00 No [id number] 650mg Take 2 tablets by mouth every 6 (six) hours as needed for Pain (scale 1-3) or Pain (scale 4-6). [facility] simethicone 80 mg chewable tablet 12-06 00:00: 00 12-29 00:00 :00 No [id number] 80mg Take 1 tablet by mouth after meals and at bedtime. [facility] ibuprofen 600 mg tablet 12-06 00:00: 00 12-29 00:00 :00 No [id number] 600mg Take 1 tablet by mouth every 6 (six) hours as needed for Pain (scale 1-3) or Pain (scale 4-6). [facility] acetaminoph en (TYLENOL) 325 mg tablet 2021-0 8-03 00:00: 00 12-29 00:00 :00 No [id number] 650mg Take 2 tablets by mouth every 6 (six) hours as needed for Pain (scale 1-3) or Pain (scale 4-6). [facility] simethicone 80 mg chewable tablet 8- 00:00: 00 12-29 00:00 :00 No [id number] 80mg Take 1 tablet by mouth after meals and at bedtime. [facility] HYDROcodone -acetaminop hen 5-325 mg tablet 8- 00:00: 00 12-14 04:59 :00 No [id number] 1{tbl} Take 1 tablet by mouth every 6 (six) hours as needed for Pain (scale 7-10) for up to 7 days. Indication s: acute pain [facility] HYDROcodone -acetaminop hen 5-325 mg tablet 8 00:00: 00 12-14 04:59 :00 No [id number] 1{tbl} Take 1 tablet by mouth every 6 (six) hours as needed for Pain (scale 7-10) for up to 7 days. Indication s: acute pain [facility] HYDROcodone -acetaminop hen 5-325 mg tablet 8-03 00:00: 00 12-14 04:59 :00 No [id number] 1{tbl} Take 1 tablet by mouth every 6 (six) hours as needed for Pain (scale 7-10) for up to 7 days. Indication s: acute pain [facility] HYDROcodone -acetaminop hen 5-325 mg tablet 8-03 00:00: 00 12-14 04:59 :00 No [id number] 1{tbl} Take 1 tablet by mouth every 6 (six) hours as needed for Pain (scale 7-10) for up to 7 days. Indication s: acute pain [facility] busPIRone HCl 10 MG busPIRone HCl 10 MG 6-16 00:00: 00 No 1{table t} BID busPIRone HCl 10 MG busPIRone HCl 10 MG busPIRone HCl 10 MG 2021-0 6-16 00:00: 00 No 1{table t} BID busPIRone HCl 10 MG busPIRone HCl 10 MG busPIRone HCl 10 MG 2021-0 6-16 00:00: 00 No 1{table t} BID busPIRone HCl 10 MG busPIRone HCl 10 MG busPIRone HCl 10 MG 2021-0 6-16 00:00: 00 No 1{table t} BID busPIRone HCl 10 MG busPIRone HCl 10 MG busPIRone HCl 10 MG 2021-0 6-16 00:00: 00 No 1{table t} BID busPIRone HCl 10 MG busPIRone HCl 10 MG busPIRone HCl 10 MG 2021-0 6-16 00:00: 00 No 1{table t} BID busPIRone HCl 10 MG busPIRone HCl 10 MG busPIRone HCl 10 MG 2021-0 6-16 00:00: 00 No 1{table t} BID busPIRone HCl 10 MG busPIRone HCl 10 MG busPIRone HCl 10 MG 2021-0 6-16 00:00: 00 No 1{table t} BID busPIRone HCl 10 MG busPIRone HCl 10 MG busPIRone HCl 10 MG 1-0 6-16 00:00: 00 No 1{table t} BID busPIRone HCl 10 MG busPIRone HCl 10 MG busPIRone HCl 10 MG 2021-0 6-16 00:00: 00 No 1{table t} BID busPIRone HCl 10 MG busPIRone HCl 10 MG busPIRone HCl 10 MG 2021-0 6-16 00:00: 00 No 1{table t} BID busPIRone HCl 10 MG busPIRone HCl 10 MG busPIRone HCl 10 MG 2021-0 6-16 00:00: 00 No 1{table t} BID busPIRone HCl 10 MG busPIRone HCl 10 MG busPIRone HCl 10 MG 2021-0 6-16 00:00: 00 No 1{table t} BID busPIRone HCl 10 MG busPIRone HCl 10 MG busPIRone HCl 10 MG 2021-0 6-16 00:00: 00 No 1{table t} BID busPIRone HCl 10 MG busPIRone HCl 10 MG busPIRone HCl 10 MG 16 00:00: 00 No 1{table t} BID busPIRone HCl 10 MG busPIRone HCl 10 MG busPIRone HCl 10 MG 16 00:00: 00 No 1{table t} BID busPIRone HCl 10 MG busPIRone HCl 10 MG busPIRone HCl 10 MG 10-19 00:00: 00 No 1{table t} BID busPIRone HCl 10 MG busPIRone HCl 10 MG busPIRone HCl 10 MG 10-19 00:00: 00 No 1{table t} BID busPIRone HCl 10 MG busPIRone HCl 10 MG busPIRone HCl 10 MG 10-19 00:00: 00 No 1{table t} BID busPIRone HCl 10 MG vit calc,iron,f olic ( VITAMIN ORAL) 10-18 22:40: 04 10-18 00:00 :00 No Take by mouth. [facility] vit calc,iron,f olic ( VITAMIN ORAL) 10-18 22:40: 04 10-18 00:00 :00 No Take by mouth. [facility] calcium carbonate (TUMS ORAL) 10-18 22:39: 54 10-18 00:00 :00 No Take by mouth. [facility] calcium carbonate (TUMS ORAL) 10-18 22:39: 54 10-18 00:00 :00 No Take by mouth. [facility] acetaminoph en (TYLENOL) 325 mg tablet 10-18 22:39: 48 10-18 00:00 :00 No Take by mouth every 6 (six) hours as needed. [facility] acetaminoph en (TYLENOL) 325 mg tablet 10-18 22:39: 48 10-18 00:00 :00 No Take by mouth every 6 (six) hours as needed. [facility] QUEtiapine 25 mg tablet 2020-0 10-12 00:00: 00 Yes [facility] QUEtiapine 25 mg tablet 2020-0 10-12 00:00: 00 Yes [facility] QUEtiapine 25 mg tablet 2020-0 10-12 00:00: 00 Yes [facility] QUEtiapine 25 mg tablet 2020-0 10-12 00:00: 00 Yes [facility] QUEtiapine 25 mg tablet 2020-0 10-12 00:00: 00 Yes [facility] QUEtiapine 25 mg tablet 2020-0 10-12 00:00: 00 Yes [facility] QUEtiapine 25 mg tablet 2020-0 10-12 00:00: 00 Yes [facility] QUEtiapine 25 mg tablet 2020-0 10-12 00:00: 00 Yes [facility] QUEtiapine 25 mg tablet 2020-0 10-12 00:00: 00 Yes [facility] QUEtiapine 25 mg tablet 2020-0 10-12 00:00: 00 Yes [facility] QUEtiapine 25 mg tablet 2020-0 10-12 00:00: 00 Yes [facility] QUEtiapine 25 mg tablet 2020-0 10-12 00:00: 00 Yes [facility] QUEtiapine 25 mg tablet 2020-0 10-12 00:00: 00 Yes [facility] QUEtiapine 25 mg tablet 2020-0 10-12 00:00: 00 Yes [facility] QUEtiapine 25 mg tablet 2020-0 10-12 00:00: 00 Yes [facility] QUEtiapine 25 mg tablet 2020-0 10-12 00:00: 00 Yes [facility] QUEtiapine 25 mg tablet 1-0 10-12 00:00: 00 Yes [facility] QUEtiapine 25 mg tablet 1-0 10-12 00:00: 00 Yes [facility] QUEtiapine 25 mg tablet 1-0 10-12 00:00: 00 Yes [facility] QUEtiapine 25 mg tablet 2020-0 10-12 00:00: 00 Yes [facility] QUEtiapine 25 mg tablet 2020-0 10-12 00:00: 00 Yes [facility] QUEtiapine 25 mg tablet 0 10-12 00:00: 00 Yes [facility] QUEtiapine 25 mg tablet 0 10-12 00:00: 00 Yes [facility] SEROquel 25 MG SEROquel 25 MG 2020-0 10-12 00:00: 00 No 1{table t_at_be dtime} QD SEROquel 25 MG SEROquel 25 MG SEROquel 25 MG 2020-0 10-12 00:00: 00 No 1{table t_at_be dtime} QD SEROquel 25 MG SEROquel 25 MG SEROquel 25 MG 2020-0 10-12 00:00: 00 No 1{table t_at_be dtime} QD SEROquel 25 MG SEROquel 25 MG SEROquel 25 MG 2020-0 10-12 00:00: 00 No 1{table t_at_be dtime} QD SEROquel 25 MG SEROquel 25 MG SEROquel 25 MG 0 10-12 00:00: 00 No 1{table t_at_be dtime} QD SEROquel 25 MG SEROquel 25 MG SEROquel 25 MG 0 10-12 00:00: 00 No 1{table t_at_be dtime} QD SEROquel 25 MG SEROquel 25 MG SEROquel 25 MG 2020-0 10-12 00:00: 00 No 1{table t_at_be dtime} QD SEROquel 25 MG SEROquel 25 MG SEROquel 25 MG 2020-0 10-12 00:00: 00 No 1{table t_at_be dtime} QD SEROquel 25 MG SEROquel 25 MG SEROquel 25 MG 2020-0 10-12 00:00: 00 No 1{table t_at_be dtime} QD SEROquel 25 MG SEROquel 25 MG SEROquel 25 MG 2020-0 10-12 00:00: 00 No 1{table t_at_be dtime} QD SEROquel 25 MG SEROquel 25 MG SEROquel 25 MG 2020-0 10-12 00:00: 00 No 1{table t_at_be dtime} QD SEROquel 25 MG SEROquel 25 MG SEROquel 25 MG 0 10-12 00:00: 00 No 1{table t_at_be dtime} QD SEROquel 25 MG SEROquel 25 MG SEROquel 25 MG 0 10-12 00:00: 00 No 1{table t_at_be dtime} QD SEROquel 25 MG SEROquel 25 MG SEROquel 25 MG 0 10-12 00:00: 00 No 1{table t_at_be dtime} QD SEROquel 25 MG SEROquel 25 MG SEROquel 25 MG 0 10-12 00:00: 00 No 1{table t_at_be dtime} QD SEROquel 25 MG SEROquel 25 MG SEROquel 25 MG 10-12 00:00: 00 No 1{table t_at_be dtime} QD SEROquel 25 MG SEROquel 25 MG SEROquel 25 MG 10-12 00:00: 00 No 1{table t_at_be dtime} QD SEROquel 25 MG SEROquel 25 MG SEROquel 25 MG 10-12 00:00: 00 No 1{table t_at_be dtime} QD SEROquel 25 MG SEROquel 25 MG SEROquel 25 MG 0 10-12 00:00: 00 No 1{table t_at_be dtime} QD SEROquel 25 MG QUEtiapine 25 mg tablet 0 10-12 00:00: 00 Yes [facility] QUEtiapine 25 mg tablet 2020-0 10-12 00:00: 00 Yes [facility] QUEtiapine 25 mg tablet 2020-0 10-12 00:00: 00 Yes [facility] QUEtiapine 25 mg tablet 0 10-12 00:00: 00 Yes [facility] QUEtiapine 25 mg tablet 0 10-12 00:00: 00 Yes [facility] QUEtiapine 25 mg tablet 0 10-12 00:00: 00 Yes [facility] QUEtiapine 25 mg tablet 0 10-12 00:00: 00 Yes [facility] QUEtiapine 25 mg tablet 0 10-12 00:00: 00 Yes [facility] QUEtiapine 25 mg tablet 0 10-12 00:00: 00 Yes [facility] QUEtiapine 25 mg tablet 0 10-12 00:00: 00 Yes [facility] QUEtiapine 25 mg tablet 0 10-12 00:00: 00 Yes [facility] QUEtiapine 25 mg tablet 0 10-12 00:00: 00 Yes [facility] QUEtiapine 25 mg tablet 0 10-12 00:00: 00 Yes [facility] QUEtiapine 25 mg tablet 0 10-12 00:00: 00 Yes [facility] QUEtiapine 25 mg tablet 0 10-12 00:00: 00 Yes [facility] QUEtiapine 25 mg tablet 10-12 00:00: 00 Yes [facility] QUEtiapine 25 mg tablet 0 10-12 00:00: 00 06-11 00:00 :00 No [facility] QUEtiapine 25 mg tablet 0 10-12 00:00: 00 06-11 00:00 :[address] [facility] vit calc,iron,f olic ( VITAMIN ORAL) 2018-05 01:25: 04 Yes Take by mouth. [facility] acetaminoph en (TYLENOL) 325 mg tablet 2018-05 01:25: 04 Yes Take by mouth every 6 (six) hours as needed. [facility] it[facility] calcium carbonate (TUMS ORAL) 2018-05 01:25: 04 Yes Take by mouth. [facility] Nitrofurant oin&Nit. Macrocryst 100 mg capsule 2018-05 00:00: 00 Yes [id number] 100mg Take 1 capsule by mouth 2 (two) times daily. [facility] Nitrofurant oin&Nit. Macrocryst 100 mg capsule 2018-05 00:00: 00 10-18 00:00 :00 No [id number] 100mg Take 1 capsule by mouth 2 (two) times daily. [facility] Nitrofurant oin&Nit. Macrocryst 100 mg capsule 2018-05 00:00: 00 10-18 00:00 :00 No [id number] 100mg Take 1 capsule by mouth 2 (two) times daily. [facility] doxylamine- pyridoxine, vit B6, (DICLEGIS) 10-10 mg per tablet 09-15 00:00: 00 Yes [id number] 1{tbl} Take 1 tablet by mouth SEE-INSTRU CTIONS. [facility] doxylamine- pyridoxine, vit B6, (DICLEGIS) 10-10 mg per tablet 09-15 00:00: 00 10-18 00:00 :00 No [id number] 1{tbl} Take 1 tablet by mouth SEE-INSTRU CTIONS. [facility] doxylamine- pyridoxine, vit B6, (DICLEGIS) 10-10 mg per tablet 09-15 00:00: 00 10-18 00:00 :00 No [id number] 1{tbl} Take 1 tablet by mouth SEE-INSTRU CTIONS. [facility] progesteron e 200 mg capsule 09-01 00:00: 00 Yes TAKE ONE CAPSULE BY MOUTH TWICE A DAY [facility] progesteron e 200 mg capsule 09-01 00:00: 00 10-18 00:00 :00 No TAKE ONE CAPSULE BY MOUTH TWICE A DAY [facility] progesteron e 200 mg capsule 09-01 00:00: 00 10-18 00:00 :00 No TAKE ONE CAPSULE BY MOUTH TWICE A DAY [facility] Benzonatate 200 MG Benzonatate 200 MG No 1{capsu le} TID Benzonatat e 200 MG Ibuprofen 800 MG Ibuprofen 800 MG No TID Ibuprofen 800 MG Abilify 5 MG Abilify 5 MG No 1{table t} QD Abilify 5 MG Azithromyci n 250 MG Azithromyci n 250 MG No QD Azithromyc in 250 MG Cambia 50 MG Cambia 50 MG No Cambia 50 MG Benzonatate 200 MG Benzonatate 200 MG No 1{capsu le} TID Benzonatat e 200 MG Ibuprofen 800 MG Ibuprofen 800 MG No TID Ibuprofen 800 MG Abilify 5 MG Abilify 5 MG No 1{table t} QD Abilify 5 MG Azithromyci n 250 MG Azithromyci n 250 MG No QD Azithromyc in 250 MG Cambia 50 MG Cambia 50 MG No Cambia 50 MG Benzonatate 200 MG Benzonatate 200 MG No 1{capsu le} TID Benzonatat e 200 MG Ibuprofen 800 MG Ibuprofen 800 MG No TID Ibuprofen 800 MG Abilify 5 MG Abilify 5 MG No 1{table t} QD Abilify 5 MG Azithromyci n 250 MG Azithromyci n 250 MG No QD Azithromyc in 250 MG Cambia 50 MG Cambia 50 MG No Cambia 50 MG Azithromyci n 250 MG Azithromyci n 250 MG No QD Azithromyc in 250 MG Benzonatate 200 MG Benzonatate 200 MG No 1{capsu le} TID Benzonatat e 200 MG Ibuprofen 800 MG Ibuprofen 800 MG No TID Ibuprofen 800 MG Abilify 5 MG Abilify 5 MG No 1{table t} QD Abilify 5 MG Cambia 50 MG Cambia 50 MG No Cambia 50 MG Abilify 5 MG Abilify 5 MG No 1{table t} QD Abilify 5 MG Cambia 50 MG Cambia 50 MG No Cambia 50 MG Ibuprofen 800 MG Ibuprofen 800 MG No TID Ibuprofen 800 MG Benzonatate 200 MG Benzonatate 200 MG No 1{capsu le} TID Benzonatat e 200 MG Azithromyci n 250 MG Azithromyci n 250 MG No QD Azithromyc in 250 MG Ibuprofen 800 MG Ibuprofen 800 MG No TID Ibuprofen 800 MG Abilify 5 MG Abilify 5 MG No 1{table t} QD Abilify 5 MG Azithromyci n 250 MG Azithromyci n 250 MG No QD Azithromyc in 250 MG Benzonatate 200 MG Benzonatate 200 MG No 1{capsu le} TID Benzonatat e 200 MG Cambia 50 MG Cambia 50 MG No Cambia 50 MG Ibuprofen 800 MG Ibuprofen 800 MG No TID Ibuprofen 800 MG Azithromyci n 250 MG Azithromyci n 250 MG No QD Azithromyc in 250 MG Abilify 5 MG Abilify 5 MG No 1{table t} QD Abilify 5 MG Benzonatate 200 MG Benzonatate 200 MG No 1{capsu le} TID Benzonatat e 200 MG Cambia 50 MG Cambia 50 MG No Cambia 50 MG Azithromyci n 250 MG Azithromyci n 250 MG No QD Azithromyc in 250 MG Benzonatate 200 MG Benzonatate 200 MG No 1{capsu le} TID Benzonatat e 200 MG Abilify 5 MG Abilify 5 MG No 1{table t} QD Abilify 5 MG Cambia 50 MG Cambia 50 MG No Cambia 50 MG Ibuprofen 800 MG Ibuprofen 800 MG No TID Ibuprofen 800 MG Abilify 5 MG Abilify 5 MG No 1{table t} QD Abilify 5 MG Benzonatate 200 MG Benzonatate 200 MG No 1{capsu le} TID Benzonatat e 200 MG Ibuprofen 800 MG Ibuprofen 800 MG No TID Ibuprofen 800 MG Cambia 50 MG Cambia 50 MG No Cambia 50 MG Azithromyci n 250 MG Azithromyci n 250 MG No QD Azithromyc in 250 MG Azithromyci n 250 MG Azithromyci n 250 MG No QD Azithromyc in 250 MG Abilify 5 MG Abilify 5 MG No 1{table t} QD Abilify 5 MG Benzonatate 200 MG Benzonatate 200 MG No 1{capsu le} TID Benzonatat e 200 MG Ibuprofen 800 MG Ibuprofen 800 MG No TID Ibuprofen 800 MG Cambia 50 MG Cambia 50 MG No Cambia 50 MG Azithromyci n 250 MG Azithromyci n 250 MG No QD Azithromyc in 250 MG Azithromyci n 250 MG Azithromyci n 250 MG No QD Azithromyc in 250 MG Cambia 50 MG Cambia 50 MG No Cambia 50 MG Ibuprofen 800 MG Ibuprofen 800 MG No TID Ibuprofen 800 MG Benzonatate 200 MG Benzonatate 200 MG No 1{capsu le} TID Benzonatat e 200 MG Oseltamivir Phosphate 75 MG Oseltamivir Phosphate 75 MG No Oseltamivi r Phosphate 75 MG Abilify 5 MG Abilify 5 MG No 1{table t} QD Abilify 5 MG Azithromyci n 250 MG Azithromyci n 250 MG No QD Azithromyc in 250 MG Azithromyci n 250 MG Azithromyci n 250 MG No QD Azithromyc in 250 MG Cambia 50 MG Cambia 50 MG No Cambia 50 MG Ibuprofen 800 MG Ibuprofen 800 MG No TID Ibuprofen 800 MG Benzonatate 200 MG Benzonatate 200 MG No 1{capsu le} TID Benzonatat e 200 MG Oseltamivir Phosphate 75 MG Oseltamivir Phosphate 75 MG No Oseltamivi r Phosphate 75 MG Abilify 5 MG Abilify 5 MG No 1{table t} QD Abilify 5 MG Azithromyci n 250 MG Azithromyci n 250 MG No QD Azithromyc in 250 MG Azithromyci n 250 MG Azithromyci n 250 MG No QD Azithromyc in 250 MG Ibuprofen 800 MG Ibuprofen 800 MG No TID Ibuprofen 800 MG Abilify 5 MG Abilify 5 MG No 1{table t} QD Abilify 5 MG Cambia 50 MG Cambia 50 MG No Cambia 50 MG Ibuprofen 800 MG Ibuprofen 800 MG No TID Ibuprofen 800 MG Abilify 5 MG Abilify 5 MG No 1{table t} QD Abilify 5 MG Cambia 50 MG Cambia 50 MG No Cambia 50 MG Ibuprofen 800 MG Ibuprofen 800 MG No TID Ibuprofen 800 MG Abilify 5 MG Abilify 5 MG No 1{table t} QD Abilify 5 MG Cambia 50 MG Cambia 50 MG No Cambia 50 MG Cambia 50 MG Cambia 50 MG No Cambia 50 MG Abilify 5 MG Abilify 5 MG No 1{table t} QD Abilify 5 MG Ibuprofen 800 MG Ibuprofen 800 MG No TID Ibuprofen 800 MG Ibuprofen 800 MG Ibuprofen 800 MG No TID Ibuprofen 800 MG Dicyclomine HCl 20 MG Dicyclomine HCl 20 MG No Dicyclomin e HCl 20 MG Abilify 5 MG Abilify 5 MG No 1{table t} QD Abilify 5 MG Ibuprofen 800 MG Ibuprofen 800 MG No TID Ibuprofen 800 MG Dicyclomine HCl 20 MG Dicyclomine HCl 20 MG No Dicyclomin e HCl 20 MG Abilify 5 MG Abilify 5 MG No 1{table t} QD Abilify 5 MG Ibuprofen 800 MG Ibuprofen 800 MG No TID Ibuprofen 800 MG Dicyclomine HCl 20 MG Dicyclomine HCl 20 MG No Dicyclomin e HCl 20 MG Abilify 5 MG Abilify 5 MG No 1{table t} QD Abilify 5 MG Ibuprofen 800 MG Ibuprofen 800 MG No TID Ibuprofen 800 MG Dicyclomine HCl 20 MG Dicyclomine HCl 20 MG No Dicyclomin e HCl 20 MG Abilify 5 MG Abilify 5 MG No 1{table t} QD Abilify 5 MG Ibuprofen 800 MG Ibuprofen 800 MG No TID Ibuprofen 800 MG Dicyclomine HCl 20 MG Dicyclomine HCl 20 MG No Dicyclomin e HCl 20 MG Abilify 5 MG Abilify 5 MG No 1{table t} QD Abilify 5 MG Ibuprofen 800 MG Ibuprofen 800 MG No TID Ibuprofen 800 MG Dicyclomine HCl 20 MG Dicyclomine HCl 20 MG No Dicyclomin e HCl 20 MG Abilify 5 MG Abilify 5 MG No 1{table t} QD Abilify 5 MG Ibuprofen 800 MG Ibuprofen 800 MG No TID Ibuprofen 800 MG Azithromyci n 250 MG Azithromyci n 250 MG No QD Azithromyc in 250 MG Abilify 5 MG Abilify 5 MG No 1{table t} QD Abilify 5 MG Benzonatate 200 MG Benzonatate 200 MG No 1{capsu le} TID Benzonatat e 200 MG Cambia 50 MG Cambia 50 MG No Cambia 50 MG Abilify 5 MG Abilify 5 MG No 1{table t} QD Abilify 5 MG Cambia 50 MG Cambia 50 MG No Cambia 50 MG Ibuprofen 800 MG Ibuprofen 800 MG No TID Ibuprofen 800 MG Abilify 5 MG Abilify 5 MG No 1{table t} QD Abilify 5 MG Cambia 50 MG Cambia 50 MG No Cambia 50 MG Ibuprofen 800 MG Ibuprofen 800 MG No TID Ibuprofen 800 MG Immunizations Ordered Immunization Name Filled Immunization Name Date Status Comments Source Flucelvax - single dose syringe Flucelvax - single dose syringe 2022-04-23 16:52:00 Completed [facility] Flucelvax - single dose syringe Flucelvax - single dose syringe 2022-04-23 16:52:00 Completed [facility] Kenalog (Triamcinolone) Kenalog (Triamcinolone) 2021-02-15 16:40:00 Completed [facility] Kenalog (Triamcinolone) Kenalog (Triamcinolone) 2021-02-15 16:40:00 Completed [facility] Tb PPD intradermal, Tb PPD intradermal, 09:56:00 Completed [facility] Tb PPD intradermal, Tb PPD intradermal, 09:56:00 Completed [facility] Tb PPD intradermal, Tb PPD intradermal, 09:56:00 Completed [facility] Tb PPD intradermal, Tb PPD intradermal, 09:56:00 Completed [facility] Tb PPD intradermal, Tb PPD intradermal, 09:56:00 Completed [facility] Tb PPD intradermal, Tb PPD intradermal, 09:56:00 Completed [facility] Tb PPD intradermal, Tb PPD intradermal, 09:56:00 Completed [facility] Tb PPD intradermal, Tb PPD intradermal, 09:56:00 Completed [facility] Tb PPD intradermal, Tb PPD intradermal, 09:56:00 Completed [facility] Tb PPD intradermal, Tb PPD intradermal, 09:56:00 Completed [facility] Tb PPD intradermal, Tb PPD intradermal, 09:56:00 Completed [facility] Tb PPD intradermal, Tb PPD intradermal, 09:56:00 Completed [facility] Tb PPD intradermal, Tb PPD intradermal, 09:56:00 Completed [facility] Tb PPD intradermal, Tb PPD intradermal, 09:56:00 Completed [facility] Tb PPD intradermal, Tb PPD intradermal, 09:56:00 Completed [facility] Afluria single dose Afluria single dose 10:06:00 Completed [facility] Afluria single dose Afluria single dose 10:06:00 Completed [facility] Afluria single dose Afluria single dose 10:06:00 Completed [facility] Afluria single dose Afluria single dose 10:06:00 Completed [facility] Afluria single dose Afluria single dose 10:06:00 Completed [facility] Afluria single dose Afluria single dose 10:06:00 Completed [facility] Afluria single dose Afluria single dose 10:06:00 Completed [facility] Afluria single dose Afluria single dose 10:06:00 Completed [facility] [facility] Afluria single dose Afluria single dose 10:06:00 Completed [facility] Afluria single dose Afluria single dose 10:06:00 Completed [facility] Afluria single dose Afluria single dose 10:06:00 Completed [facility] Afluria single dose Afluria single dose 10:06:00 Completed [facility] Afluria single dose Afluria single dose 10:06:00 Completed [facility] Afluria single dose Afluria single dose 10:06:00 Completed [facility] Afluria single dose Afluria single dose 10:06:00 Completed [facility] Afluria single dose Afluria single dose Unknown Completed [facility] Flucelvax - single dose syringe Flucelvax - single dose syringe Unknown Completed [facility] Tb PPD intradermal, Tb PPD intradermal, Unknown Completed [facility] Afluria single dose Afluria single dose Unknown Completed [facility] Flucelvax - single dose syringe Flucelvax - single dose syringe Unknown Completed [facility] Tb PPD intradermal, Tb PPD intradermal, Unknown Completed [facility] Afluria single dose Afluria single dose Unknown Completed [facility] Flucelvax - single dose syringe Flucelvax - single dose syringe Unknown Completed [facility] Tb PPD intradermal, Tb PPD intradermal, Unknown Completed [facility] Afluria (IIV4) - 3 years and older - SDS - 0.5mL Afluria (IIV4) - 3 years and older - SDS - 0.5mL Unknown Completed [facility] Flucelvax (ccIIV4) - SDS - 0.5mL Flucelvax (ccIIV4) - SDS - 0.5mL Unknown Completed [facility] Tb PPD intradermal, Tb PPD intradermal, Unknown Completed [facility] Afluria (IIV4) - 3 years and older - SDS - 0.5mL Afluria (IIV4) - 3 years and older - SDS - 0.5mL Unknown Completed [facility] Flucelvax (ccIIV4) - SDS - 0.5mL Flucelvax (ccIIV4) - SDS - 0.5mL Unknown Completed [facility] Tb PPD intradermal, Tb PPD intradermal, Unknown Completed [facility] Afluria (IIV4) - 3 years and older - SDS - 0.5mL Afluria (IIV4) - 3 years and older - SDS - 0.5mL Unknown Completed [facility] Flucelvax (ccIIV4) - SDS - 0.5mL Flucelvax (ccIIV4) - SDS - 0.5mL Unknown Completed [facility] Tb PPD intradermal, Tb PPD intradermal, Unknown Completed [facility] Afluria (IIV4) - 3 years and older - SDS - 0.5mL Afluria (IIV4) - 3 years and older - SDS - 0.5mL Unknown Completed [facility] Flucelvax (ccIIV4) - SDS - 0.5mL Flucelvax (ccIIV4) - SDS - 0.5mL Unknown Completed [facility] Tb PPD intradermal, Tb PPD intradermal, Unknown Completed [facility] Afluria (IIV4) - 3 years and older - SDS - 0.5mL Afluria (IIV4) - 3 years and older - SDS - 0.5mL Unknown Completed [facility] Flucelvax (ccIIV4) - SDS - 0.5mL Flucelvax (ccIIV4) - SDS - 0.5mL Unknown Completed [facility] Tb PPD intradermal, Tb PPD intradermal, Unknown Completed [facility] Afluria (IIV4) - 3 years and older - SDS - 0.5mL Afluria (IIV4) - 3 years and older - SDS - 0.5mL Unknown Completed [facility] Flucelvax (ccIIV4) - SDS - 0.5mL Flucelvax (ccIIV4) - SDS - 0.5mL Unknown Completed [facility] Tb PPD intradermal, Tb PPD intradermal, Unknown Completed [facility] Afluria (IIV4) - 3 years and older - SDS - 0.5mL Afluria (IIV4) - 3 years and older - SDS - 0.5mL Unknown Completed [facility] Flucelvax (ccIIV4) - SDS - 0.5mL Flucelvax (ccIIV4) - SDS - 0.5mL Unknown Completed [facility] Tb PPD intradermal, Tb PPD intradermal, Unknown Completed [facility] Vital Signs Vital Name Observation Time Observation Value Comments S ource Systolic blood pressure 2023-08-02 17:51:00 116 [facility] Di[facility] 2023-08-02 17:51:00 79 mm[Hg] [facility] Heart rate 2023-08-02 17:51:00 69 /min [facility] Body temperature 2023-08-02 17:51:00 36.83 Krystal [facility] Respiratory rate 2023-08-02 17:51:00 18 /min [facility] Body height 2023-08-02 17:51:00 152.4 cm [facility] Body weight 2023-08-02 17:51:00 75.116 kg [facility] BMI 2023-08-02 17:51:00 32.34 kg/m2 [facility] Systolic blood pressure 2023-06-11 19:07:00 110 mm[Hg] [facility] Diastolic blood pressure 2023-06-11 19:07:00 74 mm[Hg] [facility] Heart rate 2023-06-11 19:07:00 75 /min [facility] Body height 2023-06-11 19:07:00 152.4 cm [facility] Body weight 2023-06-11 19:07:00 76.159 kg [facility] BMI 2023-06-11 19:07:00 32.79 kg/m2 [facility] Oxygen saturation in Arterial blood by Pulse oximetry 2023-06-11 19:07:00 99 /min [facility] height 2023-05-08 15:30:00 62 [in_i] Commo n [facility] weight 2023-05-08 15:30:00 168.6 [lb_av] Co mmon [facility] temperature 2023-05-08 15:30:00 98.4 [degF] Com mon [facility] bmi 2023-05-08 15:30:00 30.83 kg/m2 Comm on [facility] oximetry 2023-05-08 15:30:00 99 % Comm n [facility] blood pressure systolic 2023-05-08 15:30:00 124 mm[Hg] [facility] blood pressure diastolic 2023-05-08 15:30:00 70 mm[Hg] [facility] Systolic blood pressure 2022-10-08 15:45:00 135 mm[Hg] [facility] Diastolic blood pressure 2022-10-08 15:45:00 100 mm[Hg] [facility] Heart rate 2022-10-08 15:45:00 73 /min [facility] Body temperature 2022-10-08 15:45:00 37.11 Krystal [facility] Respiratory rate 2022-10-08 15:45:00 18 /min [facility] Body weight 2022-10-08 15:45:00 76.658 kg [facility] BMI 2022-10-08 15:45:00 33.01 kg/m2 [facility] Oxygen saturation in Arterial blood by Pulse oximetry 2022-10-08 15:45:00 99 /min [facility] height 2022-08-15 08:00:00 62 [in_i] Commo n [facility] weight 2022-08-15 08:00:00 168 [lb_av] Comm on [facility] temperature 2022-08-15 08:00:00 98.4 [degF] Com mon [facility] bmi 2022-08-15 08:00:00 30.72 kg/m2 Comm on [facility] oximetry 2022-08-15 08:00:00 100 % Commo n [facility] respiratory rate 2022-08-15 08:00:00 17 /min [facility] blood pressure systolic 2022-08-15 08:00:00 129 mm[Hg] [facility] blood pressure diastolic 2022-08-15 08:00:00 75 mm[Hg] [facility] height 2022-07-24 16:40:00 62 [in_i] Commo n [facility] weight 2022-07-24 16:40:00 168 [lb_av] Comm on [facility] bmi 2022-07-24 16:40:00 30.72 kg/m2 Comm on [facility] Systolic blood pressure 2022-07-09 21:27:00 130 mm[Hg] [facility] Diastolic blood pressure 2022-07-09 21:27:00 88 mm[Hg] [facility] Heart rate 2022-07-09 21:27:00 77 /min [facility] Body temperature 2022-07-09 21:27:00 36.89 Krystal [facility] Body height 2022-07-09 21:27:00 152.4 cm [facility] Body weight 2022-07-09 21:27:00 76.749 kg [facility] BMI 2022-07-09 21:27:00 33.04 kg/m2 [facility] Systolic blood pressure 2022-06-16 04:23:16 135 mm[Hg] [facility] Diastolic blood pressure 2022-06-16 04:23:16 95 mm[Hg] [facility] Heart rate 2022-06-16 04:23:16 76 /min [facility] Respiratory rate 2022-06-16 04:23:16 18 /min [facility] Oxygen saturation in Arterial blood by Pulse oximetry 2022-06-16 04:23:16 100 /min [facility] Body temperature 2022-06-16 02:02:00 36.89 Krystal [facility] Body height 2022-06-16 02:02:00 152.4 cm [facility] Body weight 2022-06-16 02:02:00 80.06 kg [facility] BMI 2022-06-16 02:02:00 34.47 kg/m2 [facility] Systolic blood pressure 2022-05-02 23:21:00 124 mm[Hg] [facility] Diastolic blood pressure 2022-05-02 23:21:00 80 mm[Hg] [facility] Heart rate 2022-05-02 23:21:00 107 /min [facility] Body temperature 2022-05-02 23:21:00 37.06 Krystal [facility] Respiratory rate 2022-05-02 23:21:00 18 /min [facility] Body height 2022-05-02 23:21:00 152.4 cm [facility] Body weight 2022-05-02 23:21:00 79.124 kg [facility] BMI 2022-05-02 23:21:00 34.07 kg/m2 [facility] Oxygen saturation in Arterial blood by Pulse oximetry 2022-05-02 23:21:00 99 /min [facility] height 2022-04-23 16:20:00 62 [in_i] Commo n [facility] weight 2022-04-23 16:20:00 175.7 [lb_av] Co mmon [facility] temperature 2022-04-23 16:20:00 97.5 [degF] Com mon [facility] bmi 2022-04-23 16:20:00 32.13 kg/m2 Comm on [facility] oximetry 2022-04-23 16:20:00 99 % Commo [facility] respiratory rate 2022-04-23 16:20:00 18 /min [facility] blood pressure systolic 2022-04-23 16:20:00 132 mm[Hg] [facility] blood pressure diastolic 2022-04-23 16:20:00 77 mm[Hg] [facility] Systolic blood pressure 2022-04-22 04:22:00 140 mm[Hg] [place] [facility] Diastolic blood pressure 2022-04-22 04:22:00 97 mm[Hg] [facility] Heart rate 2022-04-22 04:22:00 72 /min [facility] Body temperature 2022-04-22 04:22:00 37 Krystal [facility] Respiratory rate 2022-04-22 04:22:00 18 /min [facility] Oxygen saturation in Arterial blood by Pulse oximetry 2022-04-22 04:22:00 100 /min [facility] Body height 2022-04-22 02:42:00 152.4 cm [facility] Body weight 2022-04-22 02:42:00 81.647 kg [facility] BMI 2022-04-22 02:42:00 35.15 kg/m2 [facility] Systolic blood pressure 2022-03-22 12:59:00 137 mm[Hg] [facility] Diastolic blood pressure 2022-03-22 12:59:00 108 mm[Hg] [facility] Heart rate 2022-03-22 12:59:00 107 /min [facility] Body temperature 2022-03-22 12:59:00 37 Krystal [facility] Respiratory rate 2022-03-22 12:59:00 18 /min [facility] Body weight 2022-03-22 12:59:00 84.369 kg [facility] BMI 2022-03-22 12:59:00 36.33 kg/m2 [facility] Oxygen saturation in Arterial blood by Pulse oximetry 2022-03-22 12:59:00 96 /min [facility] height 2022-03-22 17:00:00 62 [in_i] Commo n [facility] weight 2022-03-22 17:00:00 190 [lb_av] Comm on [facility] bmi 2022-03-22 17:00:00 34.75 kg/m2 Comm on [facility] Systolic blood pressure 2021-12-01 16:05:00 122 mm[Hg] [facility] Diastolic blood pressure 2021-12-01 16:05:00 76 mm[Hg] [facility] Heart rate 2021-12-01 16:05:00 75 /min [facility] Body temperature 2021-12-01 16:05:00 36.56 Krystal [facility] Respiratory rate 2021-12-01 16:05:00 17 /min [facility] Body height 2021-12-01 16:05:00 152.4 cm [facility] Body weight 2021-12-01 16:05:00 83.235 kg [facility] BMI 2021-12-01 16:05:00 35.84 kg/m2 [facility] Oxygen saturation in Arterial blood by Pulse oximetry 2021-12-01 16:05:00 99 /min [facility] Systolic blood pressure 2021-12-01 16:05:00 122 mm[Hg] [facility] Diastolic blood pressure 2021-12-01 16:05:00 76 mm[Hg] [facility] Heart rate 2021-12-01 16:05:00 75 /min [facility] Body temperature 2021-12-01 16:05:00 36.56 Krystal [facility] Respiratory rate 2021-12-01 16:05:00 17 /min [facility] Body height 2021-12-01 16:05:00 152.4 cm [facility] Body weight 2021-12-01 16:05:00 83.235 kg [facility] BMI 2021-12-01 16:05:00 35.84 kg/m2 [facility] Oxygen saturation in Arterial blood by Pulse oximetry 2021-12-01 16:05:00 99 /min [facility] height 2021-08-07 14:20:00 62 [in_i] Commo n [facility] weight 2021-08-07 14:20:00 190.7 [lb_av] Co mmon [facility] temperature 2021-08-07 14:20:00 98.0 [degF] Com mon [facility] bmi 2021-08-07 14:20:00 34.88 kg/m2 Comm on [facility] oximetry 2021-08-07 14:20:00 99 % Commo n [facility] respiratory rate 2021-08-07 14:20:00 18 /min [facility] blood pressure systolic 2021-08-07 14:20:00 130 mm[Hg] [facility] blood pressure diastolic 2021-08-07 14:20:00 80 mm[Hg] [facility] height 2021-06-16 10:20:00 62 [in_i] Commo n [facility] weight 2021-06-16 10:20:00 200 [lb_av] Comm on [facility] bmi 2021-06-16 10:20:00 36.58 kg/m2 Comm on [facility] Systolic blood pressure 2021-03-15 16:09:00 124 mm[Hg] [facility] Di[facility] blood pressure 2021-03-15 16:09:00 87 mm[Hg] [facility] Heart rate 2021-03-15 16:09:00 75 /min [facility] 2021-03-15 16:09:00 37.28 Krystal [facility] Respiratory rate 2021-03-15 16:09:00 18 /min [facility] Body height 2021-03-15 16:09:00 152.4 cm [facility] Body weight 2021-03-15 16:09:00 90.719 kg [facility] BMI 2021-03-15 16:09:00 39.06 kg/m2 [facility] Oxygen saturation in Arterial blood by Pulse oximetry 2021-03-15 16:09:00 98 /min [facility] temperature 2021-02-15 16:30:00 97.9 [degF] Com mon [facility] bmi 2021-02-15 16:30:00 36.5 kg/m2 Commo n [facility] oximetry 2021-02-15 16:30:00 99 % Comm n [facility] respiratory rate 2021-02-15 16:30:00 18 /min [facility] blood pressure systolic 2021-02-15 16:30:00 126 mm[Hg] [facility] blood pressure diastolic 2021-02-15 16:30:00 86 mm[Hg] [facility] height 2021-02-15 16:30:00 62 [in_i] Commo n [facility] weight 2021-02-15 16:30:00 199.6 [lb_av] Co mmon [facility] Systolic blood pressure 2020-12-06 16:05:00 107 mm[Hg] [facility] Di[facility] blood pressure 2020-12-06 16:05:00 69 mm[Hg] [facility] Heart rate 2020-12-06 16:05:00 71 /min [facility] Res[facility] rate 2020-12-06 16:05:00 16 /min [facility] Oxygen saturation in Arterial blood by Pulse oximetry 2020-12-06 16:05:00 98 /min [facility] Body temperature 2020-12-06 15:15:00 36.28 Krystal [facility] Body height 2020-12-05 15:02:00 152.4 cm [facility] Body weight 2020-12-05 15:02:00 86.183 kg [facility] BMI 2020-12-05 15:02:00 37.11 kg/m2 [facility] Systolic blood pressure 2020-12-06 15:15:00 110 mm[Hg] [facility] Diastolic blood pressure 2020-12-06 15:15:00 66 mm[Hg] [facility] Body temperature 2020-12-06 15:15:00 36.28 Krystal [facility] Respiratory rate 2020-12-06 15:15:00 20 /min [facility] Heart rate 2020-12-06 12:36:00 83 /min [facility] Oxygen saturation in Arterial blood by Pulse oximetry 2020-12-06 12:36:00 98 /min [facility] Body height 2020-12-05 15:02:00 152.4 cm [facility] Body weight 2020-12-05 15:02:00 86.183 kg [facility] BMI 2020-12-05 15:02:00 37.11 kg/m2 [facility] Systolic blood pressure 2020-11-21 14:15:00 119 mm[Hg] [facility] Diastolic blood pressure 2020-11-21 14:15:00 86 mm[Hg] [facility] Heart rate 2020-11-21 14:15:00 98 /min [facility] Body temperature 2020-11-21 14:15:00 36.72 Krystal [facility] Respiratory rate 2020-11-21 14:15:00 18 /min [facility] Body height 2020-11-21 14:15:00 152.4 cm [facility] Body weight 2020-11-21 14:15:00 88.724 kg [facility] BMI 2020-11-21 14:15:00 38.20 kg/m2 [facility] Oxygen saturation in Arterial blood by Pulse oximetry 2020-11-21 14:15:00 98 /min [facility] Systolic blood pressure 2020-10-18 20:43:00 127 mm[Hg] [facility] Diastolic blood pressure 2020-10-18 20:43:00 88 mm[Hg] [facility] Heart rate 2020-10-18 20:43:00 77 /min [facility] Body temperature 2020-10-18 20:43:00 36.72 Krystal [facility] Respiratory rate 2020-10-18 20:43:00 16 /min [facility] Body height 2020-10-18 20:43:00 152.4 cm [facility] Body weight 2020-10-18 20:43:00 88.633 kg [facility] BMI 2020-10-18 20:43:00 38.16 kg/m2 [facility] Procedures Procedure Date / Time Performed Performing Clinician Source CONSENT/REFUSAL FOR DIAGNOSIS AND TREATMENT 2023-06-11 19:00:22 Doctor Unassigned, [place] [facility] REFERRAL- REQUEST/RESPONSE 2023-05-30 06:01:00 Doctor Unassigned, [place] [facility] POCT TEST 2022-10-08 16:36:00 Emeka Patino [facility] LIPASE 2022-10-08 16:29:[address] [facility] HEPATIC FUNCTION PANEL (82704) (ALB,T.PRO,BILI T,BU/BC,ALT,AST,ALK PHOS) 2022-10-08 16:29:[address] [facility] BASIC METABOLIC PANEL (NA, K, CL, CO2, GLUCOSE, BUN, CREATININE, CA) 2022-10-08 16:29:00 Emeka Patino [facility] CBC WITH DIFF 2022-10-08 16:29:00 Emeka Patino [facility] URINALYSIS 2022-10-08 16:29:00 Emeka Patino [facility] CONSENT/REFUSAL FOR DIAGNOSIS AND TREATMENT 2022-10-08 15:40:08 Doctor Unassigned, [place] [facility] POCT URINALYSIS W/O SPECIFIC GRAVITY 2022-07-09 00:00:00 Leny Alvarado [facility] POCT TEST 2022-06-16 02:37:00 Leandro Suazo [facility] URINALYSIS 2022-06-16 02:36:[address] [facility] CONSENT/REFUSAL FOR DIAGNOSIS AND TREATMENT 2022-06-16 01:54:31 Doctor Unassigned, [place] [facility] CT MAXILLOFACIAL/MANDIBLE WO CONTRAST 2022-04-22 03:35:02 Altagracia Mead [facility] CT HEAD WO CONTRAST 2022-04-22 03:35:02 Altagracia Mead [facility] CONSENT/REFUSAL FOR DIAGNOSIS AND TREATMENT 2022-04-22 02:21:08 Doctor Unassigned, [place] [facility] POCT TEST 2022-03-22 13:36:00 Giovany Roper [facility] URINALYSIS 2022-03-22 13:35:00 Giovany Roper [facility] RAPID INFLUENZA A/B 2022-03-22 13:05:00 Vin Kemp [facility] COVID-19 (ID NOW RAPID TESTING) 2022-03-22 13:05:00 Vin Kemp [facility] NOTICE OF PRIVACY PRACTICES 2022-03-22 12:42:09 Doctor Unassigned, [place] [facility] CONSENT/REFUSAL FOR DIAGNOSIS AND TREATMENT 2022-03-22 12:41:26 Doctor Unassigned, [place] [facility] HB ECG ROUTINE & RHYTHM STRIP 2021-12-01 16:08:47 Antonio Leblanc [facility] XR CHEST 2 VW 2021-03-15 16:51:19 Kaur Bueno [facility] RAPID STREP SCREEN FOR GROUP A 2021-03-15 16:14:00 Kaur Bueno [facility] SURGICAL PATHOLOGY EXAM 2020-12-06 14:48:00 Ophelia Greenwood [facility] LAPAROSCOPIC SALPINGECTOMY 2020-12-06 13:44:00 Ophelia Greenwood [facility] LAPAROSCOPIC SALPINGECTOMY 2020-12-06 13:44:00 Ophelia Greenwood [facility] POCT TEST 2020-12-06 12:10:00 Liset Forrester [facility] POCT TEST 2020-12-06 12:10:00 Liset Forrester [facility] DAY SURGERY - ADC 2020-12-06 05:01:00 Doctor Lucy ssigned, [place] [facility] DSU PRE-OP 2020-11-21 05:01:00 Doctor Unass igned, [place] [facility] DSU PRE-OP 2020-11-21 05:01:00 Doctor Unass igned, [place] [facility] ASSIGNMENT OF BENEFITS 2020-10-18 20:15:25 Docto r Unassigned, [place] [facility] Encounters Start Date/Time End Date/Time Encounter Type Admission Type Attending [facility] Facility Care Department Encounter ID Source 2022-07-23 16:15:00 Outpatient Camacho, Ce STLC STLC [id number] [facility] 2022-04-19 16:21:00 Outpatient Camacho, Ce [facility]LC STLC [id number] [facility] 2022-01-24 15:43:00 Outpatient Camacho, Ce [facility]LC STLC [id number] [facility] 2021-08-07 14:33:01 Outpatient Camacho, Ce STLC STLMLC [id number] [facility] 2021-08-04 13:49:00 Outpatient Camacho, Ce STLC STLMLC [id number] [facility] 2021-05-31 14:00:09 Outpatient Camacho, Ce STLC STLMLC [id number] [facility] 2021-05-31 13:51:32 Outpatient Camacho, Ce STLC STLMLC [id number] [facility] 2021-05-31 13:45:04 Outpatient Camacho, Ce STLC STLMLC [id number] [facility] 2021-05-31 12:58:53 Outpatient Camacho, Ce STLC STLMLC [id number] [facility] 2021-05-31 12:47:35 Outpatient Camacho, Ce STLMLC STLC [id number] [facility] 2021-05-31 12:47:28 Outpatient Camacho, Ce STLMLC STLC [id number] [facility] 2021-05-31 12:26:17 Outpatient Camacho, Ce STLMLC STLMLC [id number] [facility] 2021-05-31 12:25:26 Outpatient Camacho, Ce STLC STLC [id number] [facility] 2021-05-31 12:24:10 Outpatient [facility]acho[facility] [id number] [facility] 2021-05-31 12:22:35 Outpatient Camacho, [facility] [id number] [facility] 2021-05-31 12:18:40 Outpatient Camacho, [facility] [id number] [facility] 2021-05-31 12:15:28 Outpatient [facility] [id number] [facility] 2021-03-06 10:31:20 Outpatient OPHELIA GREENWOOD [facility] [employer] [id number] [facility] 2023-08-02 12:30:00 2023-08-02 13:16:09 Outpatient R SALTY GRAHAM [facility] [id number] [facility] 2023-08-02 12:30:00 2023-08-02 13:16:09 [facility] [id number] [facility] 2023-07-30 00:00:00 2023-07-30 00:00:00 (TEL) STLMLC STLMLC [id number] [facility] 2023-06-11 13:00:00 2023-06-11 14:08:18 Outpatient R ROZINA MORALES [facility] [id number] [facility] 2023-06-11 13:00:00 2023-06-11 14:08:18 [facility] [id number] [facility] 2023-06-11 00:00:00 2023-06-11 00:00:00 (TEL) STLMLC STLC [id number] [facility] 2023-06-11 00:00:00 2023-06-11 00:00:00 Orders Only Doctor Unassigned, [place] [facility] 1.2.840.114 350.1.13.10 4.2.7.2.686 [id number] [id number] [facility] 2023-05-30 00:00:00 2023-05-30 00:00:00 Orders Only Doctor Unassigned, [place] [facility] 1.2.840.114 350.1.13.10 4.2.7.2.686 [id number] [facility] 2023-05-27 00:00:00 2023-05-27 00:00:00 (TEL) STLMLC STLMLC [id number] [facility] 2023-05-13 00:00:00 2023-05-13 00:00:00 (TEL) STLMLC STLMLC [id number] [facility] 2023-05-13 00:00:00 2023-05-13 00:00:00 (TEL) STLMLC STLMLC [id number] [facility] 2023-05-08 00:00:00 2023-05-08 00:00:00 PREV VISIT EST AGE 18-39 STLMLC STLMLC [id number] [facility] 2023-01-25 00:00:00 2023-01-25 00:00:00 (TEL) STLMLC STLMLC [id number] [facility] 2022-10-08 10:46:00 2022-10-08 13:27:00 Emergency X EMEKA PATINO [facility] ERT [id number] [facility] 2022-10-08 10:46:00 2022-10-08 13:27:00 Emergency Emeka Patino [facility] .2.840.114 350.1.13.10 4.2.7.2.686 [id number] [facility] 2022-08-15 00:00:00 2022-08-15 00:00:00 OFFICE VISIT ESTAB PT LEVEL 3 STLMLC STLMLC [id number] [facility] 2022-08-14 00:00:00 2022-08-14 00:00:00 (TEL) STLMLC STLMLC [id number] [facility] 2022-08-06 16:00:00 2022-08-06 16:00:00 Outpatient LENY ROBERTS [facility] [id number] [facility] 2022-07-24 00:00:00 2022-07-24 00:00:00 OFFICE VISIT ESTAB PT LEVEL 3 STLMLC STLMLC [id number] [facility] 2022-07-09 15:00:00 2022-07-09 16:09:05 Outpatient LENY ROBERTS [facility] [id number] [facility] 2022-07-09 15:00:00 2022-07-09 16:09:05 Office [facility] .2.840.114 350.1.13.10 4.2.7.2.686 [id number] [facility] 2022-07-02 15:00:00 2022-07-02 15:00:00 Outpatient R LENY ALVARADO [facility] [id number] [facility] 2022-06-22 00:00:00 2022-06-22 00:00:00 Telephone Ophelia [place] [facility] BUILDING 1.2.840.114 350.1.13.10 4.2.7.2.686 [id number] [facility] 2022-06-18 00:00:00 2022-06-18 00:00:00 Telephone Ophelia Greenwood [facility] BUILDING 1.2.840.114 350.1.13.10 4.2.7.2.686 [id number] [facility] 2022-06-15 20:10:00 2022-06-15 22:26:00 Emergency X SUAZOLEANDRO LEANDRO [facility] ERT [id number] [facility] 2022-06-15 20:10:00 2022-06-15 22:26:00 Emergency Leandro Suazo [facility] 1.2.840.114 350.1.13.10 4.2.7.2.686 [id number] [facility] 2022-05-02 17:20:00 2022-05-02 17:40:00 Urgent Care Larry Vincent Unknown, Attending Florencia Barrera [facility] 1.2.840.114 350.1.13.10 4.2.7.2.686 [id number] [facility] 2022-05-02 17:20:00 2022-05-02 17:20:00 Outpatient R LARRY VINCENT [facility] [id number] [facility] 2022-05-02 00:00:00 2022-05-02 00:00:00 Letter (Out) Danyelle Vincentissac [facility] 1.2.840.114 350.1.13.10 4.2.7.2.686 [id number] [facility] 2022-04-24 00:00:00 2022-04-24 00:00:00 (TEL) STLMLC STLMLC [id number] [facility] 2022-04-23 00:00:00 2022-04-23 00:00:00 PREV VISIT EST AGE 18-39 STLMLC STLMLC [id number] [facility] 2022-04-21 20:46:00 2022-04-21 22:31:00 Emergency X Altagracia MEAD [facility] ERT [id number] [facility] 2022-04-21 20:46:00 2022-04-21 22:31:00 Emergency Altagracia Mead [facility] 1.2.840.114 350.1.13.10 4.2.7.2.686 [id number] [facility] 2022-03-22 06:58:00 2022-03-22 08:41:00 Emergency GIOVANY MADRID [facility] ERT [id number] [facility] 2022-03-22 06:58:00 2022-03-22 08:41:00 Emergency Giovany Roper [facility] 1.2.840.114 350.1.13.10 4.2.7.2.686 [id number] [facility] 2022-03-22 00:00:00 2022-03-22 00:00:00 (TEL) STLMLC STLMLC [id number] [facility] 2022-03-22 00:00:00 2022-03-22 00:00:00 OFFICE VISIT EST PT LEVEL 3 STLMLC STLMLC [id number] [facility] 2022-03-12 00:00:00 2022-03-12 00:00:00 (TEL) [facility] [id number] [facility] 2022-01-29 10:30:00 2022-01-29 10:30:00 Outpatient Belén ANGELICA KIMN [facility] [id number] [facility] 2022-01-27 00:00:00 2022-01-27 00:00:00 Patient Secure Msg Doctor Unassigned, [place] [facility] 1.2.840.114 350.1.13.10 4.2.7.2.686 [id number] [facility] 2022-01-24 00:00:00 2022-01-24 00:00:00 (TEL) [facility] [id number] [facility] 2022-01-22 11:00:00 2022-01-22 11:00:00 Outpatient LENY ROBERTS [facility] [id number] [facility] 2022-01-22 00:00:00 2022-01-22 00:00:00 Patient Secure Msg Narinder [facility] 1..840.114 350.1.13.10 4.2.7.2.686 [id number] [facility] 2022-01-18 13:59:44 2022-01-18 23:59:00 [facility] [id number] [facility] 2022-01-18 13:59:44 2022-01-18 23:59:00 [facility] [id number] [facility] 2022-01-18 00:00:00 2022-01-18 00:00:00 [facility] 1.2.840.114 350.1.13.10 4.2.7.2.686 [id number] [facility] 2022-01-17 10:00:00 2022-01-17 10:00:00 Outpatient R ERI KENDALL CHERYAL [facility] [id number] [facility] 2022-01-15 10:30:00 2022-01-15 10:30:00 Outpatient R ERI KENDALL CHERYAL [facility] [id number] [facility] 2022-01-11 14:00:00 2022-01-11 14:00:00 [facility] [id number] [facility] 2022-01-09 00:00:00 2022-01-09 00:00:00 Patient Secure Msjen Leblanc [facility] 1..840.114 350.1.13.10 4.2.7.2.686 [id number] [facility] 2021-12-29 15:00:00 2021-12-29 15:00:00 [facility] [id number] [facility] 2021-12-29 00:00:00 2021-12-29 00:00:00 [facility] 1..840.114 350.1.13.10 4.2.7.2.686 [id number] [facility] 2021-12-28 09:30:00 2021-12-28 11:08:36 Outpatient R HAMZAHBENJAMÍN [facility] [id number] [facility] 2021-12-28 09:30:00 2021-12-28 11:08:36 Office Visit HamzahBenjamín [facility] 1..840.114 350.1.13.10 4.2.7.2.686 [id number] [facility] 2021-12-26 13:20:00 2021-12-26 13:44:59 Outpatient R LISETTE DILLON [facility] [id number] [facility] 2021-12-26 13:20:00 2021-12-26 13:40:00 Urgent Care Lisette Dillon [facility] 1.840.114 350.1.13.10 4.2.7.2.686 [id number] [facility] 2021-12-26 12:00:00 2021-12-26 12:15:00 Grader Green Meat Visit [facility] Sleep Lab Parker Fonseca [facility] 1.84.114 350.1.13.10 4.2.7.2.686 [id number] [facility] 2021-12-26 12:00:00 2021-12-26 12:00:00 Outpatient [facility] [id number] [facility] 2021-12-26 10:00:00 2021-12-26 10:00:00 Outpatient R PARKER FONSECA STRANHSilvina [facility] [id number] [facility] 2021-12-26 00:00:00 2021-12-26 00:00:00 Orders Only Doctor Unassigned, [place] [facility] 1..114 350.1.13.10 4.2.7.2.686 [id number] [facility] 2021-12-15 00:00:00 2021-12-15 00:00:00 Patient Secure Antonio Leblanc [facility] BU[facility] 1.84.114 350.1.13.10 4.2.7.2.686 [id number] [facility] 2021-12-14 15:58:58 2021-12-14 23:59:00 Outpatient ANTONIO DWYER [facility] [id number] [facility] 2021-12-14 15:58:58 2021-12-14 23:59:00 Outpatient R ANTONIO LEBLANC [facility] [id number] [facility] 2021-12-06 00:00:00 2021-12-06 00:00:00 Patient Secure Msg Narinder [facility] BUILDING 1..840.114 350.1.13.10 4.2.7.2.686 [id number] [facility] 2021-12-05 00:00:00 2021-12-05 00:00:00 Telephone Narinder [facility] BUILDING 1..840.114 350.1.13.10 4.2.7.2.686 [id number] [id number] [facility] 2021-12-05 00:00:00 2021-12-05 00:00:00 Orders Only Doctor Unassigned, [place] [facility] 1..840.114 350.1.13.10 4.2.7.2.686 [id number] [facility] 2021-12-04 16:16:11 2021-12-04 23:59:00 [facility] [id number] [facility] 2021-12-04 16:30:00 2021-12-04 16:30:00 [facility] [id number] [facility] 2021-12-01 11:45:00 2021-12-01 12:00:00 Grader Green Meat Visit 2, Adc Lab Narinder [facility] BUILDING 1..840.114 350.1.13.10 4.2.7.2.686 [id number] [facility] 2021-12-01 10:40:00 2021-12-01 11:28:26 [facility] [id number] [facility] 2021-12-01 10:40:00 2021-12-01 11:28:26 [facility] [id number] [facility] 2021-12-01 10:40:00 2021-12-01 11:28:26 [facility] [id number] [facility] 2021-12-01 10:40:00 2021-12-01 11:28:26 Office Visit Narinder [facility] BUILDING 1.840.114 350.1.13.10 4.2.7.2.686 [id number] [facility] 2021-12-01 10:40:00 2021-12-01 11:28:26 Office Visit Narinder [facility] 1.84.114 350.1.13.10 4.2.7.2.686 [id number] [id number] [facility] 2021-12-01 10:40:00 2021-12-01 11:28:26 [facility] [id number] [facility] 2021-12-01 10:40:00 2021-12-01 11:28:26 [facility] [id number] [facility] 2021-12-01 00:00:00 2021-12-01 00:00:00 Orders Only Doctor Unassigned, [place] [facility] ..114 350.1.13.10 4.2.7.2.686 [id number] [id number] [facility] 2021-12-01 00:00:00 2021-12-01 00:00:00 Patient Secure Msg Narinder [facility] 1.84.114 350.1.13.10 4.2.7.2.686 [id number] [facility] 2021-11-15 00:00:00 2021-11-15 00:00:00 Orders Only Doctor Unassigned, [place] [facility] 1.840.114 350.1.13.10 4.2.7.2.686 [id number] [facility] 2021-11-14 00:00:00 2021-11-14 00:00:00 (TEL) STLMLC STLMLC [id number] [facility] 2021-08-15 00:00:00 2021-08-15 00:00:00 (TEL) STLMLC STLMLC [id number] [facility] 2021-08-07 00:00:00 2021-08-07 00:00:00 OFFICE VISIT EST PT LEVEL 3 STLMLC STLMLC [id number] [facility] 2021-08-04 00:00:00 2021-08-04 00:00:00 (TEL) STLMLC STLMLC [id number] [facility] 2021-06-16 00:00:00 2021-06-16 00:00:00 OFFICE VISIT EST PT LEVEL 3 STLMLC STLMLC [id number] [facility] 2021-06-14 00:00:00 2021-06-14 00:00:00 (TEL) STLMLC STLMLC [id number] [facility] 2021-05-09 08:00:00 2021-05-09 08:00:00 Outpatient OPHELIA VICENTE [facility] [id number] [facility] 2021-03-15 10:28:03 2021-03-15 23:59:00 Hospital Encounter Kaur Bueno [facility] 1..840.114 350.1.13.10 4.2.7.2.686 [id number] [facility] 2021-03-15 10:00:00 2021-03-15 10:36:03 Outpatient R GUSHI HADLEYELO [facility] [id number] [facility] 2021-03-15 09:56:50 2021-03-15 10:36:03 Urgent Care Hi BuenoSheree Connolly Norris [facility] MEDICAL OFFICE BUILDING 1..840.114 350.1.13.10 4.2.7.2.686 [id number] [facility] 2021-03-15 00:00:00 2021-03-15 00:00:00 Telephone NurseAnup Urgent Care [facility] MEDICAL OFFICE BUILDING 1..840.114 350.1.13.10 4.2.7.2.686 [id number] [facility] 2021-02-15 00:00:00 2021-02-15 00:00:00 (TEL) STLMLC STLMLC [id number] [facility] 2021-02-15 00:00:00 2021-02-15 00:00:00 OFFICE VISIT EST PT LEVEL 3 STLMLC STLMLC [id number] [facility] 2021-01-04 00:00:00 2021-01-04 00:00:00 Outpatient STLMLC STLMLC [id number] [facility] 2020-12-27 15:00:00 2020-12-27 15:00:00 Outpatient R OPHELIA GREENWOOD [facility] [id number] [facility] 2020-12-08 00:00:00 2020-12-08 00:00:00 Telephone [facility] 1..840.114 350.1.13.10 4.2.7.2.686 [id number] [facility] 2020-12-06 07:05:00 2020-12-06 11:20:00 Outpatient R OPHELIA GREENWOOD [facility] POWER SYSTEM ENGINEER [id number] [facility] 2020-12-06 07:05:00 2020-12-06 11:20:00 Hospital Encounter Ophelia [place] 1.2.840.114 350.1.13.10 4.2.7.2.686 [id number] [facility] 2020-12-06 08:59:00 2020-12-06 10:24:00 Surgery Ophelia [place] 1.2.840.114 350.1.13.10 4.2.7.2.686 [id number] [facility] 2020-12-06 00:00:00 2020-12-06 00:00:00 Patient Secure Msg Ophelia Greenwood [facility] PROFESSIO NAL BUILDING 1.2840.114 350.1.13.10 4.2.7.2.686 [id number] [facility] 2020-12-06 00:00:00 2020-12-06 00:00:00 Orders Only Doctor Unassigned, [place] [facility] 1.2.840.114 350.1.13.10 4.2.7.2.686 [id number] [facility] 2020-12-05 09:08:13 2020-12-05 09:23:13 Laboratory Only Only, Adc Test Ophelia [place] 1.2.840.114 350.1.13.10 4.2.7.2.686 [id number] [facility] 2020-12-05 09:07:59 2020-12-05 09:22:59 Grader Green Meat Visit Pob, Adc Lab [facility] 1.2840.114 350.1.13.10 4.2.7.2.686 [id number] [facility] 2020-12-05 08:45:00 2020-12-05 08:45:00 Outpatient R OPHELIA GREENWOOD [facility] [id number] [facility] 2020-11-29 00:00:00 2020-11-29 00:00:00 Telephone Ophelia [place] [facility] Professio nal Building 1.2.840.114 350.1.13.10 4.2.7.2.686 [id number] [facility] 2020-11-21 08:57:51 2020-11-21 09:51:19 Office Visit Ophelia [place] [facility] Building 1.2.840.114 350.1.13.10 4.2.7.2.686 [id number] [facility] 2020-11-21 09:00:00 2020-11-21 09:00:00 Outpatient R OPHELIA GREENWOOD [facility] [id number] [facility] 2020-11-21 00:00:00 2020-11-21 00:00:00 Prep For Surgery Ophelia Greenwood [facility] Building 1.2.840.114 350.1.13.10 4.2.7.2.686 [id number] [facility] 2020-11-17 15:00:00 2020-11-17 15:00:00 Outpatient R OPHELIA GREENWOOD [facility] [id number] [facility] 2020-10-18 15:16:09 2020-10-18 16:31:46 Office Visit pOhelia Greenwood [facility] Building 1.2.840.114 350.1.13.10 4.2.7.2.686 [id number] [facility] 2020-10-18 15:00:00 2020-10-18 15:00:00 Outpatient R OPHELIA GREENWOOD [facility] [id number] [facility] 2020-10-18 00:00:00 2020-10-18 00:00:00 Orders Only Doctor Unassigned, [place] [facility] 1.2.840.114 350.1.13.10 4.2.7.2.686 [id number] [facility] 2020-10-12 00:00:00 2020-10-12 00:00:00 Outpatient STLMLC STLMLC [id number] [facility] 2020-08-12 00:00:00 2020-08-12 00:00:00 Outpatient STLMLC STLMLC [id number] [facility] 2020-08-12 00:00:00 2020-08-12 00:00:00 Outpatient STLMLC STLMLC [id number] [facility] 2020-08-08 00:00:00 2020-08-08 00:00:00 Outpatient STLMLC STLMLC [id number] [facility] 2020-08-08 00:00:00 2020-08-08 00:00:00 Outpatient STLMLC STLMLC [id number] [facility] 2020-06-02 00:00:00 2020-06-02 00:00:00 Outpatient STLMLC STLMLC [id number] [facility] 2020-05-26 00:00:00 2020-05-26 00:00:00 Outpatient STLMLC STLMLC [id number] [facility] 2020-05-25 00:00:00 2020-05-25 00:00:00 Outpatient STLMLC STLMLC [id number] [facility] 2020-05-24 00:00:00 2020-05-24 00:00:00 Outpatient STLMLC STLMLC [id number] [facility] 2020-05-19 00:00:00 2020-05-19 00:00:00 Outpatient STLMLC STLMLC [id number] [facility] 2020-05-11 00:00:00 2020-05-11 [facility] [facility] [id number] 2020-05-11 00:00:00 2020-05-11 00:00[facility] [facility] [facility] [id number] 2018-09-02 11:39:00 2018-09-02 11:39:00 [facility] [id number] [facility] Results Test Description Test Time Test Comments Results Result Co mments Source HEMOGLOBIN [id number] 00:00:00* Test Item Value Reference Range Interpretation Comme nts HEMOGLOBIN A1c (test code = 4548-4) 5.5 % See_Comment [Automated [employer]] The system which generated this result transmitted reference range: 4.2-5.6 %. The reference range was not used to interpret this result as normal/abnormal. TSH REFLEX TO FREE [id number] 00:00:00* Test Item Value Reference Range Interpretation Comme nts TSH REFLEX TO FREE T4 (test code = 26259-0) 0.978 UIU/ML See_Comment [Automated [employer]] The system which generated this result transmitted reference range: 0.400-4.100 UIU/ML. The reference range was not used to interpret this result as normal/abnormal. URINALYSIS (CULTURE IF INDICATED)2023-05-08 00:00:00* Test Item Value Reference Range Interpretation Comme nts APPEARANCE (test code = 5767-9) CLEAR CLEAR BACTERIA (test code = 96775-4) NONE SEEN NONE SEEN BILIRUBIN (test code = 5770-3) NEGATIVE NEGATIVE CASTS, HYALINE (test code = 09604-3) NONE SEEN NONE-TRACE COLOR (test code = 5778-6) YELLOW YELLOW-STRAW EPITHELIAL CELLS (test code = 11510-9) 0-5 /HPF See_Comment [Automated [employer]] The system which generated this result transmitted reference range: 0-10 /HPF. The reference range was not used to interpret this result as normal/abnormal. GLUCOSE (test code = 5792-7) NEGATIVE NEGATIVE KETONES (test code = 5797-6) NEGATIVE NEGATIVE LEUKOCYTE ESTERASE (test code = 5799-2) 1+ NEGATIVE A NITRITE (test code = 5802-4) NEGATIVE NEGATIVE OCCULT BLOOD (test code = 76728-1) NEGATIVE NEGATIVE pH (test code = 5803-2) 8.0 5.0-9.0 PROTEIN (test code = 24041-5) NEGATIVE NEGATIVE RED BLOOD CELLS (test code = 48693-5) 0-2 /HPF See_Comment [[employer]ated [employer]] The system which generated this result transmitted reference range: 0-2 /HPF. The reference range was not used to interpret this result as normal/abnormal. SPECIFIC GRAVITY (test code = 5811-5) 1.010 1.005-1.035 UROBILINOGEN (test code = 34692-7) 0.2 MG/DL See_Comment [[employer]] The system which generated this result transmitted reference range: <=2.0 MG/DL. The reference range was not used to interpret this result as normal/abnormal. WHITE BLOOD CELLS (test code = 86933-3) 0-5 /HPF See_Comment [[employer]ated [employer]] The system which generated this result transmitted reference range: 0-5 /HPF. The reference range was not used to interpret this result as normal/abnormal. LIPID PANEL WITH REFLEX DIRECT [id number] 00:00:00* Test Item Value Reference Range Interpretation Comme nts CALC LDL CHOL (test code = 03636-5) 96 MG/DL See_Comment [[employer]ated [employer]] The system which generated this result transmitted reference range: <100 MG/DL. The reference range was not used to interpret this result as normal/abnormal. CHOLESTEROL (test code = 2093-3) 161 MG/DL See_Comment [[employer]] The system which generated this result transmitted reference range: <200 MG/DL. The reference range was not used to interpret this result as normal/abnormal. HDL CHOLESTEROL (test code = 2085-9) 45 MG/DL See_Comment [[employer]ated [employer]] The system which generated this result transmitted reference range: >39 MG/DL. The reference range was not used to interpret this result as normal/abnormal. RISK RATIO LDL/HDL (test code = 12981-0) 2.13 RATIO See_Comment [Automated message] The system which generated this result transmitted reference range: <3.22 RATIO. The reference range was not used to interpret this result as normal/abnormal. TRIGLYCERIDES (test code = 2571-8) 108 MG/DL See_Comment [Automated messa ge] The system which generated this result transmitted reference range: <150 MG/DL. The reference range was not used to interpret this result as normal/abnormal. COMPREHENSIVE METABOLIC [id number] 00:00:00* Test Item Value Reference Range Interpretation Comme nts ALBUMIN (test code = 1751-7) 4.6 G/DL See_Comment [Automated messa ge] The system which generated this result transmitted reference range: 3.5-5.2 G/DL. The reference range was not used to interpret this result as normal/abnormal. ALKALINE PHOSPHATASE (test code = 6768-6) 53 U/L See_Comment [Automated message] The system which generated this result transmitted reference range: 40-112 U/L. The reference range was not used to interpret this result as normal/abnormal. BILIRUBIN, TOTAL (test code = 1975-2) 0.5 MG/DL See_Comment [Automated message] The system which generated this result transmitted reference range: <=1.2 MG/DL. The reference range was not used to interpret this result as normal/abnormal. BUN (test code = 3094-0) 14 MG/DL See_Comment [Automated messa ge] The system which generated this result transmitted reference range: 6-20 MG/DL. The reference range was not used to interpret this result as normal/abnormal. CALCIUM (test code = 92366-7) 9.9 MG/DL See_Comment [Automated messa ge] The system which generated this result transmitted reference range: 8.5-10.5 MG/DL. The reference range was not used to interpret this result as normal/abnormal. CALC A/G RATIO (test code = 1759-0) 1.9 RATIO See_Comment [Automated messa ge] The system which generated this result transmitted reference range: 1.0-2.6 RATIO. The reference range was not used to interpret this result as normal/abnormal. CALC BUN/CREAT (test code = 3097-3) 23 RATIO See_Comment [Automated messa ge] The system which generated this result transmitted reference range: 6-28 RATIO. The reference range was not used to interpret this result as normal/abnormal. CALC GLOBULIN (test code = 37268-6) 2.4 G/DL See_Comment [Automated messa ge] The system which generated this result transmitted reference range: 1.9-3.7 G/DL. The reference range was not used to interpret this result as normal/abnormal. CARBON DIOXIDE (test code = 1962-8) 22 MEQ/L See_Comment [Automated messa ge] The system which generated this result transmitted reference range: 19-31 MEQ/L. The reference range was not used to interpret this result as normal/abnormal. CHLORIDE (test code = 2075-0) 101 MEQ/L See_Comment [Automated messa ge] The system which generated this result transmitted reference range: 95-107 MEQ/L. The reference range was not used to interpret this result as normal/abnormal. CREATININE (test code = 2160-0) 0.61 MG/DL See_Comment [Automated messa ge] The system which generated this result transmitted reference range: 0.60-1.30 MG/DL. The reference range was not used to interpret this result as normal/abnormal. eGFR (2020 CKD-EPI) (test code = 93993-4) 123 ML/MIN/1.73 See_Comment [Automated message] The system which generated this result transmitted reference range: >60 ML/MIN/1.73. The reference range was not used to interpret this result as normal/abnormal. GLUCOSE (test code = 1558-6) 83 MG/DL See_Comment [Automated messa ge] The system which generated this result transmitted reference range: 70-99 MG/DL. The reference range was not used to interpret this result as normal/abnormal. POTASSIUM (test code = 2823-3) 4.0 MEQ/L See_Comment [Automated messa ge] The system which generated this result transmitted reference range: 3.5-5.4 MEQ/L. The reference range was not used to interpret this result as normal/abnormal. PROTEIN, TOTAL (test code = 2885-2) 7.0 G/DL See_Comment [Automated messa ge] The system which generated this result transmitted reference range: 6.1-8.3 G/DL. The reference range was not used to interpret this result as normal/abnormal. AST (test code = 1920-8) 18 U/L See_Comment [Automated messa ge] The system which generated this result transmitted reference range: 9-40 U/L. The reference range was not used to interpret this result as normal/abnormal. ALT (test code = 1742-6) 26 U/L See_Comment [Automated [employer]] The system which generated this result transmitted reference range: 5-40 U/L. The reference range was not used to interpret this result as normal/abnormal. SODIUM (test code = 2951-2) 138 MEQ/L See_Comment [Automated [employer]] The system which generated this result transmitted reference range: 133-146 MEQ/L. The reference range was not used to interpret this result as normal/abnormal. HEPATIC FUNCTION PANEL (75747) (ALB,T.PRO,BILI T,BU/BC,ALT,AST,ALK PHOS) 2022-10-08 17:05:46* Test Item Value Reference Range Interpretation Comme nts TOTAL BILI (test code = 4053684687) 0.5 mg/dL 0.1-1.1 BILI UNCON (test code = 2186664971) 0.2 mg/dL 0.1-1.1 BILI CONJ (test code = 1288756261) 0.0 mg/dL 0.0-0.3 T PROTEIN (test code = 2601657589) 7.0 g/dL 6.3-8.2 ALBUMIN (test code = 0838786712) 4.2 g/dL 3.5-5.0 ALK PHOS (test code = 1552401409) 47 U/L 34-122 ALTv (test code = 1742-6) 27 U/L 5-35 AST(SGOT) (test code = 3211079078) 23 U/L 13-40 Lab Interpretation (test cod e = 29522-3) [facility]* Test Item Value Reference Range Interpretation Comme nts LIPASE (test code = 6933669484) 77 U/L 0-220 Lab Interpretation (test cod e = 05448-7) [facility] (NA, K, CL, CO2, GLUCOSE, BUN, CREATININE, CA)2022-10-08 17:05:30* Test Item Value Reference Range Interpretation Comme nts NA (test code = 2482485255) 139 mmol/L 135-145 K (test code = 2858923038) 4.0 mmol/L 3.5-5.0 CL (test code = 3967999046) 104 mmol/L 98-108 CO2 TOTAL (test code = 1095303186) 26 mmol/L 23-31 AGAP (test code = 6651686800) 9 2-16 BUN (test code = 8618742006) 9 mg/dL 7-23 GLUCOSE (test code = 3870277046) 94 mg/dL 70-110 CREATININE (test code = 3766953237) 0.51 mg/dL 0.50-1.04 CALCIUM (test code = 2664430525) 9.1 mg/dL 8.6-10.6 eGFR (test code = 3353830994) 141.6 mL/min/1.73m2 SHARYN (test code = SHARYN) Association of [...] or urine or abnormalities in imaging tests). [facility] WITH ECQS8911-79-77 16:50:44* Test Item Value Reference Range Interpretation Comme nts WBC (test code = 6690-2) 4.99 See_Comment [Automated messa ge] The system which generated this result transmitted reference range: 4.30 - 11.10 10*3/?L. The reference range was not used to interpret this result as normal/abnormal. RBC (test code = 789-8) 4.01 See_Comment [Automated messa ge] The system which generated this result transmitted reference range: 3.93 - 5.25 10*6/?L. The reference range was not used to interpret this result as normal/abnormal. HGB (test code = 718-7) 12.5 g/dL 11.6-15.0 HCT (test code = 4544-3) 37.5 % 35.7-45.2 MCV (test code = 787-2) 93.5 fL 80.6-95.5 MCH (test code = 785-6) 31.2 pg 25.9-32.8 MCHC (test code = 786-4) 33.3 g/dL 31.6-35.1 RDW-SD (test code = 04676-5) 47.5 fL 39.0-49.9 RDW-CV (test code = 788-0) 14.1 % 12.0-15.5 PLT (test code = 777-3) 204 See_Comment [Automated messa ge] The system which generated this result transmitted reference range: 166 - 358 10*3/?L. The reference range was not used to interpret this result as normal/abnormal. MPV (test code = 24001-6) 10.6 fL 9.5-12.9 NRBC/100 WBC (test code = 0108655907) 0.0 See_Comment [Automated me ssage] The system which generated this result transmitted reference range: 0.0 - 10.0 /100 WBCs. The reference range was not used to interpret this result as normal/abnormal. NRBC x10^3 (test code = 2594549363) See_Comment [Automated me ssage] The system which generated this result transmitted reference range: 10*3/?L. The reference range was not used to interpret this result as normal/abnormal. GRAN MAT (NEUT) % (test code = 770-8) 47.3 % IMM GRAN % (test code = 9699278247) 0.40 % LYMPH % (test code = 736-9) 37.3 % MONO % (test code = 5905-5) 10.6 % EOS % (test code = 713-8) 3.4 % BASO % (test code = 706-2) 1.0 % GRAN MAT x10^3(ANC) (test code = 8922843234) 2.36 10*3/uL 1.88-7.09 IMM GRAN x10^3 (test code = 4945906136) 0.00-0.06 LYMPH x10^3 (test code = 731-0) 1.86 10*3/uL 1.32-3.29 MONO x10^3 (test code = 742-7) 0.53 10*3/uL 0.33-0.92 EOS x10^3 (test code = 711-2) 0.17 10*3/uL 0.03-0.39 BASO x10^3 (test code = 704-7) 0.05 10*3/uL 0.01-0.07 [facility] [id number] 16:36:00* Test Item Value Reference Range Interpretation Comme nts POCT PREG (test code = 1605) Negative On board controls acceptable with C Line (test code = 3574) Yes POCT PREG LOT # (test code = 3575) [id number] POCT PREG TEST DATE (test code = 3576) 02/09/2024 Lab Interpretation (test cod e = 89009-0) Normal [facility] URINALYSIS W/O SPECIFIC [id number] 21:26:00* Test Item Value Reference Range Interpretation Comme nts POCT PH U (test code = 3254) 8 mg/dl 5-8 POCT U LEUK EST (test code = 3263) Negative Negative - Negative POCT U NIT (test code = 3262) Negative Negative - Negati ve POCT U PROT (test code = 3259) Negative Negative - Negat dori POCT U GLU (test code = 3256) Normal Negative - Negati ve POCT U KETONE (test code = 3258) Negative Negative - Neg ative POCT U BLD (test code = 3257) Negative Negative - Negati ve [facility] URINALYSIS W/O SPECIFIC [id number] 21:26:00* Test Item Value Reference Range Interpretation Comme nts POCT PH U (test code = 3254) 8 mg/dl 5-8 POCT U LEUK EST (test code = 3263) Negative Negative - Negative POCT U NIT (test code = 3262) Negative Negative - Negati ve POCT U PROT (test code = 3259) Negative Negative - Negat dori POCT U GLU (test code = 3256) Normal Negative - Negati ve POCT U KETONE (test code = 3258) Negative Negative - Neg ative POCT U BLD (test code = 3257) Negative Negative - Negati ve [facility] [id number] 02:37:00* Test Item Value Reference Range Interpretation Comme nts POCT PREG (test code = 1605) Negative On board controls acceptable with C Line (test code = 3574) Present POCT PREG LOT # (test code = 3575) [id number] POCT PREG TEST DATE ( test code = 3576) 08-04-2023 Lab Interpretation (test cod e = 23880-4) Normal [facility] [id number] 13:36:00* Test Item Value Reference Range Interpretation Comme nts POCT PREG (test code = 1605) negative On board controls acceptable with C Line (test code = 3574) present POCT PREG LOT # (test code = 3575) [id number] POCT PREG TEST DATE ( test code = 3576) Lab Interpretation (test cod e = 09849-6) [facility] [id number] 15:35:34* Test Item Value Reference Range Interpretation Comme [facility] Case Report (test code = 7797461761) Surgical Pathology ?Case: [id number] ? Authorizing Provider: ?Ophelia Greenwood MD ?Collected: ? 12/06/2020 0948 ?Ordering Location: ? ? [facility] ? ? ?Received: ?12/06/2020 1414 ? [facility] ?Pathologist: ? Dionisio Forde MD ?Specimens: ? A) - FALLOPIAN TUBE, LEFT ? B) - FALLOPIAN TUBE, RIGHT ? Final Diagnosis (test code = 3282950614) [id number] uZzEwMzNcZnRuYmpcdWMxIH ufbkYqEErbsJzzXXUxI5pme yAuEJGgjLVhH8BrrsmxYJaw JJ3zFV6pdGgbtMDtoJIsPTW hWsGqz5fhy052wLJdz8haOI LNehvlxAk6dIsiD03yn9J2Z cbrP71dfEDsWVI9AVMgLLJe hXGyJKAhEDF1SDNudXTfA5n eCHOwGN8jzpioCMkdQPegHX DgkML1KYAwsMYoJ5OmTEIoH IrlCFEnnfm7VvSuSu6cxYPo eTcyMFxwYXJkXHBsYWluXGZ zMjBccGFyIEEuIEZBTExPUE lBTiBUVUJFLCBMRUZULCBTR OcGVP9YNBoeNjBRVWIVOK2A OlxwYXIgICAgLSBGVUxMIEN VJ7HVCDDXX2NMJ56mP8DqDm DWPW9VGFGVYDJYUiYgKAOKR lRJRklFRFxwYXJccGFyIEIu IEZBTExPUElBTiBUVUJFLCB VGNyCSBlxA4OYMKMUPGQJAO MWH0AEFBoRSnovbIQwJRZrS B4hOxDDECAENh6JVcNTLBUT YJ6XOO6LAAAQHXmBRBcKFbA UWKNRUJdWRL9ULCCJNGKcHR BhclxwYXIgQmlsbGllIFNoa X6tPJXQWiPaXL98JcPoDhSo GVKcXvYrFLWXPGgaDPU4q3t ydGYxXHNzdGVjZjIyMDAwXG Mfo1otJBFntBRwDhTnXkPoE wMkPrmujOJbXNMaOlIte3rl k625iNXaw6gzEUWaBoA7gSF cIVBtkXufvmn2hOpyBsAqVY Arn0kktsEdMlRvRKXfVVZwJ IProFOtI513WQFsSTmaq3yr e5FeSBDewAXre6A9QXXZCKi gGbGtB158h7szd9raicBjaW A3UNRmQAG0MUsraaOewxH0T JicwOVkLfT1EBytwxPcUBfd qwGynwAwYuv2HJDuF606HUR 8nHuqp0tbAPM8HKMxWFHjXz tdFw2lkHMhU872BTBbQIPFL QCwvEe6LQFsyoHrczLczGVP t153E987k5itXRRhjnQhzTk Ycnkfr3hjU370KJBldPAhev XoXyFfCOQzdYWwaIM0RUUlF D8oqrnoADfgLCrfHMVrlzY8 WMWmcUNqE3LyRJFoAI6swjl xUOF9QNubCCCuUNU0TyMsID Hmu6Ebyds1FgBmne1mmz20U CF7y1IceSliLFK8PNB2HxNv Bh9gxOOdZBTkII9yQqReyCR eDOGhvm11hCtbSSurglVhoN 0vYkTgILJvmCOdSHAmIV4is GFyLELkeG1fdehpSNFjYjVc vbrlLZQyhLidmfPlFg2kaHy xDZD8YQcmC7aayL1pExA3XM wuC9qsqD1eSGf4ENfriMI5U VJpmV0hNJ5qbyoxm8dnZAhw QEaxQRVvomE7msT7SCCbqQF rZ6HtkA4kPPKlXU5wscosw1 vrMMW7GYywYGGzKRF6YyUwP CVft7Jmzxj1XxVir7OpiFPt OShfS96kb543IQKsjvJaW3z wbGFpblxwbGFpblxmMFxmcz A1VBIdAVWoSTkbEVKcBTHlD jBcbGFuZzEwMzNcaGljaFxm ZEiaXkQfFPOjJYzvB6ciKhE iV9IdKMZlUlUidXDnFNmdyV I4JANjZFLxx82xmVr3GUKdn lgvb7IhTMYwjILtrLQzfB6r brYjy9xuXYEzVLEbMMDaZ0P tXTO3lEZoZQMvvDNpyGG9CV 4igyKkUY0tONJaSllzpeBam EKsroLqDBBlMWouu2scDI9g CLFfkXkjeW4hvYZ9CHThp4w biCKwyPCpp6rab9YynxHeVD mcVCTqGRysOQCkQZOdOH8wI CLitIItcoKbg7A6XazytGCy brarOinevtA1UVceloqvEYJ yAXshS9prGcEsGNNogBdgXn sac5KeENBgPBAyTkqgiVXep X0= Clinical Information (test code = 4565114775) Desires sterilzation Gross Description (test code = 5193814003) k1yzrRPyGHGohPAXRBAqF4d jmvBnTPRgxUJuF5FcxbefXL yjLU1kLS5ukYrouTLrlWMdA W9ORGPaGyHfAXNukTYxpiGw MlJuAZLezLAlbJN4GCQpSQ9 pzeenWQomACguDFYacoT6YU HhaLSaP5MyJXFvZI2cqmgyM PO0EXkcxQ8spzVVNshbEd5n dHRibHtcZjFcZmNoYXJzZXQ uKIHuuSiyGEScCBf9yS7HHw qbQRX2ZJVMHnpmMTXlMB0Jt 8mwNXWeoSCaLPI1SCvmgMIv TMVrNMZoPNh6YRPpKIabjQB jBG7arCmjLvaffXpdi4EngW BcXGlkIDUxMDAyIFxcZGIgI I6ZBvLtMGf3IgP9MoRwMAa4 DHg8VJ3GEtYyLEUrLnWzZCH 0RMVwSFh3GOycMX5UECIjZG W5YkctZZiuEKN8OwMzNNq4D DIgXFxmIEFyaWFsIFxcZnMg KJEcVZsphKUnHT2feKqyjXT pblxmczIwXHBhciANClxwbG FpblxlcGljTmVzdERvYzEgD QpcbHRycGFyXGxpbjBccmlu MCANClxsdHJjaFxmczIyIFN wZWNpbWVuIEEgaXMgcmVjZW e1GFExtC7nFu5rfRErdK4ju OEkIQcjFEI1tEIdQAZmFOCh KMXzLU91Y5PyovHeIAmrNXl gbnVtYmVyLCAiIEZhbGxvcG gzhbU6nQQgDMYdDIY2QoZjn fSiY19do7nqtGOol7VdSGGl jU2cpSAyuWQrTCBuedvgx2Y raEKcpKSvAlVoqZ2uzrjayN ThIESpcJgfsApwtyR6zKXnB Rp5LgNxaOLgIgZltEVfNnQj S37rZLcvsSKfSZzsRWXsgar dtVh3KTXtT0Sbl90pMJR8yt ByZXZlYWwgdGFuLXBpbmsgZ 4Ini5NtyOK3tqJzjYSfn2Fg dFEaJ9D0CNR9eaNpK8HmMTi vaKmjLWEnwL8bm2gfqYMtqV 4vfu6aXmDodxAhLC24LVDph eUgC0Xmd2Xjk1FlbFkgtbMo SF7mELPzSLEeqfLidtDhYbv wXDS6KUMoChkjYmVaTDPzTU VnqvKvWKMqEOB2Sh2dmDXbA CBibHVlIGluayBzaWRlIGRv b71csS6uHMUyTVnxeNeukH7 kMKFlB98wx4GYk4QyZJNrQE ndk0wpzNnye6BrnPLlGDuoA SFvlYUpMPaaaG2fOeCrn1qq oXi0EBekbcE4ABVfei6QRon tPghlzYbje7AsgZGkNQpiFC NpTXEbQItqHHDfIX8TVsYxD Oa9FgH3NxNuKYh7TWq5ZX2Z ChNmYMEbQvWcUPM7ZEJjJJo 4YMwoVA2GJOKlFVV7Aqz5Bb EgWZI3ZoAnNCt9SDVgJPggJ EFyaWFsIFxcZnMgMTAgXFxm fKJbYT8hoYzdpzYhLLYdezB NClxwbGFpblxlcGljTmVzdE RvYzEgDQpcbHRycGFyXGxpb jBccmluMCANClxsdHJjaFxm czIyIFNwZWNpbWVuIEIgaXM kvdReDSo5AFIwvW0mXt6qpB TupB9dkOQbQWxxLLX3tEZbZ KEjJPVgNBZzFD44P2YockHt ZSwgVUggbnVtYmVyLCAiIEZ kbBiebKsklrA5hYKvXNNxdK uszWKsBK1qTXFbdaDza3ZaU J0zBJLwd9odU2wzRPAxwo0q iR6hUSQaA46feeUny5ClTtc eTwSgKRYoQUOfVApam8EmRC 7kxHCqBWEpFE53OEzyKX8kH BztWA37GVUxWTE9tUavwSXa qjRpZHOvJUsksXSjORN4dA1 sGJPwiE8txoH4LAUfAEMmef 8nqK1uYEjhg9SxeOyfmC2aA J6uvbtuBiueQHR7fYXaeLQy VZNghpQ4zNIuIVSryWvhoS4 fboEnaHQzDL0fREDpkRUii0 EkwKQ0xRAnLRZlg0HeOFLyY 7Enz93hBVKlSGQ0uTGpXG81 eLEeXADyk5GukYGuTOUcbZF xnBF1OCEiZS0aKTTnHKXykP AtxBA3IBEwEvb8LRMvpahrc 9pbTSVxh5fjHDdiAYQbCtht SINrKNzsuEOjWT3TGOIdxSG YUSykw2CaGEcaAGBSPnslaD FpblxlcGljTmVzdERvYzBcc WpczG67OGPptQQhERL3EB5c UPYtcqzhLULrEICtIBC8NAn ofR08zISaOKUyKTKxnDNtxG 1KPWGoBCX6NLuzrK01xSSzI A4RZCCfPKR4CFYgbBWpBFM2 ZM0jfQ4DuO== Disclaimer (test code = 0320037610) k2aqkGPdDNCxq6fxDMPyqZE uZzEwMzNcZnRuYmpcdWMxIH rssnVeDKubx7GkV5LlGwAyK FxhbnNpXGRlZmxhbmcxMDMz RJQ7qnOfDGMcYFqlUKWhEUh aJz2pyRGkuSfmXbAdHIGzw6 urvwJMQYvbHaLqA196BSEcX Xosq2gkh2IqQCDlpKDjg0H7 PKUYiukmuMh2zCgdO97ti1B 4DfenR3qmNJScDBErO1NgVS 4eBMZgRrq5DCY3WAU8BJXwK MFlR8WeWS9xBHMdoRBiUHj5 y3mjuSbgSQEqVJW3p0nvKZb gbsDbSO2jrm8lhVj8n2olie UvUWHwOXLseZHVKSQpC7Bqa HfsUq7kxOv1aWfoBfjaAWV7 Gdp8WM4dxl97iwl7pAiuEBW xyyfhVlH4KKfnMVHxafnmVN h0IMkcRUDolYG9WDAvrSGwT 5WpXLFfJF1pdyl3GRK6VVyb VQZsKrH6WOZwgYTkPEJvfTm rVBkbi246RMX2KiBuJU6kS5 Ifg2F2jV6szDFrPZInbFIyU mGeIYCpay2tqMCoWZaut7Bh NZX4pqC8iXPloJIjFBHbBC8 0Ztvcn4SlGexvd1CmF60ltV B9WOzsi7viME5fFxO7gkYoJ Aqeg2yqkE1lBiC4RWhzUK7x TL5yHORzpP0nxevfXIUiLbJ fyyczTKJncDwudgFfBb1jqS rvBZN1HVjoY9xefF1hAkP8L QbzL7xszQ8tGMh6KXvwqFT1 RRJwnH3uBH4lhjlnk6xvYEc iOWsvKUAgpgO8zpB6TKFzqD ZdY5SisF3zUMNoUH7ryzdsb 4iuSVQ2QDxnALFwVBU1YkOy KRAnu0Elncy2QjBga8RidBL sUFuyO54lg580IYMiubCgL8 xwbGFpblxwbGFpblxmMFxmc sG5WHSudkFzd0NiLORyXGS2 PKijNNjveURtYXStvHxvx7n uD7UvdYTjOPZrWQbdXLKhYZ ZzMjBcbGFuZzEwMzNcaGlja WzlESuiKvJcXLIxOTqtR1eu KpKoD5TuQKAcAlKkdQFcG6c pPUhlvhRpXARlmoFgqBR7DI hqL6u1LMSpaaCvtZi1aaAaN aNaXKXfRGC5QLjsyQZcKFWj g0DrldmzrGQyLh8fsAMbDGO qcN2dSIJmHLHcZZrmGQ2ypF m9CMEPcJIusXUmZxCVGVWqG X67vrBpKKDRomxak0K2BCea ZYFpb5JkyFRkS0byk5MhZQF wt18dWA3yj3F0k2quKLY5LA 5ux6VhDJJuvFKdtNAuCQCvj 7Xbhsyqy0VgAGQwqpWtg0Of ZCBhbmQgaXRzIHBlcmZvcm1 eetIjLBAzGEJnH7DhmwgrdM moqrUfFQGmye6tpaLxTGC3O OXMTHWxUXEbw2PqjX5tpCSC WKK5wVXvdb3ropSVnKVmVQB jss80RGIfKZ7eU4qqVRBmJO EcezUjwLLtr1PvYFEpdTJ9o GDgAJ5UFwSTw70cHPYhYWAX stJzJEKkdMrzrSS2ttE1oX3 uIChGREEpLlx+IFRoZSBGRE CvRV2oleYzs1UdmqAlkAjoQ CZmnYMgi6QhhFSxz7QeuIjf l6HbeTVdmLPuHU4pTBYeczk zLNNjCOKDZqNEMBJzqoE9y3 RzSZOhAMEfPTA9rVjjltw0S OEsoH5dGXFzV1qqezjgJNup NFHqw2LmpQ6hiUVQfKQnq8V aaQTeeBSXwKQyFT9mkeYaOR fCAFaJXRH5gnViDFKvu6RtS NymR4peL75efSuptOl6hXE2 KRJ2uX8dHpu+IFxwYXJccGF yIEFwcHJvcHJpYXRlbHkgcm MyZ0QboxVdpG9zzHIzshQoF C5jYL0bD0T8cOTuPJWfphUt e5usZCqrphNeSbWmnbOgSWA tVGruHXEuj9JtIEtjWEU5KD lucyBpbmNsdWRpbmcgSCZFL LXNoFPczFYkMGK9CIrdztBe toMpOX3htK1nxHykjI8yiNC dkWF2jurzHTMsNUCgyYmfVR GeON7wgFLqWQFhddKZvTxcj ZIlyM3aT3RrHPMxPRAzaz8p KCUxtX4xKJprp6KndpxwSXM pYGDeXXFgbfSzby3dEBFhfJ XCOJ7GSPslkOTmr0LchmTrC 8zLKZJ1ISItViScRoxpUBDh nSDabDZtPDBtwj38QNDyhG8 vsMdiFFVfuS7ocG0znFualI 5aClFzChLzVApuNL0zUVRrD 6sylWIdZLVlHLObE5egFvYh pO5jkBjpPPmvApWzPhHsRCo dQMS0hA== Embedded Images (test code = 2930075615) [facility] [id number] 12:10:00* Test Item Value Reference Range Interpretation Comme nts POCT PREG (test code = 1605) Negative On board controls acceptable with C Line (test code = 3574) Yes POCT PREG LOT # (test code = 3575) [facility] [id number] POCT PREG TEST DATE ( test code = 3576) [facility] [id number] 12:10:00* Test Item Value Reference Range Interpretation Comme nts POCT PREG (test code = 1605) Negative On board controls acceptable with C Line (test code = 3574) Yes POCT PREG LOT # (test code = 3575) [facility] [id number] POCT PREG TEST DATE ( test code = 3576) [facility] [id number] 07:11:00* Test Item Value Reference Range Interpretation Comme nts HEMOGLOBIN (test code = HGB) 8.1 g/dL 10.7-13.9 L HEMATOCRIT (test code = HCT) 26.4 % 32.1-42.1 L AG HEPATITIS B [id number] 10:15:00* Test Item Value Reference Range Interpretation Comme nts AG HEPATITIS B SURFACE (test code = HBSAG) NONREACTIVE NONREACTIVE Specimen Comment: [facility] CONSENT FORM SIGNED FOR HIV TESTING? YAB HEPATITIS C [id number] 10:15:00* Test Item Value Reference Range Interpretation Comme nts AB HEPATITIS C (test code = HCVAB) NONREACTIVE NONREACTIVE SIGNAL TO CUTOFF (test code = CUTOFF) <0.02 <0.80 N Specimen Comment: [facility] CONSENT FORM SIGNED FOR HIV TESTING? YRUBELLA SCREEN 2019-04-19 10:15:00* Test Item Value Reference Range Interpretation Comme nts RUBELLA SCREEN (test code = RUBSC) 21.1 IUnit/ml Results >10.0IUn its/ml are considered positive inaccordance with the CLSI guidelines and based on the WHO International Standard for Anti-Rubella serum as anindicator of immune status and a breakpoint to detect mostseropositive persons. Specimen Comment: [facility] CONSENT FORM SIGNED FOR HIV TESTING? YAB TREPONEMA 2019-04-19 10:15:00* Test Item Value Reference Range Interpretation Comme nts AB TREPONEMA (test code = TREPAB) NONREACTIVE NONREACTIVE Specimen Comment: [facility] CONSENT FORM SIGNED FOR HIV TESTING? YAB HIV 1 2 2019-04-19 10:15:00* Test Item Value Reference Range Interpretation Comme nts AB HIV 1 2 (test code = [id number]) NONREACTIVE INDEX NONREACTIVE Specimen Comment: [facility] CONSENT FORM SIGNED FOR HIV TESTING? YAB HIV 1 2 2019-04-19 10:14:00* Test Item Value Reference Range Interpretation Comme nts AB HIV 1 2 (test code = [id number]) NONREACTIVE INDEX NONREACTIVE Specimen Comment: [facility] CONSENT FORM SIGNED FOR HIV TESTING? [id number] 08:56:00* Test Item Value Reference Range Interpretation Comme nts GLUBED (test code = GLUBED) 98 mg/dL 65-110 N [id number] 05:34:00* Test Item Value Reference Range Interpretation Comme nts GLUBED (test code = GLUBED) 107 mg/dL 65-110 N AG HEPATITIS B [id number] 04:58:00* Test Item Value Reference Range Interpretation Comme nts AG HEPATITIS B SURFACE (test code = HBSAG) NONREACTIVE NONREACTIVE Specimen Comment: [facility] CONSENT FORM SIGNED FOR HIV TESTING? YAB HEPATITIS C [id number] 04:58:00* Test Item Value Reference Range Interpretation Comme nts AB HEPATITIS C (test code = HCVAB) NONREACTIVE NONREACTIVE SIGNAL TO CUTOFF (test code = CUTOFF) <0.02 <0.80 N Specimen Comment: [facility] CONSENT FORM SIGNED FOR HIV TESTING? YRUBELLA SCREEN 2019-04-19 04:58:00* Test Item Value Reference Range Interpretation Comme nts RUBELLA SCREEN (test code = RUBSC) 21.1 IUnit/ml Results >10.0IUn its/ml are considered positive inaccordance with the CLSI guidelines and based on the WHO International Standard for Anti-Rubella serum as anindicator of immune status and a breakpoint to detect mostseropositive persons. Specimen Comment: [facility] CONSENT FORM SIGNED FOR HIV TESTING? YAB TREPONEMA 2019-04-19 04:58:00* Test Item Value Reference Range Interpretation Comme nts AB TREPONEMA (test code = TREPAB) NONREACTIVE NONREACTIVE Specimen Comment: [facility] CONSENT FORM SIGNED FOR HIV TESTING? YAB HIV 1 2 2019-04-19 04:58:00* Test Item Value Reference Range Interpretation Comme nts AB HIV 1 2 (test code = [id number]) NONREACTIVE Specimen Comment: [facility] CONSENT FORM SIGNED FOR HIV TESTING? YAG HEPATITIS B [id number] 03:42:00* Test Item Value Reference Range Interpretation Comme nts AG HEPATITIS B SURFACE (test code = HBSAG) NONREACTIVE NONREACTIVE Specimen Comment: [facility] CONSENT FORM SIGNED FOR HIV TESTING? YAB HEPATITIS C [id number] 03:42:00* Test Item Value Reference Range Interpretation Comme nts AB HEPATITIS C (test code = HCVAB) NONREACTIVE NONREACTIVE SIGNAL TO CUTOFF (test code = CUTOFF) <0.02 <0.80 N Specimen Comment: [facility]DO [facility] CONSENT FORM SIGNED FOR HIV TESTING? YAB TREPONEMA 2019-04-19 03:42:00* Test Item Value Reference Range Interpretation Comme nts AB TREPONEMA (test code = TREPAB) NONREACTIVE NONREACTIVE Specimen Comment: LDO [facility] CONSENT FORM SIGNED FOR HIV TESTING? YAB HIV 1 2 2019-04-19 03:42:00* Test Item Value Reference Range Interpretation Comme nts AB HIV 1 2 (test code = [id number]) NONREACTIVE Specimen Comment: LDO [facility] CONSENT FORM SIGNED FOR HIV TESTING? YAG HEPATITIS B [id number] 03:11:00* Test Item Value Reference Range Interpretation Comme nts AG HEPATITIS B SURFACE (test code = HBSAG) NONREACTIVE NONREACTIVE Specimen Comment: O [facility] CONSENT FORM SIGNED FOR HIV TESTING? YAB HEPATITIS C [id number] 03:11:00* Test Item Value Reference Range Interpretation Comme nts AB HEPATITIS C (test code = HCVAB) NONREACTIVE SIGNAL TO CUTOFF (test code = CUTOFF) <0.80 Specimen Comment: O [facility] CONSENT FORM SIGNED FOR HIV TESTING? YAB TREPONEMA 2019-04-19 03:11:00* Test Item Value Reference Range Interpretation Comme nts AB TREPONEMA (test code = TREPAB) NONREACTIVE NONREACTIVE Specimen Comment: O [facility] CONSENT FORM SIGNED FOR HIV TESTING? YAB HIV 1 2 2019-04-19 03:11:00* Test Item Value Reference Range Interpretation Comme nts AB HIV 1 2 (test code = [id number]) NONREACTIVE Specimen Comment: O [facility] CONSENT FORM SIGNED FOR HIV TESTING? YGLUCOSE 2019-04-19 01:26:00* Test Item Value Reference Range Interpretation Comme nts GLUCOSE (test code = GLU) 89 mg/dL 65-110 N CBC W/AUTO [id number] 01:11:00* Test Item Value Reference Range Interpretation Comme nts WHITE BLOOD CELL (test code = WBC) [...] pg 27-35 N MEAN CELL HGB CONCETRATION ( test code = MCHC) 30.9 gm/dL 32.2-34.1 L RED CELL DISTRIBUTION WIDTH (test code = RDW) 15.3 % 12.4-16.5 N PLATELET COUNT (test code = PLT) 172 K/mm3 133-385 N IMMATURE PLATELET FRACTION ( test code = IPF) 0.0 % 0.0-10.8 N MEAN PLATELET VOLUME (test c ode = MPV) 11.1 fl 9.1-12.7 N NEUTROPHIL % (test code = NT%) 72.8 [...] = BA#) 0.0 K/mm3 RBC MORPHOLOGY REQUIRED (cristina t code = RBCM) NORMAL NORMAL PLATELET MORPHOLOGY REQUIRED (test code = PLTMR) NORMAL NORMAL - FET BIO PH UT W/O [id number] 02:11:00Patient Name: RUBY ZUNIGA Unit No: [id number] EXAMS: CPT CODE: [id number] FET BIO PH UT W/O NST 37004 EXAM: US, US FET BIO PH UT W/O NST : 06/09/2018, 0132 hours Clinical Indication: LOF. Possible rupture of the membranes Comparison: None. TECHNIQUE: Limited obstetrical ultrasound is performedfor biophysical profile evaluation with wells scale and M-mode imaging. FINDINGS: Single viable intrauterine gestation is seen in vertex presentation. heart rate is 120 bpm. Gestational age by LMP is 36 weeks 4 days. Placenta is anterior, grade 2. No evidence of placenta previa. Amniotic fluidis normal. Amniotic fluid index is 12.5 cm with largest pocket measuring 7.3 cm. biophysical profile: tone: 2 movement: 2 readin [place]: 2 BPP: 8 out of 8. Ovaries are not visualized. Adnexa are unremarkable bilaterally. Cervical length is 2.9 cm. IMPRESSION: 1. Single viabl e intrauterine gestation in vertex presentation. 2. . biophysical profile as above with score8/8 GENERAL OBSERVATIONS REGARDING LIMITED ULTRASOUND: 1. A normal or negative sonogram report should not delay further investigation of a clinically suspicious or abnormal . 2. position or overlap of parts may prevent complete evaluation of the fetus. 3. Congenital and developmental abnormalities are not always sonographically visualized. 4. Repeat sonograms may benecessary depending on the clinical development during . SL: [facility] NAME: RUBY ZUNIGA Radiology Department PHYS: Morris Rodrigues III, MD [address] : 1990 AGE: 28 SEX: F [place], [place] [address] LOC: MarisaSHARRON PHONE #: [phone] EXAM DATE: 04/08/2019 STATUS: REG ER FAX #: [phone] RAD NO: Page 1 Signed Report (CONTINUED)Patient Name: RUBY ZUNIGA Unit No: [id number] EXAMS: CPT CODE: [id number] US FET BIO PH UT W/O NST 01912 (Continued) at 0211 Reported and signed by: Angel Alcantar M.D. CC: Lucian Farfan MD; Morris Valentine III, MD Technologist: Kylie Logan RDMS Probe: Trnscrbd D/ (0211) t.[email or web address] Orig Print D/T: S: 04/08/2019 (0445) [facility] NAME: RUBY ZUNIGA Radiology Department PHYS: Morris Rodrigues III, MD [address] : 1990 AGE: 28 SEX: F [place] [address] LOC: Dallin.SHARRON PHONE #: [phone] EXAM DATE: 04/08/2019 STATUS: REG ER FAX #: [phone] RAD NO: Page 2 Signed Report Patient Name: RUBY ZUNIGA Unit No: [id number] EXAMS: CPT CODE: [id number] FET BIO PH UT W/O NST 42974 (Continued) [facility] NAME: JAIDEN ZUNIGAYSSA Radiology Department PHYS: Morris Rodrigues III, MD [address] : 1990 AGE: 28 SEX: F [place] [address] LOC: Dallin.SHARRON PHONE #: [phone] EXAM DATE: 04/08/2019 STATUS: REG ER FAX #: [phone] RAD NO: Page 3 Signed Report Notes Date/Time Note Provider Source 2019-04-21 13:59:00 [id number] wz2bLXsupKzN+2/w7mkNCf5tMv3Zz uvZd5XudtGSdsVDP1Le+gAXBPqjdz0aTTd6716-71-78Q78:5 9:00 [facility] ([facility])OB Disch PostpartumREPORT#:[id number] REPORT STATUS: SignedDATE:04/21/19 TIME: 1359 PATIENT: RUBY ZUNIGA UNIT #: [id number]#: [id number] ROOM/BED: 2039-ADOB: [birth year] AGE: 28 SEX: F ATTEND: Lucian Farfan AUTHOR: Lucian Farfan MD * ALL edits or amendments must be made on the electronic/computer document * Subjective SubjectiveAdmission EGA (wks/days): 38 weeksEGA at delivery (wks/days): 38 weeksStatus/day: post (Day 2)Patient reports: Patient reports: Yes: normal lochia, pain management effective, voiding without pain, tolerating ambulation. No: complaints. Objective GeneralVS:Vital Signs Date Temp Pulse Resp B/P B/P Mean Pulse Ox FiO2 04/20-04/21 98.2-98.6 76-86 - 126-128/73-84 Last Documented: Result Date Time B/P 128/84 04/21 719 Temp 98.6 04/21 07 Pulse 76 04/21 07 Resp 19 04/21 719 B/P Mean 83.0 04/19 1339 Patient Weight Weight (lb): 161Weight (oz): Weight (kg): 73.791040 Physical ExamNeuro: Exam: alert, oriented x3, normal speechAbdomen: soft, no abnormal tenderness, no guardingUterus: involution appropriate, non-tenderLochia: normalEpisiotomy or laceration: well approximated edges, no inflammation, no drainage notedLower extremities: Edema: 1+ pitting ResultsFindings/Data:Laboratory Tests: 04/20 0531 Hematology Hgb (10.7 - 13.9 g/dL) 8.1 L Hct (32.1 - 42.1 %) 26.4 L Results: labs reviewed, vital signs stable Discharge Summary Discharge SummaryDate of admission:Date of admission: 04/18/19 Admission diagnosis: labor-spontaneous, labor-termHospital course: spontaneous labor, augmentation of labor, spontaneous vag delivery, epidural anesthesia, nml postop/postpart careProcedures: epidural anesthesia, spontaneous vaginal delivBaby A: Vaginal delivery: spontaneous status: live born Gender: female 1 minute: 8 5 minutes: 9 Anomalies:noneNursing data:The data set between the solid lines has been imported from nursing documentation. Any exceptions have been noted below under Provider comments. EGA (weeks/days): 38.1EGA at admit (weeks): Delivery date infant A: 04/19/19 Delivery time infant A: 1112Birthweight (gm) infant A: 2780Feeding preference: Gender infant A: FemaleApgar 1 minute infant A: 5 minutes infant A: 10 minutes A: Provider comments on imported nursing data: [] Plan: routine care, discharge todayInstructions: routine instr sheet given, instr and warnings rev'd, specific instr as notedDiet: regularActivity and restrictions: up ad julissa, may shower, pelvic rest, no intercourse for 6 wks, no drivingContraception discussed: abstinence for 4-6 weeks, will discuss at PP visitDischarge meds:Continue taking these medications:PNV/FE FUM/FA ( MULTIVITAMIN) 28 MG IRON-800 MCG TAB 1 TABLET ORAL DAILY. Prescriptions: e-prescribeRx drug database reviewed: yesDischarge condition: stableDischarge to: homeFollow up in: 6 weeksDischarge diagnosis: full-term uncomp deliveryDischarge management: less than 30 mins at 1401 RPT #:[id number] OF REPORT OBObstetric wxrf1909-17-63X61:59:00F.[id number] able for patient qgytMOOQLESUSOHCPH0065-13-54N21:02:10 [facility] 2019-04-19 11:34:00 [id number]/ 1n1S7hLLW6kWiGY8gARFLOgMiBIrb u5/lqfrjNBc6DxEqLQ+hgsijP0tUy/ETml3835-45-38A48:3 4:00 [facility] ([facility])OB Delivery NoteREPORT#:[id number] REPORT STATUS: SignedDATE:04/19/19 TIME: 1134 PATIENT: RUBY ZUNIGA UNIT #: [id number]#: [id number] [facility] [birth year] AGE: 28 SEX: F ATTEND: Lucian Farfan AUTHOR: Lucian Farfan MD * ALL edits or amendments must be made on the electronic/computer document * OB Delivery Nursing Documentation ReviewNursing data:The data set between the solid lines has been imported from nursing documentation. Any exceptions have been noted below under Provider comments. ROM date: 04/19/19 ROM time: 0638Membranes rupture method: AROMAmniotic fluid color: ClearAmniotic fluid amount: EGA (weeks/days): 38.0EGA at admit (weeks): EGA at delivery (weeks): 38Steroids prior to arrival: Antibiotic prophylaxis given: [place] evaluation at delivery: Delivery date A: 04/19/19 Delivery time A: 1112Birthweight (gm) A: Weight (lb) infant A: Weight (oz) infant A: Gender A: FemaleApgar 1 minute A: 5 minutes A: 10 minutes A: Cord pH obtained infant A: Vacuum time A: Vacuum # pulls A: Vacuum # popoffs infant A: Provider comments on imported nursing data: [] Pre-deliveryGBS status: GBS status: negative Prophylaxis administered: noneNewborn evaluation at delivery: NRP certified personnelAdmission EGA (wks/days): 38 weeksEGA at delivery (wks/days): 38 weeks Steroids Prior to DeliverySteroids prior to delivery: no, delivery on arrival GeneralVS:Last Documented: Result Date Time B/P Mean 92.0 04/19 1056 B/P 115/77 04/19 1056 Pulse 71 04/19 1056 Temp 97.8 04/19 0844 Resp 18 04/19 0122 Membranes: AROMROM date: 04/19/19ROM time: 0815Amniotic fluid: clear Baby A InformationBaby A information Delivery date: 04/19/19 Delivery time: 1112 status: live born Wt of baby: not yet available Gender: female 1 minute: 8 5 minutes: 9 Presentation: vertex Anomalies:noneABG details Baby A Cord blood gases: not collectedNuchal cord Baby A Nuchal cord: yes (loose and reduced) Anomalies:none Vaginal DeliveryVaginal delivery Labor: augmented Medications/Devices used: oxytocin Vaginal delivery: spontaneous Amniotic fluid: clear Anesthesia type: epidural anesthesia Episiotomy: none Episiotomy repair: not applicable Laceration repair: yes Episiotomy/laceration suture: 2-0 (vicryl) Placenta: spontaneous, intact Post delivery meds used: oxytocin Count: correct Mother's condition: mother stable 's condition: stable in roomLacerations: Perineal laceration(s): 2nd Degree High vaginal laceration: no at 1138 RPT #:[id number] OF REPORT OBObstetric xwcn2618-66-53H31:34:00F.VCYO20848093-5336FWSnmpq able for patient aiprDQIOLFIKQWPYUN1329-05-18N13:39:11 [facility] 2019-04-19 06:40:00 AWndiwwakqo39115722b ocEOQ6Br9N1mbaAqmsxP0QYRJvT4Y pX3k3ludAjuklOgWHrJCN5H0FqRk/yaO3p1207-04-93T90:4 0:00 [facility] ([facility])Clinical NoteREPORT#:[id number] REPORT STATUS: SignedDATE:04/19/19 TIME: 0640 PATIENT: RUBY ZUNIGA UNIT #: [id number]#: [id number] [facility] [birth year] AGE: 28 SEX: F ATTEND: Lucian Farfan MDA AUTHOR: Elenita Meredith MD * ALL edits or amendments must be made on the electronic/computer document * Clinical NoteNote:increasing contractions Last Documented: Result Date Time B/P Mean 95.0 04/19 518 B/P 119/78 04/19 518 Temp 98.1 04/19 518 Pulse 85 04/19 518 Resp 18 04/19 0122 SVE 5/70/-2AROM clearFHT 140s cat 1TOCO q 3 min recheck prn at 0640 RPT #:[id number] OF REPORT CLClinical ulax4382-36-85F96:40:00F.NRHY04500907-1330PNMbgph able for patient kgyzFYFESIXMLAUCYI1934-01-15K31:40:58 [facility] 2019-04-19 00:23:00 [id number] 7nStyqxoPbT5s8z7o/qP1vXuRV1fX Hj12DyQXONTOXUKjCF+sZiUhS7NB3Uu4CY5257-02-40A38:2 3:00 [facility] ([facility])OB Admission / H PREPORT#:[id number] REPORT STATUS: SignedDATE:04/19/19 TIME: 002 PATIENT: RUBY ZUNIGA UNIT #: [id number]#: [id number] ROOM[facility]BED: [facility]-AD[facility]: [birth year] AGE: 28 SEX: F ATTEND: Lucian Farfan MDA AUTHOR: Elenita Meredith MD * ALL edits or amendments must be made on the electronic/computer document * OB Admission H P HxChief complaint: uterine contractionsPregnancy history: : 4 Term: 2 Abortus: 1 Living children: 2 Complications (prev preg): noneCurrent : EDC: 05/03/19 Admission EGA (wks/days): 38 weeksConditions of : insufficient care elevated 1 hour GTT, did notget 3 hour GTTLabs: Blood type: A Rh: positive Rubella: immune Hepatitis B: negative HIV: negative STD: negative Syphilis: currently negative GBS: negativeProcedures: ultrasoundGenetic testing: nonePast medical history: bipolar, depression, obesityPast surgical history: l scope breast surgerySocial history: unemployed, , no alcohol use, no tobacco use, no drug useMedications:Home Medications:PNV/FE FUM/FA ( MULTIVITAMIN) 1 TAB PO DAILY AllergiesCoded Allergies:latex (Intermediate, HIVES 04/18/19) Objective GeneralVS:Last Documented: Result Date Time B/P Mean 86.0 04/18 1923 B/P 04/18 Temp 98.5 04/18 1923 Pulse 83 04/18 192 Resp 18 04/18 1923 Vital Signs Date Temp Pulse Resp B/P B/P Mean Pulse Ox FiO2 04/18 98.5 83 18 86.0 Patient Weight Weight (lb): Weight (oz): Weight (kg): 73.276332 Physical ExamHEENT: normocephalic w/o injuryNeuro: Exam: alert, oriented x3, normal speechAbdomen: gravid, soft, no abnormal tendernessUterine activity: Monitor: toco Frequency (minutes): 3Pelvic exam: Pelvis clinically adequate: yes, inlet appears appropriate, pubic bone configappropr, no midpelvic contraction Vulvar lesions: none Exam: soft, non-tender, approp size for gest ageCervical/ exam: Dilatation (cm): 4 (at admit) Effacement (%): 80 Est wt (gms): 3600 station: - 2 presentation: cephalicMembranes: Membranes: IntactLower extremities: Edema: 1+ pittingBaby A: Baby A baseline: 125 bpm Baby A variability: moderate 6-25 bpm Baby A accelerations: 15 X 15 Baby A decelerations: none Baby A FHR category: category 1 Diagnosis, Assessment Plan Diagnosis, Assessment PlanAssessment/Impression: spont.active labor<39 wksPlan: augmentation of laborPlan discussed with: nurse at 0029 RPT #:[id number] OF REPORT HPHistory and physical cehidahtjdd9277-85-73B44:23:00F.DDKB85350793-3302 AVAvailable for patient tgvxNWVCUAKKNMKXSB4747-95-93B57:30:10 [facility] 2019-04-08 00:40:00 [id number] Fl41oYNZWzhM2CG5vxdKv8oqkUmtE Ur7e+RKHUckhG4dwiitlffEA1diRUY3TLS3646-61-51U05:4 0:00 [facility] ([facility])EMERGENCY PROVIDER REPORTREPORT#:[id number] REPORT STATUS: SignedDATE:04/08/19 TIME: 0040 PATIENT: RUBY ZUNIGA UNIT #: [id number]#: [id number] ROOM/BED:AGE: 28 SEX: F PCP PHYS: Lucian Farfan AUTHOR: Morris Vaelntine III, MD * ALL edits or amendments must be made on the electronic/computer document * [place] History Nursing Documentation ReviewNursing data:[facility] ER VISIT 28 year old female SAB 2 @ 36.3 wkscc Leaked fluid vaginallyHPI She complains of the loss of a gush of clear fluid vaginally at about 8:30pm tonight. This happened once, no recurrent loss of fluid. Has occasional mild uterine contraction, no vaginal bleeding, endorses positive movements. care complicated by a history of diet controlled diabetes. Here in triage her amnisure testing is negative, nitrazine testing also negative. She is 3cm dilated and not rodolfo and not leaking fluid. She has reassuring heart tones. Dr Carrasquillo has cleared her for discharge pending evaluation by the VISITING TEACHER Hospitalist.PMH NKDA LATEX ALLERGY OB SAB2 2 previous vaginal delivery at term GDM 2 miscarriages, one with d and c PMH Scoliosis, depression, anxiety, diet controlled GDM PSH D and C, laparoscopy, breast reduction MEDS vitaminFMH Positive for diabetes and hypertension SH No smoke, no etoh, no drugsROS No shortness of breath, no chest pain, no vaginal bleeding, occasional uterine contraction, mild sharp suprapubic pain, endorses positive movements. Medications:Home Medications:Medication Dose/Rte/Freq Days Qty Entered Last Max Daily Dose Reviewed PNV/FE FUM/FA 1 TAB PO DAILY 07/02/13 ( MULTIVITAMIN) 1729Strength: 28 MG IRON-800 MCGTAB Current Hospital Medications:Autonomic Drugs Sig/Lisseth Start time Last Medication Dose [...] Lactated Ringer's 1,000 ML BOLUS ONCE ONE 12/04 0545 AC (LACTATED RINGERS) IV 04/08 0644 AllergiesCoded Allergies:latex (Intermediate, HIVES 04/08/19) Objective GeneralVS:Last Documented: Result Date Time Pulse Ox 100 04/08 0557 Pulse 79 04/08 0557 B/P Mean 95.0 04/07 2304 B/P 127/73 04/07 2304 Temp 98.5 04/07 2304 Resp 17 04/07 2304 Vital Signs Date Temp Pulse Resp B/P B/P Mean Pulse Ox FiO2 04/07-04/08 98.5 79-83 17 127/73 95.0 100 Patient Weight Weight (lb): Weight (oz): Weight (kg): 76.861033Dheayyzeo Allergy Severity Reaction Updated Coded latex Intermediate HIVES 04/08/19No acute distess, alert, normal affectChest clear to auscultationCVR RRRAB gravid and nontenderSVE by nursing staff 3cm/60%/-3 station not leaking fluid, both nitrazine and amnisure neg 3cm/60%/-3 station while awaiting results of bpp she started having moderate ctx's every 3 to 4 minutes repeat exam by me 3 to 4 cm/60%/-3 stationExt no pathological pretibial edema, normal reflexes, no calf tendernessTOCO initially no regular contractions then moderate ctx's every 3 to 4 minuteswhile awaiting results of bppFHT category one overall, accelerations are present Recent Impressions:ULTRASOUND - US FET BIO PH UT W/O NST 04/08 0140 Report Impression - Status: SIGNED Entered: 04/08/2019 0445 IMPRESSION:1. Single viable intrauterine gestation in vertex presentation. 2. . biophysical profile as above with score 8/8 GENERAL OBSERVATIONS REGARDING LIMITED ULTRASOUND:1. A normal or negative sonogram report should not delay furtherinvestigation of a clinically suspicious or abnormal . 2. position or overlap of parts may prevent completeevaluation of the fetus. 3. Congenital and developmental abnormalities are not alwayssonographically visualized. 4. Repeat sonograms may be necessary depending on the clinicaldevelopment during . SL: [facility] Impression By: ZeyadJS38 Sarabjit Alcantar M.D. ResultFindings/Data:Recent Impressions:ULTRASOUND - US FET BIO PH UT W/O NST 04/08 0140 Report Impression - Status: SIGNED Entered: 04/08/2019 0445 IMPRESSION:1. Single viable intrauterine gestation in vertex presentation. 2. . biophysical profile as above with score 8/8 GENERAL OBSERVATIONS REGARDING LIMITED ULTRASOUND:1. A normal or negative sonogram report should not delay furtherinvestigation of a clinically suspicious or abnormal . 2. position or overlap of parts may prevent completeevaluation of the fetus. 3. Congenital and developmental abnormalities are not alwayssonographically visualized. 4. Repeat sonograms may be necessary depending on the clinicaldevelopment during . SL: [facility]ERSON Impression By: ZeyadJSParis Alcantar M.D. Diagnosis, Assessment Plan Diagnosis, Assessment PlanFree Text A P:Impression IUP at 36.3 wks R/O labor reassuring heart tones, bpp 8/8, membranes intactPlan Not quite ready for discharge. Nursing staff has spoken with Dr Crarasquillo, orders given for IV hydration, sq terb. Monitor response jr at 2021 RPT #:[id number] OF REPORT OBObstetric irzi9323-35-73J14:40:00F.RRFO13204066-7399GZZkbxl able for patient hahmHAPFCWSTVLEKYA0235-86-34X59:22:27 [facility]"
--- NOTE | 2023-08-03 19:27 | EDPHYS ---
Physician Documentation [facility] Name: Zaira Zuniga Age: 32 yrs Sex: Female : 1990 Arrival Date: 08/03/2023 Time: 18:46 Bed 14 Private MD: CORNELIO Physician Alec Sifuentes HPI: 08/02 19:21 This 32 yrs old Female presents to ER via Ambulatory with complaints of Cyst - dena on vaginal lip. 19:21 The patient presents with pelvic pain, that is located in/on the right labia minora. dena Onset: The symptoms/episode began/occurred 21 day(s) ago. Modifying factors: The symptoms are alleviated by remaining still, sitz baths, the symptoms are aggravated by movement, pressure, walking. Associated signs and symptoms: The patient has no apparent associated signs or symptoms. Severity of symptoms: At their worst the symptoms were mild, in the emergency department the symptoms are unchanged. The patient is sexually active, reportedly has a single partner. The patient has not experienced similar symptoms in the past. Historical: - Allergies: 18:58 Latex; as6 - PMHx: 18:58 scoliosis; mitral valve prolapse; gastritis; Endometrosis; as6 - PSHx: 18:58 Ligation of fallopian tube; breat; Exploratory laparotomy; as6 - Immunization history:: Adult Immunizations up to date. - Social history:: Smoking status: Patient denies any tobacco usage or history of. ROS: 19:23 Constitutional: Negative for fever, chills, and weight loss, Eyes: Negative for injury, dena pain, redness, and discharge, ENT: Negative for injury, pain, and discharge, Neck: Negative for injury, pain, and swelling, Cardiovascular: Negative for chest pain, palpitations, and edema, Respiratory: Negative for shortness of breath, cough, wheezing, and pleuritic chest pain, Abdomen/GI: Negative for abdominal pain, nausea, vomiting, diarrhea, and constipation, Back: Negative for injury and pain, : Negative for injury, bleeding, discharge, and swelling, MS/Extremity: Negative for injury and deformity, Neuro: Negative for headache, weakness, numbness, tingling, and seizure, Psych: Negative for depression, anxiety, suicide ideation, homicidal ideation, and hallucinations, Allergy/Immunology: Negative for hives, rash, and allergies, Endocrine: Negative for neck swelling, polydipsia, polyuria, polyphagia, and marked weight changes, Hematologic/Lymphatic: Negative for swollen nodes, abnormal bleeding, and unusual bruising, 19:23 Skin: Positive for swelling, of the right labia minora, Exam: 19:23 Constitutional: This is a well developed, well nourished patient who is awake, alert, dena and in no acute distress. Head/Face: Normocephalic, atraumatic. Eyes: Pupils equal round and reactive to light, extra-ocular motions intact. Lids and lashes normal. Conjunctiva and sclera are non-icteric and not injected. Cornea within normal limits. Periorbital areas with no swelling, redness, or edema. ENT: Nares patent. No nasal discharge, no septal abnormalities noted. Tympanic membranes are normal and external auditory canals are clear. Oropharynx with no redness, swelling, or masses, exudates, or evidence of obstruction, uvula midline. Mucous membranes moist. Neck: Trachea midline, no thyromegaly or masses palpated, and no cervical lymphadenopathy. Supple, full range of motion without nuchal rigidity, or vertebral point tenderness. No Meningismus. Chest/axilla: Normal chest wall appearance and motion. Nontender with no deformity. No lesions are appreciated. Cardiovascular: Regular rate and rhythm with a normal S1 and S2. No gallops, murmurs, or rubs. Normal PMI, no JVD. No pulse deficits. Respiratory: Lungs have equal breath sounds bilaterally, clear to auscultation and percussion. No rales, rhonchi or wheezes noted. No increased work of breathing, no retractions or nasal flaring. Abdomen/GI: Soft, non-tender, with normal bowel sounds. No distension or tympany. No guarding or rebound. No evidence of tenderness throughout. Back: No spinal tenderness. No costovertebral tenderness. Full range of motion. Skin: Warm, dry with normal turgor. Normal color with no rashes, no lesions, and no evidence of cellulitis. MS/ Extremity: Pulses equal, no cyanosis. Neurovascular intact. Full, normal range of motion. Neuro: Awake and alert, GCS 15, oriented to person, place, time, and situation. Cranial nerves II-XII grossly intact. Motor strength 5/5 in all extremities. Sensory grossly intact. Cerebellar exam normal. Normal gait. Psych: Awake, alert, with orientation to person, place and time. Behavior, mood, and affect are within normal limits. 19:23 : Pelvic Exam: External exam: erythema is noted, Vital Signs: 18:57 BP 129 / 73; Pulse 83; Resp 18 S; Temp 98.5(O); Pulse Ox 100% on R/A; Weight 74.39 kg as6 (R); Height 5 ft. 0 in. (R); Pain 7/10; 18:57 Body Mass Index 32.03 (74.39 kg, 152.4 cm) as6 18:57 Pain Scale: Adult as6 MDM: 19:00 Patient medically screened. dena 19:24 Differential diagnosis: urinary tract infection. Data reviewed: vital signs, nurses dena notes, lab test result(s). Consideration of Admission/Observation Escalation of care including admission/observation considered. I considered the following discharge prescriptions or medication management in the emergency department Medications were administered in the Emergency Department. See MAR. Test considered but Not performed: Labs: no cbc, no comp met. Care significantly affected by the following chronic conditions: mvp, gastritis, scoliosis, endometrosis. Administered Medications: 19:50 Drug: Doxycycline PO 200 mg PO once Route: PO; rv 19:50 Follow up: Response: Medication administered at discharge. rv 19:50 Drug: Trimethoprim-Sulfamethoxazole PO (160 mg-800 mg (DS) 1 tablet PO once Route: PO; rv 19:50 Follow up: Response: Medication administered at discharge. rv 19:50 Drug: Ibuprofen PO 600 mg PO once Route: PO; rv 19:50 Follow up: Response: Medication administered at discharge. rv Disposition Summary: 08/03/23 19:27 Discharge Ordered Notes: Location: Home dena Problem: new dena Symptoms: have improved dena Condition: Stable dena Diagnosis - Cutaneous abscess, unspecified dena Followup: dena - With: Private Physician - When: 2 - 3 days - Reason: Recheck today's complaints, Continuance of care, Re-evaluation by your physician Followup: dena - With: Leanna Carter MD - When: 2 - 3 days - Reason: Recheck today's complaints, Re-evaluation by your physician Discharge Instructions: - Discharge Summary Sheet dena - Skin Abscess dena - How to Take a Sitz Bath dena - Skin Abscess, Iast-ed-Kelx dena Forms: - Medication Reconciliation Form [facility] - Thank You Letter dena - Antibiotic Education dena - Prescription Opioid Use dena - Patient Portal Instructions [facility] - Leadership Thank You Letter [facility] Prescriptions: - acetaminophen-codeine 300-30 mg Oral tablet - take 2 tablet ORAL route every 6 hours; 20 tablet; Refills: 0, Product [facility] Selection Permitted - Doxycycline Hyclate 100 mg Oral Tablet - take 1 tablet ORAL route every 12 hours; 20 tablet; Refills: 0, Product [facility] Selection Permitted - Fluconazole 200 mg Oral tablet - take 1 tablet ORAL route once daily; 3 tablet; Refills: 0, Product Selection [facility] Permitted - Bactrim DS 800-160 mg Oral Tablet - take 1 tablet ORAL route every 12 hours for 10 days; 20 tablet; Refills: 0, [facility] Product Selection Permitted Signatures: Dispatcher [employer] Alec Balderas MD MD cha Vicente, Ronaldo, RN RN Mikael Meraz RN RN as6
--- NOTE | 2023-08-03 19:27 | ER ---
Nurse's Notes [facility] Name: Zaira Zuniga Age: 32 yrs Sex: Female : 1990 Arrival Date: 08/03/2023 Time: 18:46 Bed 14 Private MD: Diagnosis: Cutaneous abscess, unspecified Presentation: 08/02 18:57 Chief complaint: Patient states: cyst to right labia. pt report she has been taking as6 antibiotics with no change. Coronavirus screen: At this time, the client does not indicate any symptoms associated with coronavirus-19. Ebola Screen: No symptoms or risks identified at this time. Initial Sepsis Screen: Does the patient meet any 2 criteria? Yes Does the patient have a suspected source of infection? No. Patient's initial sepsis screen is negative. Risk Assessment: Do you want to hurt yourself or someone else? Patient reports no desire to harm self or others. Onset of symptoms was July 24, 2023. 18:57 Acuity: MACK 4 as6 18:57 Method Of Arrival: Ambulatory as6 Triage Assessment: 18:59 General: Appears in no apparent distress. Behavior is calm, cooperative. Pain: as6 Complains of pain in pelvis. Historical: - Allergies: 18:58 Latex; as6 - PMHx: 18:58 scoliosis; mitral valve prolapse; gastritis; Endometrosis; as6 - PSHx: 18:58 Ligation of fallopian tube; breat; Exploratory laparotomy; as6 - Immunization history:: Adult Immunizations up to date. - Social history:: Smoking status: Patient denies any tobacco usage or history of. Screenin:48 [facility] ED Fall Risk Assessment (Adult) History of falling in the last 3 months, rv including since admission No falls in past 3 months (0 pts) Score/Fall Risk Level 0 - 2 = Low Risk Oriented to surroundings, Maintained a safe environment, Educated pt \T\ family on fall prevention, incl call for assistance when getting out of bed, Assessed \T\ reinforced patient's understanding of fall precautions. Abuse screen: Denies threats or abuse. Denies injuries from another. Nutritional screening: No deficits noted. Tuberculosis screening: No symptoms or risk factors identified. Assessment: 19:48 General: Appears comfortable, Behavior is calm, cooperative. Pain: Denies pain. Neuro: rv Level of Consciousness is awake, alert, obeys commands, Oriented to person, place, time, situation. Cardiovascular: Capillary refill < 3 seconds Patient's skin is warm and dry. Respiratory: Airway is patent Respiratory effort is even, unlabored. GI: No signs and/or symptoms were reported involving the gastrointestinal system. : Reports cyst/abscess on labia. Vital Signs: 18:57 BP 129 / 73; Pulse 83; Resp 18 S; Temp 98.5(O); Pulse Ox 100% on R/A; Weight 74.39 kg as6 (R); Height 5 ft. 0 in. (R); Pain 7/10; 18:57 Body Mass Index 32.03 (74.39 kg, 152.4 cm) as6 18:57 Pain Scale: Adult as6 ED Course: 18:49 Patient arrived in ED. im 18:58 Triage completed. as6 18:59 Arm band placed on. as6 19:00 Alec Sifuentes MD is Attending Physician. dena 19:26 Leanna Carter MD is Referral Physician. [facility] 19:48 Dave Abdul, RN is Primary Nurse. rv 19:48 Patient has correct armband on for positive identification. Client placed on continuous rv cardiac and pulse oximetry monitoring. NIBP monitoring applied. 19:48 No provider procedures requiring assistance completed. Patient did not have IV access rv during this emergency room visit. Administered Medications: 19:50 Drug: Doxycycline PO 200 mg PO once Route: PO; rv 19:50 Follow up: Response: Medication administered at discharge. rv 19:50 Drug: Trimethoprim-Sulfamethoxazole PO (160 mg-800 mg (DS) 1 tablet PO once Route: PO; rv 19:50 Follow up: Response: Medication administered at discharge. rv 19:50 Drug: Ibuprofen PO 600 mg PO once Route: PO; rv 19:50 Follow up: Response: Medication administered at discharge. rv Medication: 19:48 VIS not applicable for this client. rv Outcome: 19:27 Discharge ordered by . [facility] 19:48 Discharged to home ambulatory, rv 19:48 Condition: good 19:48 Discharge instructions given to patient, Instructed on discharge instructions, follow up and referral plans. Demonstrated understanding of instructions, follow-up care, medications, Prescriptions given X 4, 19:50 Patient left the ED. rv Signatures: Alec Sifuentes MD MD cha Vicente, Ronaldo, RN RN rv Mikael Tripathi, RN RN as6 Kristin Hampton
[2023-08-03] MEDS ORDERED: IBUPROFEN 200 MG TAB PO ONE (19:42)
[2023-08-03] MEDS ORDERED: IBUPROFEN 400 MG TAB ONE (19:42)
[2023-08-03] MEDS ORDERED: SMZ./TMP. 800/160 MG TABLET ONE (19:42)
[2023-08-03] MEDS ORDERED: DOXYCYCLINE 100 MG CAP PO ONE (19:43)
[2023-08-03 21:13] VITALS: BP 129/73; TEMP 98.5; O2SAT 100
== END 2023-08-03 19:50 | disposition home or self-care (01) ==
LOC: ER 18:46
DX: N76.4 Abscess of vulva (principal); Z91.040 Latex allergy status
CPT/HCPCS: 99283

== ENCOUNTER 2023-08-10 14:08 | Emergency (ER) | payer OTHER ==
--- NOTE | 2023-08-10 15:44 | EDPHYS ---
Physician Documentation [facility] Name: Zaira Zuniga Age: 32 yrs Sex: Female : 1990 Arrival Date: 08/10/2023 Time: 14:08 Bed 8 Private MD: LEIDA KELLY ED Physician Alec Sifuentes HPI: 08/09 15:58 This 32 yrs old Female presents to ER via Ambulatory with complaints of kb Vaginal Pain. 15:58 Pt is a 32 year old female who presents with swelling and pain to labia minora that kb started about one month ago. States she has been to 2 ERs and a [facility], but no one has done anything except prescribe antibiotics. States she is still on previously prescribed antibiotics. Denies fever. . Historical: - Allergies: 14:58 Latex; nj1 - PMHx: 14:58 Endometrosis; gastritis; mitral valve prolapse; scoliosis; nj1 - PSHx: 14:58 Exploratory laparotomy; Ligation of fallopian tube; Breast reduction (Unknown); nj1 - Immunization history:: Client reports receiving the 2nd dose of the Covid vaccine. - Infectious Disease History:: Denies. - Social history:: Smoking status: Patient denies any tobacco usage or history of. ROS: 15:54 Constitutional: As per HPI kb Exam: 15:54 Constitutional: This is a well developed, well nourished patient who is awake, alert, kb and in no acute distress. Head/Face: Normocephalic, atraumatic. ENT: Moist Mucous membranes Cardiovascular: Regular rate Respiratory: Respirations even and unlabored. No increased work of breathing. Talking in full sentences Skin: Warm, dry with normal turgor. Normal color. MS/ Extremity: Pulses equal, no cyanosis. Neurovascular intact. Full, normal range of motion. Neuro: Awake and alert, GCS 15, oriented to person, place, time, and situation. Moves all extremities. Normal gait. 15:54 : Pelvic Exam: External exam: right labia minora with moderate swelling, no fluctuation, Vital Signs: 14:54 BP 130 / 87; Pulse 84; Resp 18; Temp 97.3(TE); Pulse Ox 100% on R/A; Weight 72.57 kg; nj1 Height 5 ft. 0 in. ; Pain 8/10; 14:54 Body Mass Index 31.25 (72.57 kg, 152.4 cm) nj1 14:54 Pain Scale: Adult nj1 MDM: 14:32 Patient medically screened. kb 15:55 Differential diagnosis: abscess, cellulitis, bartholins cyst. Data reviewed: vital kb signs, nurses notes. Counseling: I had a detailed discussion with the patient and/or guardian regarding the historical points, exam findings, and any diagnostic results supporting the discharge/admit diagnosis, the need for outpatient follow up, an OB/Gyne specialist, to return to the emergency department if symptoms worsen or persist or if there are any questions or concerns that arise at home. ED course: Pt educated to complete antibiotics and follow back up with [facility]. Pt has an appt with [facility] on Saturday for reexamination. states the cake wringer that she saw told her to finish the antibiotics and come back, but if the antibiotics don't treat the infection then they will have to remove the labia. . Administered Medications: No medications were administered Disposition Summary: 08/10/23 15:43 Discharge Ordered Notes: Location: Home kb Condition: Stable kb Diagnosis - Cutaneous abscess of groin - labia minora kb Followup: kb - With: Emergency Department - When: As needed - Reason: Worsening of condition Followup: kb - With: Private Physician - When: 2 - 3 days - Reason: Recheck today's complaints, Continuance of care, Re-evaluation by your physician Discharge Instructions: - Discharge Summary Sheet kb - Skin Abscess, [id number] kb Forms: - Medication Reconciliation Form kb - Thank You Letter kb - Antibiotic Education kb - Prescription Opioid Use kb - Patient Portal Instructions kb - Leadership Thank You Letter kb Signatures: Marcia Alvarado, ALESHIA ZAPATA-Jodee Liz, RN RN nj1 Corrections: (The following items were deleted from the chart) 14:59 14:58 PSHx: breat; nj1 nj1
--- NOTE | 2023-08-10 15:44 | ER ---
Nurse's Notes [facility] Name: Zaira Zuniga Age: 32 yrs Sex: Female : 1990 Arrival Date: 08/10/2023 Time: 14:08 Bed 8 Private MD: LEIDA KELLY Diagnosis: Cutaneous abscess of groin-labia minora Presentation: 08/09 14:54 Chief complaint: Patient states: Seen here a week ago. Has "a growth on my labia nj1 minora", taking abx, seen a OBGYN who told her to finish abx and go back to see her Saturday. Pt states it is getting worse. Coronavirus screen: Vaccine status: Patient reports receiving the 2nd dose of the covid vaccine. Ebola Screen: Patient denies travel to an Ebola-affected area in the 21 days before illness onset. Initial Sepsis Screen: Does the patient meet any 2 criteria? No. Patient's initial sepsis screen is negative. Does the patient have a suspected source of infection? No. Patient's initial sepsis screen is negative. Risk Assessment: Do you want to hurt yourself or someone else? Patient reports no desire to harm self or others. Onset of symptoms was July 2023. 14:54 Method Of Arrival: Ambulatory [facility] 14:54 Acuity: MACK 3 nj1 Historical: - Allergies: 14:58 Latex; nj1 - PMHx: 14:58 Endometrosis; gastritis; mitral valve prolapse; scoliosis; nj1 - PSHx: 14:58 Exploratory laparotomy; Ligation of fallopian tube; Breast reduction (Unknown); nj1 - Immunization history:: Client reports receiving the 2nd dose of the Covid vaccine. - Infectious Disease History:: Denies. - Social history:: Smoking status: Patient denies any tobacco usage or history of. Screenin:00 [facility] ED Fall Risk Assessment (Adult) History of falling in the last 3 months, iw including since admission No falls in past 3 months (0 pts) Confusion or Disorientation No (0 pts) Intoxicated or Sedated No (0 pts) Impaired Gait No (0 pts) Mobility Assist Device Used No (0 pt) Altered Elimination No (0 pt) Score/Fall Risk Level 0 - 2 = Low Risk. Abuse screen: Denies threats or abuse. Denies injuries from another. Nutritional screening: No deficits noted. Tuberculosis screening: No symptoms or risk factors identified. Assessment: 15:20 General: Appears comfortable, Behavior is calm, cooperative. Pain: Complains of pain in aa5 labia Pain currently is 8 out of 10 on a pain scale. Quality of pain is described as tender. Neuro: Level of Consciousness is awake, alert, obeys commands, Oriented to person, place, time, situation. Cardiovascular: Heart tones S1 S2 present Rhythm is regular. Respiratory: Airway is patent Respiratory effort is even, unlabored, Respiratory pattern is regular, symmetrical. GI: No signs and/or symptoms were reported involving the gastrointestinal system. : swelling noted to right labia minora. EENT: No signs and/or symptoms were reported regarding the EENT system. Derm: Skin is pink, warm \\T\\ dry. Musculoskeletal: Range of motion: intact in all extremities. 16:00 Reassessment: Patient appears in no apparent distress at this time. Patient and/or iw family updated on plan of care and expected duration. Pain level reassessed. Patient is alert, oriented x 3, equal unlabored respirations, skin warm/dry/pink. Vital Signs: 14:54 BP 130 / 87; Pulse 84; Resp 18; Temp 97.3(TE); Pulse Ox 100% on R/A; Weight 72.57 kg; nj1 Height 5 ft. 0 in. ; Pain 8/10; 14:54 Body Mass Index 31.25 (72.57 kg, 152.4 cm) nj1 14:54 Pain Scale: Adult al1 ED Course: 14:12 Patient arrived in ED. rg4 14:13 LEIDA KELLY is Private Physician. rg4 14:31 [facility]varado [facility]C [facility] kb 14:31 Alec Sifuentes MD is Attending Physician. kb 14:58 Triage completed. nj1 14:59 Arm band placed on right wrist. nj1 15:03 Pennie Mckinnon, RN is Primary Nurse. aa5 15:20 Patient has correct armband on for positive identification. Placed in gown. Bed in low aa5 position. Call light in reach. Side rails up X 1. 16:01 Patient did not have IV access during this emergency room visit. iw Administered Medications: No medications were administered Medication: 15:20 VIS not applicable for this client. aa5 Outcome: 15:43 Discharge ordered by . rosa 16:01 Discharged to home ambulatory, iw 16:01 Condition: good 16:01 Discharge instructions given to patient, Instructed on discharge instructions, follow up and referral plans. Demonstrated understanding of instructions, follow-up care, 16:01 Patient left the ED. iw Signatures: Marcia Alvarado, SALVAGE CLERK-C SALVAGE CLERK-Arleen Nunes, RN RN iw Pennie Mckinnon, RN RN aa5 Jacinda Lund 4 Jodee Hector RN RN nj1 Corrections: (The following items were deleted from the chart) 14:59 14:58 PSHx: breat; nj1 nj1 16:01 16:01 No provider procedures requiring assistance completed. iw
[2023-08-10 19:11] VITALS: BP 130/87; TEMP 97.3; O2SAT 100
== END 2023-08-10 16:01 | disposition home or self-care (01) ==
LOC: ER 14:08
DX: N76.4 Abscess of vulva (principal); Z91.040 Latex allergy status
CPT/HCPCS: 99282